=== PATIENT | female | born 1970 | race Caucasian/White ===

== ENCOUNTER 2020-03-08 11:05 | Emergency (ER) | payer BC, SELFPAY ==
[2020-03-08 11:07] VITALS: BP 143/75; PULSE 53; RESP 16; TEMP 36.2; O2SAT 98; BMI 41.5
--- NOTE | 2020-03-08 11:18 | NURSING ---
NO OLD EKGS
[2020-03-08 11:26] LABS: Bedside Glucose 103 mg/dL (70-110)
--- NOTE | 2020-03-08 11:26 | EKG12_ITS ---
Test Reason : HEADACHE DIZZINESS Blood Pressure : / mmHG Vent. Rate : 050 BPM Atrial Rate : 050 BPM P-R Int : 172 ms QRS Dur : 084 ms QT Int : 468 ms P-R-T Axes : 026 -14 016 degrees QTc Int : 426 ms Sinus bradycardia Otherwise normal ECG Confirmed by JELENA SILVERIO, HECTOR ([id number]), commissioning editor DELFIN MG ([id number]) on 03/14/2020 8:39:52 AM Referred By: GUS Confirmed By:HECTOR BOWLES MD
--- NOTE | 2020-03-08 11:46 | ED.VIS.GEN ---
History of Present Illness Chief Complaint: Headache Informant: Patient Narrative: Patient is a 49-year-old female with a past medical history of hypothyroidism, diabetes who presents to the emergency department for headache, feeling off and having nausea. Her headache started yesterday. She currently rates as a 6 out of 10. She tried taking Tylenol for it which did not really help. This did not come on suddenly. No head trauma. She denies any vision changes or issues with speech. No weakness or loss of sensation in any extremity. She denies any recent illnesses including any cough, cold, congestion. No fevers or chills. No neck stiffness. She feels like the off sensation is a lightheadedness although she does not feel that she is going to pass out. No room spinning sensation. She denies having this happen before in the past. No recent changes. The last time she had her TSH checked was 1 year ago. She has had some weight gain. She denies any heat or cold intolerances. He states her heart rate is usually on the lower side. She is not had any chest pain, shortness of breath or palpitations. No leg swelling calf pain. No rashes. Past Medical History - Allergies and Home Meds Allergies/Adverse Reactions: Allergies adhesive tape Allergy (Verified 03/08/20 11:10) Rash Cephalosporins Allergy (Verified 03/08/20 11:10) Hives Penicillins Allergy (Verified 03/08/20 11:10) Hives shrimp Allergy (Verified 03/08/20 11:10) Anaphylaxis Primary Care Physician: Marilee Davis DO [STAFF PHYSICIAN] - As soon as possible Care Physician,No Primary [Primary Care Provider] - Prior records reviewed: Yes Past Medical History: - - Diabetes, hyperlipidemia, hypothyroidism Surgical History: hysterectomy, - - section, knee replacement Smoking Status: Former smoker Review of Systems All systems negative except as indicated General: Denies: Chills, Fever, Sweats Eyes: Denies: Visual changes - bilaterally, Diplopia ENT: Denies: Rhinorrhea, Sore throat Cardiovascular: Denies: Chest pain, Palpitations Respiratory: Denies: Dyspnea, Cough, Dyspnea on exertion Gastrointestinal: Denies: Abdominal pain, Nausea, Vomiting, Diarrhea, Melena Genitourinary: Denies: Dysuria, Hematuria, Frequency Musculoskeletal: Denies: Back pain, Extremity Pain Skin: Denies: Rash, Wounds Neurological: Reports: Headache. Denies: Weakness, Numbness Endocrine: Denies: Heat intolerance, Cold intolerance Hematologic: Denies: Easy bruising, Easy bleeding Physical Exam Vital Signs/Narrative: Vital Signs Temp Pulse Resp BP Pulse Ox 03/08/20 11:07 97.1 F L 53 L 16 143/75 H 98 Inital Vital Signs reviewed: Yes General: Well nourished, Well developed, No Acute Distress Head: Normocephalic, Atraumatic Eyes: Perrl, EOMI, - - No nystagmus appreciable ENT: Moist mucous membranes, No rhinorrhea Neck: Supple, Nontender Cardiovascular: Regular rate, Regular rhythm, No murmurs Respiratory: No distress, CTA bilaterally, Chest nontender Abdomen: Soft, Nontender, Nondistended, Normal bowel sounds Back: Nontender, Normal Inspection Extremities: Nontender, No edema Skin: Normal color, No rash Neurological: Alert, Oriented x3, Cranial nerves II-XII grossly intact, Normal Strength, Normal Sensation, - - Normal sldahj-mm-mqmr, normal fjwu-vx-wkss test. Psychological: Normal affect, Normal Mood Diagnostic/Tx/Re-eval - Medical Decision Making Patient presents to the [facility] for headache and nausea. States that she feels off. Upon arrival to the [facility] department vital signs within normal limits except she is borderline bradycardic. Will check basic lab work as she is never felt like this before. We will give a migraine cocktail. Otherwise physical exam is benign and she appears in no acute distress. Basic lab work obtained which did not reveal any significant abnormality. TSH within normal limits. Patient given migraine cocktail and she is feeling much better. Still having some very mild nausea. Whenever I went to reassess the patient she did disclose that she ran out of her lisinopril, Crestor and Effexor on Thursday. I believe that some of her symptoms could be related to stopping the Effexor suddenly. I did write a prescription as she does not currently have a PCP as he just recently moved from [place]. I did give her a PCP from the doc list. At this time patient does feel comfortable going home. Will discharge home in stable condition. Warning signs and symptoms for which to return to the [facility] department are reviewed. She understands and is agreeable with this plan. ED Disposition - Plan for ED Patient: Disposition: Home or Assisted Living Diagnosis: Headache, Nausea Instructions: ED Headache Unspecified, ED Nausea Vomiting Adult Prescriptions: Rosuvastatin Calcium [Crestor] 20 mg PO QHS 30 Days #30 tab Transmission Status: Received by DORA WYATT RD Venlafaxine HCl [Effexor Xr] 75 mg PO DAILY 30 Days #30 cap.er.24h Transmission Status: Received by DORA WYATT RD Lisinopril 5 mg PO DAILY 30 Days #30 tab Transmission Status: Received by DORA WYATT RD Referrals: Care Physician,No Primary [Primary Care Provider] - Marilee Davis DO [STAFF PHYSICIAN] - As soon as possible
[2020-03-08] MEDS: DiphenhydrAMINE 50 MG/ML Syringe 25 MG IV (11:51)
[2020-03-08] MEDS: Ketorolac 15 MG/ML Vial IV (11:52)
[2020-03-08] MEDS: Metoclopramide 10 MG/2 ML Vial 5 MG IV (11:52)
[2020-03-08 11:58] LABS: Absolute Lymphocyte Count 1.83 X10^3/uL (0.83-4.51); Absolute Neutrophil Count 7.4 X10^3/uL (2.0-7.7); Basophil# 0.05 X10^3/uL; Basophil% 0.5 % (0-1); Eosinophil# 0.38 X10^3/uL; Eosinophils% 3.7 % (0-5); Hemoglobin 14.3 g/dL (12.0-15.0); Lymphocyte # 1.83 X10^3/ul (4.0); Lymphocyte % 17.7 % (19-41); Mean Corp Hgb Conc 31.8 g/dL (32-36); Mean Corpuscular Hgb 28.2 pg (27.0-32.0); Mean Corpuscular Volume 88.8 fL (81-99); Mean Platelet Vol. 9.7 fl (6.2-12.0); Monocyte# 0.66 X10^3/uL; Monocyte% 6.4 % (0-10); NRBC Flagged by Analyzer 0 % (0-5); Neutrophil # 7.39 X10^3/uL (2.7-7.7); Neutrophil % 71.5 % (47-70); Platelet Count 284 K/mm3 (150-450); RBC Distribution Width CV 13.9 % (11.6-14.6); RBC Distribution Width SD 44.7 fl (35.1-43.9); Red Blood Count 5.07 M/mm3 (4.2-5.4); White Blood Count 10.3 K/mm3 (4.4-11.0)
[2020-03-08 12:13] LABS: Anion Gap 2 (5-15); BUN 12 mg/dL (7-18); BUN/Creat Ratio 18.4 RATIO (10-20); Calcium,Total 8.9 mg/dL (8.5-10.1); Chloride 105 mmol/L (98-107); Creatinine, Serum 0.65 mg/dL (0.55-1.02); EST Glomerular Filtration Rate 102 mL/min (>60); Est Glom Filt Rate - Afr Amer 123 mL/min (>60); Estimated Creatinine Clearance 100.69 ml/min; Glucose 104 mg/dL (74-106); Magnesium 2.1 mg/dL (1.6-2.6); Potassium 3.7 mmol/L (3.5-5.1); Sodium Level 139 mmol/L (136-145); Thyroid Stim Hormone (TSH) 1.81 uIU/mL (0.358-3.74)
[2020-03-08 12:45] LABS: Bacteria 0 SEEN /hpf (None Seen); Mucous, Urine 0 SEEN /hpf (<or=2+); Red Blood Cells-Urine 0 SEEN /hpf (0-5); White Blood Cells 0 SEEN /hpf (0-5)
[2020-03-08] MEDS: Ondansetron 4 MG/2 ML Vial IV (12:49)
[2020-03-08 12:50] LABS: Color, Urine Yellow (Yellow); Glucose, Dipstick 1000 mg/dl (Normal); Ketone-Dipstick Negative (Negative); Leukocyte Esterase-Dipstick Negative /ul (Negative); Nitrite-Dipstick Negative (Negative); Occult Blood-Urine Negative /ul (Negative); Protein-Dipstick Negative (Negative); Specific Gravity, Urine 1.015 (1.002-1.030); Urine Bilirubin Dipstick Negative (Negative); Urine Clarity Clear (Clear); Urine Urobilinogen Normal (Normal)
[2020-03-08 12:56] LABS: Squamous Epithelial Cells - UA 5-10 SEEN /hpf (5-10)
[2020-03-08 13:25] VITALS: PULSE 62; RESP 18
[2020-03-08 13:26] VITALS: PULSE 62
== END 2020-03-08 13:26 | disposition home or self-care (01) ==
PROVIDERS: Emergency Provider Emergency Medicine
DX: R51 Headache (principal); R42 Dizziness and giddiness; R11.0 Nausea; E11.9 Type 2 diabetes mellitus without complications; E78.5 Hyperlipidemia, unspecified; E03.9 Hypothyroidism, unspecified; Z79.84 Long term (current) use of oral hypoglycemic drugs; Z79.899 Other long term (current) drug therapy; Z87.891 Personal history of nicotine dependence
CPT/HCPCS: 80048; 81001; 82962; 83735; 84443; 84484; 85025; 93005; 96374; 96375; 99282; J7030; A4216; J2405

== ENCOUNTER → 2020-07-31 | Outpatient (CLI) | payer BC, SELFPAY ==
[2020-07-31 14:30] VITALS: BMI 43.0
[2020-07-31 15:02] LABS: Mucous, Urine 0 SEEN /hpf (<or=2+); Red Blood Cells-Urine 0 SEEN /hpf (0-5)
[2020-07-31 16:56] LABS: Color, Urine Yellow (Yellow); Glucose, Dipstick 1000 mg/dl (Normal); Ketone-Dipstick Negative (Negative); Leukocyte Esterase-Dipstick Negative /ul (Negative); Nitrite-Dipstick Negative (Negative); Occult Blood-Urine 10 /ul (Negative); Protein-Dipstick Negative (Negative); Specific Gravity, Urine 1.015 (1.002-1.030); Urine Bilirubin Dipstick Negative (Negative); Urine Clarity Sl Cloudy (Clear); Urine Urobilinogen Normal (Normal)
[2020-07-31 17:09] LABS: Squamous Epithelial Cells - UA 0-5 SEEN /hpf (5-10)
[2020-07-31 17:10] LABS: Bacteria 1+ /hpf (None Seen); White Blood Cells 0-5 SEEN /hpf (0-5)
== END | disposition home or self-care (01) ==
LOC: LABSPEC 15:01
PROVIDERS: PCP Internal Medicine; Referring Provider Nurse Practitioner Family; Visit Provider Nurse Practitioner Family
DX: R10.2 Pelvic and perineal pain (principal)
CPT/HCPCS: 81001; 87086; 87088

== ENCOUNTER → 2020-09-24 09:02 | Outpatient (CLI) | payer BC, SELFPAY ==
[2020-09-24 09:01] VITALS: BMI 41.5
[2020-09-24 12:50] LABS: ALB/GLOB Ratio 1.2 RATIO (0.9-2.4); AST(SGOT) 17 U/L (15-37); Alanine Aminotransfer ALT/SGPT 29 U/L (13-56); Albumin, Serum 3.7 g/dL (3.2-5.0); Alkaline Phosphatase 98 U/L (45-117); Anion Gap 7 (5-15); BUN 19 mg/dL (7-18); BUN/Creat Ratio 30.5 RATIO (10-20); Chloride 101 mmol/L (98-107); Cholesterol 162 mg/dL (200); Creatinine, Serum 0.62 mg/dL (0.55-1.02); EST Glomerular Filtration Rate 107 mL/min (>60); Est Glom Filt Rate - Afr Amer 130 mL/min (>60); Globulin 3.1 g/dL (2.2-4.2); Glucose 86 mg/dL (74-106); High Density Lipoprotein 61 mg/dL; Potassium 4.2 mmol/L (3.5-5.1); Protein, Total 6.8 g/dL (6.4-8.2); Sodium Level 137 mmol/L (136-145); Thyroid Stim Hormone (TSH) 0.52 uIU/mL (0.358-3.74); Triglycerides 134 mg/dL; Very Low Density Lipoprotein 27 mg/dL (5-40)
[2020-09-24 12:52] LABS: Microalbumin,Random Urine 5.5 mg/L (NO RANGE EST.); Microalbumin:Creatinine Ratio 9.1 mg/g CRE (<30 mg/g CRE)
== END ==
PROVIDERS: PCP Internal Medicine; Referring Provider Internal Medicine; Visit Provider Internal Medicine
DX: E11.9 Type 2 diabetes mellitus without complications (principal); E03.9 Hypothyroidism, unspecified
CPT/HCPCS: 36415; 80053; 80061; 82043; 82570; 84443

== ENCOUNTER → 2020-10-04 | Outpatient (CLI) | payer BC, SELFPAY ==
[2020-10-04 09:07] VITALS: BMI 44.5
[2020-10-09 15:29] LABS: HPV APTIMA, High Risk Negative (Negative)
== END | disposition home or self-care (01) ==
PROVIDERS: PCP Internal Medicine; Referring Provider Nurse Practitioner Women's Health; Visit Provider Nurse Practitioner Women's Health
DX: N89.8 Other specified noninflammatory disorders of vagina (principal); Z12.4 Encounter for screening for malignant neoplasm of cervix
CPT/HCPCS: 87070; 87077; 87205; 87624; 88175; G0145

== ENCOUNTER → 2020-10-09 09:18 | Outpatient (CLI) | payer BC, SELFPAY ==
[2020-10-09 08:52] VITALS: BMI 43.5
[2020-10-09 12:15] LABS: Absolute Lymphocyte Count 1.74 X10^3/uL (0.83-4.51); Absolute Neutrophil Count 5.7 X10^3/uL (2.0-7.7); Basophil# 0.06 X10^3/uL; Basophil% 0.7 % (0-1); Eosinophil# 0.37 X10^3/uL; Eosinophils% 4.4 % (0-5); Hematocrit 46.1 % (37-47); Hemoglobin 14.3 g/dL (12.0-15.0); Lymphocyte # 1.74 X10^3/ul (4.0); Lymphocyte % 20.5 % (19-41); Mean Corpuscular Hgb 27.3 pg (27.0-32.0); Mean Corpuscular Volume 88.1 fL (81-99); Mean Platelet Vol. 9.9 fl (6.2-12.0); Monocyte# 0.57 X10^3/uL; Monocyte% 6.7 % (0-10); NRBC Flagged by Analyzer 0 % (0-5); Neutrophil # 5.72 X10^3/uL (2.7-7.7); Neutrophil % 67.5 % (47-70); Platelet Count 303 K/mm3 (150-450); RBC Distribution Width CV 14.2 % (11.6-14.6); RBC Distribution Width SD 45.4 fl (35.1-43.9); Red Blood Count 5.23 M/mm3 (4.2-5.4); White Blood Count 8.5 K/mm3 (4.4-11.0)
== END ==
PROVIDERS: PCP Internal Medicine; Visit Provider Internal Medicine
DX: Z00.00 Encounter for general adult medical examination without abnormal findings (principal)
CPT/HCPCS: 36415; 85025

== ENCOUNTER → 2020-10-23 10:26 | Outpatient (CLI) | payer BC, SELFPAY ==
[2020-10-04 09:07] VITALS: BMI 44.5
[2020-10-09 08:52] VITALS: BMI 43.5
--- NOTE | 2020-10-23 10:28 | BI_ITS ---
MAMMOGRAPHY - BILATERAL SCREENING REASON FOR EXAM: Female, 50 years old. Routine annual screening examination. PERTINENT HISTORY: Non-contributory. TECHNIQUE: Digital bilateral breast janessa (3D mammographic acquisition) in the CC and MLO projections. 2-D mediolateral oblique (MLO) and craniocaudad (CC) views of both breasts were obtained. CAD: Full Field Digital Mammography with Computer Added Detection was performed. COMPARISON: No comparison mammograms available at this time. If any prior films become available, an addendum to this report can be generated. FINDINGS: Breast Composition: The breasts are almost entirely fatty. There are no dominant masses or suspicious calcifications. There is a 7.8 mm x 8.2 mm well-defined nodule in the slightly upper medial anterior aspect of the right breast. Correlation with ultrasound is recommended. No other significant abnormalities are identified. BI/SCRN MAMM (CAD)W/JANESSA BILAT IMPRESSION: 7.8 mm x 8.2 mm well-defined nodule in the slightly upper medial anterior aspect of the right breast correlation with ultrasound is recommended. ASSESSMENT CATEGORY: BIRADS Category 0: Incomplete. Need additional imaging evaluation. A letter regarding these results will be sent to the patient by the facility within 30 days. Approximately 10% of breast cancers are not detected by mammography. A normal mammogram should not delay biopsy of a clinically suspicious abnormality. [id number] Electronically Signed: Mundo Francois MD at 8:31 EDT , Service support ,
== END ==
PROVIDERS: PCP Internal Medicine; Referring Provider Nurse Practitioner Women's Health; Visit Provider Nurse Practitioner Women's Health
DX: Z12.31 Encounter for screening mammogram for malignant neoplasm of breast (principal)
CPT/HCPCS: 77063; 77067

== ENCOUNTER → 2020-11-07 09:45 | Outpatient (CLI) | payer BC, SELFPAY ==
[2020-10-30 09:22] VITALS: BMI 43.5
--- NOTE | 2020-11-07 09:51 | US_ITS ---
STUDY: ULTRASOUND BREAST - RIGHT REASON FOR EXAM: Female, 50 years old. Abnormal screening mammogram. TECHNIQUE: Axial and longitudinal images of the RIGHT breast were performed with a high resolution ultrasound transducer. # OF IMAGES: 17 COMPARISON: Comparison is made with prior mammogram dated 10/23/2020. FINDINGS: RIGHT Breast: The mammographic abnormality corresponds to a 4 mm x 6 mm x 3 mm well-circumscribed hypoechoic nodule at the 1 o''clock position of the breast at 5 cm from the nipple. This is not a typical cyst. A biopsy recommended. US/Breast Limited Unilateral IMPRESSION: 4 mm x 6 mm x 2 mm well-circumscribed hypoechoic nodule at the 1 o''clock position of the breast at 5; some nipple. This is not a typical cyst. Biopsy is recommended. ASSESSMENT CATEGORY: BIRADS Category 4: Suspicious - Biopsy Should Be Considered. A letter regarding these results will be sent to the patient by the facility within 30 days. Electronically Signed: Mundo Francois MD at 14:48 EDT , Service support ,
== END ==
PROVIDERS: PCP Internal Medicine; Referring Provider Nurse Practitioner Women's Health; Visit Provider Nurse Practitioner Women's Health
DX: N63.10 Unspecified lump in the right breast, unspecified quadrant (principal)
CPT/HCPCS: 76642

== ENCOUNTER → 2020-11-13 13:10 | Outpatient (CLI) | payer BC, SELFPAY ==
[2020-11-09 14:21] VITALS: BMI 43.7
--- NOTE | 2020-11-13 13:12 | US_ITS ---
STUDY: ULTRASOUND GUIDED BREAST BIOPSY REASON FOR EXAM: Female, 50 years old. Right breast mass TECHNIQUE: Sonographically guided mammotome biopsy COMPARISON: 11/07/2020 FINDINGS: Ultrasound evaluation of the right breast was performed and again shows the hypoechoic mass, in the area of concern, 1 o''clock position, 5 cm from the nipple. Under sonographic guidance, multiple mammotome samples of this lesion were obtained, and a clip left in the site of biopsy. Patient tolerated the procedure well with no immediate complications. US/US Breast Biopsy 1st Lesion IMPRESSION: Ultrasound-guided mammotome biopsy of a right breast lesion Electronically Signed: Jonnie Desouza MD at 15:36 EDT , Service support ,
--- NOTE | 2020-11-13 13:50 | BRBX_PTH ---
PATIENT: JACKIE MAHARAJ LOC: [facility] U#:[id number] AGE/SX: 54/F ROOM: RE11/13/[address]: Dr. Merlene Chang MD : 1970 BED: DIS: SPEC #: [id number] RECD: 11/13/20 14:26 STATUS: GIANNA REQ #: [id number] UZAIR: 11/13/20 13:[address]: Merlene Chang DEPT: SURGICAL PATHOLOGY RECD BY: Dasia Man ENTERED: 11/14/20 08:35 SP TYPE: BREAST BX OTHR DR: Dr. Marissa Coles MD Tissues: Breast, NOS Procedures: Surgery Specimen Level IV HEADER OPERATION: Ultrasound-guided breast biopsy PRE-OP DIAGNOSIS: Right breast mass 1 o'clock, 6 cm from nipple TISSUE SUBMITTED: Right breast 1 o'clock, 6 cm from nipple ISCHEMIC TIME: 1 minute FIXATION TIME: 29.5 hours MICROSCOPIC DIAGNOSIS Right breast mass, 1 o'clock, 6 cm from nipple, ultrasound-guided core biopsy: Consistent with hyalinized fibroadenoma. Negative for atypia or malignancy. See comment. DEVI:[email or web address] 11/15/2020 COMMENT Correlation with clinical, radiologic findings and appropriate follow up are necessary. MICROSCOPIC DESCRIPTION Slides are reviewed. GROSS DESCRIPTION Received in fixative is one container labeled with the patient name and designated right breast. The specimen consists of multiple elongated fragments of wiggins-yellow fibroadipose tissue that in aggregate measure 2.5 x 1.2 x 0.1 cm. The entire specimen is submitted in one cassette. / DEVI:massiel 11/14/20 TC:1 CPT: 24392
[2020-11-13 14:00] VITALS: BP 101/71; PULSE 68; RESP 18; O2SAT 95
--- NOTE | 2020-11-13 14:03 | OP.PCM_ITS ---
Report of Operation Date of Procedure: 11/13/20 Pre-Operative Diagnosis: Right breast mass 1:00 6 cm from the nipple Post-Operative Diagnosis: Same Surgery/Procedure Performed:: Ultrasound-guided right breast biopsy Type of Anesthesia:: Local Specimen's removed: Right breast mass 1:00 6 cm from the nipple Estimated Blood Loss (mL): Minimal Description of Procedure: Procedure: Right ultrasound-guided core biopsy Indications: 50 year-old female with the hypoechoic solid nodule at 1:00 in the right breast 6 cm from the nipple. Risk benefits were discussed the patient and she elected to proceed with ultrasound guided core biopsy with clip placement Description of procedure: Patient was brought into the ultrasound room in the right breast was marked. A timeout was completed verifying correct patient, procedure, site, specially, prior to beginning procedure. The right breast was prepped and draped in usual sterile fashion and using local anesthesia was obta ined with 1% lidocaine with epi. The lesion was located with the ultrasound. Small incision was made with 11 blade to introduced the mammotome through the skin. Under ultrasound guidance multiple core samples were obtained using then 13-gauge mammotome and sent in formalin for pathology. The mammotome mammostar clip was then deployed into the biopsy cavity under ultrasound guidance and a picture was taken. Upon completion procedure hemostasis was obtained and a Steri-Strip and OpSite were placed. The patient tolerated the procedure well and was discharged from the breast imaging department good condition. Patient was then taken to the mammography suite for clip verification. The clip was verified. The patient tolerated the procedure well and was discharged from the breast imaging department good condition. complications: none - Complications none
== END ==
PROVIDERS: PCP Internal Medicine; Referring Provider Surgery; Visit Provider Surgery
DX: N63.10 Unspecified lump in the right breast, unspecified quadrant (principal)
CPT/HCPCS: 19083; 88305

== ENCOUNTER → 2021-04-02 15:43 | Outpatient (CLI) | payer BC, SELFPAY ==
[2021-04-02 16:46] LABS: Anion Gap 5 (5-15); BUN 9 mg/dL (7-18); BUN/Creat Ratio 13.4 RATIO (10-20); Calcium,Total 8.7 mg/dL (8.5-10.1); Chloride 104 mmol/L (98-107); Creatinine, Serum 0.67 mg/dL (0.55-1.02); EST Glomerular Filtration Rate 98 mL/min (>60); Est Glom Filt Rate - Afr Amer 119 mL/min (>60); Glucose 98 mg/dL (74-106); Potassium 3.8 mmol/L (3.5-5.1); Sodium Level 140 mmol/L (136-145)
[2021-04-02 16:52] LABS: Hemoglobin A1c 6.3 % (3.8-5.6)
== END ==
PROVIDERS: PCP Internal Medicine; Referring Provider Internal Medicine; Visit Provider Internal Medicine
DX: E11.9 Type 2 diabetes mellitus without complications (principal)
CPT/HCPCS: 36415; 80048; 83036

== ENCOUNTER 2021-10-02 09:30 | Outpatient (CLI) | payer BC, SELFPAY ==
[2021-10-02 12:19] LABS: Absolute Lymphocyte Count 1.69 X10^3/uL (0.83-4.51); Absolute Neutrophil Count 4.7 X10^3/uL (2.0-7.7); Basophil# 0.05 X10^3/uL; Basophil% 0.7 % (0-1); Eosinophil# 0.24 X10^3/uL; Eosinophils% 3.4 % (0-5); Hematocrit 44.3 % (37-47); Hemoglobin 13.9 g/dL (12.0-15.0); Lymphocyte # 1.69 X10^3/ul (0.83-4.51); Lymphocyte % 23.6 % (19-41); Mean Corp Hgb Conc 31.4 g/dL (32-36); Mean Corpuscular Hgb 27.2 pg (27.0-32.0); Mean Corpuscular Volume 86.7 fL (81-99); Mean Platelet Vol. 10.5 fl (6.2-12.0); Monocyte# 0.42 X10^3/uL; Monocyte% 5.9 % (0-10); NRBC Flagged by Analyzer 0 % (0-5); Neutrophil # 4.73 X10^3/uL (2.7-7.7); Neutrophil % 66.1 % (47-70); Platelet Count 349 K/mm3 (150-450); RBC Distribution Width SD 44.5 fl (35.1-43.9); Red Blood Count 5.11 M/mm3 (4.2-5.4); White Blood Count 7.2 K/mm3 (4.4-11.0)
[2021-10-02 12:47] LABS: AST(SGOT) 18 U/L (15-37); Alanine Aminotransfer ALT/SGPT 35 U/L (13-56); Albumin, Serum 3.7 g/dL (3.2-5.0); Alkaline Phosphatase 92 U/L (45-117); Anion Gap 6 (5-15); BUN 17 mg/dL (7-18); BUN/Creat Ratio 22.4 RATIO (10-20); Calcium,Total 9.3 mg/dL (8.5-10.1); Chloride 106 mmol/L (98-107); Cholesterol 150 mg/dL (200); Creatinine, Serum 0.76 mg/dL (0.55-1.02); EST Glomerular Filtration Rate 85 mL/min (>60); Est Glom Filt Rate - Afr Amer 103 mL/min (>60); Globulin 3.6 g/dL (2.2-4.2); Glucose 80 mg/dL (74-106); High Density Lipoprotein 61 mg/dL; Potassium 4.2 mmol/L (3.5-5.1); Protein, Total 7.3 g/dL (6.4-8.2); Sodium Level 140 mmol/L (136-145); Triglycerides 106 mg/dL; Very Low Density Lipoprotein 21 mg/dL (5-40)
== END 2021-10-02 23:59 | disposition home or self-care (01) ==
LOC: BIMLAB 09:30
PROVIDERS: PCP Internal Medicine; Referring Provider Internal Medicine; Visit Provider Internal Medicine
DX: E11.69 Type 2 diabetes mellitus with other specified complication (principal); I10 Essential (primary) hypertension; E78.5 Hyperlipidemia, unspecified; E03.9 Hypothyroidism, unspecified
CPT/HCPCS: 36415; 80053; 80061; 84443; 85025

== ENCOUNTER 2021-10-29 10:25 | Outpatient (CLI) | payer BC, SELFPAY ==
--- NOTE | 2021-10-29 10:27 | BI_ITS ---
MAMMOGRAPHY - BILATERAL SCREENING REASON FOR EXAM: Female, 51 years old. Routine annual screening examination. PERTINENT HISTORY: Non-contributory. TECHNIQUE: Digital bilateral breast janessa (3D mammographic acquisition) in the CC and MLO projections. 2-D mediolateral oblique (MLO) and craniocaudad (CC) views of both breasts were obtained. CAD: Full Field Digital Mammography with Computer Added Detection was performed. COMPARISON: Comparison is made with prior study 10/23/2020. FINDINGS: Breast Composition: The breasts are almost entirely fatty. There are no dominant masses or suspicious calcifications. A patient marker is seen within a 7.7 mm nodule in the slightly upper medial aspect of the right breast. No other significant abnormalities are identified. There has been no significant change since the prior study. BI/SCRN MAMM (CAD)W/JANESSA BILAT IMPRESSION: Stable bilateral screening mammogram. Yearly follow-up mammogram recommended. (A) ASSESSMENT CATEGORY: BIRADS Category 2: Benign. A letter regarding these results will be sent to the patient by the facility within 30 days. Approximately 10% of breast cancers are not detected by mammography. A normal mammogram should not delay biopsy of a clinically suspicious abnormality. [id number] Electronically Signed: Mundo Francois MD at 12:20 EDT ,
== END 2021-10-29 23:59 | disposition home or self-care (01) ==
LOC: OPBI 10:26
PROVIDERS: PCP Internal Medicine; Visit Provider Nurse Practitioner Women's Health
DX: Z12.31 Encounter for screening mammogram for malignant neoplasm of breast (principal)
CPT/HCPCS: 77063; 77067

== ENCOUNTER → 2022-08-25 | Outpatient (CLI) | payer BC, SELFPAY ==
[2022-08-25 12:01] LABS: Absolute Lymphocyte Count 1.67 X10^3/uL (0.83-4.51); Absolute Neutrophil Count 3.6 X10^3/uL (2.0-7.7); Basophil# 0.05 X10^3/uL; Basophil% 0.8 % (0-1); Eosinophil# 0.54 X10^3/uL; Eosinophils% 8.5 % (0-5); Hematocrit 43.3 % (37-47); Hemoglobin 13.7 g/dL (12.0-15.0); Lymphocyte # 1.67 X10^3/ul (0.83-4.51); Lymphocyte % 26.3 % (19-41); Mean Corp Hgb Conc 31.6 g/dL (32-36); Mean Corpuscular Hgb 27.5 pg (27.0-32.0); Mean Corpuscular Volume 86.9 fL (81-99); Monocyte# 0.46 X10^3/uL; Monocyte% 7.2 % (0-10); NRBC Flagged by Analyzer 0 % (0-5); Neutrophil # 3.61 X10^3/uL (2.7-7.7); Neutrophil % 56.9 % (47-70); Platelet Count 302 K/mm3 (150-450); RBC Distribution Width CV 13.6 % (11.6-14.6); RBC Distribution Width SD 42.8 fl (35.1-43.9); Red Blood Count 4.98 M/mm3 (4.2-5.4); White Blood Count 6.4 K/mm3 (4.4-11.0)
[2022-08-25 12:38] LABS: ALB/GLOB Ratio 1.1 RATIO (0.9-2.4); AST(SGOT) 15 U/L (15-37); Alanine Aminotransfer ALT/SGPT 34 U/L (13-56); Albumin, Serum 3.5 g/dL (3.2-5.0); Alkaline Phosphatase 75 U/L (45-117); Anion Gap 7 (5-15); BUN 17 mg/dL (7-18); BUN/Creat Ratio 26.7 RATIO (10-20); Calcium,Total 8.7 mg/dL (8.5-10.1); Chloride 105 mmol/L (98-107); Cholesterol 153 mg/dL (200); Creatinine, Serum 0.64 mg/dL (0.55-1.02); EST Glomerular Filtration Rate 104 mL/min (>60); Est Glom Filt Rate - Afr Amer 126 mL/min (>60); Globulin 3.3 g/dL (2.2-4.2); Glucose 105 mg/dL (74-106); High Density Lipoprotein 62 mg/dL; Potassium 4.2 mmol/L (3.5-5.1); Protein, Total 6.8 g/dL (6.4-8.2); Sodium Level 140 mmol/L (136-145); Thyroid Stim Hormone (TSH) 0.59 uIU/mL (0.358-3.74); Triglycerides 107 mg/dL; Very Low Density Lipoprotein 21 mg/dL (5-40)
== END | disposition home or self-care (01) ==
LOC: BIMLAB 08:52
PROVIDERS: PCP Internal Medicine; Referring Provider Internal Medicine; Visit Provider Internal Medicine
DX: I10 Essential (primary) hypertension (principal); E11.9 Type 2 diabetes mellitus without complications; E03.9 Hypothyroidism, unspecified
CPT/HCPCS: 36415; 80053; 80061; 84443; 85025

== ENCOUNTER → 2022-08-26 | Outpatient (CLI) | payer BC, SELFPAY ==
[2022-08-26 12:55] LABS: Microalbumin,Random Urine 8.4 mg/L (NO RANGE EST.); Microalbumin:Creatinine Ratio 7.1 mg/g CRE (<30 mg/g CRE)
== END | disposition home or self-care (01) ==
LOC: LABSPEC 08:45
PROVIDERS: PCP Internal Medicine; Referring Provider Internal Medicine; Visit Provider Internal Medicine
DX: E11.9 Type 2 diabetes mellitus without complications (principal)
CPT/HCPCS: 82043; 82570

== ENCOUNTER 2022-10-27 07:36 | Emergency (ER) | payer BC, SELFPAY ==
[2022-10-27 07:37] VITALS: BP 107/81; PULSE 78; RESP 16; TEMP 36.4; O2SAT 98; BMI 41.5
--- NOTE | 2022-10-27 07:56 | RAD_ITS ---
EXAM: XR LUMBOSACRAL SPINE, 2 OR 3 VIEWS CLINICAL INDICATION: Twisted and felt pain into left hip. TECHNIQUE: Frontal and lateral views of the lumbar spine and sacrum. This report was created using LATTO report TIKI.VN technology. COMPARISON: None. FINDINGS: VERTEBRAE: Minimal anterior wedging of T11 vertebral bodies presumably from remote injury. Preservation of the normal lumbar lordosis. Normal vertebral body heights of the lumbar spine. Normal alignment. Normal facet joints. DISC SPACES: Normal lumbar disc space heights. GASTROINTESTINAL TRACT: Unremarkable as visualized. Included bowel gas pattern is non-obstructive. RAD/Lumbar Spine 2 or 3 Views IMPRESSION: 1. Minimal anterior wedging of T11 vertebral body is presumably from remote injury. 2. Normal lumbar spine. Electronically Signed: Kan Lawrence MD at 9:25 EDT ,
--- NOTE | 2022-10-27 07:57 | ED.VIS.BACK ---
HPI History of Present Illness Chief Complaint: Back Narrative Narrative: 52-year-old female past medical history of hypertension, diabetes, IBS, states she had a Archana-en-Y procedure remotely presents with injury to her left low back that she sustained on Thursday, 4 days ago. She took one of her husbands meloxicam, and has been taking Tylenol with mild relief of her symptoms. However, this morning she woke with increasing pain on the left side. She is currently using a cane to ambulate. She initially injured her left low back when she let the dogs out of their cage, and twisted incorrectly. While she states that she had almost immediate pain in that area, it was improving with a heating pad and Tylenol. She denies any fevers or chills. No nausea or vomiting. No loss of bowel or bladder, no saddle anesthesia. The pain does not radiate down her leg, however when she moves her left leg she feels tightness in her left low back. [facility] Medical History Asthma Bilateral shoulder pain Coccyx pain Diabetes Fibroadenoma of right breast Hormone deficiency Hyperlipemia Hypertension Hypothyroidism IBS (irritable bowel syndrome) Macromastia Seasonal allergies Uterine fibroid Home Medications ascorbic acid (vitamin C) 1,000 mg tablet,extended release 1,000 mg PO Q12H 03/29/20 [History Last Taken Unknown] calcium-vitamin D3-vitamin K 500 mg-100 unit-40 mcg chewable tablet 1 tab PO DAILY 03/29/20 [History Last Taken Unknown] cholecalciferol (vitamin D3) 10 mcg (400 unit) capsule 10 mcg PO DAILY 03/29/20 [History Last Taken Unknown] coenzyme Q10 75 mg capsule (Co Q-10) 75 mg PO DAILY 03/29/20 [History Last Taken Unknown] ferrous sulfate 325 mg (65 mg iron) tablet (Feosol) 325 mg PO DAILY 03/29/20 [History Last Taken Unknown] multivitamin 1 cap PO DAILY 03/29/20 [History Last Taken Unknown] blood-glucose meter (Accu-Chek Nithya Plus Meter) #1 ea 07/31/20 [Rx Last Taken Unknown] blood sugar diagnostic (Accu-Chek Guide test strips) #100 ea 07/23/21 [Rx Last Taken Unknown] cetirizine 10 mg capsule 10 mg PO DAILY #90 caps 10/07/21 [Rx Last Taken Unknown] empagliflozin 25 mg tablet 25 mg PO DAILY #90 tabs 08/27/22 [Rx Last Taken Unknown] levothyroxine 175 mcg tablet 175 mcg PO DAILY #90 tabs 08/27/22 [Rx Last Taken Unknown] lisinopril 5 mg tablet 5 mg PO DAILY #90 tabs 08/27/22 [Rx Last Taken Unknown] metformin 1,000 mg tablet 1,000 mg PO BID #180 tabs 08/27/22 [Rx Last Taken Unknown] rosuvastatin 20 mg tablet 20 mg PO QHS #90 tabs 08/27/22 [Rx Last Taken Unknown] venlafaxine 150 mg capsule,extended release 24 hr (Effexor XR) 150 mg PO DAILY #90 caps 08/27/22 [Rx Last Taken Unknown] dulaglutide 1.5 mg/0.5 mL subcutaneous pen injector ([employer]) See Rx Instructions .Route .COMPLEX #12 mL 09/15/22 [Rx Last Taken Unknown] cyclobenzaprine 10 mg tablet 10 mg PO TID PRN Muscle Spasm #12 TABLETS 10/27/22 [Rx Last Taken Unknown] methylprednisolone 4 mg tablets in a dose pack (Medrol (Augustus)) 4 mg PO DAILY #21 tabs 10/27/22 [Rx Last Taken Unknown] Allergy/AdvReac Type Severity Reaction Status Date / Time latex Allergy Severe rash Verified 10/27/22 07:37 aspirin Allergy Unknown unknown Verified 10/27/22 07:37 adhesive tape Allergy Rash Verified 10/27/22 07:37 Cephalosporins Allergy Hives Verified 10/27/22 07:37 Penicillins Allergy Hives Verified 10/27/22 07:37 shrimp Allergy Anaphylaxis Verified 10/27/22 07:37 Family History Father Diabetes CVA (cerebral vascular accident) Cancer skin Hypertension Heart disease Hyperlipemia Mother Heart disease Hyperlipemia Grandfather Myocardial infarction, Onset Age: 48 Uncle Alcoholism Surgical History History of History of endometrial ablation History of gastric bypass History of hysterectomy History of right knee joint replacement History of tubal ligation Hx of bilateral breast reduction surgery Social History household members: spouse and children housing: house number of children: 2 current occupational status: unemployed Smoking Status: Former smoker alcohol intake: current alcohol intake frequency: holidays/special occasions only substance use type: does not use what type of physical activity do you participate in: walking frequency: daily seatbelt use: always do you feel safe at home: Yes 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 HEENT: No sore throat. No neck pain. No loss of vision. No rhinorrhea. Cardiovascular: No chest pain. No palpitations. No pedal edema. Respiratory: No cough, no shortness of breath. Abdominal: No abdominal pain. No nausea. No vomiting. Genitourinary: No dysuria. No hematuria. Musculoskeletal: No myalgias. No arthralgias. Left low back pain. Neurologic: No headaches. No dizziness. No lightheadedness. No saddle anesthesia. No loss of bowel or bladder. No radicular symptoms. Skin: No rash. No change in color. Psychiatric: No depression. No anxiety. EXAM Physical Exam Narrative Exam Narrative: Afebrile. Vital signs noted. HEENT: Normocephalic. Atraumatic. PERRL, EOMI. Neck soft and supple. No point tenderness or step off. Cardiovascular: Regular rate and rhythm. No murmurs, rubs, or gallops appreciated. Respiratory: No tachypnea. Lungs clear to auscultation bilaterally. Gastrointestinal: Abdomen soft, nontender, with normoactive bowel sounds. No rebound or guarding. Neurological: Awake. Alert. Nonfocal, nonlateralizing. DTRs equal and symmetric patellar. Straight leg raising negative bilaterally without cross symptoms. EHL intact bilaterally. Skin: No rash. Normal color. No pallor. Musculoskeletal: No pedal edema. Full range of motion extremities. Mild tenderness to palpation left lumbar paraspinal area, no vertebral point tenderness or bony step-off, with mild tenderness in sacroiliac joint on the left. Const Vital Signs: 10/27/22 07:37 Temperature 97.6 F L Temperature Source Temporal Pulse Rate 78 Respiratory Rate 16 Blood Pressure 107/81 H Blood Pressure Mean 89 Pulse Ox 98 Oxygen Delivery Method Room Air MDM MDM MDM Narrative Medical decision making narrative: Patient denies previous, chronic problems with low back pain. I do feel that she has more of a lumbosacral strain. In the differential diagnosis is also cauda equina syndrome, but I do not feel that she has any red flag signs, and her pain is mildly reproducible. She has a normal neurological examination. X-rays were obtained of the lumbar spine and interpreted by myself. I had a lengthy discussion with the patient and her regarding analgesia. She states that she cannot take anti-inflammatories, but can take steroid such as Medrol Dosepak. I do feel that she would benefit from this given the inflammation of her left lumbar area. Regarding muscle relaxers, she is unsure if she would like a prescription for them. She did accept a dose here for analgesia, and declined use of narcotic pain medications here in the emergency department and/or for home use. She was ordered Norflex 60 mg intramuscularly. She will continue alternating heat and ice at home. I will write her prescription for Medrol Dosepak. She was told to keep an eye on her blood sugar as these tend to increase while taking steroids. She was also warned of the risk of ulcer formation. However, she does state that she has tolerated Medrol Dosepak previously. Additionally, she was written a prescription for Flexeril 10 mg tablets #12 to take as needed. I reviewed her x-rays and interpreted them as no acute fracture. I reviewed the radiology report which confirms my independent interpretation. At this point in time, I do feel she can be discharged safely home with follow-up to her primary care provider. Return instructions to the emergency department were reviewed. Disposition is discharged home in stable condition. Radiography Diagnostic Testing: Clinical Impression(s) from Imaging Studies Lumbar Spine X-Ray 10/27/22 07:56 IMPRESSION: 1. Minimal anterior wedging of T11 vertebral body is presumably from remote injury. 2. Normal lumbar spine. Electronically Signed: Kan Lawrence MD at 9:25 EDT , Discharge Plan Triage Chief Complaint: Back ED Provider: Kan Leon Dx/Rx/DC Orders Clinical Impression: Low back strain, Lumbar back pain Instructions: ED Back Sprain/Strain, ED Pain, Acute, Uncertain Cause Prescriptions: New methylprednisolone [Medrol (Augustus)] 4 mg tablets,dose pack 4 mg PO DAILY Qty: 21 0RF Rx Instructions: Take taper dose as directed cyclobenzaprine 10 mg tablet 10 mg PO TID PRN (Reason: Muscle Spasm) Qty: 12 0RF No Action ferrous sulfate [Feosol] 325 mg (65 mg iron) tablet 325 mg PO DAILY ascorbic acid (vitamin C) 1,000 mg tablet extended release 1,000 mg PO Q12H Co Q-10 75 mg capsule 75 mg PO DAILY cholecalciferol (vitamin D3) 10 mcg (400 unit) capsule 10 mcg PO DAILY multivitamin capsule 1 cap PO DAILY calcium-vitamin D3-vitamin K 500-100-40 mg-unit-mcg tablet,chewable 1 tab PO DAILY Rx Instructions: chew thoroughly before swallowing; do not swallow whole (DME) blood-glucose meter [Accu-Chek Nithya Plus Meter] Misc See Rx Instructions .ROUTE .MEDSUPPLY Qty: 1 0RF Rx Instructions: As directed, check daily type 2 DM (DME) Accu-Chek Guide test strips Strip See Rx Instructions .ROUTE .MEDSUPPLY Qty: 100 3RF Rx Instructions: check glucose daily for type 2 DM cetirizine 10 mg capsule 10 mg PO DAILY Qty: 90 3RF rosuvastatin 20 mg tablet 20 mg PO QHS Qty: 90 3RF metformin 1,000 mg tablet 1,000 mg PO BID Qty: 180 3RF lisinopril 5 mg tablet 5 mg PO DAILY Qty: 90 3RF levothyroxine 175 mcg tablet 175 mcg PO DAILY Qty: 90 3RF venlafaxine [Effexor XR] 150 mg capsule,extended release 24hr 150 mg PO DAILY Qty: 90 0RF empagliflozin 25 mg tablet 25 mg PO DAILY Qty: 90 0RF Trulicity 1.5 mg/0.5 mL pen injector See Rx Instructions .ROUTE .COMPLEX Qty: 12 0RF Dose Instruction: INJECT THE CONTENTS OF 1 PEN SUBCUTANEOUSLY ONCE A WEEK Rx Instructions: INJECT THE CONTENTS OF 1 PEN SUBCUTANEOUSLY ONCE A WEEK Primary Care Provider: Marissa Coles Referrals: Marissa Coles MD [Primary Care Provider] - 3-5 Days if not improving Activity Restrictions/Additional Instructions: Keep an eye on your blood sugars while taking methylprednisolone. Do not drive while taking muscle relaxers. Follow-up with your primary care provider in the next 3 to 5 days. Disposition Disposition: Home, Self Care
[2022-10-27] MEDS: Orphenadrine 60 MG/2 ML Ampul IM (08:06)
== END 2022-10-27 09:53 | disposition home or self-care (01) ==
PROVIDERS: Emergency Provider Emergency Medicine; PCP Internal Medicine; Visit Provider Emergency Medicine
DX: S39.012A Strain of muscle, fascia and tendon of lower back, initial encounter (principal); E11.9 Type 2 diabetes mellitus without complications; E78.5 Hyperlipidemia, unspecified; Z87.891 Personal history of nicotine dependence; I10 Essential (primary) hypertension; Z98.84 Bariatric surgery status; E03.9 Hypothyroidism, unspecified; J45.909 Unspecified asthma, uncomplicated; Z79.52 Long term (current) use of systemic steroids; Z79.899 Other long term (current) drug therapy
CPT/HCPCS: 72100; 96372; 99282

== ENCOUNTER 2022-11-13 16:52 | Emergency (ER) | payer BC, SELFPAY ==
[2022-11-13 16:53] VITALS: BP 105/76; PULSE 95; RESP 18; TEMP 36.1; O2SAT 99; BMI 41.5
--- NOTE | 2022-11-13 18:01 | EDS_ITS ---
HPI History of Present Illness Chief Complaint: Back Informant: patient Onset/Context/Timing Onset: Weeks (2) Context: Sudden Onset Injury: twisting and bending Timing: Continuous Quality: Aching Location: Lumbar and Buttock Current Severity: Moderate Maximum Severity: Moderate Worsened by: improves with Bending, Lifting and - (Lying down) Relieved by: - (Better with walking and getting around) Associated Symptoms Associated Symptoms: Negative for Numbness, Tingling, Radiation to Right Leg, Radiation to Left Leg, Fever, Abdominal Pain, Dysuria, Unable to Ambulate, Unable to Transfer, Urinary Retention, Urinary Incontinence, Constipation or Fecal Incontinence Narrative Narrative: Patient was seen here 3 days after an injury 2 weeks ago for the same symptoms, they are persistent. They are not really changing, pain is in her left low back, except it is moved into her left buttock as well, but not down her lower extremity or into the other side. No bowel or bladder dysfunction. The pain started with her simply bending over and opening a dog cage and moving the wrong way it felt like. She was prescribed prednisone and Flexeril she states those were helping but they are gone. She has had no other injuries. [facility] Medical History Asthma Bilateral shoulder pain Coccyx pain Diabetes Fibroadenoma of right breast Hormone deficiency Hyperlipemia Hypertension Hypothyroidism IBS (irritable bowel syndrome) Macromastia Seasonal allergies Uterine fibroid Home Medications ascorbic acid (vitamin C) 1,000 mg tablet,extended release 1,000 mg PO Q12H [History Last Taken Unknown] calcium-vitamin D3-vitamin K 500 mg-100 unit-40 mcg chewable tablet 1 tab PO DAILY 03/29/20 [History Last Taken Unknown] cholecalciferol (vitamin D3) 10 mcg (400 unit) capsule 10 mcg PO DAILY 03/29/20 [History Last Taken Unknown] coenzyme Q10 75 mg capsule (Co Q-10) 75 mg PO DAILY 03/29/20 [History Last Taken Unknown] ferrous sulfate 325 mg (65 mg iron) tablet (Feosol) 325 mg PO DAILY 03/29/20 [History Last Taken Unknown] multivitamin 1 cap PO DAILY 03/29/20 [History Last Taken Unknown] blood-glucose meter (Accu-Chek Nithya Plus Meter) #1 ea 07/31/20 [Rx Last Taken Unknown] blood sugar diagnostic (Accu-Chek Guide test strips) #100 ea 07/23/21 [Rx Last Taken Unknown] cetirizine 10 mg capsule 10 mg PO DAILY #90 caps 10/07/21 [Rx Last Taken Unknown] empagliflozin 25 mg tablet 25 mg PO DAILY #90 tabs 08/27/22 [Rx Last Taken Unknown] levothyroxine 175 mcg tablet 175 mcg PO DAILY #90 tabs 08/27/22 [Rx Last Taken Unknown] lisinopril 5 mg tablet 5 mg PO DAILY #90 tabs 08/27/22 [Rx Last Taken Unknown] metformin 1,000 mg tablet 1,000 mg PO BID #180 tabs 08/27/22 [Rx Last Taken Unknown] rosuvastatin 20 mg tablet 20 mg PO QHS #90 tabs 08/27/22 [Rx Last Taken Unknown] venlafaxine 150 mg capsule,extended release 24 hr (Effexor XR) 150 mg PO DAILY #90 caps 08/27/22 [Rx Last Taken Unknown] dulaglutide 1.5 mg/0.5 mL subcutaneous pen injector ([employer]) See Rx Instructions .Route .COMPLEX #12 mL 09/15/22 [Rx Last Taken Unknown] cyclobenzaprine 10 mg tablet 10 mg PO TID PRN Muscle Spasm #12 TABLETS 10/27/22 [Rx Last Taken Unknown] methylprednisolone 4 mg tablets in a dose pack (Medrol (Augustus)) 4 mg PO DAILY #21 tabs 10/27/22 [Rx Last Taken Unknown] orphenadrine citrate 100 mg tablet,extended release 100 mg PO Q12H PRN muscle spasm #14 tabs 11/13/22 [Rx Last Taken Unknown] tramadol 50 mg tablet 50 mg PO Q6H PRN pain 3 days #12 tabs 11/13/22 [Rx Last Taken Unknown] Allergy/AdvReac Type Severity Reaction Status Date / Time latex Allergy Severe rash Verified 11/13/22 16:57 aspirin Allergy Unknown unknown Verified 11/13/22 16:57 adhesive tape Allergy Rash Verified 11/13/22 16:57 Cephalosporins Allergy Hives Verified 11/13/22 16:57 Penicillins Allergy Hives Verified 11/13/22 16:57 shrimp Allergy Anaphylaxis Verified 11/13/22 16:57 Family History Father Diabetes CVA (cerebral vascular accident) Cancer skin Hypertension Heart disease Hyperlipemia Mother Heart disease Hyperlipemia Grandfather Myocardial infarction, Onset Age: 48 Uncle Alcoholism Surgical History History of History of endometrial ablation History of gastric bypass History of hysterectomy History of right knee joint replacement History of tubal ligation Hx of bilateral breast reduction surgery Social History household members: spouse and children housing: house number of children: 2 current occupational status: unemployed Smoking Status: Former smoker alcohol intake: current alcohol intake frequency: holidays/special occasions on ly substance use type: does not use what type of physical activity do you participate in: walking frequency: daily seatbelt use: always do you feel safe at home: Yes 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 history: - 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 ROS ROS ED Constitutional Constitutional ED: Denies chills or fever(s) Gastrointestinal Gastrointestinal: Denies abdominal pain, constipation, fecal incontinence, nausea or vomiting Genitourinary Genitourinary ED: Reports other Details: no urinary retention ; Denies abdominal discomfort, urinary frequency or urinary incontinence Musculoskeletal Musculoskeletal: Reports as per HPI and back pain; Denies neck pain Integumentary Denies rash or wounds Neurologic Neurologic: Denies headache(s), paresthesias or weakness EXAM Physical Exam Const Vital Signs: 11/13/22 16:53 Temperature 96.9 F L Temperature Source Temporal Pulse Rate 95 Respiratory Rate 18 Blood Pressure 105/76 Blood Pressure Mean 85 Pulse Ox 99 Oxygen Delivery Method Room Air Positive well nourished, well developed and obese General Appearance ED: well developed and NAD Nutritional Appearance: obese HEENT Negative for trauma or tenderness Eyes PERRL and EOMs intact bilaterally Neck full ROM and supple GI normal to inspection, nondistended, normoactive bowel sounds, soft to palpation and non-tender Back/Spine normal to inspection Lumbar Spine / Lower Back: ROM limited, lumbar spinal tenderness L3 and L4, paraspinal muscle tenderness left and straight leg raise negative bilaterally Extremity normal to inspection, full ROM and no pedal edema Neuro oriented x3 and no sensory deficits noted Sensorium / Orientation: alert Motor Exam: strength 5/5 throughout and clonus absent Deep Tendon Reflexes: Rt Patellar (L4): 2+, Lt Patellar (L4): 2+, Rt Ankle (S1): 2+ and Lt Ankle (S1): 2+ Deep Tendon Reflexes Back: Rt Patellar (L4): 2+, Lt Patellar (L4): 2+, Rt Ankle (S1): 2+ and Lt Ankle (S1): 2+ Plantar Reflex: Downgoing: bilateral Psych mental status grossly normal and thought process normal Skin no rashes or lesions noted and no wounds MDM MDM MDM Narrative Medical decision making narrative: I reviewed x-ray results from 2 weeks ago they were negative. I do not think these need to be repeated. Patient is having mild pain in the midline, but since she already had x-rays I think we are good there. She is having a lot of paraspinal pain and tenderness and in the area of the left SI joint. We discussed SI joint dysfunction in the differential diagnosis including muscle strain, tendon injury, ligament injury which I think are less likely given that this was low force. I am happy to prescribe her medications for supportive care which she is amenable to, I also recommend following up with either physical therapy and/or chiropractic, and we discussed lying on a tennis ball and seeing if that helps this, as often is the case with SI joint dysfunction that is mechanical. Since she had a Archana-en-Y in the past, cannot prescribe her anti-i nflammatories, and I do not think she needs more prednisone. I will give her a short course of tramadol, and a muscle relaxer that does not interact with that. She is comfortable with that overall plan of following up. History & Record Review Additional record(s) reviewed:: Prior ED visit Discharge Plan Triage Chief Complaint: Back ED Provider: Benjamín Ponce Dx/Rx/DC Orders Clinical Impression: Sacroiliac joint dysfunction of left side Instructions: Anatomy of the Sacroiliac Joint, ED Sacroiliitis Prescriptions: New tramadol 50 mg tablet 50 mg PO Q6H PRN (Reason: pain) 3 Days Qty: 12 0RF orphenadrine citrate 100 mg tablet extended release 100 mg PO Q12H PRN (Reason: muscle spasm) Qty: 14 0RF No Action ferrous sulfate [Feosol] 325 mg (65 mg iron) tablet 325 mg PO DAILY ascorbic acid (vitamin C) 1,000 mg tablet extended release 1,000 mg PO Q12H Co Q-10 75 mg capsule 75 mg PO DAILY cholecalciferol (vitamin D3) 10 mcg (400 unit) capsule 10 mcg PO DAILY multivitamin capsule 1 cap PO DAILY calcium-vitamin D3-vitamin K 500-100-40 mg-unit-mcg tablet,chewable 1 tab PO DAILY Rx Instructions: chew thoroughly before swallowing; do not swallow whole (DME) blood-glucose meter [Accu-Chek Nithya Plus Meter] Misc See Rx Instructions .ROUTE .MEDSUPPLY Qty: 1 0RF Rx Instructions: As directed, check daily type 2 DM methylprednisolone [Medrol (Augustus)] 4 mg tablets,dose pack 4 mg PO DAILY Qty: 21 0RF Rx Instructions: Take taper dose as directed cyclobenzaprine 10 mg tablet 10 mg PO TID PRN (Reason: Muscle Spasm) Qty: 12 0RF (DME) Accu-Chek Guide test strips Strip See Rx Instructions .ROUTE .MEDSUPPLY Qty: 100 3RF Rx Instructions: check glucose daily for type 2 DM cetirizine 10 mg capsule 10 mg PO DAILY Qty: 90 3RF rosuvastatin 20 mg tablet 20 mg PO QHS Qty: 90 3RF metformin 1,000 mg tablet 1,000 mg PO BID Qty: 180 3RF lisinopril 5 mg tablet 5 mg PO DAILY Qty: 90 3RF levothyroxine 175 mcg tablet 175 mcg PO DAILY Qty: 90 3RF venlafaxine [Effexor XR] 150 mg capsule,extended release 24hr 150 mg PO DAILY Qty: 90 0RF empagliflozin 25 mg tablet 25 mg PO DAILY Qty: 90 0RF Trulicity 1.5 mg/0.5 mL pen injector See Rx Instructions .ROUTE .COMPLEX Qty: 12 0RF Dose Instruction: INJECT THE CONTENTS OF 1 PEN SUBCUTANEOUSLY ONCE A WEEK Rx Instructions: INJECT THE CONTENTS OF 1 PEN SUBCUTANEOUSLY ONCE A WEEK Primary Care Provider: Marissa Coles Referrals: Marissa Coles MD [Primary Care Provider] - 1 Week if not improving (Or may follow-up with chiropracty without a physician referral) Disposition Disposition: Home, Self Care
[2022-11-13] MEDS: traMADol 50 MG Tablet PO (18:14)
== END 2022-11-13 18:17 | disposition home or self-care (01) ==
PROVIDERS: Emergency Provider Emergency Medicine; PCP Internal Medicine; Visit Provider Emergency Medicine
DX: M46.1 Sacroiliitis, not elsewhere classified (principal); E11.9 Type 2 diabetes mellitus without complications; E78.5 Hyperlipidemia, unspecified; Z87.891 Personal history of nicotine dependence; I10 Essential (primary) hypertension; X58.XXXA Exposure to other specified factors, initial encounter; Z79.899 Other long term (current) drug therapy; Z79.85 Long-term (current) use of injectable non-insulin antidiabetic drugs; E03.9 Hypothyroidism, unspecified; M25.511 Pain in right shoulder; M25.512 Pain in left shoulder
CPT/HCPCS: 99283

== ENCOUNTER → 2023-02-18 | Outpatient (CLI) | payer BC, SELFPAY ==
[2023-02-18 12:34] LABS: Anion Gap 5 (5-15); BUN 15 mg/dL (7-18); BUN/Creat Ratio 22.9 RATIO (10-20); Calcium,Total 8.7 mg/dL (8.5-10.1); Chloride 104 mmol/L (98-107); Creatinine, Serum 0.66 mg/dL (0.55-1.02); EST Glomerular Filtration Rate 100 mL/min (>60); Est Glom Filt Rate - Afr Amer 121 mL/min (>60); Glucose 91 mg/dL (74-106); Potassium 4.2 mmol/L (3.5-5.1); Sodium Level 139 mmol/L (136-145)
[2023-02-18 12:58] LABS: Hemoglobin A1c 6.7 % (3.8-5.6)
== END | disposition home or self-care (01) ==
LOC: BIMLAB 08:08
PROVIDERS: PCP Internal Medicine; Visit Provider Internal Medicine
DX: E11.9 Type 2 diabetes mellitus without complications (principal)
CPT/HCPCS: 36415; 80048; 83036

== ENCOUNTER 2023-03-15 16:46 | Emergency (ER) | payer BC, SELFPAY ==
[2023-03-15 16:46] VITALS: BP 132/85; PULSE 77; RESP 18; TEMP 36.6; O2SAT 97; BMI 43.0
--- NOTE | 2023-03-15 17:07 | EDS_ITS ---
HPI History of Present Illness HPI Narrative: 52-year-old diabetic female who was breaking up a fight between her 2 dogs on when 1 dog bit her on her left lower leg. Initially was doing well. Today she developed redness and increased discomfort. No fever. No streaks. She has had a history of cellulitis in the past after surgical wounds. Chief Complaint: Bite Informant: patient and spouse/S.O. Occured/Mechanism Mechanism/Context: Yes injury Onset/Context/Timing Onset: Days Context: Sudden Onset Timing: Continuous Location: Left lower leg redness began today. Current Severity: Mild Maximum Severity: Mild Associated Symptoms Associated Symptoms: Negative for Parasthesia, Weakness or Loss of Funtion Narrative Narrative: 52-year-old female history of diabetes is a dog bite in left lower leg since . Started getting red hemostatic today. Denies fever or chills.. Prior similar symptoms: Yes Recent Illness/Hospitalization: No ROS ROS ED ROS Narrative Denies. Review of Systems ROS Unobtainable: Denies due to encephalopathy Constitutional Constitutional ED: Denies chills or fever(s) Eyes Eyes: Denies blurry vision ENT ENT ED: Denies ear pain Cardiovascular Cardiovascular: Denies chest pain Respiratory/Chest Respiratory/Chest: Denies cough or dyspnea Gastrointestinal Gastrointestinal: Denies abdominal pain Genitourinary Genitourinary ED: Denies dysuria Musculoskeletal Musculoskeletal: Denies arthralgias Integumentary Denies abscess Neurologic Neurologic: Denies headache(s) Psychiatric Psychiatric: Denies anxiety Endocrine Endocrinology: Denies polydipsia Allergic/Immunologic Allergic/Immunologic ED: Denies mouth swelling or tongue swelling PFSH PFS Medical History Acute back pain Asthma Bilateral shoulder pain Coccyx pain Diabetes Fibroadenoma of right breast Hormone deficiency Hyperlipemia Hypertension Hypothyroidism IBS (irritable bowel syndrome) Macromastia Seasonal allergies Uterine fibroid Home Medications ascorbic acid (vitamin C) 1,000 mg tablet,extended release 1,000 mg PO Q12H 03/29/20 [History Last Taken Unknown] calcium-vitamin D3-vitamin K 500 mg-100 unit-40 mcg chewable tablet 1 tab PO DAILY 03/29/20 [History Last Taken Unknown] cholecalciferol (vitamin D3) 10 mcg (400 unit) capsule 10 mcg PO DAILY 03/29/20 [History Last Taken Unknown] coenzyme Q10 75 mg capsule (Co Q-10) 75 mg PO DAILY 03/29/20 [History Last Taken Unknown] ferrous sulfate 325 mg (65 mg iron) tablet (Feosol) 325 mg PO DAILY 03/29/20 [History Last Taken Unknown] multivitamin 1 cap PO DAILY 03/29/20 [History Last Taken Unknown] blood-glucose meter (Accu-Chek Nithya Plus Meter) #1 ea 07/31/20 [Rx Last Taken Unknown] blood sugar diagnostic (Accu-Chek Guide test strips) #100 ea 07/23/21 [Rx Last Taken Unknown] cetirizine 10 mg capsule 10 mg PO DAILY #90 caps 10/07/21 [Rx Last Taken Unknown] empagliflozin 25 mg tablet 25 mg PO DAILY #90 tabs 08/27/22 [Rx Last Taken Unknown] levothyroxine 175 mcg tablet 175 mcg PO DAILY #90 tabs 08/27/22 [Rx Last Taken Unknown] lisinopril 5 mg tablet 5 mg PO DAILY #90 tabs 08/27/22 [Rx Last Taken Unknown] metformin 1,000 mg tablet 1,000 mg PO BID #180 tabs 08/27/22 [Rx Last Taken U nknown] rosuvastatin 20 mg tablet 20 mg PO QHS #90 tabs 08/27/22 [Rx Last Taken Unknown] cyclobenzaprine 10 mg tablet 10 mg PO TID PRN Muscle Spasm #12 TABLETS 10/27/22 [Rx Last Taken Unknown] dulaglutide 3 mg/0.5 mL subcutaneous pen injector (Trulicity) See Rx Instructions .Route .COMPLEX #4 mL 02/23/23 [Rx Last Taken Unknown] venlafaxine 150 mg capsule,extended release 24 hr See Rx Instructions .Route .COMPLEX #90 caps 03/12/23 [Rx Last Taken Unknown] clindamycin HCl 300 mg capsule (Cleocin HCl) 300 mg PO Q6H 10 days #40 CAPSULES 03/15/23 [Rx Last Taken Unknown] Allergy/AdvReac Type Severity Reaction Status Date / Time latex Allergy Severe rash Verified 03/15/23 16:48 aspirin Allergy Unknown unknown Verified 03/15/23 16:48 adhesive tape Allergy Rash Verified 03/15/23 16:48 Cephalosporins Allergy Hives Verified 03/15/23 16:48 Penicillins Allergy Hives Verified 03/15/23 16:48 shrimp Allergy Anaphylaxis Verified 03/15/23 16:48 Family History Father Diabetes CVA (cerebral vascular accident) Cancer skin Hypertension Heart disease Hyperlipemia Mother Heart disease Hyperlipemia Grandfather Myocardial infarction, Onset Age: 48 Uncle Alcoholism Surgical History History of History of endometrial ablation History of gastric bypass History of hysterectomy History of right knee joint replacement History of tubal ligation Hx of bilateral breast reduction surgery Hx of breast reduction, elective Social History household members: spouse and children housing: house number of children: 2 current occupational status: unemployed Smoking Status: Former smoker alcohol intake: current alcohol intake frequency: holidays/special occasions only substance use type: does not use what type of physical activity do you participate in: walking frequency: daily seatbelt use: always do you feel safe at home: Yes 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 history: - [employer] RELATIONS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 Vital signs stable afebrile. H EENT exam unremarkable. Lungs clear. Heart regular rhythm no murmur. Abdomen soft nontender. Moving all 4 extremities. Neurovascular intact patient has 2 puncture wounds left lower anterior leg. Consistent with tolerated. There is some mild surrounding cellulitis. Is warm to the touch. Mildly swollen. Tende r. No lymphangitic streaking. No inguinal lymphadenopathy. Const Vital Signs: 03/15/23 16:46 Temperature 97.8 F Temperature Source Temporal Pulse Rate 77 Respiratory Rate 18 Blood Pressure 132/85 H Blood Pressure Mean 100 Pulse Ox 97 Oxygen Delivery Method Room Air Positive well nourished and well developed; Negative for cachectic, contractures or unkempt General Appearance ED: well developed and NAD; Negative for unkempt, cachectic or contractures Nutritional Appearance: Negative for cachectic HEENT normocephalic and atraumatic; Negative for trauma or tenderness Eyes PERRL and EOMs intact bilaterally General Eye ED: Negative for other Neck full ROM and no lymphadenopathy General: Negative for tenderness Resp normal respiratory effort and clear to auscultation bilaterally Effort and Inspection: Negative for other Auscultation: Negative for rales, rhonchi or wheezes Cardio regular rate, regular rhythm, S1 normal heart sound, S2 normal heart sound and no murmurs Jugular Venous Distention: Negative for other Rate: Negative for bradycardia or tachycardic GI non-tender, non-distended and no masses Inspection: Negative for abdominal distention Auscultation: normoactive bowel sounds Palpation: soft and tender Bladder / Kidney Exam: No CVA tenderness Back/Spine no CVA tenderness General Back: Negative for CVA tenderness Cervical Spine: Negative for cervical spine tenderness Thoracic Spine / Upper Back: Negative for thoracic spinal tenderness Lumbar Spine / Lower Back: Negative for lumbar spinal tenderness Extremity normal to inspection and full ROM Extremity Narrative: Except left lower leg 2 puncture wounds consistent with a dog bite on the distal medial aspect of the left lower leg. Surrounding cellulitis. No lymphangitic streaking. No subcu air pus. No inguinal lymphadenopathy. General Extremety ED: Yes edema; Negative for deformity General Extremity: edema; Negative for deformity Neuro oriented x3, CN's II-XII intact bilaterally and no sensory deficits noted Sensorium / Orientation: alert, oriented to person, oriented to place and oriented to time; Negative for orientation impaired, confused, lethargic or stuporous Motor Exam: strength 5/5 throughout Psych mental status grossly normal and thought process normal Appearance: Negative for unkempt Attitude: No agitated Mood & Affect: Negative for anxious Skin skin turgor normal Skin Narrative: Dog bite left lower leg. Cellulitis. General Skin Exam: Negative for other Lesions: no lesions Rashes: No no rashes Image ED - Lower Extremity Diagram: 1. Dog bite puncture wound left lower leg. Mild cellulitis. MDM MDM MDM Narrative Medical decision making narrative: 52-year-old diabetic with dog bite cellulitis left lower leg. She is allergic to both Augmentin and cephalexin's with hives. She be placed on clindamycin first dose given here. 4 times daily for 10 days. Close follow-up to ensure is improving. She knows if it is getting worse and not improving to return because she may need IV antibiotics. She does not need to be admitted at this time History & Record Review Discussion w/independent historian: Patient and Family Discharge Plan Triage Chief Complaint: Bite ED Provider: Alfonso Abraham Dx/Rx/DC Orders Clinical Impression: Dog bite of left lower leg with infection, History of diabetes mellitus Instructions: ED Dog Bite Prescriptions: New clindamycin HCl [Cleocin HCl] 300 mg capsule 300 mg PO Q6H 10 Days Qty: 40 0RF No Action ferrous sulfate [Feosol] 325 mg (65 mg iron) tablet 325 mg PO DAILY ascorbic acid (vitamin C) 1,000 mg tablet extended release 1,000 mg PO Q12H Co Q-10 75 mg capsule 75 mg PO DAILY cholecalciferol (vitamin D3) 10 mcg (400 unit) capsule 10 mcg PO DAILY multivitamin capsule 1 cap PO DAILY calcium-vitamin D3-vitamin K 500-100-40 mg-unit-mcg tablet,chewable 1 tab PO DAILY Rx Instructions: chew thoroughly before swallowing; do not swallow whole (DME) blood-glucose meter [Accu-Chek Nithya Plus Meter] Misc See Rx Instructions .ROUTE .MEDSUPPLY Qty: 1 0RF Rx Instructions: As directed, check daily type 2 DM cyclobenzaprine 10 mg tablet 10 mg PO TID PRN (Reason: Muscle Spasm) Qty: 12 0RF (DME) Accu-Chek Guide test strips Strip See Rx Instructions .ROUTE .MEDSUPPLY Qty: 100 3RF Rx Instructions: check glucose daily for type 2 DM cetirizine 10 mg capsule 10 mg PO DAILY Qty: 90 3RF rosuvastatin 20 mg tablet 20 mg PO QHS Qty: 90 3RF metformin 1,000 mg tablet 1,000 mg PO BID Qty: 180 3RF lisinopril 5 mg tablet 5 mg PO DAILY Qty: 90 3RF levothyroxine 175 mcg tablet 175 mcg PO DAILY Qty: 90 3RF empagliflozin 25 mg tablet 25 mg PO DAILY Qty: 90 0RF Trulicity 3 mg/0.5 mL pen injector See Rx Instructions .ROUTE .COMPLEX Qty: 4 3RF Dose Instruction: INJECT THE CONTENTS OF 1 PEN SUBCUTANEOUSLY ONCE A WEEK. Rx Instructions: INJECT THE CONTENTS OF 1 PEN SUBCUTANEOUSLY ONCE A WEEK. venlafaxine 150 mg capsule,extended release 24hr See Rx Instructions .ROUTE .COMPLEX Qty: 90 0RF Dose Instruction: Take 1 capsule by mouth once daily Rx Instructions: Take 1 capsule by mouth once daily Primary Care Provider: Marissa Coles Referrals: Marissa Coles MD [Primary Care Provider] - 3-5 Days if not improving Activity Restrictions/Additional Instructions: Infected dog bite of your left lower leg. The antibiotic clindamycin 300 mg 4 times a day for the next 10 days. Follow-up with your doctor if not improving. If it is looking a lot worse the leg gets significantly more red, swollen, streaks up your leg, fever or you are feeling worse return to his room after admitted for IV antibiotics. I am hopeful that the oral antibiotics should be able to take care of this. Motrin and Tylenol for pain. Ice and elevate. Disposition Disposition: Home, Self Care
[2023-03-15] MEDS: Clindamycin HCl 150 MG Capsule 450 MG PO (17:10)
[2023-03-15 17:12] VITALS: RESP 18
== END 2023-03-15 17:28 | disposition home or self-care (01) ==
PROVIDERS: Emergency Provider Emergency Medicine; PCP Internal Medicine; Visit Provider Emergency Medicine
DX: L03.116 Cellulitis of left lower limb (principal); E11.9 Type 2 diabetes mellitus without complications; S81.832A Puncture wound without foreign body, left lower leg, initial encounter; W54.0XXA Bitten by dog, initial encounter; I10 Essential (primary) hypertension; E78.5 Hyperlipidemia, unspecified; E03.9 Hypothyroidism, unspecified; Z79.84 Long term (current) use of oral hypoglycemic drugs; Z79.890 Hormone replacement therapy; Z79.899 Other long term (current) drug therapy; Z87.891 Personal history of nicotine dependence; Z98.84 Bariatric surgery status
CPT/HCPCS: 99283

== ENCOUNTER → 2023-05-19 | Outpatient (CLI) | payer BC, SELFPAY ==
--- NOTE | 2023-05-19 09:39 | BI_ITS ---
MAMMOGRAPHY - BILATERAL SCREENING REASON FOR EXAM: Female, 52 years old. Routine annual screening examination. PERTINENT HISTORY: Non-contributory. History of bilateral breast reduction surgery. Prior right ultrasound-guided breast biopsy. TECHNIQUE: Digital bilateral breast janessa (3D mammographic acquisition) in the CC and MLO projections. 2-D mediolateral oblique (MLO) and craniocaudad (CC) views of both breasts were obtained. CAD: Full Field Digital Mammography with Computer Added Detection was performed. COMPARISON: Comparison is made with prior study dated October 29, 2021 and October 23, 2020. FINDINGS: Breast Composition: The breasts are almost entirely fatty. There are no dominant masses or suspicious calcifications. A tissue clip marker is once again seen in the inferior slightly medial aspect of the right breast. No other significant abnormalities are identified. BI/SCRN MAMM (CAD)W/JANESSA BILAT IMPRESSION: Status post bilateral breast reduction surgery. Yearly follow-up mammogram recommended. (A) ASSESSMENT CATEGORY: BIRADS Category 2: Benign. A letter regarding these results will be sent to the patient by the facility within 30 days. Approximately 10% of breast cancers are not detected by mammography. A normal mammogram should not delay biopsy of a clinically suspicious abnormality. [id number] Electronically Signed: Mundo Francois MD at 14:59 EDT ,
== END | disposition home or self-care (01) ==
LOC: OPBI 09:38
PROVIDERS: PCP Internal Medicine; Referring Provider Nurse Practitioner Women's Health; Visit Provider Nurse Practitioner Women's Health
DX: Z12.31 Encounter for screening mammogram for malignant neoplasm of breast (principal)
CPT/HCPCS: 77063; 77067

== ENCOUNTER → 2023-08-20 | Outpatient (CLI) | payer BC, SELFPAY ==
--- OUTSIDE RECORDS SUMMARY | 2023-08-20 08:11 | XMS RPT_ITS | CCD ---
Author Name Unknown Address [address] [place] [address] Organization [facility] Care Team Providers Care Casing Cleaner Name Role Phone Michael Thayer MD Primary Care Provider MICHAEL THAYER Primary Care Unavailable MERCEDES REID Attending Unavailable Allergies Allergy Classification Reported Allergen(s) Allergy Type Date of Onset Reaction(s) Facility (3 sources) Aspirin; Translations: [ASPIRIN] Drug Allergy 1 Unknown [facility] (3 sources) Cephalosporins (Antibiotic); Translations: [CEPHALOSPORINS] Drug Allergy 2 Other: See Comments, [facility] (3 sources) Iodine; Translations: [IODINE] Drug Allergy 2 Swelling, Shortness of Breath [facility] (3 sources) Latex; Translations: [LATEX] Drug Allergy 1 Rash [facility] (3 sources) Non-steroidal anti-inflammatory agent; Translations: [NSAIDS (NON-STEROIDAL ANTI-INFLAMMATORY DRUG)] Drug Allergy 2 GI Upset [facility] (3 sources) Penicillins; Translations: [PENICILLINS] Drug Allergy 0 Other: See Comments, [facility] (3 sources) shrimp allergenic extract; Translations: [SHRIMP] Drug Allergy 1 Anaphylaxis [facility] Medications Current Medications Medication Drug Class(es) Dates Sig (Normalized) Sig (Original) 12 hr guaiFENesin 600 mg extended release oral tablet (1 source) Start: 07-31-2022 End: 08-07-2022 take 1 tablet by mouth twice daily guaiFENesin (MUCINEX) 600 mg 12 hr tablet Take 1 tablet by mouth twice daily for 7 days. 14 tablet 0 07/31/2022 08/07/2022 Active Completed/Discontinued Medications Medication Drug Class(es) Dates Sig (Normalized) Sig (Original) ascorbic acid 1000 mg extended release oral tablet (4 sources) Vitamin C Start: 03-29-2020 Ascorbic Acid 1,000 mg TbER Take 1,000 mg by mouth. 0 03/29/2020 Active Problems Problem Classification Problem Date Documented Da te Episodic/Chronic Other upper respiratory disease (1 source) Congestion of nasal sinus; Translations: [Nasal congestion] Episodic Other upper respiratory infections (1 source) Acute upper respiratory infection; Translations: [Acute upper respiratory infection, unspecified] 08-09-2023 Episodic Results Test Name Value Interpretation Reference Range Facil ity Vital Signs Date Time Vital Sign Value Performing Clinician Facility 08-09-2023 08:28-0500 Body temperature 100.71 [degF] Mercedes Reid APRN.ELECTRIC CAR OPERATOR Work Phone: [facility] 08-09-2023 08:28-0500 Body weight 125.65 kg Mercedes Reid APRN.ELECTRIC CAR OPERATOR Work Phone: [facility] 08-09-2023 08:28-0500 Diastolic blood pressure 82 mm[Hg] Mercedes Reid APRN.ELECTRIC CAR OPERATOR Work Phone: [facility] 08-09-2023 08:28-0500 Heart rate 99 /min Mercedes Reid APRN.ELECTRIC CAR OPERATOR Work Phone: [facility] 08-09-2023 08:28-0500 Respiratory rate 18 /min Mercedes Reid APRN.ELECTRIC CAR OPERATOR Work Phone: [facility] 08-09-2023 08:28-0500 SaO2% (BldA) [Mass fraction] 97 % Mercedes Reid APRN.ELECTRIC CAR OPERATOR Work Phone: [facility] 08-09-2023 08:28-0500 Systolic blood pressure 118 mm[Hg] Mercedes Reid APRN.ELECTRIC CAR OPERATOR Work Phone: [facility] 07-31-2022 07:23-0500 Body temperature 98.4 [degF] Mercedes Reid APRN.ELECTRIC CAR OPERATOR Work Phone: [facility] 07-31-2022 07:23-0500 Body weight 120.02 kg Mercedes Reid APRN.ELECTRIC CAR OPERATOR Work Phone: [facility] 07-31-2022 07:23-0500 Diastolic blood pressure 78 mm[Hg] Mercedes Reid APRN.ELECTRIC CAR OPERATOR Work Phone: [facility] 07-31-2022 07:23-0500 Heart rate 76 /min Mercedes Reid APRN.ELECTRIC CAR OPERATOR Work Phone: [facility] 07-31-2022 07:23-0500 Respiratory rate 18 /min Mercedes Reid APRN.ELECTRIC CAR OPERATOR Work Phone: [facility] 07-31-2022 07:23-0500 SaO2% (BldA) [Mass fraction] 97 % Mercedes Reid APRN.ELECTRIC CAR OPERATOR Work Phone: [facility] 07-31-2022 07:23-0500 Systolic blood pressure 116 mm[Hg] Mercedes Reid APRN.ELECTRIC CAR OPERATOR Work Phone: [facility] Encounters Encounter Date Encounter Type Care Provider Facility Start: 08-09-2023 End: 08-09-2023 ambulatory MICHAEL THAYER Facility:[facility] Start: 08-09-2023 End: 08-09-2023 Patient encounter procedure Mercedes Reid APRN.ELECTRIC CAR OPERATOR Work Phone: [facility] Plan of Treatment Date Care Activity Detail Author Start: 08-09-2023 End: 08-23-2023 COVID & INFLUENZA A/B & RSV NAAT, ROUTINE COVID & INFLUENZA A/B & RSV NAAT, ROUTINE Microbiology Routine URI, acute Expected: 08/09/2023, Expires: 08/23/2023 [facility] Work Phone: Payers Date Payer Category Payer Unknown ROSANA JAUREGUI PPO [id number] 2019-Present [phone] [address] [place] [address] PPO [id number] 2019 Unknown [id number] Social History Date Type Detail Facility Start: 07-31-2022 Tobacco smoking stat us NHIS Ex-smoker [facility] History of tobacco use Current smoker [facility] Start: 07-31-2022 Tobacco use and exposure Smoke less tobacco non-user [facility] Start: 1970 Sex Assigned At Female C [facility] Start: 2020 End: 08-09-2023 History of Social function [facility] Start: 2020 End: 08-09-2023 Tobacco use panel [facility] National Score (1-10 0), lower number is lower risk Not on file [facility] Start: 07-10-2021 Gender identity Identifies as female gender (finding) [facility] Start: 07-10-2021 Sexual orientation Heterosexual (fin ding) [facility] Progress note 08-09-2023 Note Date & Type Note Facility 08-09-2023 Note HNO ID: [id number] Author: Mercedes Reid APRN.ELECTRIC CAR OPERATOR Service: ? Author Type: Nurse Practitioner Type: Progress Notes Filed: 08/09/2023 8:35 AM Note Text: CC: Patient presents with: Sinus Problem: With fever, ear pain, face and eye pain x 1 day HPI: Jackie Harrington is a 53 year old female who presents to the office with complaint of head congestion, sinus symptoms, and fever since last night. Symptoms are staying the same. Associated symptoms includes nasal congestion and facial pain/pressure. Denies nausea, vomiting , and diarrhea. Treatments tried include nothing so far. with no relief of symptoms. Sick contacts: unknown. History of asthma, frequent episodes of bronchitis, chronic bronchitis, bronchiectasis or COPD: No Smoker: No Seasonal/environmental allergies: No The ROS is otherwise negative. The patient's pmh, medications, allergies, and past visits are reviewed. PHYSICAL EXAM: BP 118/82 Pulse 99 Temp (!) 38.2 ?C (100.7 ?F) Resp 18 Wt 125.6 kg (277 lb) SpO2 97% General appearance: alert, cooperative, pleasant, in no acute distress Head: Normocephalic Eyes: EOM's intact, conjunctiva pink and moist, no icterus, sclera white, non-injected Ears: Right ear: External ear/canal- Normal, TM - clear with good landmarks. Left ear: External ear/canal- Normal, TM - clear with good landmarks Oropharynx:moist without lesions, No erythema, exudates or tonsillar hypertrophy. Heart: Negative. RRR without obvious murmur, gallop, or rubs. No ectopy. Lungs: clear to auscultation, without rales or wheeze, good air exchange No past medical history on file. No past surgical history on file. ALLERGIES Cephalosporins, Iodine, Latex, Penicillins, Aspirin, Nsaids (Non-Steroidal Anti-Inflammatory Drug), and Shrimp MEDICATIONS Ascorbic Acid 1,000 mg TbER Take 1,000 mg by mouth. Ascorbic Acid 500 mg chew q 24 HR. cetirizine (ZYRTEC) 10 mg tablet Take 10 mg by mouth once daily. cholecalciferol, vitamin D3, 10 mcg (400 unit) cap Take 10 mcg by mouth. TRULICITY 1.5 mg/0.5 mL pen injector INJECT THE CONTENTS OF 1 PEN SUBCUTANEOUSLY ONCE A WEEK JARDIANCE 25 mg tablet Take 25 mg by mouth once daily. ferrous sulfate 325 mg (65 mg iron) tablet Take by mouth. levothyroxine (SYNTHROID) 175 mcg tablet Take 175 mcg by mouth once daily. lisinopril (ZESTRIL, PRINIVIL) 5 mg tablet Take 5 mg by mouth once daily. metFORMIN (GLUCOPHAGE) 1,000 mg tablet Take 1 tablet by mouth twice daily. rosuvastatin (CRESTOR) 20 mg tablet Take 20 mg by mouth daily at bedtime. venlafaxine ER (EFFEXOR XR) 150 mg 24 hr capsule Take 150 mg by mouth once daily. Coenzyme Q10 75 mg cap Take by mouth. Calcium-Vitamin D3-Vitamin K 500-100-40 mg-unit-mcg chew Take by mouth. (Patient not taking: Reported on 08/09/2023) No family history on file. Social History Tobacco Use Smoking status: Former Smokeless tobacco: Never Vaping Use Vaping Use: Never used ASSESSMENT/PLAN: 1. URI, acute - ICD9: 465.9, ICD10: J06.9 - COVID AND INFLUENZA A/B AND RSV NAAT, ROUTINE OTC meds for symptoms. Potential red flag symptoms discussed with the patient. Reviewed appropriate action plan to take if red flag symptoms occur. Patient agreeable to treatment plan. Mercedes Reid APRN.JIMMY [facility] History of Present illness Narrative 08-09-2023 Mercedes Reid APRN.JIMMY - 08/09/2023 8:34 AM EST Note Date & Type Note Facility 08-09-2023 History of Presen t illness Narrative CC: Patient presents with: Sinus Problem: With fever, ear pain, face and eye pain x 1 day HPI: Jackie Harrington is a 53 year old female who presents to the office with complaint of head congestion, sinus symptoms, and fever since last night. Symptoms are staying the same. Associated symptoms includes nasal congestion and facial pain/pressure. Denies nausea, vomiting , and diarrhea. Treatments tried include nothing so far. with no relief of symptoms. Sick contacts: unknown. History of asthma, frequent episodes of bronchitis, chronic bronchitis, bronchiectasis or COPD: No Smoker: No Seasonal/environmental allergies: No The ROS is otherwise negative. The patient's pmh, medications, allergies, and past visits are reviewed. PHYSICAL EXAM: BP 118/82 Pulse 99 Temp (!) 38.2 C (100.7 F) Resp 18 Wt 125.6 kg (277 lb) SpO2 97% General appearance: alert, cooperative, pleasant, in no acute distress Head: Normocephalic Eyes: EOM's intact, conjunctiva pink and moist, no icterus, sclera white, non-injected Ears: Right ear: External ear/canal- Normal, TM - clear with good landmarks. Left ear: External ear/canal- Normal, TM - clear with good landmarks Oropharynx:moist without lesions, No erythema, exudates or tonsillar hypertrophy. Heart: Negative. RRR without obvious murmur, gallop, or rubs. No ectopy. Lungs: clear to auscultation, without rales or wheeze, good air exchange No past medical history on file. No past surgical history on file. ALLERGIES Cephalosporins, Iodine, Latex, Penicillins, Aspirin, Nsaids (Non-Steroidal Anti-Inflammatory Drug), and Shrimp MEDICATIONS Ascorbic Acid 1,000 mg TbER Take 1,000 mg by mouth. Ascorbic Acid 500 mg chew q 24 HR. cetirizine (ZYRTEC) 10 mg tablet Take 10 mg by mouth once daily. cholecalciferol, vitamin D3, 10 mcg (400 unit) cap Take 10 mcg by mouth. TRULICITY 1.5 mg/0.5 mL pen injector INJECT THE CONTENTS OF 1 PEN SUBCUTANEOUSLY ONCE A WEEK JARDIANCE 25 mg tablet Take 25 mg by mouth once daily. ferrous sulfate 325 mg (65 mg iron) tablet Take by mouth. levothyroxine (SYNTHROID) 175 mcg tablet Take 175 mcg by mouth once daily. lisinopril (ZESTRIL, PRINIVIL) 5 mg tablet Take 5 mg by mouth once daily. metFORMIN (GLUCOPHAGE) 1,000 mg tablet Take 1 tablet by mouth twice daily. rosuvastatin (CRESTOR) 20 mg tablet Take 20 mg by mouth daily at bedtime. venlafaxine ER (EFFEXOR XR) 150 mg 24 hr capsule Take 150 mg by mouth once daily. Coenzyme Q10 75 mg cap Take by mouth. Calcium-Vitamin D3-Vitamin K 500-100-40 mg-unit-mcg chew Take by mouth. (Patient not taking: Reported on 08/09/2023) No family history on file. Social History Tobacco Use Smoking status: Former Smokeless tobacco: Never Vaping Use Vaping Use: Never used ASSESSMENT/PLAN: 1. URI, acute - ICD9: 465.9, ICD10: J06.9 - COVID & INFLUENZA A/B & RSV NAAT, ROUTINE OTC meds for symptoms. Potential red flag symptoms discussed with the patient. Reviewed appropriate action plan to take if red flag symptoms occur. Patient agreeable to treatment plan. Mercedes Reid APRN.JIMMY documented in this encounter [facility] History of Present illness Narrative 07-31-2022 Mercedes Reid APRN.JIMMY - 07/31/2022 7:21 AM EST Note Date & Type Note Facility 07-31-2022 History of Presen t illness Narrative CC: Patient presents with: Sinus Problem: Sinus, congestion bilateral ear pressure, BLOOM and face hurts x 1 day Is sinus drainage and congestion started 4 days ago altogether. HPI: Jackie Harrington is a 52 year old female who presents to the office with complaint of head congestion and sinus symptoms for a few days. Symptoms are staying the same. Associated symptoms includes nasal congestion and facial pain/pressure. Denies headache, body aches, fever, nausea, vomiting , and diarrhea. Treatments tried include DayQuil and NyQuil with minimal relief Sick contacts: unknown. History of asthma, frequent episodes of bronchitis, chronic bronchitis, bronchiectasis or COPD: No Smoker: No Seasonal/environmental allergies: No The ROS is otherwise negative. The patient's pmh, medications, allergies, and past visits are reviewed. PHYSICAL EXAM: There were no vitals taken for this visit. General appearance: alert, cooperative, pleasant, in no acute distress Head: Normocephalic Eyes: EOM's intact, conjunctiva pink and moist, no icterus, sclera white, non-injected Ears: Right ear: External ear/canal- Normal, TM - clear with good landmarks. Left ear: External ear/canal- Normal, TM - clear with good landmarks Oropharynx:moist without lesions, No erythema, exudates or tonsillar hypertrophy. Heart: Negative. RRR without obvious murmur, gallop, or rubs. No ectopy. Lungs: clear to auscultation, without rales or wheeze, good air exchange No past medical history on file. No past surgical history on file. ALLERGIES Cephalosporins, Iodine, Latex, Penicillins, Aspirin, Nsaids (Non-Steroidal Anti-Inflammatory Drug), and Shrimp MEDICATIONS No prescriptions on file. No family history on file. Social History Tobacco Use Smoking status: Former Smokeless tobacco: Never Vaping Use Vaping Use: Never used ASSESSMENT/PLAN: 1. Sinus congestion - ICD9: 478.19, ICD10: R09.81 9-day prednisone taper, and Mucinex. Prescription instructions reviewed with patient as applicable. Potential red flag symptoms discussed with the patient. Reviewed appropriate action plan to take if red flag symptoms occur. Patient agreeable to treatment plan. Mercedes Reid APRN.JIMMY documented in this encounter [facility] Evaluation note Note Date & Type Note Facility documented in this encounter [facility] Evaluation note Note Date & Type Note Facility documented in this encounter [facility] Health Concerns Infection Onset Date Last Indicated Resolved Time COVID-19 Rule-Out 08/09/2023 08/09/2023 Summary Purpose Family History No Family History Records Found Advance Directives No Advanced Directives Records Found Additional Source Comments Source Comments (unrecognize d section and content) In the event this informatio n is protected by the Federal Confidentiality of Alcohol and Drug Abuse Patient Records regulations: The Federal rules restrict any use of the information to criminally investigate or prosecute any alcohol or drug abuse patient[facility] the event this information is protected by the Federal Confidentiality of Alcohol and Drug Abuse Patient Records regulations: The Federal rules restrict any use of the information to criminally investigate or prosecute any alcohol or drug abuse patient.[facility] Reason for Visit (unrecogniz ed section and content) Reason Comments Sinus Problem With fever, ear pain , face and eye pain x 1 day Care Teams (unrecognized sec tion and content) Casing Cleaner Relationship Specialty Start Date End Date Michael Thayer MD [address] [place] [address] PCP - General Internal Medicine 07/31/22 INFORMATION SOURCE (unrecogn ized section and content) FOR RECORDS PERTAINING TO PATIENTS WHO ARE OR HAVE BEEN ENROLLED IN A CHEMICAL DEPENDENCY/SUBSTANCEABUSE PROGRAM, SOME INFORMATION MAY BE OMITTED. This clinical summary was aggregated from multiple sources. Caution should be exercised in using it in the provision of clinical care. This summary normalizes information from multiple sources, and as a consequence, information in this document may materially change the coding, format and clinical context of patient data. In addition, data may be omitted in some cases. CLINICAL DECISIONS SHOULD BE BASED ON THE PRIMARY CLINICAL RECORDS. [email or web address] provides no warranty or guarantee of the accuracy or completeness of information in this document.
[2023-08-20 12:19] LABS: Absolute Lymphocyte Count 1.15 X10^3/uL (0.83-4.51); Absolute Neutrophil Count 4.3 X10^3/uL (2.0-7.7); Basophil# 0.03 X10^3/uL; Basophil% 0.5 % (0-1); Eosinophil# 0.24 X10^3/uL; Eosinophils% 3.8 % (0-5); Hematocrit 43.9 % (37-47); Hemoglobin 13.3 g/dL (12.0-15.0); Lymphocyte # 1.15 X10^3/ul (0.83-4.51); Lymphocyte % 18.3 % (19-41); Mean Corp Hgb Conc 30.3 g/dL (32-36); Mean Corpuscular Hgb 26.8 pg (27.0-32.0); Mean Corpuscular Volume 88.5 fL (81-99); Mean Platelet Vol. 9.4 fl (6.2-12.0); Monocyte# 0.57 X10^3/uL; NRBC Flagged by Analyzer 0 % (0-5); Neutrophil # 4.29 X10^3/uL (2.7-7.7); Neutrophil % 68.1 % (47-70); Platelet Count 348 K/mm3 (150-450); RBC Distribution Width CV 13.1 % (11.6-14.6); RBC Distribution Width SD 42.5 fl (35.1-43.9); Red Blood Count 4.96 M/mm3 (4.2-5.4); White Blood Count 6.3 K/mm3 (4.4-11.0)
[2023-08-20 13:34] LABS: ALB/GLOB Ratio 0.9 RATIO (0.9-2.4); AST(SGOT) 20 U/L (15-37); Alanine Aminotransfer ALT/SGPT 39 U/L (13-56); Albumin, Serum 3.3 g/dL (3.2-5.0); Alkaline Phosphatase 87 U/L (45-117); Anion Gap 3 (5-15); BUN 10 mg/dL (7-18); BUN/Creat Ratio 15.5 RATIO (10-20); Calcium,Total 8.7 mg/dL (8.5-10.1); Chloride 105 mmol/L (98-107); Cholesterol 141 mg/dL (200); Creatinine, Serum 0.65 mg/dL (0.55-1.02); EST Glomerular Filtration Rate 102 mL/min (>60); Est Glom Filt Rate - Afr Amer 123 mL/min (>60); Globulin 3.5 g/dL (2.2-4.2); Glucose 121 mg/dL (74-106); High Density Lipoprotein 46 mg/dL; Potassium 4.1 mmol/L (3.5-5.1); Protein, Total 6.8 g/dL (6.4-8.2); Sodium Level 139 mmol/L (136-145); Thyroid Stim Hormone (TSH) 0.69 uIU/mL (0.358-3.74); Triglycerides 178 mg/dL; Very Low Density Lipoprotein 36 mg/dL (5-40)
== END | disposition home or self-care (01) ==
LOC: BIMLAB 08:08
PROVIDERS: PCP Internal Medicine; Referring Provider Internal Medicine; Visit Provider Internal Medicine
DX: E11.9 Type 2 diabetes mellitus without complications (principal); E03.9 Hypothyroidism, unspecified
CPT/HCPCS: 36415; 80053; 80061; 83036; 84443; 85025

== ENCOUNTER → 2023-08-26 | Outpatient (CLI) | payer BC, SELFPAY ==
--- OUTSIDE RECORDS SUMMARY | 2023-08-26 10:42 | XMS RPT_ITS | CCD ---
Author Name Unknown Address [address] [place] [address] Organization [facility] Care Team Providers Care Bottle Carrier Name Role Phone Michael Thayer MD Primary Care Provider MICHAEL THAYER Primary Care Unavailable MERCEDES REID Attending Unavailable Allergies Allergy Classification Reported Allergen(s) Allergy Type Date of Onset Reaction(s) Facility (3 sources) Aspirin; Translations: [ASPIRIN] Drug Allergy 1 Unknown [facility] (3 sources) Cephalosporins (Antibiotic); Translations: [CEPHALOSPORINS] Drug Allergy 2 Other: See Comments, [facility] (3 sources) Iodine; Translations: [IODINE] Drug Allergy 2 Swelling, Shortness of Breath [facility] (3 sources) Latex; Translations: [LATEX] Drug Allergy 1 Rash [facility] (3 sources) Non-steroidal anti-inflammatory agent; Translations: [NSAIDS (NON-STEROIDAL ANTI-INFLAMMATORY DRUG)] Drug Allergy 2 GI Upset [facility] (3 sources) Penicillins; Translations: [PENICILLINS] Drug Allergy 0 Other: See Comments, [facility] (3 sources) shrimp allergenic extract; Translations: [SHRIMP] Drug Allergy 1 Anaphylaxis [facility] Medications Current Medications Medication Drug Class(es) Dates [...] 08:28-0500 Body temperature 100.71 [degF] Mercedes Reid APRN.LIBRARY CONSULTANT Work Phone: [facility] 08-09-2023 08:28-0500 Body weight 125.65 kg Mercedes Reid APRN.LIBRARY CONSULTANT Work Phone: [facility] 08-09-2023 08:28-0500 Diastolic blood pressure 82 mm[Hg] Mercedes Reid APRN.LIBRARY CONSULTANT Work Phone: [facility] 08-09-2023 08:28-0500 Heart rate 99 /min Mercedes Reid APRN.LIBRARY CONSULTANT Work Phone: [facility] 08-09-2023 08:28-0500 Respiratory rate 18 /min Mercedes Reid APRN.LIBRARY CONSULTANT Work Phone: [facility] 08-09-2023 08:28-0500 SaO2% (BldA) [Mass fraction] 97 % Mercedes Reid APRN.LIBRARY CONSULTANT Work Phone: [facility] 08-09-2023 08:28-0500 Systolic blood pressure 118 mm[Hg] Mercedes Reid APRN.LIBRARY CONSULTANT Work Phone: [facility] 07-31-2022 07:23-0500 Body temperature 98.4 [degF] Mercedes Reid APRN.LIBRARY CONSULTANT Work Phone: [facility] 07-31-2022 07:23-0500 Body weight 120.02 kg Mercedes Reid APRN.LIBRARY CONSULTANT Work Phone: [facility] 07-31-2022 07:23-0500 Diastolic blood pressure 78 mm[Hg] Mercedes Reid APRN.LIBRARY CONSULTANT Work Phone: [facility] 07-31-2022 07:23-0500 Heart rate 76 /min Mercedes Reid APRN.LIBRARY CONSULTANT Work Phone: [facility] 07-31-2022 07:23-0500 Respiratory rate 18 /min Mercedes Reid APRN.LIBRARY CONSULTANT Work Phone: [facility] 07-31-2022 07:23-0500 SaO2% (BldA) [Mass fraction] 97 % Mercedes Reid APRN.LIBRARY CONSULTANT Work Phone: [facility] 07-31-2022 07:23-0500 Systolic blood pressure 116 mm[Hg] Mercedes Reid APRN.LIBRARY CONSULTANT Work Phone: [facility] Encounters Encounter Date Encounter Type Care Provider Facility Start: 08-09-2023 End: 08-09-2023 ambulatory MICHAEL THAYER Facility:[facility] Start: 08-09-2023 End: 08-09-2023 Patient encounter procedure Mercedes Reid APRN.LIBRARY CONSULTANT Work Phone: [facility] Plan of Treatment Date Care Activity Detail Author Start: 08-09-2023 End: 08-23-2023 COVID & INFLUENZA A/B & RSV NAAT, ROUTINE COVID & INFLUENZA A/B & RSV NAAT, ROUTINE Microbiology Routine URI, acute Expected: 08/09/2023, Expires: 08/23/2023 [facility] Work Phone: Payers Date Payer Category Payer Unknown ROSANA JAUREGUI PPO [id number] 2019-Present [phone] [address] [place] [address] PPO [id number] 2019 Unknown [id number] Social History Date Type Detail Facility Start: 07-31-2022 Tobacco smoking stat us NHIS Ex-smoker [facility] History of tobacco use Current smoker [facility] Start: 07-31-2022 Tobacco use and exposure Smoke less tobacco non-user [facility] Start: 1970 Sex Assigned At Female C [facility] Start: 2020 End: 08-09-2023 History of Social function [facility] Start: 2020 End: 08-09-2023 Tobacco use panel [facility] National Score (1-10 0), lower number is lower risk Not on file [facility] Start: 07-10-2021 Gender identity Identifies as female gender (finding) [facility] Start: 07-10-2021 Sexual orientation Heterosexual (fin ding) [facility] Progress note 08-09-2023 Note Date & Type Note Facility 08-09-2023 Note HNO ID: [id number] Author: Mercedes Reid APRN.LIBRARY CONSULTANT Service: ? Author Type: Nurse Practitioner Type: [...] agreeable to treatment plan. Mercedes Reid APRN.JIMMY [facility] History of Present illness Narrative 08-09-2023 Mercedes [...] Mercedes Reid APRN.JIMMY documented in this encounter [facility] History of Present illness Narrative 07-31-2022 Mercedes [...] Mercedes Reid APRN.JIMMY documented in this encounter [facility] Evaluation note Note Date & Type Note Facility documented in this encounter [facility] Evaluation note Note Date & Type Note Facility documented in this encounter [facility] Health Concerns Infection Onset Date Last Indicated [...] or prosecute any alcohol or drug abuse patient.[facility] the event this information is protected by the Federal Confidentiality of Alcohol and Drug Abuse Patient Records regulations: The Federal rules restrict any use of the information to criminally investigate or prosecute any alcohol or drug abuse patient.[facility] Reason for Visit (unrecogniz ed section and content) Reason Comments Sinus Problem With fever, ear pain , face and eye pain x 1 day Care Teams (unrecognized sec tion and content) Bottle Carrier Relationship Specialty Start Date End Date Michael Thayer MD [address] [place] [address] PCP - General Internal Medicine 07/31/22 INFORMATION [...] BE BASED ON THE PRIMARY CLINICAL RECORDS. [employer] provides no warranty or guarantee of the accuracy or completeness of information in this document.
[2023-08-26 13:45] LABS: Microalbumin,Random Urine < 5.0 mg/L (NO RANGE EST.)
== END | disposition home or self-care (01) ==
LOC: BIMLAB 10:19
PROVIDERS: PCP Internal Medicine; Visit Provider Internal Medicine
DX: E11.9 Type 2 diabetes mellitus without complications (principal)
CPT/HCPCS: 82043; 82570

== ENCOUNTER → 2024-02-15 | Outpatient (CLI) | payer BC, SELFPAY ==
[2024-02-15 13:17] LABS: Anion Gap 6 (5-15); BUN 15 mg/dL (7-18); Calcium,Total 9.2 mg/dL (8.5-10.1); Chloride 103 mmol/L (98-107); Creatinine, Serum 0.68 mg/dL (0.55-1.02); EST Glomerular Filtration Rate 95 mL/min (>60); Est Glom Filt Rate - Afr Amer 115 mL/min (>60); Glucose 99 mg/dL (74-106); Potassium 4.1 mmol/L (3.5-5.1); Sodium Level 139 mmol/L (136-145); Thyroid Stim Hormone (TSH) 1.04 uIU/mL (0.358-3.74)
[2024-02-15 13:24] LABS: Microalbumin,Random Urine 5.2 mg/L (NO RANGE EST.); Microalbumin:Creatinine Ratio 3.4 mg/g CRE (<30 mg/g CRE)
[2024-02-15 13:42] LABS: Hemoglobin A1c 6.6 % (3.8-5.6)
== END | disposition home or self-care (01) ==
LOC: BIMLAB 08:03
PROVIDERS: PCP Internal Medicine; Referring Provider Internal Medicine; Visit Provider Internal Medicine
DX: E11.9 Type 2 diabetes mellitus without complications (principal); E03.9 Hypothyroidism, unspecified; I10 Essential (primary) hypertension
CPT/HCPCS: 36415; 80048; 82043; 82570; 83036; 84443

== ENCOUNTER → 2024-05-23 | Outpatient (CLI) | payer BC, SELFPAY ==
--- NOTE | 2024-05-23 09:11 | BI_ITS ---
MAMMOGRAPHY - BILATERAL SCREENING 3-D TOMOSYNTHESIS REASON FOR EXAM: Female, 53 years old. Screening for breast cancer PERTINENT HISTORY: No significant family history. TECHNIQUE: 2-D mammograms and 3-D Tomosynthesis of the breast (s) were performed. CAD was performed. COMPARISON: 05/19/2023 FINDINGS: The breast composition is composed of scattered fibroglandular density. Scattered benign calcifications are seen. No dense spiculated masses or suspicious microcalcifications are identified. No architectural distortion is identified. There is no skin thickening or retraction. There has been no significant change since the prior study. BI/SCRN MAMM (CAD)W/JANESSA BILAT IMPRESSION: No mammographic signs of malignancy. Routine yearly mammograms recommended. ASSESSMENT CATEGORY: BIRADS Category 1: Negative. A letter regarding these results will be sent to the patient by the facility within 30 days. FOLLOW UP RECOMMENDATION: Yearly follow up mammogram recommended. (A) Approximately 10% of breast cancers are not detected by mammography. A normal mammogram should not delay biopsy of a clinically suspicious abnormality. Electronically Signed: Daljit Canseco MD at 14:12 EDT ,
== END | disposition home or self-care (01) ==
LOC: OPBI 09:11
PROVIDERS: PCP Internal Medicine; Referring Provider Nurse Practitioner Women's Health; Visit Provider Nurse Practitioner Women's Health
DX: Z12.31 Encounter for screening mammogram for malignant neoplasm of breast (principal)
CPT/HCPCS: 77063; 77067

== ENCOUNTER → 2024-08-23 | Outpatient (CLI) | payer BC, SELFPAY ==
[2024-08-23 12:13] LABS: Absolute Lymphocyte Count 1.76 X10^3/uL (0.83-4.51); Absolute Neutrophil Count 5.1 X10^3/uL (2.0-7.7); Basophil# 0.06 X10^3/uL; Basophil% 0.8 % (0-1); Eosinophil# 0.38 X10^3/uL; Eosinophils% 4.9 % (0-5); Hematocrit 45.3 % (37-47); Lymphocyte # 1.76 X10^3/ul (0.83-4.51); Lymphocyte % 22.6 % (19-41); Mean Corp Hgb Conc 30.9 g/dL (32-36); Mean Corpuscular Hgb 26.7 pg (27.0-32.0); Mean Corpuscular Volume 86.5 fL (81-99); Mean Platelet Vol. 10.3 fl (6.2-12.0); Monocyte# 0.45 X10^3/uL; Monocyte% 5.8 % (0-10); NRBC Flagged by Analyzer 0 % (0-5); Neutrophil # 5.12 X10^3/uL (2.7-7.7); Neutrophil % 65.6 % (47-70); Platelet Count 358 K/mm3 (150-450); RBC Distribution Width SD 44.2 fl (35.1-43.9); Red Blood Count 5.24 M/mm3 (4.2-5.4); White Blood Count 7.8 K/mm3 (4.4-11.0)
[2024-08-23 13:08] LABS: ALB/GLOB Ratio 1.1 RATIO (0.9-2.4); AST(SGOT) 18 U/L (15-37); Alanine Aminotransfer ALT/SGPT 36 U/L (13-56); Albumin, Serum 3.7 g/dL (3.2-5.0); Alkaline Phosphatase 86 U/L (45-117); Anion Gap 3 (5-15); BUN 18 mg/dL (7-18); Calcium,Total 9.2 mg/dL (8.5-10.1); Chloride 104 mmol/L (98-107); Cholesterol 140 mg/dL (200); EST Glomerular Filtration Rate 110 mL/min (>60); Est Glom Filt Rate - Afr Amer 133 mL/min (>60); Globulin 3.3 g/dL (2.2-4.2); Glucose 102 mg/dL (74-106); High Density Lipoprotein 63 mg/dL; Potassium 4.3 mmol/L (3.5-5.1); Sodium Level 137 mmol/L (136-145); Thyroid Stim Hormone (TSH) 0.807 uIU/mL (0.358-3.740); Triglycerides 83 mg/dL; Very Low Density Lipoprotein 17 mg/dL (5-40)
[2024-08-23 13:32] LABS: Hemoglobin A1c 6.2 % (3.8-5.6)
[2024-08-23 13:42] LABS: Microalbumin,Random Urine 11.5 mg/L (NO RANGE EST.); Microalbumin:Creatinine Ratio 7.3 mg/g CRE (<30 mg/g CRE)
== END | disposition home or self-care (01) ==
LOC: BIMLAB 08:29
PROVIDERS: PCP Internal Medicine; Referring Provider Internal Medicine; Visit Provider Internal Medicine
DX: E78.5 Hyperlipidemia, unspecified (principal); E11.69 Type 2 diabetes mellitus with other specified complication; I10 Essential (primary) hypertension; E03.9 Hypothyroidism, unspecified
CPT/HCPCS: 36415; 80053; 80061; 82043; 82570; 83036; 84443; 85025

== ENCOUNTER → 2025-04-24 | Outpatient (CLI) | payer OTHER, SELFPAY ==
[2025-04-24 12:56] LABS: Anion Gap 12 (5-15); BUN 17 mg/dL (4-19); BUN/Creat Ratio 24.8 RATIO (10-20); Calcium,Total 9.4 mg/dL (7.6-11.0); Carbon Dioxide 26.3 mmol/L (21.0-32.0); Chloride 103 mmol/L (98-108); Glucose 75 mg/dL (70-99); Potassium 4.0 mmol/L (3.3-5.1)
== END | disposition home or self-care (01) ==
LOC: BIMLAB 08:52
PROVIDERS: PCP Internal Medicine; Referring Provider Internal Medicine; Visit Provider Internal Medicine
DX: E11.69 Type 2 diabetes mellitus with other specified complication (principal); E03.9 Hypothyroidism, unspecified
CPT/HCPCS: 36415; 80048; 83036; 84443

== ENCOUNTER 2025-05-25 09:30 | Observation (INO) | payer OTHER, SELFPAY ==
[2025-05-25] VITALS (17 sets, daily range): BP systolic 78–108; BP diastolic 44–76; PULSE 61–146; RESP 14–18; TEMP 36.3–37; O2SAT 95–100; BMI 31.3; BMI 32.2
--- NOTE | 2025-05-25 09:42 | EKG12_ITS ---
Test Reason : AT
--- NOTE | 2025-05-25 09:42 | RAD_ITS ---
PROCEDURE: RAD/Chest PA and Lateral
[2025-05-25 09:52] LABS: Hematocrit 42.7 % (37-47); Hemoglobin 14.4 g/dL (12.0-15.0); Immature Granulocytes Count 0.020 X10^3/uL (0.0-0.0); Mean Corp Hgb Conc 33.7 g/dL (32-36); Mean Corpuscular Volume 83.2 fL (81-99); Mean Platelet Vol. 9.1 fl (6.2-12.0); NRBC Flagged by Analyzer 0 % (0-5); Platelet Count 375 K/mm3 (150-450); RBC Distribution Width CV 13.8 % (11.6-14.6); RBC Distribution Width SD 42.4 fl (35.1-43.9); Red Blood Count 5.13 M/mm3 (4.2-5.4); White Blood Count 12.2 K/mm3 (4.4-11.0)
[2025-05-25] MEDS: 0.9% Normal Saline (1000mL) 1,000 ML 999 ML IV (09:56)
[2025-05-25 10:05] LABS: Prothrombin Time (Protime)PT. 13.2 SECONDS (11.7-14.9)
[2025-05-25 10:06] LABS: Partial Thromboplast Time 24.5 Seconds (24.1-36.2)
--- NOTE | 2025-05-25 10:10 | ED.RN ---
hypotensive. fluids placed on pressure bag.
--- NOTE | 2025-05-25 10:10 | ED.RN ---
heart rated remains erratic. averaging 90's but spicking to 110's at times. bp progressively decreasing. dr chapin aware and changed med order.
--- NOTE | 2025-05-25 10:13 | EX.ED.DYSGE1 ---
HPI History of Present Illness Chief Complaint: Syncope Narrative Narrative: Chief complaint and HPI: 54-year-old female with past medical history of DM2, HTN, hypothyroidism, HLD, presents for evaluation of syncope. Patient was working on a house yesterday outside when she became lightheaded, nauseous, diaphoretic. States she went home and had 1 episode of emesis. states she woke up this morning and which shortly after drinking coffee she lowered herself to the ground and had a short episode of syncope. He then helped her to the couch where she laid down for about an hour. States he then helped her to the bathroom in which she had a minimal responsive episode on the toilet. He states during that time the patient was diaphoretic. She endorses fatigue and nausea currently. She denies any fever, chills, shortness of breath, chest pain, abdominal pain. No history of trauma. Review of systems: See HPI Medications: As listed on the chart Allergies: As listed on the chart PFSH: Per chart Vital signs: As listed on the chart. Reviewed. Physical exam: Gen: A&O x3 Head: Normocephalic, atraumatic Eyes: No sclera icterus, conjunctiva clear ENT: Mildly dry mucous membranes Neck: Trachea midline CV: Irregularly irregular rhythm with tachycardia, no murmurs, no peripheral edema Resp: Lungs CTA BL, no w/r/c GI: Abd soft, non-distended, non-tender, no r/r/g Musc: Moves all extremities, no deformity Skin: Warm, dry Neuro: Alert, oriented, grossly intact Psych: Cooperative, appropriate mood and affect [facility] Medical History Colon cancer screening Anxiety and depression History of COVID-19 Acute back pain Bilateral shoulder pain Macromastia Fibroadenoma of right breast Coccyx pain Uterine fibroid Hypertension Hypothyroidism Hormone deficiency IBS (irritable bowel syndrome) Hyperlipemia Diabetes Asthma Seasonal allergies Home Medications ?Medication ?Instructions ?Recorded ?Last Taken ?Type calcium 500 mg-vitamin D3 100 1 tab PO DAILY supplement 03/29/20 05/25/25 History unit-vitamin K 40 mcg chewable tablet cholecalciferol (vitamin D3) 10 10 mcg PO DAILY supplement 03/29/20 05/25/25 History mcg (400 unit) capsule coenzyme Q10 75 mg capsule (Co 75 mg PO DAILY heart supplement 03/29/20 05/25/25 History Q-10) ferrous sulfate 325 mg (65 mg 325 mg PO DAILY supplement 03/29/20 05/25/25 History iron) tablet (Feosol) multivitamin 1 cap PO DAILY supplement 03/29/20 05/25/25 History blood-glucose meter (Accu-Chek #1 ea 07/31/20 Unknown Rx Nithya Plus Meter) cetirizine 10 mg capsule 10 mg PO DAILY #90 caps 10/07/21 05/25/25 Rx blood sugar diagnostic (Accu-Chek #100 ea 09/07/23 Unknown Rx Guide test strips) ascorbic acid (vitamin C) 1,000 mg 1 g PO ONCE supplement 08/26/24 05/25/25 History tablet venlafaxine 150 mg See Rx Instructions .Route 09/07/24 05/25/25 Rx capsule,extended release 24 hr .COMPLEX depression #90 caps lisinopril 5 mg tablet 5 mg PO DAILY hypertension #90 tabs 11/29/24 05/24/25 Rx tirzepatide 12.5 mg/0.5 mL 12.5 mg (0.5 mL) subcut QWEEK 02/07/25 05/21/25 Rx subcutaneous pen injector blood sugar 3 months #6.5 mL metformin 1,000 mg tablet 1,000 mg PO BID blood sugar #180 03/22/25 05/25/25 Rx tabs rosuvastatin 20 mg tablet 20 mg PO QHS cholesterol #90 tabs 03/22/25 05/24/25 Rx levothyroxine 175 mcg tablet 175 mcg PO DAILY hypothyroidism 05/22/25 05/25/25 Rx #90 tabs Allergy/AdvReac Type Severity Reaction Status Date / Time latex Allergy Severe rash Verified 05/25/25 09:31 aspirin Allergy Unknown unknown Verified 05/25/25 09:31 adhesive tape Allergy Rash Verified 05/25/25 09:31 Cephalosporins Allergy Hives Verified 05/25/25 09:31 Penicillins Allergy Hives Verified 05/25/25 09:31 shrimp Allergy Anaphylaxis Verified 05/25/25 09:31 Family History Father Diabetes CVA (cerebral vascular accident) Cancer skin Hypertension Heart disease Hyperlipemia Mother Heart disease Hyperlipemia Grandfather Myocardial infarction, Onset Age: 48 Uncle Alcoholism Surgical History H/O cosmetic surgery Hx of breast reduction, elective Hx of bilateral breast reduction surgery History of right knee joint replacement History of hysterectomy History of endometrial ablation History of gastric bypass History of tubal ligation History of Social History household members: spouse and children housing: house number of children: 2 current occupational status: unemployed Smoking Status: Former smoker alcohol intake: current alcohol intake frequency: holidays/special occasions only substance use type: does not use what type of physical activity do you participate in: walking frequency: daily seatbelt use: always do you feel safe at home: Yes 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 history: - 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 Physical Exam Const Vital Signs: 05/25/25 09:31 05/25/25 09:39 05/25/25 09:42 Temperature 98 F Temperature Source Oral Pulse Rate 91 146 H Respiratory Rate 18 18 Respiratory Effort Normal Respiratory Pattern Normal Blood Pressure 81/60 L 96/63 Blood Pressure Mean 67 74 Pulse Ox 97 100 Oxygen Delivery Method Room Air Room Air 05/25/25 10:00 05/25/25 10:15 05/25/25 10:20 Temperature Temperature Source Pulse Rate 96 99 99 Respiratory Rate 16 16 16 Respiratory Effort Respiratory Pattern Blood Pressure 81/68 L 78/62 L 91/63 Blood Pressure Mean 72 67 72 Pulse Ox 98 95 99 Oxygen Delivery Method 05/25/25 10:32 05/25/25 10:53 05/25/25 11:00 Temperature Temperature Source Pulse Rate 113 H 102 H 112 H Respiratory Rate 16 14 16 Respiratory Effort Respiratory Pattern Blood Pressure 97/68 100/63 104/72 Blood Pressure Mean 77 75 82 Pulse Ox 99 100 98 Oxygen Delivery Method Room Air 05/25/25 11:13 05/25/25 11:58 05/25/25 12:00 Temperature Temperature Source Pulse Rate 97 95 98 Respiratory Rate 14 18 16 Respiratory Effort Respiratory Pattern Blood Pressure 104/62 108/70 94/72 Blood Pressure Mean 76 82 79 Pulse Ox 98 100 99 Oxygen Delivery Method Room Air Room Air Room Air MDM MDM MDM Narrative Medical decision making narrative: 54-year-old female with past medical history of DM2, HTN, hypothyroidism, HLD, presents for evaluation of syncope. See HPI. On presentation, patient is in atrial fibrillation with RVR with hypotension. Hypotension increased once placed on monitor bed to 96/63. Her heart rate was irregular. She has no history of atrial fibrillation. Differential diagnosis includes but is not limited to atrial fibrillation with RVR, other arrhythmia, electrolyte abnormality, thyroid disease, dehydration, ACS, PE. Patient not endorsing any chest pain at this time however aspirin was ordered in case ACS as a cause of her atrial fibrillation. Patient declined aspirin as she has history of gastric bypass. Originally was going to give the patient diltiazem for RVR however she became hypotensive with SBP in the 70s. NS bolus started. Blood pressure improved to SBP in the low 100s. She still intermittently in RVR. Will give metoprolol 5 mg IV only. CBC with mild leukocytosis of 12.2. No anemia. Platelets unremarkable. Coagulation panel unremarkable. D-dimer elevated 0.91. CT chest ordered to rule out PE as a source of A-fib and hypotension. BMP unremarkable. Magnesium unremarkable. Troponin unremarkable x 2. BNP elevated at 2027. Likely secondary to patient's A-fib. She is not overtly fluid overloaded on exam. TSH unremarkable However free T4 elevated at 1.6. CTA of the chest negative for PE. On reevaluation, patient remains in atrial fibrillation however she is rate controlled and blood pressure has improved. She is still feeling fatigued. Patient's [id number] is a 3. Eliquis ordered. Patient is new onset atrial fibrillation. Given her intermittent hypotension as well as syncope, I do feel that she would warrant admission for further workup and monitoring. Patient confirmed understanding the plan. I spoke with the hospitalist service who accepted admission. EKG: Interpreted by me/EM physician: EKG shows atrial fibrillation with RVR. Heart rate 103. No acute ischemic changes Diagnostic: Interpreted by me/EM physician: Chest x-ray without pneumonia, effusion, cardiomegaly, pneumothorax. Radiology in agreement. Impression: 1. New onset atrial fibrillation with RVR, heart rate now controlled 2. Hypotension likely secondary to #1 3. Syncope Lab Data Labs: Laboratory Results - last 24 hr 05/25/25 05/25/25 09:43 11:44 WBC 12.2 H RBC 5.13 Hgb 14.4 Hct 42.7 MCV 83.2 MCH 28.1 MCHC 33.7 RDW Std Deviation 42.4 RDW Coeff of Cher 13.8 Plt Count 375 MPV 9.1 Immature Gran % (Auto) 0.200 Neut % (Auto) 71.9 H Lymph % (Auto) 17.4 L [place] % (Auto) 8.9 Eos % (Auto) 1.3 Baso % (Auto) 0.3 Absolute Neuts (auto) 8.8 H Absolute Lymphs (auto) 2.13 Nucleated RBC % 0 PT 13.2 INR 1.0 APTT 24.5 D-Dimer Quant (PE/DVT) 0.91 H* Sodium 141 Potassium 3.9 Chloride 104 Carbon Dioxide 26.1 Anion Gap 11 BUN 10 Creatinine 0.65 L Estim Creat Clear Calc 113.08 Est GFR (MDRD) Non-Af 104 BUN/Creatinine Ratio 15.9 Glucose 111 H Calcium 9.2 Magnesium 2.0 Troponin T High Sens 8 Troponin T Hi Sens 2 Hr 7 NT pro BNP II 2027 H TSH 1.010 Free T4 1.60 H Radiography Diagnostic Testing: Clinical Impression(s) from Imaging Studies Chest X-Ray 05/25/25 09:42 IMPRESSION: NO ACUTE FINDINGS. Reading Location: [facility]1 Chest CTA 05/25/25 10:21 IMPRESSION: NORMAL CHEST CTA. NO EVIDENCE OF ACUTE PULMONARY EMBOLISM. Reading Location: [facility] Discharge Plan Disposition Disposition: Acute Care Hospital [facility] Discharge Date/Time: 05/25/25 13:40
[2025-05-25 10:19] LABS: D-Dimer Quantitative (DVT/PE) 0.91 FEU/ug/m (0.27-0.49)
--- NOTE | 2025-05-25 10:21 | CT_ITS ---
PROCEDURE: CT/CTA Chest W/WO Contrast
[2025-05-25 10:34] LABS: Anion Gap 11 (5-15); BUN 10 mg/dL (4-19); BUN/Creat Ratio 15.9 RATIO (10-20); Calcium,Total 9.2 mg/dL (7.6-11.0); Carbon Dioxide 26.1 mmol/L (21.0-32.0); Chloride 104 mmol/L (98-108); Estimated Creatinine Clearance 113.08 ml/min (50-250); Glucose 111 mg/dL (70-99); Magnesium 2.0 mg/dL (1.5-2.2); Potassium 3.9 mmol/L (3.3-5.1); Pro- Brain NATRIURETIC PEPTIDE 2028 pg/mL (<=900); Troponin T High Sensitivity 8 ng/L (<=14)
--- NOTE | 2025-05-25 10:53 | ED.RN ---
pt siting up feels much better, no longer diaphoretic, nausea improved. color pink/baseline.
[2025-05-25 12:17] LABS: Troponin T High Sens 2 HR 7 ng/L (<=14)
[2025-05-25] MEDS: APIXABAN 5 MG TABLET PO ×2 (12:19→22:36)
--- NOTE | 2025-05-25 13:48 | ECHOD_ITS ---
Reason For Study ECHO/Echo Complete
[2025-05-25] MEDS: 0.9% Normal Saline (1000mL) 1,000 ML 100 ML IV (15:15)
--- NOTE | 2025-05-25 16:02 | PCM.HP.STD ---
HPI - General General Date of Admission: 05/25/25 HPI Narrative JACKIE MAHARAJ, is a 54 F who presents to the hospital with 2 episodes of syncope over the last couple of days. Yesterday she had some lightheadedness and dizziness and was able to sit down before she completely blacked out, and then her found her on the toilet unresponsive with her eyes open and then today she was in the kitchen and she felt lightheaded and dizzy and diaphoretic and slid down against the cabinets onto the ground. None of the witnessed episode showed signs or symptoms consistent with seizures. She denies any palpitations or racing heartbeat and none of them were drop attacks. She does have symptoms with positional changes. In the emergency room EKG was read as being A-fib with RVR and she had an elevated proBNP. She did have elevated D-dimer so CTA of the chest was done which was negative for PE. TSH and free T4 were obtained, TSH was normal and T4 was elevated. [facility] Medical History (Updated 05/25/25 @ 16:[address] Javi Mota MD) Colon cancer screening Anxiety and depression History of COVID-19 Acute back pain Bilateral shoulder pain Macromastia Fibroadenoma of right breast Coccyx pain Uterine fibroid Hypertension Hypothyroidism Hormone deficiency IBS (irritable bowel syndrome) Hyperlipemia Diabetes Asthma Seasonal allergies Home Medications ?Medication ?Instructions ?Recorded ?Last Taken ?Type calcium 500 mg-vitamin D3 100 1 tab PO DAILY supplement 03/29/20 05/25/25 History unit-vitamin K 40 mcg chewable tablet cholecalciferol (vitamin D3) 10 10 mcg PO DAILY supplement 03/29/20 05/25/25 History mcg (400 unit) capsule coenzyme Q10 75 mg capsule (Co 75 mg PO DAILY heart supplement 03/29/20 05/25/25 History Q-10) ferrous sulfate 325 mg (65 mg 325 mg PO DAILY supplement 03/29/20 05/25/25 History iron) tablet (Feosol) multivitamin 1 cap PO DAILY supplement 03/29/20 05/25/25 History blood-glucose meter (Accu-Chek #1 ea 07/31/20 Unknown Rx Nithya Plus Meter) cetirizine 10 mg capsule 10 mg PO DAILY #90 caps 10/07/21 05/25/25 Rx blood sugar diagnostic (Accu-Chek #100 ea 09/07/23 Unknown Rx Guide test strips) ascorbic acid (vitamin C) 1,000 mg 1 g PO ONCE supplement 08/26/24 05/25/25 History tablet venlafaxine 150 mg See Rx Instructions .Route 09/07/24 05/25/25 Rx capsule,extended release 24 hr .COMPLEX depression #90 caps lisinopril 5 mg tablet 5 mg PO DAILY hypertension #90 tabs 11/29/24 05/24/25 Rx tirzepatide 12.5 mg/0.5 mL 12.5 mg (0.5 mL) subcut QWEEK 02/07/25 05/21/25 Rx subcutaneous pen injector blood sugar 3 months #6.5 mL metformin 1,000 mg tablet 1,000 mg PO BID blood sugar #180 03/22/25 05/25/25 Rx tabs rosuvastatin 20 mg tablet 20 mg PO QHS cholesterol #90 tabs 03/22/25 05/24/25 Rx levothyroxine 175 mcg tablet 175 mcg PO DAILY hypothyroidism 05/22/25 05/25/25 Rx #90 tabs Allergy/AdvReac Type Severity Reaction Status Date / Time latex Allergy Severe rash Verified 05/25/25 09:31 aspirin Allergy Unknown unknown Verified 05/25/25 09:31 adhesive tape Allergy Rash Verified 05/25/25 09:31 Cephalosporins Allergy Hives Verified 05/25/25 09:31 Penicillins Allergy Hives Verified 05/25/25 09:31 shrimp Allergy Anaphylaxis Verified 05/25/25 09:31 Family History Father Diabetes CVA (cerebral vascular accident) Cancer skin Hypertension Heart disease Hyperlipemia Mother Heart disease Hyperlipemia Grandfather Myocardial infarction, Onset Age: 48 Uncle Alcoholism Surgical History H/O cosmetic surgery Hx of breast reduction, elective Hx of bilateral breast reduction surgery History of right knee joint replacement History of hysterectomy History of endometrial ablation History of gastric bypass History of tubal ligation History of Social History household members: spouse and children housing: house number of children: 2 current occupational status: unemployed Smoking Status: Former smoker alcohol intake: current alcohol intake frequency: holidays/special occasions only substance use type: does not use what type of physical activity do you participate in: walking frequency: daily seatbelt use: always do you feel safe at home: Yes 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 Constitutional: Denies chills, fatigue, fever(s) or malaise Eyes Eyes: Denies blurry vision ENT HEENT: Denies headache(s) or nasal discharge Cardiovascular Cardiovascular: Reports syncope; Denies chest pain or dyspnea on exertion Respiratory/Chest Respiratory/Chest: Denies cough, shortness of breath at rest or shortness of breath with exertion Gastrointestinal Gastrointestinal: Denies constipation, diarrhea, nausea or vomiting Genitourinary Genitourinary: Denies dysuria Neurologic Neurologic: Denies focal weakness, numbness or tremor(s) Psychiatric Psychiatric: Denies anxiety or depression Vital Signs Vital Signs Vital Signs: 05/25/25 09:31 05/25/25 09:39 05/25/25 09:42 Temperature 98 F Temperature Source Oral Pulse Rate 91 146 H Respiratory Rate 18 18 Respiratory Effort Normal Respiratory Pattern Normal Blood Pressure 81/60 L 96/63 Blood Pressure Mean 67 74 Blood Pressure Source Blood Pressure Position Blood Pressure Location Pulse Ox 97 100 Oxygen Delivery Method Room Air Room Air 05/25/25 10:00 05/25/25 10:15 05/25/25 10:20 Temperature Temperature Source Pulse Rate 96 99 99 Respiratory Rate 16 16 16 Respiratory Effort Respiratory Pattern Blood Pressure 81/68 L 78/62 L 91/63 Blood Pressure Mean 72 67 72 Blood Pressure Source Blood Pressure Position Blood Pressure Location Pulse Ox 98 95 99 Oxygen Delivery Method 05/25/25 10:32 05/25/25 10:53 05/25/25 11:00 Temperature Temperature Source Pulse Rate 113 H 102 H 112 H Respiratory Rate 16 14 16 Respiratory Effort Respiratory Pattern Blood Pressure 97/68 100/63 104/72 Blood Pressure Mean 77 75 82 Blood Pressure Source Blood Pressure Position Blood Pressure Location Pulse Ox 99 100 98 Oxygen Delivery Method Room Air 05/25/25 11:13 05/25/25 11:58 05/25/25 12:00 Temperature Temperature Source Pulse Rate 97 95 98 Respiratory Rate 14 18 16 Respiratory Effort Respiratory Pattern Blood Pressure 104/62 108/70 94/72 Blood Pressure Mean 76 82 79 Blood Pressure Source Blood Pressure Position Blood Pressure Location Pulse Ox 98 100 99 Oxygen Delivery Method Room Air Room Air Room Air 05/25/25 12:22 05/25/25 13:57 05/25/25 14:00 Temperature 98.1 F 97.3 F L Temperature Source Temporal Pulse Rate 105 H 85 Respiratory Rate 15 14 Respiratory Effort Respiratory Pattern Blood Pressure 89/76 L 89/76 L Blood Pressure Mean 80 80 Blood Pressure Source Monitor Blood Pressure Position Supine Blood Pressure Location Left Arm Pulse Ox 100 96 Oxygen Delivery Method Room Air Room Air Weight Weight: 205 lb 11.06 oz Body Mass Index (BMI) 32.2 Physical Exam Narrative General: Alert, Oriented x3, Cooperative, No apparent distress HEENT: Atraumatic, PERRLA, EOMI, Normocephalic Oral: Dry mucosa Neck: Supple, No JVD Lungs: Diminished, Normal air movement, No rhonchi, No wheeze, No rales Cardiovascular: Irregular rate and rhythm, Regular Rhythm, Normal S1, Normal S2, No murmurs Abdomen: Soft, Non Tender, Non-Distended, No Hepato-splenomegaly Extremities: No edema, Capillary Refill Less than 3 Seconds Skin: No rashes, No breakdown Musculoskeletal: No Tenderness to Palpation of Joints or Extremities Neurological: No focal neurological deficits, moves all extremities Psych/Mental Status: Normal Affect, Appropriate Results Lab / Micro Data 05/25/25 09:43 05/25/25 09:43 Labs: Laboratory Results - last 24 hr 05/25/25 09:43: WBC 12.2 H, RBC 5.13, Hgb 14.4, Hct 42.7, MCV 83.2, MCH 28.1, MCHC 33.7, RDW Std Deviation 42.4, RDW Coeff of Cher 13.8, Plt Count 375, MPV 9.1, Immature Gran % (Auto) 0.200, Neut % (Auto) 71.9 H, Lymph % (Auto) 17.4 L, [place] % (Auto) 8.9, Eos % (Auto) 1.3, Baso % (Auto) 0.3, Absolute Neuts (auto) 8.8 H, Absolute Lymphs (auto) 2.13, Nucleated RBC % 0, PT 13.2, INR 1.0, APTT 24.5, D-Dimer Quant (PE/DVT) 0.91 H*, Sodium 141, Potassium 3.9, Chloride 104, Carbon Dioxide 26.1, Anion Gap 11, BUN 10, Creatinine 0.65 L, Estim Creat Clear Calc 113.08, Est GFR (MDRD) Non-Af 104, BUN/Creatinine Ratio 15.9, Glucose 111 H, Calcium 9.2, Magnesium 2.0, Troponin T High Sens 8, NT pro BNP II 2027 H, TSH 1.010, Free T4 1.60 H 05/25/25 11:44: Troponin T Hi Sens 2 Hr 7 Imaging Radiology Impression Chest X-Ray 05/25/25 09:42 IMPRESSION: NO ACUTE FINDINGS. Reading Location: [facility]IR[facility]1 Chest CTA 05/25/25 10:21 IMPRESSION: NORMAL CHEST CTA. NO EVIDENCE OF ACUTE PULMONARY EMBOLISM. Reading Location: [facility]IR[facility]1 Assessment & Plan Assessment/Plan (1) New onset a-fib: PLAN: Plan 1. New onset A-fib with RVR/essential HTN/HLD ? She was given some blood pressure medications in the emergency room and her heart rate did decrease below 100 ? Blood pressures are little bit on the soft side that she says she is normally 100/72 ? Based on her [id number] score of 2 will start her on Eliquis ? Orthostatic vital signs ? Echo is pending ? Will obtain a T3 given the elevation in her T4 ? Will start her on a little bit of fluids as she appears little bit dehydrated, her proBNP is elevated to over 2000 ? Will hold her home blood pressure medications given the initiation of rate control medications ? Continue with Crestor 2. DM2 ? Hold her home metformin ? Sliding scale insulin ? Accu-Cheks ? Monitor make adjustments as necessary 3. Hypothyroidism ? TSH is normal T4 is elevated, T3 is pending ? In the meantime can resume her home Synthroid and can adjust as necessary based on lab work DVT: Eliquis 75 minutes was spent on direct patient care, including documentation as well as chart review and collaboration with colleagues Charges/Coding Visit Charges Inpatient E&M: 56642 Init Hosp L3
[2025-05-25 16:10] LABS: Free T3 2.3 pg/mL (2.18-3.98)
[2025-05-26 02:00] VITALS: BP 110/65; PULSE 73; PULSE 74; RESP 16; TEMP 36.8; O2SAT 97
[2025-05-26] MEDS: 0.9% Normal Saline (1000mL) 1,000 ML 100 ML IV (03:02)
[2025-05-26] MEDS: 0.9% Saline Lock 10 ML Syringe IV (03:03)
[2025-05-26 05:53] LABS: Hematocrit 37.6 % (37-47); Hemoglobin 12.1 g/dL (12.0-15.0); Immature Granulocytes Count 0.030 X10^3/uL (0.0-0.0); Mean Corp Hgb Conc 32.2 g/dL (32-36); Mean Corpuscular Volume 85.8 fL (81-99); Mean Platelet Vol. 9.7 fl (6.2-12.0); NRBC Flagged by Analyzer 0 % (0-5); Platelet Count 265 K/mm3 (150-450); RBC Distribution Width CV 14.0 % (11.6-14.6); RBC Distribution Width SD 43.7 fl (35.1-43.9); Red Blood Count 4.38 M/mm3 (4.2-5.4); White Blood Count 7.0 K/mm3 (4.4-11.0)
[2025-05-26 06:44] LABS: Anion Gap 8 (5-15); BUN 11 mg/dL (4-19); BUN/Creat Ratio 19.0 RATIO (10-20); Calcium,Total 8.5 mg/dL (7.6-11.0); Carbon Dioxide 26.0 mmol/L (21.0-32.0); Chloride 106 mmol/L (98-108); Estimated Creatinine Clearance 130.77 ml/min (50-250); Glucose 80 mg/dL (70-99); Potassium 3.9 mmol/L (3.3-5.1)
[2025-05-26 09:34] VITALS: BP 106/76; PULSE 76; RESP 16; TEMP 36.8; O2SAT 96
[2025-05-26] MEDS: APIXABAN 5 MG TABLET PO (09:40)
--- NOTE | 2025-05-26 10:57 | DCINST_ITS ---
Discharge Instructions
--- NOTE | 2025-05-26 10:57 | PCM.DC ---
Discharge Instructions DC O2, CPAP, BIPAP needs Home O2 Discharge instructions: No Dressing / Incision Discharge Activity: Return to Normal Activity Dressing / Incision Call your doctor if you observe: Fever of 101 or Higher, Shortness of breath, Dizziness, Fainting spells, Swelling in the ankles, Chest pain and Increased palpitations (irregular heartbeat) Follow Up Care Test Results: Test results from this visit will be discussed in further detail at your follow-up appointment, if applicable. Discharge Plan Admission Admit Date/Time: 05/25/25 12:15 Attending Provider: Javi Mota Primary Care Provider: Marissa Coles Instructions Patient Instructions: AFib Dc Discharge Orders/Prescriptions Prescriptions: New metoprolol tartrate 25 mg Tablet 12.5 mg PO BID 30 Days Qty: 30 0RF Eliquis 5 mg Tablet 5 mg PO BID 30 Days Qty: 60 0RF Continued ferrous sulfate [Feosol] 325 mg (65 mg iron) tablet 325 mg PO DAILY Co Q-10 75 mg capsule 75 mg PO DAILY cholecalciferol (vitamin D3) 10 mcg (400 unit) capsule 10 mcg PO DAILY multivitamin Capsule 1 cap PO DAILY calcium-vitamin D3-vitamin K 500-100-40 mg-unit-mcg tablet,chewable 1 tab PO DAILY Rx Instructions: chew thoroughly before swallowing; do not swallow whole (DME) blood-glucose meter [Accu-Chek Nithya Plus Meter] Misc See Rx Instructions .ROUTE .MEDSUPPLY Qty: 1 0RF Rx Instructions: As directed, check daily type 2 DM ascorbic acid (vitamin C) 1,000 mg tablet 1 g PO ONCE cetirizine 10 mg capsule 10 mg PO DAILY Qty: 90 3RF (DME) Accu-Chek Guide test strips Strip See Rx Instructions .ROUTE .MEDSUPPLY Qty: 100 3RF Rx Instructions: check glucose daily for type 2 DM venlafaxine 150 mg capsule,extended release 24hr See Rx Instructions .ROUTE .COMPLEX Qty: 90 3RF Dose Instruction: Take 1 capsule by mouth once daily Rx Instructions: Take 1 capsule by mouth once daily lisinopril 5 mg tablet 5 mg PO DAILY Qty: 90 2RF tirzepatide 12.5 mg/0.5 mL pen injector 12.5 mg subcut QWEEK 90 Days Qty: 6.5 1RF rosuvastatin 20 mg tablet 20 mg PO QHS Qty: 90 1RF metformin 1,000 mg tablet 1,000 mg PO BID Qty: 180 1RF levothyroxine 175 mcg tablet 175 mcg PO DAILY Qty: 90 2RF Referrals / Follow Up: Marissa Coles MD [Primary Care Provider, Internal Medicine] - Within 1 Week Mati Mcginnis MD [Med Staff - Active Staff, Cardiology] - Within 1 Month Disposition Disposition (needs filled in before D/C Order can be placed): Home, Self Care
[2025-05-26 11:40] VITALS: BP 112/77; PULSE 69
--- NOTE | 2025-05-26 11:50 | CASEMGMT ---
Hospitalist reports to this RN CM that the MD's Rx for Eliquis requires a PA and requests this RN CM to provide the pt with the free trial card. KATIE MCLEOD to the pt's room at this time and educated the pt on the free trial card and that it can only be used once. Pt consents to the use of the card. TC to pt's preferred pharmacy, [place]. Savings card info provided and the pharmacy was able to apply the trial card successfully. Pt updated. Pt thanks this underwriter solicitation director and denies any further DC needs or concerns.
[2025-05-26 12:48] VITALS: BP 119/64
--- NOTE | 2025-05-26 13:41 | PHA.DC_ITS ---
Pharmacy DC Med Rec Counseling
--- NOTE | 2025-05-26 13:41 | PHA.DC.MC.R ---
Pharmacy [facility] Counseling Pharmacy Service has performed discharge medication reconciliation and counseling for this patient. 1. APIXABAN 5MG PO BID 2. METOPROLOL TARTRATE 12.5MG PO BID The patient's discharge medication list was reviewed for discrepancies and discrepancies were resolved. The patient was counseled on the following discharge medications and changes in medications for homegoing were reviewed. The Reason for Use, instructions for use, and potential side effects were reviewed for all new medications. The patient's questions regarding all of their medications were answered. The patient was able to verbally demonstrate an understanding of their discharge medications. Medications at Discharge Home Medications calcium 500 mg-vitamin D3 100 unit-vitamin K 40 mcg chewable tablet 1 tab PO DAILY supplement 03/29/20 cholecalciferol (vitamin D3) 10 mcg (400 unit) capsule 10 mcg PO DAILY supplement 03/29/20 coenzyme Q10 75 mg capsule (Co Q-10) 75 mg PO DAILY heart supplement 03/29/20 ferrous sulfate 325 mg (65 mg iron) tablet (Feosol) 325 mg PO DAILY supplement 03/29/20 multivitamin 1 cap PO DAILY supplement 03/29/20 blood-glucose meter (Accu-Chek Nithya Plus Meter) #1 ea 07/31/20 cetirizine 10 mg capsule 10 mg PO DAILY #90 caps 10/07/21 blood sugar diagnostic (Accu-Chek Guide test strips) #100 ea 09/07/23 ascorbic acid (vitamin C) 1,000 mg tablet 1 g PO ONCE supplement 08/26/24 venlafaxine 150 mg capsule,extended release 24 hr See Rx Instructions .Route .COMPLEX depression #90 caps 09/07/24 lisinopril 5 mg tablet 5 mg PO DAILY hypertension #90 tabs 11/29/24 tirzepatide 12.5 mg/0.5 mL subcutaneous pen injector 12.5 mg (0.5 mL) subcut QWEEK blood sugar 3 months #6.5 mL 02/07/25 metformin 1,000 mg tablet 1,000 mg PO BID blood sugar #180 tabs 03/22/25 rosuvastatin 20 mg tablet 20 mg PO QHS cholesterol #90 tabs 03/22/25 levothyroxine 175 mcg tablet 175 mcg PO DAILY hypothyroidism #90 tabs 05/22/25 apixaban 5 mg tablet (Eliquis) 5 mg PO BID 30 days #60 tabs 05/26/25 metoprolol tartrate 25 mg tablet 12.5 mg (1/2 x 25 mg) PO BID 30 days #30 tabs 05/26/25
--- NOTE | 2025-05-26 13:50 | CHAPLAIN ---
Type of Pastoral Visit ___ Initial Visit ___ Follow-up Visit ___ On-call Visit ___ General Patient Visit ___ Spiritual Assessment ___ Family Conference ___ Bereavement ___ Rapid Response ___ Code Blue ___ Other (describe below) Pastoral Care Referral From ___ Patient ___ Family ___ Nurse ___ Physician ___ Lei Maker ___ Glove Turner And Former Automatic ___ Other (describe below) Sacrament/Intervention ___ Active listening ___ Anointing ___ Oriental Orthodox ___ Bereavement ___ Communion ___ Janet exploration ___ ___ Life review ___ Prayer ___ Reconciliation ___ Sacrament of Sick ___ Supportive presence ___ Wedding ___ Other (describe below) Pastoral Comments patient was discharged before being seen by this starch dumper
--- NOTE | 2025-05-26 13:52 | PCM.DC.SUM ---
Providers Date of Admission: 05/25/25 Primary Care Physician: Dr. Marissa Coles MD Reason For Visit: NEW AFIB Diagnosis Discharge Diagnosis (1) New onset a-fib: Status: Acute Code(s): I48.91 - Unspecified atrial fibrillation Medications at Discharge Home Medications calcium 500 mg-vitamin D3 100 unit-vitamin K 40 mcg chewable tablet 1 tab PO DAILY supplement 03/29/20 cholecalciferol (vitamin D3) 10 mcg (400 unit) capsule 10 mcg PO DAILY supplement 03/29/20 coenzyme Q10 75 mg capsule (Co Q-10) 75 mg PO DAILY heart supplement 03/29/20 ferrous sulfate 325 mg (65 mg iron) tablet (Feosol) 325 mg PO DAILY supplement 03/29/20 multivitamin 1 cap PO DAILY supplement 03/29/20 blood-glucose meter (Accu-Chek Nithya Plus Meter) #1 ea 07/31/20 cetirizine 10 mg capsule 10 mg PO DAILY #90 caps 10/07/21 blood sugar diagnostic (Accu-Chek Guide test strips) #100 ea 09/07/23 ascorbic acid (vitamin C) 1,000 mg tablet 1 g PO ONCE supplement 08/26/24 venlafaxine 150 mg capsule,extended release 24 hr See Rx Instructions .Route .COMPLEX depression #90 caps 09/07/24 lisinopril 5 mg tablet 5 mg PO DAILY hypertension #90 tabs 11/29/24 tirzepatide 12.5 mg/0.5 mL subcutaneous pen injector 12.5 mg (0.5 mL) subcut QWEEK blood sugar 3 months #6.5 mL 02/07/25 metformin 1,000 mg tablet 1,000 mg PO BID blood sugar #180 tabs 03/22/25 rosuvastatin 20 mg tablet 20 mg PO QHS cholesterol #90 tabs 03/22/25 levothyroxine 175 mcg tablet 175 mcg PO DAILY hypothyroidism #90 tabs 05/22/25 apixaban 5 mg tablet (Eliquis) 5 mg PO BID 30 days #60 tabs 05/26/25 metoprolol tartrate 25 mg tablet 12.5 mg (1/2 x 25 mg) PO BID 30 days #30 tabs 05/26/25 Hospital Course Operations None Procedures 2-D Echocardiogram Summary of Care Provided Minutes Spent on Discharge: 35 Hospital Course: Per HPI: JACKIE SUPPES, is a 54 F who presents to the hospital with 2 episodes of syncope over the last couple of days. Yesterday she had some lightheadedness and dizziness and was able to sit down before she completely blacked out, and then her found her on the toilet unresponsive with her eyes open and then today she was in the kitchen and she felt lightheaded and dizzy and diaphoretic and slid down against the cabinets onto the ground. None of the witnessed episode showed signs or symptoms consistent with seizures. She denies any palpitations or racing heartbeat and none of them were drop attacks. She does have symptoms with positional changes. In the emergency room EKG was read as being A-fib with RVR and she had an elevated proBNP. She did have elevated D-dimer so CTA of the chest was done which was negative for PE. TSH and free T4 were obtained, TSH was normal and T4 was elevated. Hospital Course: 1. Syncope secondary to new onset A-fib with RVR/essential HTN/HLD?84-year-old female presented to the hospital with a few syncopal episodes over the last 2 days. On presentation to the ER she was found to be in A-fib with RVR with a max rate of 146. She was given dose of Lopressor 5 mg IV x 1 she did have some postmedication hypotension and was orthostatic positive as well. She was started on IV fluids and sometime overnight converted to normal sinus rhythm. She was placed on metoprolol 12.5 mg p.o. twice daily as she states she normally sits at a lower blood pressure at baseline, she was able to tolerate this medication this morning and was feeling much better and requested discharge home. I discussed with her the possibility of discharge and she expressed understanding of the risk and benefits of going home and would like to go home today. She has a [id number] of 2 secondary to her type 2 diabetes and her gender therefore she was placed on Eliquis 5 mg p.o. twice daily. Her thyroid functions were also checked since this was new onset A-fib and her TSH was normal but her free T4 was high, her T3 was normal therefore I made no adjustments to her Synthroid. I do recommend outpatient follow-up with cardiology as well as her PCP for further monitoring and dose adjustments. We did obtain an echocardiogram which demonstrated an EF of 55% and a normal left atrium. 2. Type 2 diabetes, hypothyroidism are all chronic medical conditions which complicate his care. His home medications were continued where appropriate Physical Exam Narrative General: Alert, Oriented x3, Cooperative, No apparent distress HEENT: Atraumatic, PERRLA, EOMI, Normocephalic Oral: Moist mucosa Neck: Supple, No JVD Lungs: Diminished, Normal air movement, No rhonchi, No wheeze, No rales Cardiovascular: Regular rate, Regular Rhythm, Normal S1, Normal S2, No murmurs Abdomen: Soft, Non Tender, Non-Distended, No Hepato-splenomegaly Extremities: No edema, Capillary Refill Less than 3 Seconds Skin: No rashes, No breakdown Musculoskeletal: No Tenderness to Palpation of Joints or Extremities Neurological: No focal neurological deficits, moves all extremities Psych/Mental Status: Normal Affect, Appropriate Weight / BMI Weight Weight: 205 lb 11.06 oz Body Mass Index (BMI) 32.2 ABG / Lab / Microbiology Data 05/26/25 04:45 05/26/25 04:45 Laboratory: Laboratory Results - last 24 hr 05/25/25 11:44: Free T3 pg/dL 2.3 05/25/25 20:45: POC Glucose 91 05/26/25 04:45: WBC 7.0, RBC 4.38, Hgb 12.1, Hct 37.6, MCV 85.8, MCH 27.6, MCHC 32.2, RDW Std Deviation 43.7, RDW Coeff of Cher 14.0, Plt Count 265, MPV 9.7, Immature Gran % (Auto) 0.400, Neut % (Auto) 63.1, Lymph % (Auto) 24.4, [place] % (Auto) 8.8, Eos % (Auto) 2.7, Baso % (Auto) 0.6, Absolute Neuts (auto) 4.4, Absolute Lymphs (auto) 1.72, Nucleated RBC % 0, Sodium 140, Potassium 3.9, Chloride 106, Carbon Dioxide 26.0, Anion Gap 8, BUN 11, Creatinine 0.57 L, Estim Creat Clear Calc 130.77, Est GFR (MDRD) Non-Af 107, BUN/Creatinine Ratio 19.0, Glucose 80, Calcium 8.5 Radiography Diagnostic Testing: Radiology Impression Echocardiogram 05/25/25 13:48 Interpretation Summary Normal LV size. Left ventricular systolic function is normal. The left ventricular ejection fraction is 55 %. Unable to assess diastolic dysfunction due to arrhythmia. Ordering Physician: Javi Mota Performed By: Ricci Belle RCS D/C Instructions Call your doctor if you observe: Fever of 101 or Higher, Shortness of breath, Dizziness, Fainting spells, Swelling in the ankles, Chest pain and Increased palpitations (irregular heartbeat) DC O2, CPAP, BIPAP Needs Home O2 Discharge instructions: No Meaningful Use Info Meaningful Use Meaningful Use Diagnoses (Choose all that apply): None applicable Discharge Plan Admission Admit Date/Time: 05/25/25 12:15 Attending Provider: Javi Mota Primary Care Provider: Marissa Coles Instructions Patient Instructions: AFib Dc Discharge Orders/Prescriptions Prescriptions: New metoprolol tartrate 25 mg Tablet 12.5 mg PO BID 30 Days Qty: 30 0RF Eliquis 5 mg Tablet 5 mg PO BID 30 Days Qty: 60 0RF Continued ferrous sulfate [Feosol] 325 mg (65 mg iron) tablet 325 mg PO DAILY Co Q-10 75 mg capsule 75 mg PO DAILY cholecalciferol (vitamin D3) 10 mcg (400 unit) capsule 10 mcg PO DAILY multivitamin Capsule 1 cap PO DAILY calcium-vitamin D3-vitamin K 500-100-40 mg-unit-mcg tablet,chewable 1 tab PO DAILY Rx Instructions: chew thoroughly before swallowing; do not swallow whole (DME) blood-glucose meter [Accu-Chek Nithya Plus Meter] Misc See Rx Instructions .ROUTE .MEDSUPPLY Qty: 1 0RF Rx Instructions: As directed, check daily type 2 DM ascorbic acid (vitamin C) 1,000 mg tablet 1 g PO ONCE cetirizine 10 mg capsule 10 mg PO DAILY Qty: 90 3RF (DME) Accu-Chek Guide test strips Strip See Rx Instructions .ROUTE .MEDSUPPLY Qty: 100 3RF Rx Instructions: check glucose daily for type 2 DM venlafaxine 150 mg capsule,extended release 24hr See Rx Instructions .ROUTE .COMPLEX Qty: 90 3RF Dose Instruction: Take 1 capsule by mouth once daily Rx Instructions: Take 1 capsule by mouth once daily lisinopril 5 mg tablet 5 mg PO DAILY Qty: 90 2RF tirzepatide 12.5 mg/0.5 mL pen injector 12.5 mg subcut QWEEK 90 Days Qty: 6.5 1RF rosuvastatin 20 mg tablet 20 mg PO QHS Qty: 90 1RF metformin 1,000 mg tablet 1,000 mg PO BID Qty: 180 1RF levothyroxine 175 mcg tablet 175 mcg PO DAILY Qty: 90 2RF Referrals / Follow Up: Marissa Coles MD [Primary Care Provider, Internal Medicine] - Within 1 Week Mati Mcginnis MD [Med Staff - Active Staff, Cardiology] - Within 1 Month Disposition Disposition (needs filled in before D/C Order can be placed): Home, Self Care Charges/Coding Visit Charges Inpatient E&M: 33452 Disch Hosp >30min
== END 2025-05-26 12:58 | disposition home or self-care (01) ==
LOC: ED 09:49 → PCU 12:40
PROVIDERS: Admitting Provider Family Medicine; Emergency Provider Surgery; PCP Internal Medicine; Visit Provider Family Medicine
DX: I48.91 Unspecified atrial fibrillation (principal); E11.9 Type 2 diabetes mellitus without complications; I10 Essential (primary) hypertension; E03.9 Hypothyroidism, unspecified; E78.5 Hyperlipidemia, unspecified; F41.9 Anxiety disorder, unspecified; F32.A Depression, unspecified; K58.9 Irritable bowel syndrome, unspecified; J45.909 Unspecified asthma, uncomplicated; Z87.891 Personal history of nicotine dependence; Z79.85 Long-term (current) use of injectable non-insulin antidiabetic drugs; Z79.890 Hormone replacement therapy; Z79.899 Other long term (current) drug therapy; Z79.84 Long term (current) use of oral hypoglycemic drugs
CPT/HCPCS: 36415; 71046; 71275; 80048; 82962; 83735; 83880; 84439; 84443; 84481; 84484; 85025; 85379; 85610; 85730; 93005; 93306; 96361; 96374; 96375; 99221; 99285; Q9957; Q9967; A4216; G0378; J2405

== ENCOUNTER → 2025-06-19 | Outpatient (CLI) | payer OTHER, SELFPAY ==
--- NOTE | 2025-06-19 10:45 | BI_ITS ---
EXAM: SCRN MAMM (CAD)W/JANESSA BILAT DATE: 06/19/2025 CLINICAL HISTORY: F, Age 54 y/o , SCREENING FOR BREAST CANCER TECHNIQUE: Procedure Code: [id number] Modality: MG Procedure: SCRN MAMM (CAD)W/JANESSA BILAT COMPARISON: Prior exam(s) dated 05/23/2024, 05/19/2023. FINDINGS: TISSUE DENSITY: There are scattered areas of fibroglandular density. Bilateral Breast Mammographic Findings: No suspicious masses, suspicious clustered microcalcifications, architectural distortion or secondary sign of malignancy is identified in either breast. Benign-appearing round microcalcifications are seen in both breasts. BI/SCRN MAMM (CAD)W/JANESSA BILAT IMPRESSION: Benign screening mammogram OVERALL FINAL ASSESSMENT BI-RADS 2: BENIGN RECOMMENDATION: Routine annual follow-up in 1 Year Additional Recommendation none A letter with findings and recommendations will be mailed to the patient. Reading Location: [id number]
== END | disposition home or self-care (01) ==
LOC: OPBI 10:37
PROVIDERS: PCP Internal Medicine; Referring Provider Nurse Practitioner Women's Health; Visit Provider Nurse Practitioner Women's Health
DX: Z12.31 Encounter for screening mammogram for malignant neoplasm of breast (principal)
CPT/HCPCS: 77063; 77067

== ENCOUNTER → 2025-07-19 | Outpatient (CLI) | payer OTHER, SELFPAY ==
--- NOTE | 2025-07-19 06:23 | CDU_ITS ---
Reason For Study Reason For Study: Dizziness Rt. Velocities/BP Lt. Velocities/BP Prox CCA 78.7/19.2 cm/sec. Prox CCA 74/24.8 cm/sec. Mid CCA 73/22 cm/sec. Mid CCA 62.6/20.1 cm/sec. Dist CCA 57.9/20.1 cm/sec. Dist CCA 65.5/25.8 cm/sec. Prox ICA 63.6/27.7 cm/sec. Prox ICA 55.1/23 cm/sec. Mid ICA 73/35.2 cm/sec. Mid ICA 90.5/41 cm/sec. Dist ICA 83.4/33.3 cm/sec. Dist ICA 75.1/26.7 cm/sec. Rt. ICA/CCA = 1.14. Lt. ICA/CCA = 1.45. Prox ECA 65.5/13.5 cm/sec. Prox ECA 74/12.6 cm/sec. Rt. Vert. 53.2/15.4 cm/sec. Lt. Vert. 38.1/14.5 cm/sec. Right Extracranial There is intimal thickening but no significant atherosclerotic plaque noted in the right common carotid artery. There is intimal thickening but no significant atherosclerotic plaque noted in the right internal carotid artery. There is intimal thickening but no significant atherosclerotic plaque noted in the right external carotid artery. Antegrade flow is noted in the right vertebral artery. Left Extracranial There is intimal thickening but no significant atherosclerotic plaque noted in the left common carotid artery. There is heterogeneous, irregular atherosclerotic plaque noted in the left internal carotid artery. There is intimal thickening but no significant atherosclerotic plaque noted in the left external carotid artery. Antegrade flow is noted in the left vertebral artery. Procedure Carotid Duplex [id number]. This is a Carotid Duplex examination using B-mode, color flow and specral Doppler. Exam performed in department. VL/Carotid Duplex Ultrasound Interpretation Summary Normal right extracranial internal carotid. Mild (<50%) stenosis left extracranial internal carotid. Patent and antegrade vertebrals bilaterally. Ordering Physician: Sowmya Leavitt Referring Physician: Marissa Coles Performed By: Vicki Aldana RVT
--- OUTSIDE RECORDS SUMMARY | 2025-07-19 06:24 | XMS RPT_ITS | CCD ---
Author Organization [facility] Care Team Providers Care Bulb Tester Name Role Phone Michael Coles MD Primary Care Provider [phone]) Dr. Michael Coles Primary Care Provider 1(33 0) Dr. Michael Coles Attending Provider [phone])2 Dr. Michael Coles Referring Provider [phone])2 Dr. Michael Coles Primary Care Provider 1(33 0) Dr. Michael Coles Attending Provider [phone])2 Dr. Michael Coles Referring Provider [phone])2 BERENICE Britt NP Attending Provider 1(330 ) Dr. Michael Coles Primary Care Provider 1(33 0) Dr. Michael Coles Attending Provider [phone])2 Dr. Michael Coles Referring Provider 1(330)2 Dr. Michael Coles Primary Care Provider 1(33 0) Dr. Michael Coles Attending Provider [phone])2 Dr. Michael Coles Referring Provider [phone])2 MICHAEL COLES Primary Care Unavailable MERCEDES REID Attending Unavailable Dr. Michael Coles Primary Care Provider 1(33 0) Dr. Michael Coles Attending Provider Dr. Zara Colesbe Referring Provider [phone])2 Sharyn SILVERIO, Dr. Ann Primary Care Provider Sharyn SILVERIO, Dr. Ann Attending Provider 1(33 0) Sharyn SILVERIO, Dr. Ann Referring Provider 1(33 0) Shrayn SILVERIO, Dr. Ann Primary Care Physician Sharyn SILVERIO, Dr. Ann Attending Physician 1(3 30) Sharyn SILVERIO, Dr. Ann Referring Provider 1(33 0) [facility] Dr. Wynne Emergency [facility] t Physician Svetlana SILVERIO, Dr. Javi Herman Admitting Physician Svetlana SILVERIO, Dr. Javi Herman Attending Physician Nicole SILVERIO, Dr. Sosa Attending Physician Svetlana SILVERIO, Dr. Javi Herman Nurse Practitioner Ungerer FILLER BLOCK INSERTER REMOVER-CKeyona Attending Physician Sharyn SILVERIO, Dr. Ann Primary Care Physician Sharyn SILVERIO, Dr. Ann Attending Physician 1(3 30) Sharyn SILVERIO, Dr. Ann Referring Provider 1(33 0) [facility], Dr. Wynne Emergency [facility] t Physician Svetlana SILVERIO, Dr. Javi Herman Admitting Physician Svetlana SILVERIO, Dr. Javi Herman Attending Physician Nicole SILVERIO, Dr. Sosa Attending Physician Svetlana SILVERIO, Dr. Javi Herman Nurse Practitioner Ungerer FILLER BLOCK INSERTER REMOVER-C, [place] Attending Physician UngererBetoKeyona Attending Unavailable Oleghe, Efewongbe Referring Unavailable Oleghe, Efewongbe Primary Care Unavailable Oleghe, Efewongbe Attending Unavailable Oleghe, Efewongbe Referring Unavailable Oleghe, Efewongbe Primary Care Unavailable Nicole, Ian Attending Unavailable Oleghe, Efewongbe Primary Care Unavailable Balwinder FILLER BLOCK INSERTER REMOVER, Beth Attending Unavailable Balwinder FILLER BLOCK INSERTER REMOVER, Beth Referring Unavailable Oleghe, Efewongbe Primary Care Unavailable Oleghe, Efewongbe Primary Care Unavailable Oleghe, Efewongbe Attending Unavailable Oleghe, Efewongbe Referring Unavailable Oleghe, Efewongbe Primary Care Unavailable Oleghe, Efewongbe Attending Unavailable Oleghe, Efewongbe Referring Unavailable Oleghe, Efewongbe Primary Care Unavailable Javi Mota Admitting Unavailable Javi Mota Attending Unavailable Javi Mota F Admitting Unavailable Javi Mota Consulting Unavailable Javi Mota Attending Unavailable Oleghe, Efewongbe Primary Care Unavailable Oleghe, Efewongbe Primary Care Unavailable Oleghe, Efewongbe Attending Unavailable Oleghe, Efewongbe Referring Unavailable Balwinder FILLER BLOCK INSERTER REMOVER, Beth Attending Unavailable Oleghe, Efewongbe Primary Care Unavailable Oleghe, Efewongbe Referring Unavailable Oleghe, Efewongbe Primary Care Unavailable Oleghe, Efewongbe Attending Unavailable Oleghe, Efewongbe Referring Unavailable Oleghe, Efewongbe Primary Care Unavailable Oleghe, Efewongbe Attending Unavailable Oleghe, Efewongbe Referring Unavailable Allergies Allergy Classification Reported Allergen(s) Allergy Type Date of Onset Reaction(s) Facility (16 sources) Aspirin; Translations: [ASPIRIN] Drug Allergy 1 Unknown [facility] (3 sources) Cephalosporins (Antibiotic); Translations: [CEPHALOSPORINS] Drug Allergy 2 Other: See Comments, Hives [facility] (3 sources) Iodine; Translations: [IODINE] Drug Allergy 2 Swelling, Shortness of Breath [facility] (16 sources) Latex; Translations: [LATEX] Drug Allergy 1 Rash [facility] (3 sources) Non-steroidal anti-inflammatory agent; Translations: [NSAIDS (NON-STEROIDAL ANTI-INFLAMMATORY DRUG)] Drug Allergy 2 GI Upset [facility] (3 sources) Penicillins; Translations: [PENICILLINS] Drug Allergy 0 Other: See Comments, [facility] (16 sources) shrimp allergenic extract; Translations: [SHRIMP] Drug Allergy 1 Anaphylaxis [facility] (14 sources) Adhesive Tape; Translations: [adhesive tape] Allergy to substance 3 Rash [facility] (13 sources) Cephalosporins (Antibiotic) Allergy to substance 3 [facility] (13 sources) Penicillins Allergy to substance 3 [facility] (1 source) Aspirin Drug Allergy 5 [facility] (1 source) Cephalosporins (Antibiotic) Drug allergy (disorder) 5 [facility] (1 source) Latex Drug allergy (disorder) 5 [facility] (1 source) Penicillins Drug allergy (disorder) 5 [facility] (1 source) Shrimp product Drug allergy (disorder) 5 [facility] Medications Current Medications Medication Drug Class(es) Dates Sig (Normalized) Sig (Original) apixaban 5 mg oral tablet (3 sources) Factor Xa Inhibitor Start: 05-26-2025 take 1 tablet by mouth twice daily Apixaban (Eliquis) 5 mg Tablet Active 5 mg PO TWICE A DAY 60 30 0 May 25, 2025 11:00pm Complies with drug therapy ascorbic acid 1000 mg oral tablet (20 sources) Vitamin C Start: 08-26-2024 take 1 g by mouth once Ascorbic Acid (Vitamin C) 1,000 mg tablet Active 1 g PO ONCE August 26, 2024 12:00am supplement Complies with drug therapy Start: 03-29-2020 End: 08-26-2024 take 1 tablet by mouth every twelve hours Ascorbic Acid (Vitamin C) 1,000 mg tablet extended release Discontinued 1000 mg PO Q12H March 28, 2020 11:00pm August 26, 2024 10:58am Start: 12-28-1999 Ascorbic Acid 500 mg chew q 24 HR. 0 12/28/1999 Active Comment on above: Take 1,000 mg by jeanne th. q 24 HR. Blood-Glucose Meter (Accu-Chek Nithya Plus Meter) misc (13 sources) Start: 07-31-2020 Blood-Glucose Meter (Accu-Chek Nithya Plus Meter) mis Active 0 .ROUTE .MEDSUPPLY 1 0 July 31, 2020 12:00am Type 2 diabetes mellitus without complications As directed, check daily type 2 DM Start: 07-31-2020 Blood-Glucose Meter (Accu-Chek Nithya Plus Meter) mis Active 0 .ROUTE .MEDSUPPLY 1 0 July 31, 2020 1:00am Type 2 diabetes mellitus without complications As directed, check daily type 2 DM Start: 07-31-2020 Blood-Glucose Meter (Accu-Chek Nithya Plus Meter) [facility] Active 0 .ROUTE .MEDSUPPLY 1 July 31, 2020 1:00am As directed, check daily type 2 DM Start: 07-31-2020 Blood-Glucose Meter (Accu-Chek Nithya Plus Meter) [facility] [place] Active 0 .ROUTE .MEDSUPPLY July 31, 2020 12:00am As directed, check daily type 2 DM cholecalciferol 0.01 mg oral capsule (15 sources) Vitamin D Start: 04-07-2012 take 1 capsule by mouth once daily Cholecalciferol (Vitamin D3) 10 mcg (400 unit) capsule Active 10 ug PO DAILY March 28, 2020 11:00pm supplement Complies with drug therapy Comment on above: Take 10 mcg by mouth . ferrous sulfate 325 mg oral tablet (15 sources) Start: 03-29-2020 take 1 tablet by mouth once daily Ferrous Sulfate (Feosol) 325 mg (65 mg iron) tablet Active 325 mg PO DAILY March 28, 2020 11:00pm supplement Complies with drug therapy Comment on above: Take by mouth. 12 hr guaiFENesin 600 mg extended release oral tablet (1 source) Start: 07-31-2022 End: 08-07-2022 take 1 tablet by mouth twice daily guaiFENesin (MUCINEX) 600 mg 12 hr tablet Take 1 tablet by mouth twice daily for 7 days. 14 tablet 0 07/31/2022 08/07/2022 Active Comment on above: Take 1 tablet by jeanne th twice daily for 7 days. metoprolol tartrate 25 mg oral tablet (6 sources) beta-Adrenerg ic [place] Start: 05-29-2025 Metoprolol Tartrate 25 mg tablet Active 12.5 mg PO TWICE A DAY May 29, 2025 12:07pm Complies with drug therapy Start: 05-29-2025 Metoprolol Tar trate 25 mg tablet Active 12.5 mg PO TWICE A DAY May 29, 2025 1:07pm Complies with drug therapy Start: 05-29-2025 Metoprolol Tar trate 25 mg tablet Active 12.5 mg PO TWICE A DAY May 29, 2025 1:07pm Complies with drug therapy Start: 05-26-2025 End: 05-29-2025 Metoprolol Tartrate 25 mg Ta blet Discontinued 12.5 mg PO TWICE A DAY 30 30 0 May 25, 2025 11:00pm May 29, 2025 12:07pm Multivitamin capsule (5 sources) Start: 03-29-2020 Multivitamin c apsule Active 1 NMA PO DAILY March 28, 2020 11:00pm supplement Complies with drug therapy Start: 03-29-2020 Multivitamin c apsule Active 1 NMA PO DAILY March 29, 2020 12:00am supplement Complies with drug therapy Start: 03-29-2020 Start: 03-29-2020 Multivitamin c apsule Active 1 NMA PO DAILY March 29, 2020 12:00am Multivitamin preparation (8 sources) Start: 03-29-2020 take 1 capsule by mouth once daily multivitamin Active 1 CAP PO DAILY March 29, 2020 12:00am Start: 03-29-2020 take 1 capsule by mo uth once daily multivitamin Active 1 CAP PO DAILY March 28, 2020 11:00pm predniSONE 10 mg oral tablet (1 source) Start: 07-31-2022 End: 08-09-2022 predniSONE (DELTASONE) 10 mg tablet Take 4 tabs daily for 3 days, then 2 tabs daily for 3 days, then 1 tab daily for 3 days with food. 21 tablet 0 07/31/2022 08/09/2022 Active Comment on above: Take 4 tabs daily fo r 3 days, then 2 tabs daily for 3 days, then 1 tab daily for 3 days with food. Tirzepatide (8 sources) Start: 02-07-2025 Tirzepatide 12 .5 mg/0.5 mL pen injector Active 12.5 mg SC EVERY WEEK 6.5 90 February 07, 2025 7:23am blood sugar Complies with drug therapy Start: 02-07-2025 Tirzepatide 12 .5 mg/0.5 mL pen injector Active 12.5 mg SC EVERY WEEK 6.5 90 February 07, 2025 8:23am blood sugar Complies with drug therapy Start: 02-07-2025 Start: 09-02-2024 End: 02-07-2025 Tirzepatide 12.5 mg/0.5 mL p en injector Discontinued 12.5 mg SC EVERY WEEK 6.5 90 September 02, 2024 8:33am February 07, 2025 7:23am Start: 09-02-2024 End: 02-07-2025 Tirzepatide 12.5 mg/0.5 mL p en injector Discontinued 12.5 mg SC EVERY WEEK 6.5 90 September 02, 2024 9:33am February 07, 2025 8:23am Tirzepatide 12.5 mg/0.5 mL p en injector (2 sources) Start: 02-07-2025 Tirzepatide 12 .5 mg/0.5 mL pen injector Active 12.5 mg SC EVERY WEEK 6.5 90 February 07, 2025 8:23am Start: 09-02-2024 End: 02-07-2025 Tirzepatide 12.5 mg/0.5 mL p en injector Discontinued 12.5 mg SC EVERY WEEK 6.5 90 September 02, 2024 9:33am February 07, 2025 8:23am ubidecarenone 75 mg oral capsule (15 sources) Start: 03-29-2020 Coenzyme Q10 ( Co Q-10) 75 mg capsule Active 75 mg PO DAILY March 28, 2020 11:00pm heart supplement Complies with drug therapy Comment on above: Take by mouth. Completed/Discontinued Medications Medication Drug Class(es) Dates Sig (Normalized) Sig (Original) Blood-Glucose Meter (Accu-Chek Guide Glucose Meter) misc (13 sources) Start: 08-02-2020 End: 11-09-2020 Blood-Glucose Meter (Accu-Chek Guide Glucose Meter) misc Discontinued 0 .ROUTE .MEDSUPPLY 1 August 02, 2020 12:00am November 09, 2020 1:23pm Type 2 diabetes mellitus without complications check glucose daily for type 2 DM As directed Start: 08-02-2020 End: 11-09-2020 Blood-Glucose Meter (Accu-Ch ek Guide Glucose Meter) misc Discontinued 0 .ROUTE .MEDSUPPLY 1 0 August 02, 2020 1:00am November 09, 2020 2:23pm Type 2 diabetes mellitus without complications check glucose daily for type 2 DM As directed Start: 08-02-2020 End: 11-09-2020 Blood-Glucose Meter (Accu-Ch ek Guide Glucose Meter) misc Discontinued 0 .ROUTE .MEDSUPPLY 1 August 02, 2020 1:00am November 09, 2020 2:23pm As directed Start: 08-02-2020 End: 11-09-2020 Blood-Glucose Meter (Accu-Ch ek Guide Glucose Meter) misc Discontinued 0 .ROUTE .MEDSUPPLY August 02, 2020 12:00am November 09, 2020 1:23pm As directed calcium carbonate 1250 mg / cholecalciferol 100 unt / vitamin k1 0.04 mg chewable tablet (15 sources) Vitamin D, Warfarin Reversal Agent, Vitamin K Start: 03-29-2020 Calcium-Vitamin D3-Vitamin K 500-100-40 mg-unit-mcg chew Take by mouth. 0 03/29/2020 Active Start: 03-29-2020 Calcium-Vitami n D3-Vitamin K 500-100-40 mg-unit-mcg tablet,chewable Active 1 {tbl} PO DAILY March 28, 2020 11:00pm supplement chew thoroughly before swallowing; do not swallow whole Complies with drug therapy Start: 03-29-2020 take 1 tablet by jeanne once daily Calcium-Vitamin D3-Vitamin K Active 1 TABLET PO DAILY March 28, 2020 11:00pm chew thoroughly before swallowing; do not swallow whole Comment on above: Take by mouth. cetirizine hydrochloride 10 mg oral tablet (20 sources) Histamine-1 Receptor Antagonist Start: 2 take 1 tablet by mouth once daily cetirizine (ZYRTEC) 10 mg tablet Take 10 mg by mouth once daily. 0 06/06/2022 Active Start: 03-08-2020 End: 10-07-2021 take 1 capsule by mouth once daily Cetirizine 10 mg capsule Active 10 mg PO DAILY 90 3 October 07, 2021 9:44am Complies with drug therapy Comment on above: Take 10 mg by mouth once daily. clindamycin 300 mg oral capsule (9 sources) Lincosamide Antibacterial Start: End: take 1 capsule by mouth every six hours Clindamycin Hcl (Cleocin Hcl) 300 mg capsule Discontinued 300 mg PO EVERY 6 HOURS 40 10 0 March 14, 2023 11:00pm May 27, 2023 7:35am cyclobenzaprine hydrochloride 10 mg oral tablet (11 sources) Muscle Relaxant Start: End: take 1 tablet by mouth three times daily as needed for muscle spasms Cyclobenzaprine 10 mg tablet Discontinued 10 mg PO THREE TIMES A DAY as needed for Muscle Spasm 12 0 October 26, 2022 11:00pm November 25, 2023 10:12am Dulaglutide (20 sources) GLP-1 Receptor Agonist Start: End: Dulaglutide (Trulicity) 4.5 mg/0.5 mL pen injector Discontinued 4.5 mg SC EVERY WEEK 6.5 90 May 27, 2023 7:48am May 20, 2024 10:34am Start: 05-27-2023 End: 05-20-2024 Dulaglutide (Trulicity) 4.5 mg/0.5 mL pen injector Discontinued 4.5 mg SC EVERY WEEK 6.5 90 May 27, 2023 8:48am May 20, 2024 11:34am Start: 05-27-2023 Dulaglutide (T rulicity) 4.5 mg/0.5 mL pen injector Active 4.5 MG SC EVERY WEEK 6.5 90 May 27, 2023 7:48am Start: 02-23-2023 End: 05-27-2023 Dulaglutide (Trulicity) 3 mg /0.5 mL pen injector Discontinued 0 .ROUTE .COMPLEX 4 3 February 23, 2023 4:38pm May 27, 2023 7:48am INJECT THE CONTENTS OF 1 PEN SUBCUTANEOUSLY ONCE A WEEK. Start: 02-23-2023 End: 05-27-2023 Dulaglutide (Trulicity) 3 mg /0.5 mL pen injector Discontinued 0 .ROUTE .COMPLEX 4 3 February 23, 2023 5:38pm May 27, 2023 8:48am INJECT THE CONTENTS OF 1 PEN SUBCUTANEOUSLY ONCE A WEEK. Start: 02-23-2023 End: 05-27-2023 Dulaglutide (Trulicity) 3 mg /0.5 mL pen injector Discontinued 0 .ROUTE .COMPLEX 4 February 23, 2023 4:38pm May 27, 2023 7:48am INJECT THE CONTENTS OF 1 PEN SUBCUTANEOUSLY ONCE A WEEK. Start: 02-23-2023 Dulaglutide (T rulicity) 3 mg/0.5 mL pen injector Active 0 .ROUTE .COMPLEX 4 February 23, 2023 5:38pm INJECT THE CONTENTS OF 1 PEN SUBCUTANEOUSLY ONCE A WEEK. Start: 11-19-2022 End: 02-23-2023 Dulaglutide (Trulicity) 3 mg /0.5 mL pen injector Discontinued 0 .ROUTE .COMPLEX 2 90 3 November 19, 2022 8:32am February 23, 2023 4:38pm INJECT THE CONTENTS OF 1 PEN SUBCUTANEOUSLY ONCE A WEEK Start: 11-19-2022 End: 02-23-2023 Dulaglutide (Trulicity) 3 mg /0.5 mL pen injector Discontinued 0 .ROUTE .COMPLEX 2 90 3 November 19, 2022 9:32am February 23, 2023 5:38pm INJECT THE CONTENTS OF 1 PEN SUBCUTANEOUSLY ONCE A WEEK Start: 11-19-2022 End: 02-23-2023 Dulaglutide (Trulicity) 3 mg /0.5 mL pen injector Discontinued 0 .ROUTE .COMPLEX 2 90 November 19, 2022 8:32am February 23, 2023 4:38pm INJECT THE CONTENTS OF 1 PEN SUBCUTANEOUSLY ONCE A WEEK Start: 11-19-2022 End: 02-23-2023 Dulaglutide (Trulicity) 3 mg /0.5 mL pen injector Discontinued 0 .ROUTE .COMPLEX 2 90 November 19, 2022 9:32am February 23, 2023 5:38pm INJECT THE CONTENTS OF 1 PEN SUBCUTANEOUSLY ONCE A WEEK Start: 07-13-2022 End: 11-19-2022 Dulaglutide (Trulicity) 1.5 mg/0.5 mL pen injector Discontinued 0 .ROUTE .COMPLEX 12 0 September 15, 2022 9:41am November 19, 2022 8:33am INJECT THE CONTENTS OF 1 PEN SUBCUTANEOUSLY ONCE A WEEK Start: 09-24-2020 End: 09-12-2022 Dulaglutide 1.5 mg/0.5 mL pe n injector Discontinued 1.5 mg SC EVERY WEEK 6.5 90 October 07, 2021 9:44am October 07, 2021 9:47am Start: 08-08-2020 End: 09-24-2020 Dulaglutide (Trulicity) 0.75 mg/0.5 mL pen injector Discontinued 0.75 mg SC EVERY WEEK 2 August 08, 2020 12:00am September 24, 2020 8:42am Comment on above: INJECT THE CONTENTS OF 1 PEN SUBCUTANEOUSLY ONCE A WEEK empagliflozin 25 mg oral tablet (20 sources) Sodium-Glucose Cotransporter 2 Inhibitor Start: 03-08-20 End: 12-16-19 take 1 tablet by mouth once daily Empagliflozin 25 mg tablet Discontinued 25 mg PO DAILY 90 July 25, 2024 4:46pm December 15, 2024 4:57pm Comment on above: Take 25 mg by mouth once daily. estradiol 0.1 mg/ml vaginal cream (20 sources) Estrogen Start: 10-10-19 End: 10-07-19 Estradiol 0.01 % (0.1 mg/gram) cream Discontinued 0 VAGINAL .COMPLEX 42.5 2 September 03, 2021 11:08am October 07, 2021 9:47am small amount as directed vaginal every other day X 4 weeks then twice a week; Start: 10-09-2020 End: 10-07-2021 Estradiol Discontinued 0 VAG INAL .COMPLEX 42.5 September 03, 2021 11:08am October 07, 2021 9:47am small amount as directed vaginal every other day X 4 weeks then twice a week; levothyroxine sodium 0.175 mg oral tablet (20 sources) l-Thyroxine Start: 03-08-2020 End: 05-22-2025 take 1 tablet by mouth once daily Levothyroxine 175 mcg tablet Discontinued 175 ug PO DAILY 90 September 06, 2024 4:26pm May 22, 2025 3:16pm Hypothyroidism Hypothyroidism, unspecified Comment on above: Take 175 mcg by mout h once daily. lisinopril 5 mg oral tablet (20 sources) Angiotensin Converting Enzyme Inhibitor Start: 03-08-2020 End: 05-29-2025 take 1 tablet by mouth once daily Lisinopril 5 mg tablet Discontinued 5 mg PO DAILY 90 2 November 29, 2024 10:53am May 29, 2025 12:44pm hypertension Comment on above: Take 5 mg by mouth o nce daily. metFORMIN hydrochloride 1000 mg oral tablet (20 sources) Biguanide Start: 03-08-2020 End: 03-22-2025 take 1 tablet by mouth twice daily Metformin 1,000 mg tablet Discontinued 1000 mg PO TWICE A DAY 180 September 20, 2024 11:42am March 22, 2025 2:27pm Comment on above: Take 1 tablet by jeanne th twice daily. methylPREDNISolone 4 mg oral tablet (11 sources) Corticosteroid Start: 10-27-2022 End: 11-19-2022 take 1 tablet by mouth once daily Methylprednisolone (Medrol (Augustus)) 4 mg tablets,dose pack Discontinued 4 mg PO DAILY 21 October 26, 2022 11:00pm November 19, 2022 8:19am Take taper dose as directed 12 hr orphenadrine citrate 100 mg extended release oral tablet (10 sources) Muscle Relaxant Start: 11-13-2022 End: 11-19-2022 take 1 tablet by mouth every twelve hours as needed for muscle spasms Orphenadrine Citrate 100 mg tablet extended release Discontinued 100 mg PO Q12H as needed for muscle spasm 14 0 November 13, 2022 5:07pm November 19, 2022 8:19am rosuvastatin calcium 20 mg oral tablet (20 sources) HMG-CoA Reductase Inhibitor Start: 03-08-2020 End: 03-22-2025 take 1 tablet by mouth at bedtime Rosuvastatin 20 mg tablet Discontinued 20 mg PO AT BEDTIME 90 September 20, 2024 11:42am March 22, 2025 2:25pm Comment on above: Take 20 mg by mouth daily at bedtime. Tirzepatide (8 sources) Start: 06-20-2024 End: 09-02-2024 Tirzepatide (Mounjaro) 7.5 mg/0.5 mL pen injector Discontinued 7.5 mg SC EVERY WEEK 6.5 90 June 20, 2024 8:37am September 02, 2024 8:34am Start: 06-20-2024 End: 09-02-2024 Tirzepatide (Mounjaro) 7.5 m g/0.5 mL pen injector Discontinued 7.5 mg SC EVERY WEEK 6.5 90 1 June 20, 2024 9:37am September 02, 2024 9:34am Start: 05-20-2024 End: 06-20-2024 Tirzepatide (Mounjaro) 7.5 m g/0.5 mL pen injector Discontinued 7.5 mg SC EVERY WEEK 2 May 19, 2024 11:00pm June 20, 2024 8:37am Start: 05-20-2024 End: 06-20-2024 Tirzepatide (Mounjaro) 7.5 m g/0.5 mL pen injector Discontinued 7.5 mg SC EVERY WEEK 2 May 20, 2024 12:00am June 20, 2024 9:37am Tirzepatide (Mounjaro) 7.5 mg/0.5 mL pen injector (2 sources) Start: 06-20-2024 End: 09-02-2024 Tirzepatide (Mounjaro) 7.5 mg/0.5 mL pen injector Discontinued 7.5 mg SC EVERY WEEK 6.5 90 1 June 20, 2024 9:37am September 02, 2024 9:34am Start: 05-20-2024 End: 06-20-2024 Tirzepatide (Mounjaro) 7.5 m g/0.5 mL pen injector Discontinued 7.5 mg SC EVERY WEEK 2 May 20, 2024 12:00am June 20, 2024 9:37am traMADol hydrochloride 50 mg oral tablet (10 sources) Opioid Agonist Start: 11-13-2022 End: 11-19-2022 take 1 tablet by mouth every six hours as needed for pain Tramadol 50 mg tablet Discontinued 50 mg PO EVERY 6 HOURS as needed for pain 12 3 0 November 13, 2022 5:06pm November 19, 2022 8:19am Sacroiliac joint dysfunction of left side Sacrococcygeal disorders, not elsewhere classified 24 hr venlafaxine 150 mg extended release oral capsule (20 sources) Serotonin and Norepinephrine Reuptake Inhibitor Start: 08-26-2023 End: 08-27-2023 take 2 tablets by mouth once daily in the morning, then take 3 tablets by mouth once daily Venlafaxine 75 mg tablet extended release 24hr Discontinued 75 mg PO EVERY MORNING August 26, 2023 12:00am August 27, 2023 6:33pm Take with 150 for a total daily dose of 225 mg daily. Start: 08-26-2023 End: 08-27-2023 Venlafaxine Discontinued 75 MG PO EVERY MORNING August 26, 2023 12:00am August 27, 2023 6:33pm Take with 150 for a total daily dose of 225 mg daily. Start: 10-04-2020 End: 09-07-2024 take 1 capsule by mouth once daily Venlafaxine 150 mg capsule,extended release 24hr Discontinued 0 .ROUTE .COMPLEX 90 July 29, 2024 11:45am September 07, 2024 10:17am Take 1 capsule by mouth once daily Start: 03-08-2020 End: 10-04-2020 take 1 capsule by mouth once daily Venlafaxine 75 mg capsule,extended release 24hr Discontinued 75 mg PO DAILY 90 September 25, 2020 8:32am October 04, 2020 9:40am Comment on above: Take 150 mg by mouth once daily. Problems Problem Classification Problem Date Documented Da te Episodic/Chronic Anxiety disorders (12 sources) Mixed anxiety and depressive disorder; Translations: [Anxiety disorder, unspecified] 08-26-2023 Chronic Asthma (13 sources) Asthma; Translations: [Unspecified asthma, uncomplicated] 11-13-2020 Chronic Cardiac dysrhythmias (13 sources) Atrial fibrillation; Translations: [Unspecified atrial fibrillation] Onset: 05-26-2025 Chronic Diabetes mellitus with complications (1 source) Type 2 diabetes mellitus with other specified complication; Translations: [Type 2 diabetes mellitus with other specified complication] Onset: 06-21-2025 Chronic Diabetes mellitus without complication (20 sources) Diabetes mellitus; Translations: [Type 2 diabetes mellitus without complications] 11-13-2020 Chronic Disorders of lipid metabolism (17 sources) Hyperlipidemia; Translations: [Hyperlipidemia, unspecified] Onset: 09-15-2024 11-13-2020 Chronic Essential hypertension (20 sources) Hypertensive disorder; Translations: [Essential (primary) hypertension] Onset: 09-06-2024 07-03-2021 Chronic Headache; including migraine (13 sources) Headache; Translations: [Headache] 03-09-2020 Episodic Menopausal disorders (20 sources) Atrophic vaginitis; Translations: [Postmenopausal atrophic vaginitis] 10-04-2020 Chronic Comment on above: effexor Nausea and vomiting (13 sources) Nausea; Translations: [Nausea] 03-09-2020 Episodic Nonmalignant breast conditions (19 sources) Large breast; Translations: [Hypertrophy of breast] 01-14-2022 Episodic Open wounds of extremities (9 sources) Post-traumatic wound infection; Translations: [Open bite, left lower leg, initial encounter] 03-15-2023 Episodic Other aftercare (6 sources) Post-discharge follow-up; Translations: [Encounter for follow-up examination after completed treatment for conditions other than malignant neoplasm] 05-30-2025 Episodic Other endocrine disorders (13 sources) Decreased estradiol level; Translations: [Other specified endocrine disorders] 11-13-2020 Episodic Other gastrointestinal disorders (13 sources) Irritable bowel syndrome; Translations: [Irritable bowel syndrome without diarrhea] 11-13-2020 Chronic Other non-traumatic joint disorders (9 sources) Shoulder pain; Translations: [Pain in right shoulder] 01-14-2022 Episodic Other non-traumatic joint disorders (4 sources) Pain in right shoulder; Translations: [Bilateral shoulder pain] 01-14-2022 Episodic Other nutritional; endocrine; and metabolic disorders (9 sources) H/O: diabetes mellitus; Translations: [Personal history of other endocrine, nutritional and metabolic disease] 03-15-2023 Episodic Other screening for suspected conditions (not mental disorders or infectious disease) (8 sources) Patient encounter status; Translations: [Encounter for screening for malignant neoplasm of colon] Onset: 10-19-2024 11-25-2023 Episodic Other upper respiratory disease (14 sources) Seasonal allergy; Translations: [Other seasonal allergic rhinitis] 11-13-2020 Chronic Other upper respiratory disease (1 source) Congestion of nasal sinus; Translations: [Nasal congestion] Episodic Other upper respiratory infections (1 source) Acute upper respiratory infection; Translations: [Acute upper respiratory infection, unspecified] 08-09-2023 Episodic Spondylosis; intervertebral disc disorders; other back problems (20 sources) Pain in the coccyx; Translations: [Sacrococcygeal disorders, not elsewhere classified] 10-02-2021 Episodic Sprains and strains (11 sources) Low back strain; Translations: [Strain of muscle, fascia and tendon of lower back, initial encounter] 10-27-2022 Episodic Syncope (1 source) Syncope and collapse; Translations: [Syncope and collapse] Onset: 06-12-2025 Episodic Thyroid disorders (20 sources) Hypothyroidism; Translations: [Hypothyroidism, unspecified] Onset: 03-22-2025 11-13-2020 Chronic Unclassified (3 sources) I48.91 - Unspecified atrial fibrillation Results Test Name Value Interpretation Reference Range Facility Internal Medicine Office Vis itoruss 06-21-2025 Internal Medicine Office Visit [facility] Internal Medicine [address] [place], [place] [address] OFFICE VISIT Date of Service: 06/21/25 MR#: [id number] Acct: [id number] Name: JACKIE HARRINGTON Rep #: [id number] : 1970 Provider: Dr. 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 Accompanied by: Self Is patient in pain?: No Allergies latex Allergy (Severe, Verified 06/21/25 10:50) rash aspirin Allergy (Unknown, Verified 06/21/25 10:50) unknown adhesive tape Allergy (Verified 06/21/25 10:50) Rash Cephalosporins Allergy (Verified 06/21/25 10:50) Hives Penicillins Allergy (Verified 06/21/25 10:50) Hives shrimp Allergy (Verified 06/21/25 10:50) Anaphylaxis Medications ???Medication ???Instructions ???Recorded ???Confirmed ???Type calcium 500 mg-vitamin D3 100 1 tab PO DAILY supplement 03/29/20 06/21/25 History unit-vitamin K 40 mcg chewable tablet cholecalciferol (vitamin D3) 10 10 mcg PO DAILY supplement 0 06/21/25 History mcg (400 unit) capsule coenzyme Q10 75 mg capsule (Co 75 mg PO DAILY heart supplement 06/21/25 History Q-10) ferrous sulfate 325 mg (65 mg 325 mg PO DAILY supplement 0 06/21/25 History iron) tablet (Feosol) multivitamin 1 cap PO DAILY supplement 03/29/20 06/21/25 History blood-glucose meter (Accu-Chek #1 ea 07/31/20 06/21/25 Rx Nithya Plus Meter) cetirizine 10 mg capsule 10 mg PO DAILY #90 caps 10/07/21 1 08/21/24 Rx blood sugar diagnostic (Accu-Chek #100 ea 09/07/23 06/21/25 Rx Guide test strips) ascorbic acid (vitamin C) 1,000 mg 1 g PO ONCE supplement 08/26/24 06/21/25 History tablet venlafaxine 150 mg See Rx Instructions .Route 5 06/21/25 Rx capsule,extended release 24 hr .COMPLEX depression #90 caps tirzepatide 12.5 mg/0.5 mL 12.5 mg (0.5 mL) subcut QWEEK 07/09/0306/21/25 Rx subcutaneous pen injector blood sugar 3 months #6.5 mL metformin 1,000 mg tablet 1,000 mg PO BID blood sugar #180 0 03/22/25 06/21/25 Rx tabs rosuvastatin 20 mg tablet 20 mg PO QHS cholesterol #90 tabs 03/22/25 06/21/25 Rx levothyroxine 175 mcg tablet 175 mcg PO DAILY hypothyroidism 06/21/25 Rx #90 tabs apixaban 5 mg tablet (Eliquis) 5 mg PO BID #180 tabs 06/21/2508/03 Rx metoprolol tartrate 25 mg tablet 12.5 mg (1/2 x 25 mg) PO BID #90 1 08/21/24 06/21/25 Rx tabs Nurse's Note: refill needed for heart medications [facility] Medical History (Updated 06/21/25 @ 13:[address] Michael Coles MD) Atrial fibrillation Colon cancer screening Anxiety and depression History of COVID-19 Acute back pain Bilateral shoulder pain Macromastia Fibroadenoma of right breast Coccyx pain Uterine fibroid Hypertension Hypothyroidism Hormone deficiency IBS (irritable bowel syndrome) Hyperlipemia Diabetes Asthma Seasonal allergies Surgical History H/O cosmetic surgery Hx of breast reduction, elective Hx of bilateral breast reduction surgery History of right knee joint replacement History of hysterectomy History of endometrial ablation History of gastric bypass History of tubal ligation History of Family History Father Diabetes CVA (cerebral vascular accident) Cancer skin Hypertension Heart disease Hyperlipemia Mother Heart disease Hyperlipemia Grandfather Myocardial infarction, Onset Age: 48 Uncle Alcoholism Social History household members: spouse and children housing: house number of children: 2 current occupational status: unemployed Smoking Status: Former smoker alcohol intake: current alcohol intake frequency: holidays/special occasions only substance use type: does not use what type of physical activity do you participate in: walking frequency: daily seatbelt use: always do you feel safe at home: Yes 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 history: - 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 The patient reports that she stopped taking lisinopril due to lo (more content not included)... Normal [facility] SCRN MAMM (CAD)W/JANESSA BILATo n 06-19-2025 SCRN MAMM (CAD)W/JANESSA BILAT [facility] Services [address] [place] [address] SCRN MAMM (CAD)W/JANESSA NARENDRA MR#: [id number] Acct: [id number] Name: JACKIE HARRINGTON Rep #: [id number] : 1970 F 54 From: Irma Rod PCP: Dr. Michael Coles MD Status: REG CLI Study: SCRN MAMM (CAD)W/JANESSA BILAT Date of Exam: 06/10 Exam# [id number] Ordering Dr: Beth Britt NP, NP EXAM: SCRN MAMM (CAD)W/JANESSA BILAT DATE: 06/19/2025 CLINICAL HISTORY: F, Age 54 y/o , SCREENING FOR BREAST CANCER TECHNIQUE: Procedure Code: [id number] Modality: MG Procedure: SCRN MAMM (CAD)W/JANESSA BILAT COMPARISON: Prior exam(s) dated 05/23/2024, 05/19/2023. FINDINGS: TISSUE DENSITY: There are scattered areas of fibroglandular density. Bilateral Breast Mammographic Findings: No suspicious masses, suspicious clustered microcalcifications, architectural distortion or secondary sign of malignancy is identified in either breast. Benign-appearing round microcalcifications are seen in both breasts. BI/SCRN MAMM (CAD)W/JANESSA BILAT IMPRESSION: Benign screening mammogram OVERALL FINAL ASSESSMENT BI-RADS 2: BENIGN RECOMMENDATION: Routine annual follow-up in 1 Year Additional Recommendation none A letter with findings and recommendations will be mailed to the patient. Reading Location: [id number] CC: BERENICE Britt; Dr. Michael Coles MD Credit Operations Specialist: Signed Normal [facility] Internal Medicine Office Vis itoruss 05-29-2025 Internal Medicine Office Visit [facility] Internal Medicine [facility] [place] [place] [address] [place] [address] OFFICE VISIT Date of Service: 05/29/25 MR#: [id number] Acct: [id number] Name: JACKIE HARRINGTON Rep #: [id number] : 1970 Provider: BERENICE couch Age/Sex: 54/F Location[place] [facility] Status: Signed Intake Vital Signs 05/25/25 13:57 05/29/25 13:03 Height 5 ft 7 in 5 ft 7 in Weight: 208 lb BMI 32.5 BP 122/80 H Blood Pressure Location Lt brachial Position Sitting Respiration 18 Pulse 81 Pulse Source Monitor Temp 97.8 F Temp Source Temporal Pulse Oximetry (%) 97 Oxygen Delivery Method room air Intake Visit Reasons: Transitional Care Management Chief Complaint: Transitional Care Management Is patient in pain?: No Allergies latex Allergy (Severe, Verified 05/29/25 13:02) rash aspirin Allergy (Unknown, Verified 05/29/25 13:02) unknown adhesive tape Allergy (Verified 05/29/25 13:02) Rash Cephalosporins Allergy (Verified 05/29/25 13:02) Hives Penicillins Allergy (Verified 05/29/25 13:02) Hives shrimp Allergy (Verified 05/29/25 13:02) Anaphylaxis Medications ???Medication ???Instructions ???Recorded ???Confirmed ???Type calcium 500 mg-vitamin D3 100 1 tab PO DAILY supplement 03/29/20 05/29/25 History unit-vitamin K 40 mcg chewable tablet cholecalciferol (vitamin D3) 10 10 mcg PO DAILY supplement 0 05/29/25 History mcg (400 unit) capsule coenzyme Q10 75 mg capsule (Co 75 mg PO DAILY heart supplement 05/29/25 History Q-10) ferrous sulfate 325 mg (65 mg 325 mg PO DAILY supplement 0 05/29/25 History iron) tablet (Feosol) multivitamin 1 cap PO DAILY supplement 03/29/20 05/29/25 History blood-glucose meter (Accu-Chek #1 ea 07/31/20 05/29/25 Rx Nithya Plus Meter) cetirizine 10 mg capsule 10 mg PO DAILY #90 caps 10/07/21 1 Rx blood sugar diagnostic (Accu-Chek #100 ea 09/07/23 05/29/25 Rx Guide test strips) ascorbic acid (vitamin C) 1,000 mg 1 g PO ONCE supplement 08/26/24 05/29/25 History tablet venlafaxine 150 mg See Rx Instructions .Route 5 05/29/25 Rx capsule,extended release 24 hr .COMPLEX depression #90 caps tirzepatide 12.5 mg/0.5 mL 12.5 mg (0.5 mL) subcut QWEEK 07/0 09/0305/29/25 Rx subcutaneous pen injector blood sugar 3 months #6.5 mL metformin 1,000 mg tablet 1,000 mg PO BID blood sugar #180 0 03/22/25 05/29/25 Rx tabs rosuvastatin 20 mg tablet 20 mg PO QHS cholesterol #90 tabs 03/22/25 05/29/25 Rx levothyroxine 175 mcg tablet 175 mcg PO DAILY hypothyroidism 05/29/25 Rx #90 tabs apixaban 5 mg tablet (Eliquis) 5 mg PO BID 30 days #60 tabs 05/2605/29/25 Rx metoprolol tartrate 25 mg tablet 12.5 mg PO BID 05/29/25 05/29/25 H istory Have you fallen in the past year?: No [facility] Medical History Colon cancer screening Anxiety and depression History of COVID-19 Acute back pain Bilateral shoulder pain Macromastia Fibroadenoma of right breast Coccyx pain Uterine fibroid Hypertension Hypothyroidism Hormone deficiency IBS (irritable bowel syndrome) Hyperlipemia Diabetes Asthma Seasonal allergies Surgical History H/O cosmetic surgery Hx of breast reduction, elective Hx of bilateral breast reduction surgery History of right knee joint replacement History of hysterectomy History of endometrial ablation History of gastric bypass History of tubal ligation History of Family History Father Diabetes CVA (cerebral vascular accident) Cancer skin Hypertension Heart disease Hyperlipemia Mother Heart disease Hyperlipemia Grandfather Myocardial infarction, Onset Age: 48 Uncle Alcoholism Social History household members: spouse and children housing: house number of children: 2 current occupational status: unemployed Smoking Status: Former smoker alcohol intake: current alcohol intake frequency: holidays/special occasions only substance use type: does not use what type of physical activity do you participate in: walking frequency: daily seatbelt use: always do you feel safe at home: Yes 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 Normal [facility] Absolute lymphocyte countOrd ered By: Javi Mota on 05-26-2025 Lymphocytes Auto (Unsp spec) [#/Vol] 1.72 10*3/uL 0.83-4.51 [facility] Absolute neutrophil countOrd ered By: Javi oMta on 05-26-2025 Neutrophils (Bld) [#/Vol] 4.4 10*3/uL 2.0-7.7 [facility] Anion gap in Serum or Plasma Ordered By: Javi Mota on 05-26-2025 Anion gap [Moles/Vol] 8 mmol/L - [facility] Automated lymphocyte count a s percentage of total leukocytesOrdered By: Javi Mota on 05-26-2025 Lymphocytes/100 WBC Auto (Unsp spec) 24.4 % - [facility] BUN/creatinine ratioOrdered By: Javijarrett Mota on 05-26-2025 Urea nitrogen/Creatinine [Mass ratio] 19.0 mg/mg 05-29 [facility] Basic Metabolic Profile (BMP )on 05-26-2025 BUN/CRE 19.0 RATIO Normal 05-29 [facility] Comment on above: Performed By: #### L 500.2500, L100.0100 ####[facility] [address], [address] Calcium [Mass/Vol] 8.5 mg/dL Normal 7.6-11.0 [facility] Comment on above: Performed By: #### L 500.2500, L100.0100 ####[facility] [address] [place], [address] Chloride [Moles/Vol] 106 mmol/L Normal 98-108 [facility] Comment on above: Performed By: #### L 500.2500, L100.0100 ####[facility] [address] [place], [address] CO2 [Moles/Vol] 26.0 mmol/L Normal 21.0-32.0 [facility] Comment on above: Performed By: #### L 500.2500, L100.0100 ####[facility] [address] [place], [address] Creatinine [Mass/Vol] 0.57 mg/dL Low 0.70-1.20 [facility] Comment on above: Performed By: #### L 500.2500, L100.0100 ####[facility] [address] [place], [address] ECRCL 130.77 ml/min Normal 50-250 [facility] Comment on above: Performed By: #### L 500.2500, L100.0100 ####[facility] [address] [place], [address] GAP 8 Normal 5-15 [facility] Comment on above: Performed By: #### L 500.2500, L100.0100 ####[facility] [address] [place], [address] GFR/1.73 sq M.predicted among non-blacks MDRD (S/P/Bld) [Vol rate/Area] 107 mL/min/{1.73_m2} Normal >60 [facility] Comment on above: Result Comment: mL/m in/1.73m2 CKD-EPI Creatinine Equation (2020) Performed By: #### L 500.2500, L100.0100 ####[facility] [address] [place], [address] Glucose [Mass/Vol] 80 mg/dL Normal 70-99 [facility] Comment on above: Performed By: #### L 500.2500, L100.0100 ####[facility] [address] [place], [address] Potassium [Moles/Vol] 3.9 mmol/L Normal 3.3-5.1 [facility] Comment on above: Performed By: #### L 500.2500, L100.0100 ####[facility] [address] [place], [address] Sodium [Moles/Vol] 140 mmol/L Normal 133-145 [facility] Comment on above: Performed By: #### L 500.2500, L100.0100 ####[facility] [address] [place], [address] Urea nitrogen [Mass/Vol] 11 mg/dL Normal 4-19 [facility] Comment on above: Performed By: #### L 500.2500, L100.0100 ####[facility] [address] [place], [address] Basophil percentageOrdered B y: Javi Mota on 05-26-2025 Basophils/100 WBC (Bld) 0.6 % 0-1 [facility] Bedside Glucoseon 05-26-2025 FINGERSTICK GLU 89 mg/dL Normal 74-106 [facility] Comment on above: Result Comment: SHAKA VELASQUEZ OF PATIENT CARE PER NURSING PROTOCOL Performed By: #### L 501.080 #### [facility] [address] [place], [address] CBC W/Diff, Automatedon 05-10 Absolute Lymph 1.72 X10 3/uL Normal 0.83-4.51 [facility] Comment on above: Performed By: #### L 500.2500, L100.0100 ####[facility] [address] [place], [address] Absolute Neut 4.4 X10 3/uL Normal 2.0-7.7 [facility] Comment on above: Performed By: #### L 500.2500, L100.0100 ####[facility] [address] [place], [address] Basophils/100 WBC (Bld) 0.6 % Normal 0-1 [facility] Comment on above: Performed By: #### L 500.2500, L100.0100 ####[facility] [address] [place], [address] Eosinophils/100 WBC (Bld) 2.7 % Normal 0-5 [facility] Comment on above: Performed By: #### L 500.2500, L100.0100 ####[facility] [address] [place], [address] Erythrocyte distribution width (RBC) [Ratio] 14.0 % Normal 11.6-14.6 [facility] Comment on above: Performed By: #### L 500.2500, L100.0100 ####[facility] [address] [place], [address] Hematocrit (Bld) [Volume fraction] 37.6 % Normal 37-47 [facility] Comment on above: Performed By: #### L 500.2500, L100.0100 ####[facility] [address] [place], [address] Hemoglobin (Bld) [Mass/Vol] 12.1 g/dL Normal 12.0-15.0 [facility] Comment on above: Performed By: #### L 500.2500, L100.0100 ####[facility] [address] [place], [address] IG% 0.400 Normal 0.0-0.9 [facility] Comment on above: Result Comment: IG% - Immature Granulocytes (promyelocytes, myelocytes and metamyelocytes) > 1% indicates that a LEFT SHIFT is Present. Performed By: #### L 500.2500, L100.0100 ####[facility] [address] [place], [address] Lymphocytes/100 WBC (Bld) 24.4 % Normal 19-41 [facility] Comment on above: Performed By: #### L 500.2500, L100.0100 ####[facility] [address], [address] MCH (RBC) [Entitic mass] 27.6 pg Normal 27.0-32.0 [facility] Comment on above: Performed By: #### L 500.2500, L100.0100 ####[facility] [address] [place], [address] MCHC (RBC) [Mass/Vol] 32.2 g/dL Normal 32-36 [facility] Comment on above: Performed By: #### L 500.2500, L100.0100 ####[facility] [address] [place], [address] MCV (RBC) [Entitic vol] 85.8 fL Normal 81-99 [facility] Comment on above: Performed By: #### L 500.2500, L100.0100 ####[facility] [address] [place], [address] Monocytes/100 WBC (Bld) 8.8 % Normal 0-10 [facility] Comment on above: Performed By: #### L 500.2500, L100.0100 ####[facility] [address] [place], [address] Neutrophils/100 WBC (Bld) 63.1 % Normal 47-70 [facility] Comment on above: Performed By: #### L 500.2500, L100.0100 ####[facility] [address] [place], [address] Nucleated RBC (Bld) [#/Vol] 0 10*3/uL Normal 0-5 [facility] Comment on above: Performed By: #### L 500.2500, L100.0100 ####[facility] [address], [address] Platelet mean volume (Bld) [Entitic vol] 9.7 fL Normal 6.2-12.0 [facility] Comment on above: Performed By: #### L 500.2500, L100.0100 ####[facility] [address] [place], [address] Platelets (Bld) [#/Vol] 265 10*3/uL Normal 150-450 [facility] Comment on above: Performed By: #### L 500.2500, L100.0100 ####[facility] [address] [place], [address] RBC (Bld) [#/Vol] 4.38 10*6/uL Normal 4.2-5.4 [facility] Comment on above: Performed By: #### L 500.2500, L100.0100 ####[facility] [address] [place], [address] RDW SD 43.7 fl Normal 35.1-43.9 [facility] Comment on above: Performed By: #### L 500.2500, L100.0100 ####[facility] [address] [place], [address] WBC (Bld) [#/Vol] 7.0 10*3/uL Normal 4.4-11.0 [facility] Comment on above: Performed By: #### L 500.2500, L100.0100 ####[facility] [address] [place], [address] Carbon dioxide, total [Moles /volume] in Central venous bloodOrdered By: Javi Mota on 05-26-2025 CO2 [Moles/Vol] 26.0 mmol/L 21.0-32.0 [facility] Chloride assayOrdered By: Jolynn Mota on 05-26-2025 Chloride [Moles/Vol] 106 mmol/L 98-108 [facility] Discharge Instructionon 05-10 Discharge Instruction [facility] Medical Records Department [address] [place] [address] Instructions for Home/Discharge Instructions 05/26/25 1057 MR#: [id number] Acct: [id number] Name: JACKIE HARRINGTON Rep #: [id number] : 1970 54 From: Javi Mota MD PCP: Dr. Michael Coles MD Status:ADM TUSHAR Discharge Instructions DC O2, CPAP, BIPAP needs Home O2 Discharge instructions: No Dressing / Incision Discharge Activity: Return to Normal Activity Dressing / Incision Call your doctor if you observe: Fever of 101 or Higher, Shortness of breath, Dizziness, Fainting spells, Swelling in the ankles, Chest pain and Increased palpitations (irregular heartbeat) Follow Up Care Test Results: Test results from this visit will be discussed in further detail at your follow-up appointment, if applicable. Discharge Plan Admission Admit Date/Time: 05/25/25 12:15 Attending Provider: Javi Mota Primary Care Provider: Michael Coles Instructions Patient Instructions: AFib Dc Discharge Orders/Prescriptions Prescriptions: New metoprolol tartrate 25 mg Tablet 12.5 mg PO BID 30 Days Qty: 30 0RF Eliquis 5 mg Tablet 5 mg PO BID 30 Days Qty: 60 0RF Continued ferrous sulfate [Feosol] 325 mg (65 mg iron) tablet 325 mg PO DAILY Co Q-10 75 mg capsule 75 mg PO DAILY cholecalciferol (vitamin D3) 10 mcg (400 unit) capsule 10 mcg PO DAILY multivitamin Capsule 1 cap PO DAILY calcium-vitamin D3-vitamin K 500-100-40 mg-unit-mcg tablet,chewable 1 tab PO DAILY Rx Instructions: chew thoroughly before swallowing; do not swallow whole (DME) blood-glucose meter [Accu-Chek Nithya Plus Meter] Misc See Rx Instructions .ROUTE .MEDSUPPLY Qty: 1 0RF Rx Instructions: As directed, check daily type 2 DM ascorbic acid (vitamin C) 1,000 mg tablet 1 g PO ONCE cetirizine 10 mg capsule 10 mg PO DAILY Qty: 90 3RF (DME) Accu-Chek Guide test strips Strip See Rx Instructions .ROUTE .MEDSUPPLY Qty: 100 3RF Rx Instructions: check glucose daily for type 2 DM venlafaxine 150 mg capsule,extended release 24hr See Rx Instructions .ROUTE .COMPLEX Qty: 90 3RF Dose Instruction: Take 1 capsule by mouth once daily Rx Instructions: Take 1 capsule by mouth once daily lisinopril 5 mg tablet 5 mg PO DAILY Qty: 90 2RF tirzepatide 12.5 mg/0.5 mL pen injector 12.5 mg subcut QWEEK 90 Days Qty: 6.5 1RF rosuvastatin 20 mg tablet 20 mg PO QHS Qty: 90 1RF metformin 1,000 mg tablet 1,000 mg PO BID Qty: 180 1RF levothyroxine 175 mcg tablet 175 mcg PO DAILY Qty: 90 2RF Referrals / Follow Up: Michael Coles MD [Primary Care Provider, Internal Medicine] - Within 1 Week Mati Mcginnis MD [Med Staff - Active Staff, Cardiology] - Within 1 Month Disposition Disposition (needs filled in before D/C Order can be placed): Home, Self Care 05/26/25 1126 Javi Mota MD CC: Dr. Michael Coles MD Signed Normal [facility] Electrocardiogram reportOrde red By: Ian Rivera on 05-26-2025 EKG study [facility] Cardiovascular Services [address] [place] [address] 12 Lead EKG 05/25/25 0942 MR#: [id number] Acct: [id number] Name: JACKIE HARRINGTON Rep #:[id number] : 1970 54 From: Ian Rivera MD Attending Dr: Dr. Javi Mota MD Status: ADM TUSHAR Ordering Dr: Ricci Andrews DO D ate: 05/25/25 Location: PCU Sex: F C Admitted: 05/25/25 Test Reason : AT Blood Pressure : */* mmHG Vent. Rate : 104 BPM Atrial Rate : * BPM P-R Int : * ms QRS Dur : 76 ms QT Int : 334 ms P-R-T Axes : * -2 38 degrees QTcB Int : 439 ms Atrial fibrillation with rapid ventricular response Low voltage QRS Abnormal ECG Confirmed by IAN RIVERA MD ([id number]), food expeditor DARRIUS ROLDAN ([id number]) on 58:31:59 AM Referred By: Confirmed By: IAN RIVERA MD 05/26/25 0832 Date _ Ian Rivera MD CC: Dr. Ricci Andrews DO; Dr. Michael Coles MD; Dr. Javi Mota MD ~ Signed [facility] Work Phone: [phone] Eosinophil percentageOrdered By: Javi Mota on 05-26-2025 Eosinophils/100 WBC (Bld) 2.7 % 0-5 [facility] Erythrocyte distribution wid th ratioOrdered By: Javi Mota on 05-26-2025 Erythrocyte distribution width (RBC) [Ratio] 14.0 % 11.6-14.6 [facility] Erythrocyte distribution wid th standard deviationOrdered By: Javi Mota on 05-26-2025 Erythrocyte distribution width (RBC) [Ratio] 43.7 fl 35.1-43.9 [facility] Glomerular filtration rate ( GFR) estimation/1.73 sq m using serum, plasma, or whole bOrdered By: Javi Mota on 05-26-2025 GFR/1.73 sq M.predicted among non-blacks MDRD (S/P/Bld) [Vol rate/Area] 107 mL/min/{1.73_m2} >60 [facility] Comment on above: mL/min/1.73m2 CKD-EP I Creatinine Equation (2020) [facility] deOrdered By: Javi Mota on 05-26-2025 Glucose [Mass/Vol] 89 mg/dL 74-106 [facility] Comment on above: MANAGEMENT OF PATIEN T CARE PER NURSING PROTOCOL Hematocrit Auto (Bld) [Volum e fraction]Ordered By: Javi Mota on 05-26-2025 Hematocrit (Bld) [Volume fraction] 37.6 % 37-47 [facility] Hemoglobin measurementOrdere d By: Javi Mota on 05-26-2025 Hemoglobin (Bld) [Mass/Vol] 12.1 g/dL 12.0-15.0 [facility] Immature granulocytes/100 WB C Auto (Bld)Ordered By: Javi Mota on 05-26-2025 Immature granulocytes/100 WBC (Bld) 0.400 % 0.0-0.9 [facility] Comment on above: IG% - Immature Granu locytes (promyelocytes, myelocytes and metamyelocytes) > 1% indicates that a LEFT SHIFT is Present. MCV (mean corpuscular volume ) determinationOrdered By: Javi Mota on 05-26-2025 MCV (RBC) [Entitic vol] 85.8 fL 81-99 [facility] Mean corpuscular hemoglobin (MCH) determinationOrdered By: Javi Mota on 05-26-2025 MCH (RBC) [Entitic mass] 27.6 pg 27.0-32.0 [facility] Mean corpuscular hemoglobin concentration (MCHC) determinationOrdered By: Javi Mota on 05-26-2025 MCHC (RBC) [Mass/Vol] 32.2 g/dL 32-36 [facility] Mean platelet volume determi nationOrdered By: Javi Mota on 05-26-2025 Platelet mean volume (Bld) [Entitic vol] 9.7 fL 6.2-12.0 [facility] Monocyte percentageOrdered B y: Javi Mota on 05-26-2025 Monocytes/100 WBC (Bld) 8.8 % 0-10 [facility] Neutrophil percentageOrdered By: Javi Mota on 05-26-2025 Neutrophils/100 WBC (Bld) 63.1 % 47-70 [facility] Nucleated red blood cell per centageOrdered By: Javi Mota on 05-26-2025 Nucleated RBC/100 WBC (Bld) [Ratio] 0 % 0-5 [facility] Platelet countOrdered By: Jolynn Mota on 05-26-2025 Platelets (Bld) [#/Vol] 265 10*3/uL 150-450 [facility] Potassium measurement (mass/ volume)Ordered By: Javi Mota on 05-26-2025 Potassium (Unsp spec) [Mass/Vol] 3.9 mmol/L 3.3-5.1 [facility] RBC Auto (Bld) [#/Vol]Ordere d By: Javi Mota on 05-26-2025 RBC (Bld) [#/Vol] 4.38 10*6/uL 4.2-5.4 [facility] Serum creatinine measurement (mass/volume)Ordered By: Javi Mota on 05-26-2025 Creatinine [Mass/Vol] 0.57 mg/dL Low 0.70-1.20 [facility] Serum glucose measurement (m ass/volume)Ordered By: Javi Mota on 05-26-2025 Glucose [Mass/Vol] 80 mg/dL 70-99 [facility] Serum or plasma calcium tika urement (mass/volume)Ordered By: Javi Mota on 05-26-2025 Calcium [Mass/Vol] 8.5 mg/dL 7.6-11.0 [facility] Serum or plasma urea nitroge n measurement (mass/volume)Ordered By: Javi Mota on 05-26-2025 Urea nitrogen [Mass/Vol] 11 mg/dL 4-19 [facility] Sodium levelOrdered By: Juan Mota on 05-26-2025 Sodium [Moles/Vol] 140 mmol/L 133-145 [facility] White blood cell (WBC) count Ordered By: Javi Mota on 05-26-2025 WBC (Bld) [#/Vol] 7.0 10*3/uL 4.4-11.0 [facility] 12 Lead EKGon 05-25-2025 12 Lead EKG [facility] Cardiovascular Services [address] [place] [address] 12 Lead EKG 05/25/25 0942 MR#: [id number] Acct: [id number] Name: JACKIE HARRINGTON Rep #: [id number] : 1970 54 From: Ian Rivera MD Attending Dr: Dr. Javi Mota MD Status : ADM TUSHAR Ordering Dr: Ricci Andrews DO Date: 5 Location: [facility] Sex: F C Admitted: 05/25/25 Test Reason : AT Blood Pressure : */* mmHG Vent. Rate : 104 BPM Atrial Rate : * BPM P-R Int : * ms QRS Dur : 76 ms QT Int : 334 ms P-R-T Axes : * -2 38 degrees QTcB Int : 439 ms Atrial fibrillation with rapid ventricular response Low voltage QRS Abnormal ECG Confirmed by NICOLE SILVERIO, IAN ([id number]), food expeditor DARRIUS ROLDAN ([id number]) on 05/26/2025 8:31:59 AM Referred By: Confirmed By: IAN RIVERA MD 05/26/25 0832 Date Ian Rivera MD CC: Dr. Ricci Andrews DO; Dr. Michael Coles MD; Dr. Javi Mota MD Signed Normal [facility] Activated partial thrombopla stin time (aPTT) in platelet poor plasma by coagulation aOrdered By: Ricci Andrews on 05-25-2025 aPTT Coag (PPP) [Time] 24.5 s 24.1-36.2 [facility] Basic Metabolic Profile (BMP )on 05-25-2025 BUN/CRE 15.9 RATIO Normal 05-29 [facility] Comment on above: Performed By: #### L 501.5200, L300.8000, L503.7505, L506.0400, L100.0100, L501.9520, L300.3900, L500.2500, L501.4021, L300.4310 ####[facility] [address] [place], [address] Calcium [Mass/Vol] 9.2 mg/dL Normal 7.6-11.0 [facility] Comment on above: Performed By: #### L 501.5200, L300.8000, L503.7505, L506.0400, L100.0100, L501.9520, L300.3900, L500.2500, L501.4021, L300.4310 ####[facility] [address] [place], [address] Chloride [Moles/Vol] 104 mmol/L Normal 98-108 [facility] Comment on above: Performed By: #### L 501.5200, L300.8000, L503.7505, L506.0400, L100.0100, L501.9520, L300.3900, L500.2500, L501.4021, L300.4310 ####[facility] [address] [place], [address] CO2 [Moles/Vol] 26.1 mmol/L Normal 21.0-32.0 [facility] Comment on above: Performed By: #### L 501.5200, L300.8000, L503.7505, L506.0400, L100.0100, L501.9520, L300.3900, L500.2500, L501.4021, L300.4310 ####[facility] [address] [place], [address] Creatinine [Mass/Vol] 0.65 mg/dL Low 0.70-1.20 [facility] Comment on above: Performed By: #### L 501.5200, L300.8000, L503.7505, L506.0400, L100.0100, L501.9520, L300.3900, L500.2500, L501.4021, L300.4310 ####[facility] [address] [place], [address] ECRCL 113.08 ml/min Normal 50-250 [facility] Comment on above: Performed By: #### L 501.5200, L300.8000, L503.7505, L506.0400, L100.0100, L501.9520, L300.3900, L500.2500, L501.4021, L300.4310 ####[facility] [address] [place], [place], [phone] GAP 11 Normal 5-15 [facility] Comment on above: Performed By: #### L 501.5200, L300.8000, L503.7505, L506.0400, L100.0100, L501.9520, L300.3900, L500.2500, L501.4021, L300.4310 ####[facility] [address] [place], [place], [phone] GFR/1.73 sq M.predicted among non-blacks MDRD (S/P/Bld) [Vol rate/Area] 104 mL/min/{1.73_m2} Normal >60 [facility] Comment on above: Result Comment: mL/m in/1.73m2 CKD-EPI Creatinine Equation (2020) Performed By: #### L 501.5200, L300.8000, L503.7505, L506.0400, L100.0100, L501.9520, L300.3900, L500.2500, L501.4021, L300.4310 ####[facility] [address] [place], [place], [phone] Glucose [Mass/Vol] 111 mg/dL High 70-99 [facility] Comment on above: Performed By: #### L 501.5200, L300.8000, L503.7505, L506.0400, L100.0100, L501.9520, L300.3900, L500.2500, L501.4021, L300.4310 ####[facility] [address] [place], [place], [phone] Potassium [Moles/Vol] 3.9 mmol/L Normal 3.3-5.1 [facility] Comment on above: Performed By: #### L 501.5200, L300.8000, L503.7505, L506.0400, L100.0100, L501.9520, L300.3900, L500.2500, L501.4021, L300.4310 ####[facility] [address] [place], [address] Sodium [Moles/Vol] 141 mmol/L Normal 133-145 [facility] Comment on above: Performed By: #### L 501.5200, L300.8000, L503.7505, L506.0400, L100.0100, L501.9520, L300.3900, L500.2500, L501.4021, L300.4310 ####[facility] [address] [place], [address] Urea nitrogen [Mass/Vol] 10 mg/dL Normal 4-19 [facility] Comment on above: Performed By: #### L 501.5200, L300.8000, L503.7505, L506.0400, L100.0100, L501.9520, L300.3900, L500.2500, L501.4021, L300.4310 ####[facility] [address] [place], [address] Bedside Glucoseon 05-25-2025 FINGERSTICK GLU 91 mg/dL Normal 74-106 [facility] Comment on above: Result Comment: SHAKA VELASQUEZ OF PATIENT CARE PER NURSING PROTOCOL Performed By: #### L 501.080 ####[facility] [address] [place], [address] CBC W/Diff, Automatedon 05-10 Absolute Lymph 2.13 X10 3/uL Normal 0.83-4.51 [facility] Comment on above: Performed By: #### L 501.5200, L300.8000, L503.7505, L506.0400, L100.0100, L501.9520, L300.3900, L500.2500, L501.4021, L300.4310 #### [facility] [address] [place], [place], [phone] ([phone]) Absolute Neut 8.8 X10 3/uL High 2.0-7.7 [facility] Comment on above: Performed By: #### L 501.5200, L300.8000, L503.7505, L506.0400, L100.0100, L501.9520, L300.3900, L500.2500, L501.4021, L300.4310 #### [facility] [address] [facility] [place], [address] (577) Basophils/100 WBC (Bld) 0.3 % Normal 0-1 [facility] Comment on above: Performed By: #### L 501.5200, L300.8000, L503.7505, L506.0400, L100.0100, L501.9520, L300.3900, L500.2500, L501.4021, L300.4310 #### [facility] [address] [facility] [place], [address] Eosinophils/100 WBC (Bld) 1.3 % Normal 0-5 [facility] Comment on above: Performed By: #### L 501.5200, L300.8000, L503.7505, L506.0400, L100.0100, L501.9520, L300.3900, L500.2500, L501.4021, L300.4310 #### [facility] [address] [place], [place], [phone] Erythrocyte distribution width (RBC) [Ratio] 13.8 % Normal 11.6-14.6 [facility] Comment on above: Performed By: #### L 501.5200, L300.8000, L503.7505, L506.0400, L100.0100, L501.9520, L300.3900, L500.2500, L501.4021, L300.4310 #### [facility] [address] [place], [address] Hematocrit (Bld) [Volume fraction] 42.7 % Normal 37-47 [facility] Comment on above: Performed By: #### L 501.5200, L300.8000, L503.7505, L506.0400, L100.0100, L501.9520, L300.3900, L500.2500, L501.4021, L300.4310 #### [facility] [address] [place], [address] Hemoglobin (Bld) [Mass/Vol] 14.4 g/dL Normal 12.0-15.0 [facility] Comment on above: Performed By: #### L 501.5200, L300.8000, L503.7505, L506.0400, L100.0100, L501.9520, L300.3900, L500.2500, L501.4021, L300.4310 #### [facility] [address] [place], [address] IG% 0.200 Normal 0.0-0.9 [facility] Comment on above: Result Comment: IG% - Immature Granulocytes (promyelocytes, myelocytes and metamyelocytes) > 1% indicates that a LEFT SHIFT is Present. Performed By: #### L 501.5200, L300.8000, L503.7505, L506.0400, L100.0100, L501.9520, L300.3900, L500.2500, L501.4021, L300.4310 #### [facility] [address] [place], [address] Lymphocytes/100 WBC (Bld) 17.4 % Low 19-41 [facility] Comment on above: Performed By: #### L 501.5200, L300.8000, L503.7505, L506.0400, L100.0100, L501.9520, L300.3900, L500.2500, L501.4021, L300.4310 #### [facility] [address] [place], [address] MCH (RBC) [Entitic mass] 28.1 pg Normal 27.0-32.0 [facility] Comment on above: Performed By: #### L 501.5200, L300.8000, L503.7505, L506.0400, L100.0100, L501.9520, L300.3900, L500.2500, L501.4021, L300.4310 #### [facility] [address] [place], [address] MCHC (RBC) [Mass/Vol] 33.7 g/dL Normal 32-36 [facility] Comment on above: Performed By: #### L 501.5200, L300.8000, L503.7505, L506.0400, L100.0100, L501.9520, L300.3900, L500.2500, L501.4021, L300.4310 #### [facility] [address] [facility] [place], [address] MCV (RBC) [Entitic vol] 83.2 fL Normal 81-99 [facility] Comment on above: Performed By: #### L 501.5200, L300.8000, L503.7505, L506.0400, L100.0100, L501.9520, L300.3900, L500.2500, L501.4021, L300.4310 #### [facility] [address] [place], [address] Monocytes/100 WBC (Bld) 8.9 % Normal 0-10 [facility] Comment on above: Performed By: #### L 501.5200, L300.8000, L503.7505, L506.0400, L100.0100, L501.9520, L300.3900, L500.2500, L501.4021, L300.4310 #### [facility] [address] [place], [address] Neutrophils/100 WBC (Bld) 71.9 % High 47-70 [facility] Comment on above: Performed By: #### L 501.5200, L300.8000, L503.7505, L506.0400, L100.0100, L501.9520, L300.3900, L500.2500, L501.4021, L300.4310 #### [facility] [address] [place], [address] Nucleated RBC (Bld) [#/Vol] 0 10*3/uL Normal 0-5 [facility] Comment on above: Performed By: #### L 501.5200, L300.8000, L503.7505, L506.0400, L100.0100, L501.9520, L300.3900, L500.2500, L501.4021, L300.4310 #### [facility] [address] [place], [place], [phone] (080) Platelet mean volume (Bld) [Entitic vol] 9.1 fL Normal 6.2-12.0 [facility] Comment on above: Performed By: #### L 501.5200, L300.8000, L503.7505, L506.0400, L100.0100, L501.9520, L300.3900, L500.2500, L501.4021, L300.4310 #### [facility] [address] [place], [address] Platelets (Bld) [#/Vol] 375 10*3/uL Normal 150-450 [facility] Comment on above: Performed By: #### L 501.5200, L300.8000, L503.7505, L506.0400, L100.0100, L501.9520, L300.3900, L500.2500, L501.4021, L300.4310 #### [facility] [address] [facility] [place], [address] RBC (Bld) [#/Vol] 5.13 10*6/uL Normal 4.2-5.4 [facility] Comment on above: Performed By: #### L 501.5200, L300.8000, L503.7505, L506.0400, L100.0100, L501.9520, L300.3900, L500.2500, L501.4021, L300.4310 #### [facility] [address] [facility] [place], [address] RDW SD 42.4 fl Normal 35.1-43.9 [facility] Comment on above: Performed By: #### L 501.5200, L300.8000, L503.7505, L506.0400, L100.0100, L501.9520, L300.3900, L500.2500, L501.4021, L300.4310 #### [facility] [address] [facility] [place], [address] WBC (Bld) [#/Vol] 12.2 10*3/uL High 4.4-11.0 [facility] Comment on above: Performed By: #### L 501.5200, L300.8000, L503.7505, L506.0400, L100.0100, L501.9520, L300.3900, L500.2500, L501.4021, L300.4310 #### [facility] [address] [place], [address] CTA Chest W/WO Contrast CTA Chest W/WO Contrast [facility] Imaging Services [address] [place] [address] CTA Chest W/WO Contrast MR#: [id number] Acct: [id number] Name: JACKIE HARRINGTON TREVOR Rep #: [id number] : 1970 F 54 From: Mundo mcgrath MD PCP: Dr. Michael Coles MD Status: REG ER Study: CTA Chest W/WO Contrast Date of Exam: 05/25/25 Exam# [id number] Ordering Dr: Ricci Andrews DO PROCEDURE: CTA CHEST W/WO CONTRAST 05/25/2025 REASON FOR EXAM: PE Diaphoretic. 2 syncopal episodes. TECHNIQUE: Procedure Code: CTCTACHWW Modality: CT Procedure: CTA CHEST W/WO CONTRAST Multiplanar Sagittal and Coronal images were obtained. 3D post processing was performed CONTRAST: Isovue-300 VOLUME: 100 mL One or more dose reduction techniques were used (e.g., Automated exposure control, adjustment of the mA and/or kV according to patient size, use of iterative reconstruction technique). RADIATION DOSE SUMMARY: CTDlvol: 11.6 mGy DLP: 481.7 mGycm COMPARISON: None FINDINGS: Hardware: None Lymph nodes: Unremarkable Heart: Unremarkable Thoracic Aorta: No thoracic aortic aneurysm or dissection. Pulmonary Vessels: No evidence of pulmonary embolism. Lungs and Airways: No focal infiltrate is seen. Pleura: No pleural effusion. Upper Abdomen: Status post partial gastrectomy. Bones: Degenerative changes of the thoracic spine. CT/CTA Chest W/WO Contrast IMPRESSION: NORMAL CHEST CTA. NO EVIDENCE OF ACUTE PULMONARY EMBOLISM. Reading Location: [facility] CC: Dr. Ricci Andrews DO; Dr. Michael Coles MD Credit Operations Specialist: Signed Normal [facility] Chest PA and Lateralon 05-25 Chest PA and Lateral [facility] Imaging Services [address] [place] [address] Chest PA and Lateral MR#: [id number] Acct: [id number] Name: JACKIE HARRINGTON Rep #: [id number] : 1970 F 54 From: Mundo mcgrath MD PCP: Dr. Michael Coles MD Status: REG ER Study: Chest PA and Lateral Date of Exam: 05/25/25 Exam# [id number] Ordering Dr: Ricci Andrews DO PROCEDURE: CHEST PA AND LATERAL 05/25/2025 REASON FOR EXAM: CHEST PAIN TECHNIQUE: Procedure Code: RADCXR Modality: DX Procedure: CHEST PA AND LATERAL COMPARISON: None FINDINGS: Hardware: EKG electrodes are seen. Heart: The heart size is normal. Mediastinum: The mediastinal contour is unremarkable. Lungs: The lungs are clear. Bones: Degenerative changes are identified within the thoracic spine. RAD/Chest PA and Lateral IMPRESSION: NO ACUTE FINDINGS. Reading Location: [place] [address] CC: Dr. Ricci Andrews DO; Dr. Michael Coles MD Credit Operations Specialist: Signed Normal [facility] D-Dimer Quantitative (DVT/PE )on 05-25-2025 D-DIMER QUANT 0.91 FEU/ug/m Invalid Interpretation Code 0.27-0.49 [facility] Comment on above: Order Comment: CRITI MEAGHAN VALUE CALLED TO MARIAH SUAREZ 05/25/25 1020 Celi Chaudhari. RESULTS READ BACK BY SAME. Result Comment: D-Di isela ELEVATED (>0.49): Additional studies and clinical assessments are indicated to conclude diagnosis of: Deep Vein Thrombosis (DVT) or Pulmonary Embolism (PE) Performed By: #### L 501.5200, L300.8000, L503.7505, L506.0400, L100.0100, L501.9520, L300.3900, L500.2500, L501.4021, L300.4310 #### [facility] [address] [place], [address] Echo Completeon 05-25-2025 Echo [facility] Cardiovascular Services [address] [place] [address] Echo Complete 05/25/25 1525 MR#: [id number] Acct: [id number] Name: JACKIE HARRINGTON Rep #: [id number] : 1970 54 From: Ian Rivera MD Attending Dr: Dr. Javi Mota MD Status : ADM TUSHAR Ordering Dr: Javi Mota MD Date: 05/25/25 Location: [facility] Sex: F C Admitted: 05/25/25 Reason For Study Reason For Study: Afib/Flutter Procedure This was a 2D Doppler, Color Flow transthoracic echocardiogram. Exam performed portable in patient room. Left Ventricle Normal LV size. Left ventricular systolic function is normal. The left ventricular ejection fraction is 55 %. Unable to assess diastolic dysfunction due to arrhythmia. No regional wall motion abnormalities noted. Right Ventricle Normal RV size. Normal systolic function. Atria Normal left atrium. Normal right atrium. Mitral Valve Normal mitral valve. Tricuspid Valve Normal tricuspid valve. Aortic Valve Trisinus/trileaflet aortic valve. Mild focal aortic valve calcification. Pulmonic Valve Normal pulmonic valve. Great Vessels Normal aortic root. The pulmonary artery is normal size. Inferior vena cava collapse with respiration. Pericardium/Pleural Small (<1.0 cm) pericardial effusion. MMode/2D Measurements Calculations LVIDd: 4.7 cm IVSd: 1.2 cm Ao root diam: 3.6 cm LVIDs: 3.4 cm LVPWd: 1.1 cm RVDd: 3.5 cm FS: 28.3 % LAV(MOD-bp): 48.6 ml LVAd ap4: 31.0 cm2 SV(MOD-sp4): 56.7 ml LAV(MOD-bp) Indexed: 23.8 ml/m2 LVLd ap4: 8.8 cm SI(MOD-sp4): 27.8 ml/m2 LAV(MOD-sp2): 43.4 ml EDV(MOD-sp4): 95.4 ml LAV(MOD-sp4): 48.2 ml EDV(sp4-el): 92.4 ml LVAs ap4: 18.1 cm2 LVLs ap4: 7.7 cm ESV(MOD-sp4): 38.7 ml ESV(sp4-el): 36.3 ml EF(MOD-sp4): 59.5 % EF(sp4-el): 60.7 % SV(sp4-el): 56.0 ml LA A4 area: 17.6 cm2 LA dimension(2D): 4.3 cm RA A4 area: 13.9 cm2 Doppler Measurements Calculations MV E max zenon: 88.4 cm/sec MV V2 max: 97.6 cm/sec Ao V2 max: 115.2 cm/sec MV max P.8 mmHg Ao max P.3 mmHg MV V2 mean: 51.0 cm/sec Ao V2 mean: 83.5 cm/sec MV mean P.3 mmHg Ao mean P.1 mmHg MV V2 VTI: 25.4 cm Ao V2 VTI: 20.7 cm AV (velocity ratio): 0.67 LV V1 max: 86.9 cm/sec LV V1 max P.1 mmHg LV V1 mean P.5 mmHg LV V1 mean: 57.2 cm/sec LV V1 VTI: 14.0 cm ECHO/Echo Complete Interpretation Summary Normal LV size. Left ventricular systolic function is normal. The left ventricular ejection fraction is 55 %. Unable to assess diastolic dysfunction due to arrhythmia. Ordering Physician: Javi Mota Performed By: Ricci Belle RCS 05/25/251640 Date aIn Rivera MD CC: Dr. Michael Coles MD; Dr. Javi Mota MD Date Dictated: 05/25/251524 Date Transcribed: 05/25/251640 Credit Operations Specialist: Signed Normal [facility] Echocardiogram study reportO rdered By: Ian Rivera on 05-25-2025 Study report [facility] Cardiovascular Services [address] [place] [address] Echo Complete 05/25/25 152 MR#: [id number] Acct: [id number] Name: JACKIE HARRINGTON Rep #:[id number] : 1970 54 From: Ian Elder Attending Dr: Dr. Javi Mota MD Status: ADM TUSHAR Ordering Dr: Javi Mota MD Da te: 05/25/25 [facility] [facility] Sex: F C Admitted: 05/25/25 Reason For Study Reason For Study: Afib/Flutter Procedure This was a 2D Doppler, Color Flow transthoracic echocardiogram. Exam performed portable in patient room. Left Ventricle Normal LV size. Left ventricular systolic function is normal. The left ventricular ejection fraction is 55 %. Unable to assess diastolic dysfunction due to arrhythmia. No regional wall motion abnormalities noted. Right Ventricle Normal RV size. Normal systolic function. Atria Normal left atrium. Normal right atrium. Mitral Valve Normal mitral valve. Tricuspid Valve Normal tricuspid valve. Aortic Valve Trisinus/trileaflet aortic valve. Mild focal aortic valve calcification. Pulmonic Valve Normal pulmonic valve. Great Vessels Normal aortic root. The pulmonary artery is normal size. Inferior vena cava collapse with respiration. Pericardium/Pleural Small (<1.0 cm) pericardial effusion. MMode/2D Measurements & Calculations LVIDd: 4.7 cm IVSd: 1.2 cm Ao root diam: 3.6 cm LVIDs: 3.4 cm LVPWd: 1.1 cm RVDd: 3.5 cm FS: 28.3 % LAV(MOD-bp): 48.6 ml LVAd ap4: 31.0 cm2 SV(MOD-sp4): 56.7 ml LAV(MOD-bp) Indexed: 23.8 ml/m2 LVLd ap4: 8.8 cm SI(MOD-sp4): 27.8 ml/m2 LAV(MOD-sp2): 43.4 ml EDV(MOD-sp4): 95.4 ml LAV(MOD-sp4): 48.2 ml EDV(sp4-el): 92.4 ml LVAs ap4: 18.1 cm2 LVLs ap4: 7.7 cm ESV(MOD-sp4): 38.7 ml ESV(sp4-el): 36.3 ml EF(MOD-sp4): 59.5 % EF(sp4-el): 60.7 % SV(sp4-el): 56.0 ml LA A4 area: 17.6 cm2 LA dimension(2D): 4.3 cm RA A4 area: 13.9 cm2 Doppler Measurements & Calculations MV E max zenon: 88.4 cm/sec MV V2 max: 97.6 cm/sec AoV2 max: 115.2 cm/sec MV max P.8 mmHg Aomax P.3 mmHg MV V2 mean: 51.0 cm/sec AoV2 mean: 83.5 cm/sec MV mean P.3 mmHg Aomean P.1 mmHg MV V2 VTI: 25.4 cm AoV2 VTI: 20.7 cm AV(velocity ratio): 0.67 LV V1 max: 86.9 cm/sec LV V1 max P.1 mmHg LV V1 mean P.5 mmHg LV V1 mean: 57.2 cm/sec LV V1 VTI: 14.0 cm ECHO/Echo Complete Interpretation Summary Normal LV size. Left ventricular systolic function is normal. The left ventricular ejection fraction is 55 %. Unable to assess diastolic dysfunction due to arrhythmia. Ordering Physician: Jaiv Mota Performed By: Ricci Belle RCS 05/25/25 1641 Date _ Ian Rivera MD CC: Dr. Michael Coles MD; Dr. Javi Mota MD ~ Date Dictated: 05/25/25 1525 Date Transcribed: 05/25/25 1641 Credit Operations Specialist: Signed [facility] Work Phone: Emergency Department Summary on 05-25-2025 Emergency Department Summary [facility] Medical Records Department [address] [place] [id number] Emergency Department Summary 05/25/25 MR#: [id number] Acct: [id number] Name: JACKIE HARRINGTON DECEMBER Rep #: [id number] : 1970 54 From: Ricci Andrews DO PCP: Dr. Michael Coles MD Status:ADM TUSHAR Location: [place] [address] HPI History of Present Illness Chief Complaint: Syncope Narrative Narrative: Chief complaint and HPI: 54-year-old female with past medical history of DM2, HTN, hypothyroidism, HLD, presents for evaluation of syncope. Patient was working on a house yesterday outside when she became lightheaded, nauseous, diaphoretic. States she went home and had 1 episode of emesis. states she woke up this morning and which shortly after drinking coffee she lowered herself to the ground and had a short episode of syncope. He then helped her to the couch where she laid down for about an hour. States he then helped her to the bathroom in which she had a minimal responsive episode on the toilet. He states during that time the patient was diaphoretic. She endorses fatigue and nausea currently. She denies any fever, chills, shortness of breath, chest pain, abdominal pain. No history of trauma. Review of systems: See HPI Medications: As listed on the chart Allergies: As listed on the chart PFSH: Per chart Vital signs: As listed on the chart. Reviewed. Physical exam: Gen: A O x3 Head: Normocephalic, atraumatic Eyes: No sclera icterus, conjunctiva clear ENT: Mildly dry mucous membranes Neck: Trachea midline CV: Irregularly irregular rhythm with tachycardia, no murmurs, no peripheral edema Resp: Lungs CTA BL, no w/r/c GI: Abd soft, non-distended, non-tender, no r/r/g Musc: Moves all extremities, no deformity Skin: Warm, dry Neuro: Alert, oriented, grossly intact Psych: Cooperative, appropriate mood and affect [facility] Medical History Colon cancer screening Anxiety and depression History of COVID-19 Acute back pain Bilateral shoulder pain Macromastia Fibroadenoma of right breast Coccyx pain Uterine fibroid Hypertension Hypothyroidism Hormone deficiency IBS (irritable bowel syndrome) Hyperlipemia Diabetes Asthma Seasonal allergies Home Medications ???Medication ???Instructions ???Recorded ???Last Taken ???Type calcium 500 mg-vitamin D3 100 1 tab PO DAILY supplement 03/29/20 05/25/25 History unit-vitamin K 40 mcg chewable tablet cholecalciferol (vitamin D3) 10 10 mcg PO DAILY supplement 0 05/25/25 History mcg (400 unit) capsule coenzyme Q10 75 mg capsule (Co 75 mg PO DAILY heart supplement 05/25/25 History Q-10) ferrous sulfate 325 mg (65 mg 325 mg PO DAILY supplement 0 05/25/25 History iron) tablet (Feosol) multivitamin 1 cap PO DAILY supplement 03/29/20 05/25/25 History blood-glucose meter (Accu-Chek #1 ea 07/31/20 Unknown Rx Nithya Plus Meter) cetirizine 10 mg capsule 10 mg PO DAILY #90 caps 10/07/21 1 Rx blood sugar diagnostic (Accu-Chek #100 ea 09/07/23 Unknown Rx Guide test strips) ascorbic acid (vitamin C) 1,000 mg 1 g PO ONCE supplement 08/26/24 05/25/25 History tablet venlafaxine 150 mg See Rx Instructions .Route 5 05/25/25 Rx capsule,extended release 24 hr .COMPLEX depression #90 caps lisinopril 5 mg tablet 5 mg PO DAILY hypertension #90 tab s 11/29/24 05/24/25 Rx tirzepatide 12.5 mg/0.5 mL 12.5 mg (0.5 mL) subcut QWEEK 09/0305/21/25 Rx subcutaneous pen injector blood sugar 3 months #6.5 mL metformin 1,000 mg tablet 1,000 mg PO BID blood sugar #180 0 03/22/25 05/25/25 Rx tabs rosuvastatin 20 mg tablet 20 mg PO QHS cholesterol #90 tabs 03/22/25 05/24/25 Rx levothyroxine 175 mcg tablet 175 mcg PO DAILY hypothyroidism 05/25/25 Rx #90 tabs Allergy/AdvReac Type Severity Reaction Status Date / Time latex Allergy Severe rash Verified 05/25/25 09:31 aspirin Allergy Unknown unknown Verified 05/25/25 09:31 adhesive tape Allergy Rash Verified 05/25/25 09:31 Cephalosporins Allergy Hives Verified 05/25/25 09:31 Penicillins Allergy Hives Verified 05/25/25 09:31 shrimp Allergy Anaphylaxis Verified 05/25/25 09:31 Family History Father Diabetes CVA (cerebral vascular accident) Cancer skin Hypertension Heart disease Hyperlipemia Mother Heart disease Hyperlipemia Grandfather Myocardial infarction, Onset Age: 48 Uncle Alcoholism Surgical History H/O cosmetic surgery Hx of breast reduction, elective Hx of bilateral breast reduction surgery History of right knee joint replacement History of hysterectomy History of endometrial ablat (more content not included)... Normal [facility] Free T3on 05-25-2025 Free T3 [Mass/Vol] 2.3 pg/mL Normal 2.18-3.98 [facility] Comment on above: Performed By: #### L 501.36147 #### [facility] [address] [place], [address] Free [id number] By: Javi Mota on 05-25-2025 Free T3 [Mass/Vol] 2.3 pg/mL 2.18-3.98 [facility] H AND P Exam - Hospitaliston 05-25-2025 H&P Exam - Hospitalist [facility] Medical Records Department [address] [place] [address] H P Exam - Hospitalist 05/25/25 1602 MR#: [id number] Acct: [id number] Name: JACKIE HARRINGTON Rep #: [id number] : 1970 54 From: Javi Mota MD PCP: Dr. Michael Coles MD Status:ADM TUSHAR Location: [place] [address] HPI - General General Date of Admission: 05/25/25 HPI Narrative JACKIE HARRINGTON, is a 54 F who presents to the hospital with 2 episodes of syncope over the last couple of days. Yesterday she had some lightheadedness and dizziness and was able to sit down before she completely blacked out, and then her found her on the toilet unresponsive with her eyes open and then today she was in the kitchen and she felt lightheaded and dizzy and diaphoretic and slid down against the cabinets onto the ground. None of the witnessed episode showed signs or symptoms consistent with seizures. She denies any palpitations or racing heartbeat and none of them were drop attacks. She does have symptoms with positional changes. In the emergency room EKG was read as being A-fib with RVR and she had an elevated proBNP. She did have elevated D-dimer so CTA of the chest was done which was negative for PE. TSH and free T4 were obtained, TSH was normal and T4 was elevated. [facility] History (Updated 05/25/25 @ 16:[address] Javi Mota MD) Colon cancer screening Anxiety and depression History of COVID-19 Acute back pain Bilateral shoulder pain Macromastia Fibroadenoma of right breast Coccyx pain Uterine fibroid Hypertension Hypothyroidism Hormone deficiency IBS (irritable bowel syndrome) Hyperlipemia Diabetes Asthma Seasonal allergies Home Medications ???Medication ???Instructions ???Recorded ???Last Taken ???Type calcium 500 mg-vitamin D3 100 1 tab PO DAILY supplement 03/29/20 05/25/25 History unit-vitamin K 40 mcg chewable tablet cholecalciferol (vitamin D3) 10 10 mcg PO DAILY supplement 0 05/25/25 History mcg (400 unit) capsule coenzyme Q10 75 mg capsule (Co 75 mg PO DAILY heart supplement 05/25/25 History Q-10) ferrous sulfate 325 mg (65 mg 325 mg PO DAILY supplement 0 05/25/25 History iron) tablet (Feosol) multivitamin 1 cap PO DAILY supplement 03/29/20 05/25/25 History blood-glucose meter (Accu-Chek #1 ea 07/31/20 Unknown Rx Nithya Plus Meter) cetirizine 10 mg capsule 10 mg PO DAILY #90 caps 10/07/21 1 Rx blood sugar diagnostic (Accu-Chek #100 ea 09/07/23 Unknown Rx Guide test strips) ascorbic acid (vitamin C) 1,000 mg 1 g PO ONCE supplement 08/26/24 05/25/25 History tablet venlafaxine 150 mg See Rx Instructions .Route 5 05/25/25 Rx capsule,extended release 24 hr .COMPLEX depression #90 caps lisinopril 5 mg tablet 5 mg PO DAILY hypertension #90 tab s 11/29/24 05/24/25 Rx tirzepatide 12.5 mg/0.5 mL 12.5 mg (0.5 mL) subcut QWEEK 0709/0305/21/25 Rx subcutaneous pen injector blood sugar 3 months #6.5 mL metformin 1,000 mg tablet 1,000 mg PO BID blood sugar #180 0 03/22/25 05/25/25 Rx tabs rosuvastatin 20 mg tablet 20 mg PO QHS cholesterol #90 tabs 08/13/25 10/15/25 Rx levothyroxine 175 mcg tablet 175 mcg PO DAILY hypothyroidism 05/25/25 Rx #90 tabs Allergy/AdvReac Type Severity Reaction Status Date / Time latex Allergy Severe rash Verified 05/25/25 09:31 aspirin Allergy Unknown unknown Verified 05/25/25 09:31 adhesive tape Allergy Rash Verified 05/25/25 09:31 Cephalosporins Allergy Hives Verified 05/25/25 09:31 Penicillins Allergy Hives Verified 05/25/25 09:31 shrimp Allergy Anaphylaxis Verified 05/25/25 09:31 Family History Father Diabetes CVA (cerebral vascular accident) Cancer skin Hypertension Heart disease Hyperlipemia Mother Heart disease Hyperlipemia Grandfather Myocardial infarction, Onset Age: 48 Uncle Alcoholism Surgical History H/O cosmetic surgery Hx of breast reduction, elective Hx of bilateral breast reduction surgery History of right knee joint replacement History of hysterectomy History of endometrial ablation History of gastric bypass History of tubal ligation History of Social History household members: spouse and children housing: house number of children: 2 current occupational status: unemployed Smoking Status: Former smoker alcohol intake: current alcohol intake frequency: holidays/special occasions only substance use type: does not use what type of physical activity do you participate in: walking frequency: daily seatbelt use: always do you feel safe at home: Yes additional soc (more content not included)... Normal [facility] normalized rat io (INR) calculationOrdered By: Ricci Andrews on 05-25-2025 INR Coag (Bld) [Relative time] 1.0 {INR} [facility] L501.4021on 05-25-2025 Trop T High Sen 8 ng/L Normal <=14 [facility] Comment on above: Performed By: #### L 501.5200, L300.8000, L503.7505, L506.0400, L100.0100, L501.9520, L300.3900, L500.2500, L501.4021, L300.4310 ####[facility] [address] [place], [address] Magnesiumon 05-25-2025 Magnesium [Mass/Vol] 2.0 mg/dL Normal 1.5-2.2 [facility] Comment on above: Performed By: #### L 501.5200, L300.8000, L503.7505, L506.0400, L100.0100, L501.9520, L300.3900, L500.2500, L501.4021, L300.4310 ####[facility] [address] [place], [address] Magnesium measurement (mass/ volume)Ordered By: Ricci Andrews on 05-25-2025 Magnesium (Unsp spec) [Mass/Vol] 2.0 mg/dL 1.5-2.2 [facility] Natriuretic peptide.B prohor ruby N-Terminal [Mass/volume] in Serum or PlasmaOrdered By: Ricci Andrews on 05-25-2025 Natriuretic peptide.B prohormone N-Terminal [Mass/Vol] 2028 pg/mL High <900 [facility] Comment on above: Heart Failure Unlike ly: < 300 pg/mLHeart Failure Likely< 50 Years: > 450 pg/mL50-75 Years: > 900 pg/mL>75 Years: > 1800 pg/mL Partial Thromboplast Timeon 05-25-2025 aPTT Coag (Bld) [Time] 24.5 s Normal 24.1-36.2 [facility] Comment on above: Order Comment: CRITI MEAGHAN VALUE CALLED TO MARIAH SUAREZ 05/25/25 1020 Celi Chaudhari. RESULTS READ BACK BY SAME. Performed By: #### L 501.5200, L300.8000, L503.7505, L506.0400, L100.0100, L501.9520, L300.3900, L500.2500, L501.4021, L300.4310 #### [facility] [address] [place], [address] Pro- Brain NATRIURETIC PEPTI Kathya 05-25-2025 Natriuretic peptide B (Bld) [Mass/Vol] 2028 pg/mL High <=900 [facility] Comment on above: Result Comment: Hear t Failure Unlikely: < 300 pg/mL Heart Failure Likely < 50 Years: > 450 pg/mL 50-75 Years: > 900 pg/mL >75 Years: > 1800 pg/mL Performed By: #### L 501.5200, L300.8000, L503.7505, L506.0400, L100.0100, L501.9520, L300.3900, L500.2500, L501.4021, L300.4310 ####[facility] [address] [place], [place], [phone] Prothrombin Time w/INRon INR Coag (PPP) [Relative time] 1.0 {INR} Normal [facility] Comment on above: Order Comment: CRITI MEAGHAN VALUE CALLED TO MARIAH SUAREZ 05/25/25 1020 Celi Watson. RESULTS READ BACK BY SAME. Performed By: #### L 501.5200, L300.8000, L503.7505, L506.0400, L100.0100, L501.9520, L300.3900, L500.2500, L501.4021, L300.4310 #### [facility] [address] [place], [place], [phone] PT Coag (PPP) [Time] 13.2 s Normal 11.7-14.9 [facility] Comment on above: Order Comment: CRITI MEAGHAN VALUE CALLED TO MARIAH ARGABRITE 05/25/25 1020 Celi Chaudhari. RESULTS READ BACK BY SAME. Performed By: #### L 501.5200, L300.8000, L503.7505, L506.0400, L100.0100, L501.9520, L300.3900, L500.2500, L501.4021, L300.4310 #### [facility] [address] [place], [place], [phone] Prothrombin timeOrdered By: Ricci Andrews on 05-25-2025 PT Coag (PPP) [Time] 13.2 s 11.7-14.9 [facility] T4 Free Directon 05-25-2025 T4 FREE DIRECT 1.60 ng/dL High 0.76-1.46 [facility] Comment on above: Performed By: #### L 501.5200, L300.8000, L503.7505, L506.0400, L100.0100, L501.9520, L300.3900, L500.2500, L501.4021, L300.4310 ####[facility] [address] [place], [place], [phone] T4 freeOrdered By: Ricci Casper on 05-25-2025 Free T4 [Mass/Vol] 1.60 ng/dL High 0.76-1.46 [facility] TSH DL <= 0.005 mIU/L QnOrde red By: Riccielsy CoronaTrinh on 05-25-2025 TSH Qn 1.010 uIU/mL 0.300-4.200 [facility] Thyroid Stim Hormone (TSH)on 05-25-2025 TSH 1.010 uIU/mL Normal 0.300-4.200 [facility] Comment on above: Performed By: #### L 501.5200, L300.8000, L503.7505, L506.0400, L100.0100, L501.9520, L300.3900, L500.2500, L501.4021, L300.4310 ####[facility] [address] [place], [place], [phone] Troponin T HS 2 HRon 025 Trop T High Sen 7 ng/L Normal <=14 [facility] Comment on above: Performed By: #### L 499.0042 ####[facility] [address] [place], [place], [phone] Troponin T.cardiac [Mass/vol ume] in Serum or Plasma by High sensitivity methodOrdered By: Ricci Andrews on 05-25-2025 Troponin T.cardiac High sensitivity method [Mass/Vol] 7 ng/L <14 [facility] Troponin T.cardiac High sensitivity method [Mass/Vol] 8 ng/L <14 [facility] Anion gap in Serum or Plasma Ordered By: Michael Coles on 04-24-2025 Anion gap [Moles/Vol] 12 mmol/L 12-22 [facility] BUN/creatinine ratioOrdered By: Michael Coles on 04-24-2025 Urea nitrogen/Creatinine [Mass ratio] 24.8 mg/mg High 05-29 [facility] Basic Metabolic Profile (BMP )on 04-24-2025 BUN/CRE 24.8 RATIO High 05-29 [facility] Comment on above: Performed By: #### L 501.9985, L501.9520, L500.2500 ####[facility] [address] [place], [address] Calcium [Mass/Vol] 9.4 mg/dL Normal 7.6-11.0 [facility] Comment on above: Performed By: #### L 501.9985, L501.9520, L500.2500 ####[facility] [address] [place], [address] Chloride [Moles/Vol] 103 mmol/L Normal 98-108 [facility] Comment on above: Performed By: #### L 501.9985, L501.9520, L500.2500 ####[facility] [address] [place], [address] CO2 [Moles/Vol] 26.3 mmol/L Normal 21.0-32.0 [facility] Comment on above: Performed By: #### L 501.9985, L501.9520, L500.2500 ####[facility] [address] [place], [address] Creatinine [Mass/Vol] 0.67 mg/dL Low 0.70-1.20 [facility] Comment on above: Performed By: #### L 501.9985, L501.9520, L500.2500 ####[facility] [address] [place], [address] GAP 12 Normal 5-15 [facility] Comment on above: Performed By: #### L 501.9985, L501.9520, L500.2500 ####[facility] [address] [place], [address] GFR/1.73 sq M.predicted among non-blacks MDRD (S/P/Bld) [Vol rate/Area] 103 mL/min/{1.73_m2} Normal >60 [facility] Comment on above: Result Comment: mL/m in/1.73m2 CKD-EPI Creatinine Equation (2020) Performed By: #### L 501.9985, L501.9520, L500.2500 ####[facility] [address] [place], [address] Glucose [Mass/Vol] 75 mg/dL Normal 70-99 [facility] Comment on above: Performed By: #### L 501.9985, L501.9520, L500.2500 ####[facility] [address] [place], [address] Potassium [Moles/Vol] 4.0 mmol/L Normal 3.3-5.1 [facility] Comment on above: Performed By: #### L 501.9985, L501.9520, L500.2500 ####[facility] [address] [place], [address] Sodium [Moles/Vol] 142 mmol/L Normal 133-145 [facility] Comment on above: Performed By: #### L 501.9985, L501.9520, L500.2500 ####[facility] [address] [place], [address] Urea nitrogen [Mass/Vol] 17 mg/dL Normal 4-19 [facility] Comment on above: Performed By: #### L 501.9985, L501.9520, L500.2500 ####[facility] [address] [place], [place], [phone] Carbon dioxide, total [Moles /volume] in Central venous bloodOrdered By: Michael Coles on 04-24-2025 CO2 [Moles/Vol] 26.3 mmol/L 21.0-32.0 [facility] Chloride assayOrdered By: Chloe Coles on 04-24-2025 Chloride [Moles/Vol] 103 mmol/L 98-108 [facility] Glomerular filtration rate ( GFR) estimation/1.73 sq m using serum, plasma, or whole bOrdered By: Michael Coles on 04-24-2025 GFR/1.73 sq M.predicted among non-blacks MDRD (S/P/Bld) [Vol rate/Area] 103 mL/min/{1.73_m2} >60 [facility] Comment on above: mL/min/1.73m2 CKD-EP I Creatinine Equation (2020) Hemoglobin A1con 04-24-2025 HbA1c (Bld) [Mass fraction] 6.0 % High <=5.6 [facility] Comment on above: Result Comment: Norm al < 5.7 % Prediabetic 5.7 - 6.4 % Diabetic >or= 6.5 % Please note range changes. Performed By: #### L 501.9985, L501.9520, L500.2500 ####[facility] [address] [place], [place], [phone] Hemoglobin A1c percentageOrd ered By: Michael Coles on 04-24-2025 HbA1c (Bld) [Mass fraction] 6.0 % High <5.7 [facility] Comment on above: Normal < 5.7 % Predi abetic 5.7 - 6.4 % Diabetic >or= 6.5 % Please note range changes. Potassium measurement (mass/ volume)Ordered By: Zarajunior Nunezdineshgiovanni on 04-24-2025 Potassium (Unsp spec) [Mass/Vol] 4.0 mmol/L 3.3-5.1 [facility] Serum creatinine measurement (mass/volume)Ordered By: theodore Coles on 04-24-2025 Creatinine [Mass/Vol] 0.67 mg/dL Low 0.70-1.20 [facility] Serum glucose measurement (m ass/volume)Ordered By: violetpesotumjunior Nunezdineshgiovanni on 04-24-2025 Glucose [Mass/Vol] 75 mg/dL 70-99 [facility] Serum or plasma calcium tika urement (mass/volume)Ordered By: [facility] Hospital[facility] Enriquerichard on 04-24-2025 Calcium [Mass/Vol] 9.4 mg/dL 7.6-11.0 [facility] Serum or plasma urea nitroge n measurement (mass/volume)Ordered By: [facility] Hospital[facility] Enriquerichard on 04-24-2025 Urea nitrogen [Mass/Vol] 17 mg/dL 4-19 [facility] Sodium levelOrdered By: [facility] Coles on 04-24-2025 Sodium [Moles/Vol] 142 mmol/L 133-145 [facility] TSH DL <= 0.005 mIU/L QnOrde red By: Chloeviolethoustonjunior Nunezdineshgiovanni on 04-24-2025 TSH Qn 0.710 uIU/mL 0.300-4.200 [facility] Thyroid Stim Hormone (TSH)on 04-24-2025 TSH 0.710 uIU/mL Normal 0.300-4.200 [facility] Comment on above: Performed By: #### L 501.9985, L501.9520, L500.2500 ####[facility] [address] [place], [address] Internal Medicine Office Vis iton 03-22-2025 Internal Medicine Office Visit [facility] [place] [address] OFFICE VISIT Date of Service: 03/22/25 MR#: [id number] Acct: [id number] Name: SUPPJACKIE COOK Rep #: [id number] : 1970 Provider: Dr. 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 Required: No Is patient in pain?: No Allergies latex Allergy (Severe, Verified 03/22/25 09:55) rash aspirin Allergy (Unknown, Verified 03/22/25 09:55) unknown adhesive tape Allergy (Verified 03/22/25 09:55) Rash Cephalosporins Allergy (Verified 03/22/25 09:55) Hives Penicillins Allergy (Verified 03/22/25 09:55) Hives shrimp Allergy (Verified 03/22/25 09:55) Anaphylaxis Medications ???Medication ???Instructions ???Recorded ???Confirmed ???Type calcium 500 mg-vitamin D3 100 1 tab PO DAILY 03/29/20 03/22/25 H istory unit-vitamin K 40 mcg chewable tablet cholecalciferol (vitamin D3) 10 10 mcg PO DAILY 03/29/20 03/22/25 History mcg (400 unit) capsule coenzyme Q10 75 mg capsule (Co 75 mg PO DAILY 03/29/20 03/22/25 H istory Q-10) ferrous sulfate 325 mg (65 mg 325 mg PO DAILY 03/29/20 03/22/25 History iron) tablet (Feosol) multivitamin 1 cap PO DAILY 03/29/20 03/22/25 H istory blood-glucose meter (Accu-Chek #1 ea 07/31/20 03/22/25 Rx Nithya Plus Meter) cetirizine 10 mg capsule 10 mg PO DAILY #90 caps 10/07/21 0 03/22/25 Rx blood sugar diagnostic (Accu-Chek #100 ea 09/07/23 03/22/25 Rx Guide test strips) ascorbic acid (vitamin C) 1,000 mg 1 g PO ONCE 08/26/24 03/22/25 Hi story tablet levothyroxine 175 mcg tablet 175 mcg PO DAILY #90 tabs 09/06/24 03/22/25 Rx venlafaxine 150 mg See Rx Instructions .Route 5 03/22/25 Rx capsule,extended release 24 hr .COMPLEX #90 caps lisinopril 5 mg tablet 5 mg PO DAILY #90 tabs 11/29/24 Rx tirzepatide 12.5 mg/0.5 mL 12.5 mg (0.5 mL) subcut QWEEK 3 03/22/25 Rx subcutaneous pen injector months #6.5 mL metformin 1,000 mg tablet 1,000 mg PO BID #180 tabs 03/22/25 Rx rosuvastatin 20 mg tablet 20 mg PO QHS #90 tabs 03/22/25 Rx Nurse's Note: Pharmacy sent request for metformin and crestor. Pt also needs acuucheck test strips. Pt test bid at most. PFSH Medical History Colon cancer screening Anxiety and depression History of COVID-19 Acute back pain Bilateral shoulder pain Macromastia Fibroadenoma of right breast Coccyx pain Uterine fibroid Hypertension Hypothyroidism Hormone deficiency IBS (irritable bowel syndrome) Hyperlipemia Diabetes Asthma Seasonal allergies Surgical History (Updated 03/22/25 @ 10:06 by Macie Jacinto MA) H/O cosmetic surgery Hx of breast reduction, elective Hx of bilateral breast reduction surgery History of right knee joint replacement History of hysterectomy History of endometrial ablation History of gastric bypass History of tubal ligation History of Family History Father Diabetes CVA (cerebral vascular accident) Cancer skin Hypertension Heart disease Hyperlipemia Mother Heart disease Hyperlipemia Grandfather Myocardial infarction, Onset Age: 48 Uncle Alcoholism Social History household members: spouse and children housing: house number of children: 2 current occupational status: unemployed Smoking Status: Former smoker alcohol intake: current alcohol intake frequency: holidays/special occasions only substance use type: does not use what type of physical activity do you participate in: walking frequency: daily seatbelt use: always do you feel safe at home: Yes 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 The patient reports experiencing episodes of hypoglycemia with glucose levels measuring at 43 and 40 mg/dL. These episodes occurred once or twice, previously while the patient was engaged in significant physical activity, such as walking in a (more content not included)... Normal [facility] - Hematology and Cell countsOrdered By: Michael Coles on 03-22-2025 HbA1c (Bld) [Mass fraction] 5.9 % 4.2-6.3 [facility] Internal Medicine Office Vis iton 12-15-2024 Internal Medicine Office Visit [facility] [address] [place] [address] [address] [place] [address] OFFICE VISIT Date of Service: 12/15/24 MR#: [id number] Acct: [id number] Name: JACKIE HARRINGTON Rep #: [id number] : 1970 Provider: Dr. Michael giles MD Age/Sex: 54/F [place] [facility] Status: Signed Intake Vital Signs 08/26/24 11:02 10/19/24 09:03 12/15/24 17:58 Height 5 ft 7 in 5 ft 7 in 5 ft 7 in Weight: 217 lb BMI 34.0 BP 116/78 Blood Pressure Location Lt brachial Position Sitting Respiration 16 Pulse 67 Pulse Source Monitor Temp 97.4 F L Temp Source Temporal Pulse Oximetry (%) 99 Oxygen Delivery Method room air Intake Visit Reasons: 3 M FU Chief Complaint: Follow-up chronic conditions 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 Required: No Is patient in pain?: No Allergies latex Allergy (Severe, Verified 12/15/24 17:56) rash aspirin Allergy (Unknown, Verified 12/15/24 17:56) unknown adhesive tape Allergy (Verified 12/15/24 17:56) Rash Cephalosporins Allergy (Verified 12/15/24 17:56) Hives Penicillins Allergy (Verified 12/15/24 17:56) Hives shrimp Allergy (Verified 12/15/24 17:56) Anaphylaxis Medications ???Medication ???Instructions ???Recorded ???Confirmed ???Type calcium 500 mg-vitamin D3 100 1 tab PO DAILY 03/29/20 12/15/24 H istory unit-vitamin K 40 mcg chewable tablet cholecalciferol (vitamin D3) 10 10 mcg PO DAILY 03/29/20 12/15/24 History mcg (400 unit) capsule coenzyme Q10 75 mg capsule (Co 75 mg PO DAILY 03/29/20 12/15/24 H istory Q-10) ferrous sulfate 325 mg (65 mg 325 mg PO DAILY 03/29/20 12/15/24 History iron) tablet (Feosol) multivitamin 1 cap PO DAILY 03/29/20 12/15/24 H istory blood-glucose meter (Accu-Chek #1 ea 07/31/20 12/15/24 Rx Nithya Plus Meter) cetirizine 10 mg capsule 10 mg PO DAILY #90 caps 10/07/21 0 12/15/24 Rx blood sugar diagnostic (Accu-Chek #100 ea 09/07/23 12/15/24 Rx Guide test strips) ascorbic acid (vitamin C) 1,000 mg 1 g PO ONCE 08/26/24 12/15/24 Hi story tablet tirzepatide 12.5 mg/0.5 mL 12.5 mg (0.5 mL) subcut QWEEK 3 12/15/24 Rx subcutaneous pen injector months #6.5 mL levothyroxine 175 mcg tablet 175 mcg PO DAILY #90 tabs 09/06/24 12/15/24 Rx venlafaxine 150 mg See Rx Instructions .Route 5 12/15/24 Rx capsule,extended release 24 hr .COMPLEX #90 caps metformin 1,000 mg tablet 1,000 mg PO BID #180 tabs 09/20/24 12/15/24 Rx rosuvastatin 20 mg tablet 20 mg PO QHS #90 tabs 09/20/2404/03 Rx lisinopril 5 mg tablet 5 mg PO DAILY #90 tabs 11/29/24 Rx Nurse's Note: Pt has allergies for the past couple of weeks, has some ear and head stuffiness and runny nose. It is all clear. [facility] Medical History Colon cancer screening Anxiety and depression History of COVID-19 Acute back pain Bilateral shoulder pain Macromastia Fibroadenoma of right breast Coccyx pain Uterine fibroid Hypertension Hypothyroidism Hormone deficiency IBS (irritable bowel syndrome) Hyperlipemia Diabetes Asthma Seasonal allergies Surgical History Hx of breast reduction, elective Hx of bilateral breast reduction surgery History of right knee joint replacement History of hysterectomy History of endometrial ablation History of gastric bypass History of tubal ligation History of Family History Father Diabetes CVA (cerebral vascular accident) Cancer skin Hypertension Heart disease Hyperlipemia Mother Heart disease Hyperlipemia Grandfather Myocardial infarction, Onset Age: 48 Uncle Alcoholism Social History household members: spouse and children housing: house number of children: 2 current occupational status: unemployed Smoking Status: Former smoker alcohol intake: current alcohol intake frequency: holidays/special occasions only substance use type: does not use what type of physical activity do you participate in: walking frequency: daily seatbelt use: always do you feel safe at home: Yes 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 No acute concerns at this time. A1c today is at 5.8 down from 6.2. At her last visit, dose of Mounjaro was increased to 12.5 mg which she is tolerating well. No concerning side effects reported. Has also made dietary changes. Blood pressure today at 116/78 mmHg. Currently on lisinopril. No chest pain, palpi (more content not included)... Normal [facility] - Hematology and Cell countsOrdered By: Michael Coles on 05-08-2025 HbA1c (Bld) [Mass fraction] 5.8 % 4.2-6.3 [facility] Office Visit Reporton 10-19-2024 [facility] Office Visit Report [facility] [address], [address] [place] [address] OFFICE VISIT Date of Service: 10/19/24 MR#: [id number] Acct: [id number] Name: JACKIE HARRINGTON Rep #: [id number] : 1970 Provider: BERENICE donald Age/Sex: 54/F Location: [facility] [place] Status: Signed Intake Vital Signs 10/19/23 09:03 08/26/24 11:02 10/19/24 08:57 10/19/24 09:03 Height 5 ft 7 in 5 ft 7 in 5 ft 7 in 5 ft 7 in Weight: 228 lb BMI 35.6 BP 110/66 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) Chief Complaint: Annual 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 Required: No Is patient in pain?: No Allergies latex Allergy (Severe, Verified 10/19/24 09:06) rash aspirin Allergy (Unknown, Verified 10/19/24 09:06) unknown adhesive tape Allergy (Verified 10/19/24 09:06) Rash Cephalosporins Allergy (Verified 10/19/24 09:06) Hives Penicillins Allergy (Verified 10/19/24 09:06) Hives shrimp Allergy (Verified 10/19/24 09:06) Anaphylaxis Medications ???Medication ???Instructions ???Recorded ???Confirmed ???Type calcium 500 mg-vitamin D3 100 1 tab PO DAILY 03/29/20 10/19/24 H istory unit-vitamin K 40 mcg chewable tablet cholecalciferol (vitamin D3) 10 10 mcg PO DAILY 03/29/20 10/19/24 History mcg (400 unit) capsule coenzyme Q10 75 mg capsule (Co 75 mg PO DAILY 03/29/20 10/19/24 H istory Q-10) ferrous sulfate 325 mg (65 mg 325 mg PO DAILY 03/29/20 10/19/24 History iron) tablet (Feosol) multivitamin 1 cap PO DAILY 03/29/20 10/19/24 H istory blood-glucose meter (Accu-Chek #1 ea 07/31/20 10/19/24 Rx Nithya Plus Meter) cetirizine 10 mg capsule 10 mg PO DAILY #90 caps 10/07/21 0 10/19/24 Rx blood sugar diagnostic (Accu-Chek #100 ea 09/07/23 10/19/24 Rx Guide test strips) lisinopril 5 mg tablet 5 mg PO DAILY #90 tabs 09/15/23 Rx empagliflozin 25 mg tablet 25 mg PO DAILY #90 tabs 07/25/24 0 10/19/24 Rx ascorbic acid (vitamin C) 1,000 mg 1 g PO ONCE 08/26/24 10/19/24 Hi story tablet tirzepatide 12.5 mg/0.5 mL 12.5 mg (0.5 mL) subcut QWEEK 3 10/19/24 Rx subcutaneous pen injector months #6.5 mL levothyroxine 175 mcg tablet 175 mcg PO DAILY #90 tabs 09/06/24 10/19/24 Rx venlafaxine 150 mg See Rx Instructions .Route 5 10/19/24 Rx capsule,extended release 24 hr .COMPLEX #90 caps metformin 1,000 mg tablet 1,000 mg PO BID #180 tabs 09/20/24 10/19/24 Rx rosuvastatin 20 mg tablet 20 mg PO QHS #90 tabs 09/20/2408/03 Rx Is last menstrual period known: No Post menopausal: Yes Patient : No : No PFSH Medical History Colon cancer screening Anxiety and depression History of COVID-19 Acute back pain Bilateral shoulder pain Macromastia Fibroadenoma of right breast Coccyx pain Uterine fibroid Hypertension Hypothyroidism Hormone deficiency IBS (irritable bowel syndrome) Hyperlipemia Diabetes Asthma Seasonal allergies Surgical History Hx of breast reduction, elective Hx of bilateral breast reduction surgery History of right knee joint replacement History of hysterectomy History of endometrial ablation History of gastric bypass History of tubal ligation History of Family History Father Diabetes CVA (cerebral vascular accident) Cancer skin Hypertension Heart disease Hyperlipemia Mother Heart disease Hyperlipemia Grandfather Myocardial infarction, Onset Age: 48 Uncle Alcoholism Social History household members: spouse and children housing: house number of children: 2 current occupational status: unemployed Smoking Status: Former smoker alcohol intake: current alcohol intake frequency: holidays/special occasions only substance use type: does not use what type of physical activity do you participate in: walking frequency: daily seatbelt use: always do you feel safe at home: Yes 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 Denies concerns Last PAP: NA Hyst History of abnormal PAP: no Last mammogram: 05/2024 History of abnormal mammogram: benign bx Colon cancer screenin Other preventative health care screenings: Sharyn Female Reproductive History Questions: metorrhagia: No, sexually active: Yes, dyspareunia: No and PCB: No ROS Con (more content not included)... Normal [facility] Internal Medicine Office Vis iton 08-26-2024 Internal Medicine Office Visit [facility] [address] [place] [address] [place] [address] OFFICE VISIT Date of Service: 08/26/24 MR#: [id number] Acct: [id number] Name: JACKIE HARRINGTON Rep #: [id number] : 1970 Provider: Dr. Michael giles MD Age/Sex: 54/F [place] [facility] Status: Signed Intake Vital Signs 05/20/24 11:15 08/26/24 11:02 Height 5 ft 7 in 5 ft 7 in Weight: 237 lb BMI 37.0 BP 118/66 Blood Pressure Location Lt brachial Position Sitting Respiration 17 Pulse 73 Pulse Source Monitor Temp 98.1 F Temp Source Temporal Pulse Oximetry (%) 99 Oxygen Delivery Method room air Intake Visit Reasons: 3 M FU Chief Complaint: 3 M FU Is patient in pain?: No Allergies latex Allergy (Severe, Verified 08/26/24 10:58) rash aspirin Allergy (Unknown, Verified 08/26/24 10:58) unknown adhesive tape Allergy (Verified 08/26/24 10:58) Rash Cephalosporins Allergy (Verified 08/26/24 10:58) Hives Penicillins Allergy (Verified 08/26/24 10:58) Hives shrimp Allergy (Verified 08/26/24 10:58) Anaphylaxis Medications ???Medication ???Instructions ???Recorded ???Confirmed ???Type calcium 500 mg-vitamin D3 100 1 tab PO DAILY 03/29/20 08/26/24 History unit-vitamin K 40 mcg chewable tablet cholecalciferol (vitamin D3) 10 10 mcg PO DAILY 03/29/20 08/26/24 History mcg (400 unit) capsule coenzyme Q10 75 mg capsule (Co 75 mg PO DAILY 03/29/20 08/26/24 History Q-10) ferrous sulfate 325 mg (65 mg 325 mg PO DAILY 03/29/20 08/26/24 History iron) tablet (Feosol) multivitamin 1 cap PO DAILY 03/29/20 08/26/24 History blood-glucose meter (Accu-Chek #1 ea 07/31/20 08/26/24 Rx Nithya Plus Meter) cetirizine 10 mg capsule 10 mg PO DAILY #90 caps 10/07/21 08/26/24 Rx blood sugar diagnostic (Accu-Chek #100 ea 09/07/23 08/26/24 Rx Guide test strips) lisinopril 5 mg tablet 5 mg PO DAILY #90 tabs 09/15/23 08/26/24 Rx tirzepatide 7.5 mg/0.5 mL 7.5 mg (0.5 mL) subcut QWEEK 3 06/20/24 08/26/24 Rx subcutaneous pen injector months #6.5 mL (Mounjaro) empagliflozin 25 mg tablet 25 mg PO DAILY #90 tabs 07/25/24 08/26/24 Rx levothyroxine 175 mcg tablet 175 mcg PO DAILY #90 tabs 07/25/24 08/26/24 Rx metformin 1,000 mg tablet 1,000 mg PO BID #180 tabs 07/25/24 08/26/24 Rx rosuvastatin 20 mg tablet 20 mg PO QHS #90 tabs 07/25/24 08/26/24 Rx venlafaxine 150 mg See Rx Instructions .Route 07/29/24 08/26/24 Rx capsule,extended release 24 hr .COMPLEX #90 caps ascorbic acid (vitamin C) 1,000 mg 1 g PO ONCE 08/26/24 08/26/24 History tablet Have you fallen in the past year?: No PFSH Medical History Health care maintenance Colon cancer screening Anxiety and depression History of COVID-19 Acute back pain Bilateral shoulder pain Macromastia Fibroadenoma of right breast Coccyx pain Uterine fibroid Hypertension Hypothyroidism Hormone deficiency IBS (irritable bowel syndrome) Hyperlipemia Diabetes Asthma Seasonal allergies Surgical History Hx of breast reduction, elective Hx of bilateral breast reduction surgery History of right knee joint replacement History of hysterectomy History of endometrial ablation History of gastric bypass History of tubal ligation History of Family History Father Diabetes CVA (cerebral vascular accident) Cancer skin Hypertension Heart disease Hyperlipemia Mother Heart disease Hyperlipemia Grandfather Myocardial infarction, Onset Age: 48 Uncle Alcoholism Social History household members: spouse and children housing: house number of children: 2 current occupational status: unemployed Smoking Status: Former smoker alcohol intake: current alcohol intake frequency: holidays/special occasions only substance use type: does not use what type of physical activity do you participate in: walking frequency: daily seatbelt use: always do you feel safe at home: Yes 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 No acute concerns at this time. Recent labs reviewed, A1c down from 6.9-6.2. She states that she has been more active lately and has lost some weight. Currently on Jardiance and Mounjaro however, there is concern for Jardiance becoming cost prohibitive. Recently switched to a new insurance. Blood pressure is stable, blood pressure today is at 118/66 mmHg. No syncopal or near syncopal episodes. Feels well. Other chronic medical conditions are stable. (more content not included)... Normal [facility] CBC W/Diff, Automatedon 08-10 Absolute Lymph 1.76 X10 3/uL Normal 0.83-4.51 [facility] Comment on above: Performed By: #### L 501.9520, L502.0250, L501.9985, L500.4100, L100.0100, L500.4050 ####[facility] [address] [place], [address] Absolute Neut 5.1 X10 3/uL Normal 2.0-7.7 [facility] Comment on above: Performed By: #### L 501.9520, L502.0250, L501.9985, L500.4100, L100.0100, L500.4050 ####[facility] [address] [place], [address] Basophils/100 WBC (Bld) 0.8 % Normal 0-1 [facility] Comment on above: Performed By: #### L 501.9520, L502.0250, L501.9985, L500.4100, L100.0100, L500.4050 ####[facility] [address] [place], [address] Eosinophils/100 WBC (Bld) 4.9 % Normal 0-5 [facility] Comment on above: Performed By: #### L 501.9520, L502.0250, L501.9985, L500.4100, L100.0100, L500.4050 ####[facility] [address] [place], [address] Erythrocyte distribution width (RBC) [Ratio] 14.0 % Normal 11.6-14.6 [facility] Comment on above: Performed By: #### L 501.9520, L502.0250, L501.9985, L500.4100, L100.0100, L500.4050 ####[facility] [address] [place], [address] Hematocrit (Bld) [Volume fraction] 45.3 % Normal 37-47 [facility] Comment on above: Performed By: #### L 501.9520, L502.0250, L501.9985, L500.4100, L100.0100, L500.4050 ####[facility] [address] [place], [address] Hemoglobin (Bld) [Mass/Vol] 14.0 g/dL Normal 12.0-15.0 [facility] Comment on above: Performed By: #### L 501.9520, L502.0250, L501.9985, L500.4100, L100.0100, L500.4050 ####[facility] [address] [place], [address] IG% 0.300 Normal 0.0-0.9 [facility] Comment on above: Result Comment: IG% - Immature Granulocytes (promyelocytes, myelocytes and metamyelocytes) > 1% indicates that a LEFT SHIFT is Present. Performed By: #### L 501.9520, L502.0250, L501.9985, L500.4100, L100.0100, L500.4050 ####[facility] [address] [place], [address] Lymphocytes/100 WBC (Bld) 22.6 % Normal 19-41 [facility] Comment on above: Performed By: #### L 501.9520, L502.0250, L501.9985, L500.4100, L100.0100, L500.4050 ####[facility] [address] [place], [address] MCH (RBC) [Entitic mass] 26.7 pg Low 27.0-32.0 [facility] Comment on above: Performed By: #### L 501.9520, L502.0250, L501.9985, L500.4100, L100.0100, L500.4050 ####[facility] [address] [place], [address] MCHC (RBC) [Mass/Vol] 30.9 g/dL Low 32-36 [facility] Comment on above: Performed By: #### L 501.9520, L502.0250, L501.9985, L500.4100, L100.0100, L500.4050 ####[facility] [address] [place], [address] MCV (RBC) [Entitic vol] 86.5 fL Normal 81-99 [facility] Comment on above: Performed By: #### L 501.9520, L502.0250, L501.9985, L500.4100, L100.0100, L500.4050 ####[facility] [address] [place], [address] Monocytes/100 WBC (Bld) 5.8 % Normal 0-10 [facility] Comment on above: Performed By: #### L 501.9520, L502.0250, L501.9985, L500.4100, L100.0100, L500.4050 ####[facility] [address] [place], [address] Neutrophils/100 WBC (Bld) 65.6 % Normal 47-70 [facility] Comment on above: Performed By: #### L 501.9520, L502.0250, L501.9985, L500.4100, L100.0100, L500.4050 ####[facility] [address] [place], [address] Nucleated RBC (Bld) [#/Vol] 0 10*3/uL Normal 0-5 [facility] Comment on above: Performed By: #### L 501.9520, L502.0250, L501.9985, L500.4100, L100.0100, L500.4050 ####[facility] [address] [place], [address] Platelet mean volume (Bld) [Entitic vol] 10.3 fL Normal 6.2-12.0 [facility] Comment on above: Performed By: #### L 501.9520, L502.0250, L501.9985, L500.4100, L100.0100, L500.4050 ####[facility] [address] [place], [address] Platelets (Bld) [#/Vol] 358 10*3/uL Normal 150-450 [facility] Comment on above: Performed By: #### L 501.9520, L502.0250, L501.9985, L500.4100, L100.0100, L500.4050 ####[facility] [address] [place], [address] RBC (Bld) [#/Vol] 5.24 10*6/uL Normal 4.2-5.4 [facility] Comment on above: Performed By: #### L 501.9520, L502.0250, L501.9985, L500.4100, L100.0100, L500.4050 ####[facility] [address] [place], [address] RDW SD 44.2 fl High 35.1-43.9 [facility] Comment on above: Performed By: #### L 501.9520, L502.0250, L501.9985, L500.4100, L100.0100, L500.4050 ####[facility] [address] [place], [address] WBC (Bld) [#/Vol] 7.8 10*3/uL Normal 4.4-11.0 [facility] Comment on above: Performed By: #### L [id number], L502.0250, L501.9985, L500.4100, L100.0100, L500.4050 ####[facility] [address] [place], [address] Comprehensive Metabolic Prof ilon 08-23-2024 Albumin [Mass/Vol] 3.7 g/dL Normal 3.2-5.0 [facility] Comment on above: Performed By: #### L 501.9520, L502.0250, L501.9985, L500.4100, L100.0100, L500.4050 ####[facility] [address] [place], [address] Albumin/Globulin [Mass ratio] 1.1 {ratio} Normal 0.9-2.4 [facility] Comment on above: Performed By: #### L 501.9520, L502.0250, L501.9985, L500.4100, L100.0100, L500.4050 ####[facility] [address] [place], [address] ALK P 86 U/L Normal 45-117 [facility] Comment on above: Performed By: #### L 501.9520, L502.0250, L501.9985, L500.4100, L100.0100, L500.4050 ####[facility] [address] [place], [address] ALT [Catalytic activity/Vol] 36 U/L Normal 13-56 [facility] Comment on above: Performed By: #### L 501.9520, L502.0250, L501.9985, L500.4100, L100.0100, L500.4050 ####[facility] [address] [place], [address] AST [Catalytic activity/Vol] 18 U/L Normal 15-37 [facility] Comment on above: Performed By: #### L 501.9520, L502.0250, L501.9985, L500.4100, L100.0100, L500.4050 ####[facility] [address] [place], [address] Bilirubin [Mass/Vol] 0.40 mg/dL Normal 0.20-1.00 [facility] Comment on above: Result Comment: For patients on eltrombopag therapy, use of Dimension [place] TBIL is not recommended. Performed By: #### L 501.9520, L502.0250, L501.9985, L500.4100, L100.0100, L500.4050 ####[facility] [address] [place], [address] BUN/CRE 30.0 RATIO High 10-20 [facility] Comment on above: Performed By: #### L 501.9520, L502.0250, L501.9985, L500.4100, L100.0100, L500.4050 ####[facility] [address] [place], [address] CA,Total 9.2 mg/dL Normal 8.5-10.1 [facility] Comment on above: Performed By: #### L 501.9520, L502.0250, L501.9985, L500.4100, L100.0100, L500.4050 ####[facility] [address] [place], [address] Chloride [Moles/Vol] 104 mmol/L Normal 98-107 [facility] Comment on above: Performed By: #### L 501.9520, L502.0250, L501.9985, L500.4100, L100.0100, L500.4050 ####[facility] [address] [place], [address] CO2 [Moles/Vol] 30.0 mmol/L Normal 21.0-32.0 [facility] Comment on above: Performed By: #### L 501.9520, L502.0250, L501.9985, L500.4100, L100.0100, L500.4050 ####[facility] [address] [place], [address] Creatinine [Mass/Vol] 0.60 mg/dL Normal 0.55-1.02 [facility] Comment on above: Result Comment: The validity of the calculated GFR GFRAA in patients over 70 years has not been determined. Clinical correlation is essential. Performed By: #### L 501.9520, L502.0250, L501.9985, L500.4100, L100.0100, L500.4050 ####[facility] [address] [place], [address] EST GFR - AA 133 mL/min Normal >60 [facility] Comment on above: Result Comment: Afri can [place] GFR Calc Performed By: #### L 501.9520, L502.0250, L501.9985, L500.4100, L100.0100, L500.4050 ####[facility] [address] [place], [address] GAP 3 Low 5-15 [facility] Comment on above: Performed By: #### L 501.9520, L502.0250, L501.9985, L500.4100, L100.0100, L500.4050 ####[facility] [address] [place], [address] GFR/1.73 sq M.predicted among non-blacks MDRD (S/P/Bld) [Vol rate/Area] 110 mL/min/{1.73_m2} Normal >60 [facility] Comment on above: Result Comment: Non- GFR Calc Performed By: #### L 501.9520, L502.0250, L501.9985, L500.4100, L100.0100, L500.4050 ####[facility] [address] [place], [address] Globulin (S) [Mass/Vol] 3.3 g/dL Normal 2.2-4.2 [facility] Comment on above: Performed By: #### L 501.9520, L502.0250, L501.9985, L500.4100, L100.0100, L500.4050 ####[facility] [address] [place], [address] Glucose [Mass/Vol] 102 mg/dL Normal 74-106 [facility] Comment on above: Result Comment: Fast ing Glucose result from 100 to 125 mg/dL suggests IMPAIRED HOMEOSTASIS per A.D.A. criteria. Performed By: #### L 501.9520, L502.0250, L501.9985, L500.4100, L100.0100, L500.4050 ####[facility] [address] [place], [address] Potassium [Moles/Vol] 4.3 mmol/L Normal 3.5-5.1 [facility] Comment on above: Performed By: #### L 501.9520, L502.0250, L501.9985, L500.4100, L100.0100, L500.4050 ####[facility] [address] [place], [address] Sodium [Moles/Vol] 137 mmol/L Normal 136-145 [facility] Comment on above: Performed By: #### L 501.9520, L502.0250, L501.9985, L500.4100, L100.0100, L500.4050 ####[facility] [address] [place], [address] T PROT 7.0 g/dL Normal 6.4-8.2 [facility] Comment on above: Performed By: #### L 501.9520, L502.0250, L501.9985, L500.4100, L100.0100, L500.4050 ####[facility] [address] [place], [address] Urea nitrogen [Mass/Vol] 18 mg/dL Normal 7-18 [facility] Comment on above: Performed By: #### L 501.9520, L502.0250, L501.9985, L500.4100, L100.0100, L500.4050 ####[facility] [address] [place], [place], [id number] Hemoglobin A1con 08-23-2024 HbA1c (Bld) [Mass fraction] 6.2 % High 3.8-5.6 [facility] Comment on above: Result Comment: Norm al < 5.7 % Prediabetic 5.7 - 6.4 % Diabetic >or= 6.5 % Please note range changes. Performed By: #### L 501.9520, L502.0250, L501.9985, L500.4100, L100.0100, L500.4050 ####[facility] [address] [place], [place], [id number] Lipid Profileon 08-23-2024 Cholesterol [Mass/Vol] 140 mg/dL Normal 200 [facility] Comment on above: Result Comment: <200 mg/dL Desirable 200-240 mg/dL Borderline >240 mg/dL High Risk Performed By: #### L 501.9520, L502.0250, L501.9985, L500.4100, L100.0100, L500.4050 ####[facility] [address] [place], [place], [id number] Cholesterol in HDL [Mass/Vol] 63 mg/dL Normal [facility] Comment on above: Result Comment: The drugs N-Acetylcysteine and Metamizole may falsely depress this assay. Reference Range HDL <40 mg/dL Low HDL Cholesterol HDL >or= 60 mg/dL High HDL Cholesterol Performed By: #### L 501.9520, L502.0250, L501.9985, L500.4100, L100.0100, L500.4050 ####[facility] [address] [place], [address] Cholesterol in LDL [Mass/Vol] 60 mg/dL Normal 0-130 [facility] Comment on above: Performed By: #### L 501.9520, L502.0250, L501.9985, L500.4100, L100.0100, L500.4050 ####[facility] [address] [place], [address] Cholesterol in VLDL [Mass/Vol] 17 mg/dL Normal 5-40 [facility] Comment on above: Performed By: #### L 501.9520, L502.0250, L501.9985, L500.4100, L100.0100, L500.4050 ####[facility] [address] [place], [address] Triglyceride [Mass/Vol] 83 mg/dL Normal [facility] Comment on above: Result Comment: The drugs N-Acetylcysteine and Metamizole may falsely depress this assay. Serum Triglycerides Reference Interval Normal <150 mg/dL Borderline high 150 - 199 mg/dL High 200 - 499 mg/dL Very High > or = 500 mg/dL Performed By: #### L 501.9520, L502.0250, L501.9985, L500.4100, L100.0100, L500.4050 ####[facility] [address] [place], [address] Microalb:Creat Ratio,Random URon 08-23-2024 Creatinine [Mass/Vol] 157.00 mg/dL Normal NO RAN GE EST. [facility] Comment on above: Performed By: #### L 501.9520, L502.0250, L501.9985, L500.4100, L100.0100, L500.4050 ####[facility] [address] [place], [address] MALB:CRE 7.3 mg/g CRE Normal <30 mg/g CRE [facility] Comment on above: Performed By: #### L 501.9520, L502.0250, L501.9985, L500.4100, L100.0100, L500.4050 ####[facility] [address] [place], [address] MICROALBUMIN,UR 11.5 mg/L Normal NO RANGE EST. [facility] Comment on above: Performed By: #### L 501.9520, L502.0250, L501.9985, L500.4100, L100.0100, L500.4050 ####[facility] [address] [place], [place], [id number] Thyroid Stim Hormone (TSH)on 08-23-2024 TSH 0.807 uIU/mL Normal 0.358-3.740 [facility] Comment on above: Performed By: #### L 501.9520, L502.0250, L501.9985, L500.4100, L100.0100, L500.4050 ####[facility] [address] [place], [place], [id number] Thin prep Papanicolaou smear with manual screeningOrdered By: Michael Coles on 08-26-2023 Thin prep Papanicolaou smear with manual screening < 5.0 mg/L NO RANGE EST. [facility] Urine albumin/creatinine rat io for detection of microalbuminuriaOrdered By: Michael Coles on 08-26-2023 Albumin/Creatinine DL <= 1.0 mg/L (24H U) [Ratio] TNP [facility] Comment on above: Test not performed Urine creatinine measurement (mass/volume)Ordered By: Michael Coles on 08-26-2023 Creatinine (U) [Mass/Vol] 15.60 mg/dL NO RANGE EST. [facility] Absolute lymphocyte countOrd ered By: Michael Coles on 08-20-2023 Lymphocytes Auto (Unsp spec) [#/Vol] 1.15 10*3/uL 0.83-4.51 [facility] Basophil percentageOrdered B y: Michael Coles on 08-20-2023 Basophils/100 WBC (Bld) 0.5 % 0-1 [facility] Bilirubin [Mass/Vol] 0.30 mg/dL 0.20-1.00 [facility] Comment on above: For patients on eltr ombopag therapy, use of Dimension [place] TBIL is not recommended. Chloride [Moles/Vol] 105 mmol/L 98-107 [facility] Cholesterol [Mass/Vol] 141 mg/dL <200 [facility] Comment on above: <200 mg/dL Desirable 200-240 mg/dL Borderline >240 mg/dL High Risk Eosinophils/100 WBC (Bld) 3.8 % 0-5 [facility] Glucose [Mass/Vol] 121 mg/dL 74-106 [facility] Comment on above: Fasting Glucose resu lt from 100 to 125 mg/dL suggests IMPAIRED HOMEOSTASIS per A.D.A. criteria. Neutrophils (Bld) [#/Vol] 4.3 10*3/uL 2.0-7.7 [facility] Neutrophils/100 WBC (Bld) 68.1 % 47-70 [facility] Potassium [Moles/Vol] 4.1 mmol/L 3.5-5.1 [facility] Protein [Mass/Vol] 6.8 g/dL 6.4-8.2 [facility] Sodium [Moles/Vol] 139 mmol/L 136-145 [facility] Triglyceride [Mass/Vol] 178 mg/dL <199 [facility] Comment on above: The drugs N-Acetylcy steine and Metamizole may falsely depress this assay.Serum Triglycerides Reference Interval Normal <150 mg/dL Borderline high 150 - 199 mg/dL High 200 - 499 mg/dL Very High > or = 500 mg/dL WBC (Bld) [#/Vol] 6.3 10*3/uL 4.4-11.0 [facility] Blood erythrocytes count (nu mber/volume)Ordered By: Michael Coles on 08-20-2023 RBC (Bld) [#/Vol] 4.96 10*6/uL 4.2-5.4 [facility] Blood hemoglobin measurement (mass/volume)Ordered By: Michael Coles on 08-20-2023 Hemoglobin (Bld) [Mass/Vol] 13.3 g/dL 12.0-15.0 [facility] Blood lymphocytes/100 leukoc ytesOrdered By: Michael Coles on 08-20-2023 Lymphocytes/100 WBC (Bld) 18.3 % 19-41 [facility] Blood monocytes/100 leukocyt esOrdered By: Michael Coles on 08-20-2023 Monocytes/100 WBC (Bld) 9.0 % 0-10 [facility] Blood platelet mean volumeOr dered By: Michael Coles on 08-20-2023 Platelet mean volume (Bld) [Entitic vol] 9.4 fL 6.2-12.0 [facility] Determination of erythrocyte mean corpuscular volume (MCV)Ordered By: Michael Coles on 08-20-2023 MCV (RBC) [Entitic vol] 88.5 fL 81-99 [facility] Hematocrit Auto (Bld) [Volum e fraction]Ordered By: Michael Coles on 08-20-2023 Hematocrit (Bld) [Volume fraction] 43.9 % 37-47 [facility] Laboratory - Chemistry and C hemistry - challengeOrdered By: Michael Coles on 08-20-2023 ALP [Catalytic activity/Vol] 87 U/L 45-117 [facility] ALT [Catalytic activity/Vol] 39 U/L 13-56 [facility] CO2 [Moles/Vol] 31.0 mmol/L 21.0-32.0 [facility] Globulin (S) [Mass/Vol] 3.5 g/dL 2.2-4.2 [facility] Urea nitrogen/Creatinine [Mass ratio] 15.5 mg/mg 10-20 [facility] Laboratory - Hematology and Cell countsOrdered By: Michael Coles on 08-20-2023 Erythrocyte distribution width (RBC) [Entitic vol] 42.5 fL 35.1-43.9 [facility] Erythrocyte distribution width (RBC) [Ratio] 13.1 % 11.6-14.6 [facility] Immature granulocytes/100 WBC (Bld) 0.300 % 0.0-0.9 [facility] Comment on above: IG% - Immature Granu locytes (promyelocytes, myelocytes and metamyelocytes) > 1% indicates that a LEFT SHIFT is Present. MCH (RBC) [Entitic mass] 26.8 pg 27.0-32.0 [facility] Nucleated RBC/100 WBC (Bld) [Ratio] 0 % 0-5 [facility] MCHC Auto (RBC) [Mass/Vol]Or dered By: Michael Coles on 08-20-2023 MCHC (RBC) [Mass/Vol] 30.3 g/dL 32-36 [facility] No Panel InformationOrdered By: Michael Coles on 08-20-2023 Estimated GFR (MDRD) Amer 123 mL/min >60 [facility] Comment on above: GFR Calc Estimated GFR (MDRD) Non-Af Amer 102 mL/min >60 [facility] Comment on above: Non- GFR Calc Thyroid Stimulating Hormone (TSH) 0.69 uIU/mL 0.358-3.74 [facility] Platelets bldOrdered By: Geovanni Coles on 08-20-2023 Platelets (Bld) [#/Vol] 348 10*3/uL 150-450 [facility] Serum or plasma albumin tika urement (mass/volume)Ordered By: Michael Coles on 08-20-2023 Albumin [Mass/Vol] 3.3 g/dL 3.2-5.0 [facility] Serum or plasma albumin/glob ulin mass ratioOrdered By: Michael Coles on 08-20-2023 Albumin/Globulin [Mass ratio] 0.9 {ratio} 0.9-2.4 [facility] Serum or plasma calcium tika urement (mass/volume)Ordered By: Michael Coles on 08-20-2023 Calcium [Mass/Vol] 8.7 mg/dL 8.5-10.1 [facility] Serum or plasma cholesterol in HDL measurement (mass/volume)Ordered By: Michael Coles on 08-20-2023 Cholesterol in HDL [Mass/Vol] 46 mg/dL >40 [facility] Comment on above: The drugs N-Acetylcy steine and Metamizole may falsely depress this assay. Reference Range HDL <40 mg/dL Low HDL Cholesterol HDL >or= 60 mg/dL High HDL Cholesterol Serum or plasma cholesterol in VLDL measurement (mass/volume)Ordered By: Michael Coles on 08-20-2023 Cholesterol in VLDL [Mass/Vol] 36 mg/dL 5-40 [facility] Serum or plasma creatinine m easurement (mass/volume)Ordered By: Michael Coles on 08-20-2023 Creatinine [Mass/Vol] 0.65 mg/dL 0.55-1.02 [facility] Comment on above: The validity of the calculated GFR & GFRAA in patients over 70 years has not been determined. Clinical correlation is essential. Serum or plasma low density lipoprotein (LDL) cholesterol measurement (mass/volume)Ordered By: Michael Coles on 08-20-2023 Cholesterol in LDL [Mass/Vol] 59 mg/dL 0-130 [facility] Serum or plasma urea nitroge n measurement (mass/volume)Ordered By: Michael Coles on 08-20-2023 Urea nitrogen [Mass/Vol] 10 mg/dL 7-18 [facility] Thin prep Papanicolaou smear with manual screeningOrdered By: Michael Coles on 08-20-2023 Thin prep Papanicolaou smear with manual screening 20 U/L 15-37 [facility] Thin prep Papanicolaou smear with manual screening 3 5-15 [facility] Whole blood hemoglobin A1c/t otal hemoglobin ratio (mass fraction)Ordered By: Michael Coles on 08-20-2023 HbA1c (Bld) [Mass fraction] 7.0 % 3.8-5.6 [facility] Comment on above: Normal < 5.7 % Predi abetic 5.7 - 6.4 % Diabetic >or= 6.5 % Please note range changes. CNOVon 08-09-2023 CNOV Office Visit (UCWSTR ) JACKIE HARRINGTON ([id number]) 1970 F Date Time Provider Department 08/09/23 8:30 AM [facility] During your visit today, we recorded the following information about you: Temperature Pulse Respiration Blood pressure 100.7 degrees 99/minute 18/minute 118/82 Weight 125.6 kg Mercedes Reid APRN.[facility] 08/09/2023 8:35 AM Signed CC: Patient presents with: Sinus Problem: With [...] bronchitis, bronchiectasis or COPD: No Smoker: No Seasonal/environmenta l allergies: No The ROS is otherwise negative. [...] Patient agreeable to treatment plan. Mercedes Reid APRN.[employer] SOFTWARE PROGRAM[employer] Referring Provider: SELF [[id number]] Allergies As of Date: 08/09/2023 Noted Allergy Reaction CEPHALOSPORINS 07/19/2002 14 - Other: See Comments 4 - Hives IODINE 07/31/2022 7 - Swelling 12 - Shortness of Breath LATEX 12/25/2020 2 - Rash PENICILLINS 07/29/2020 14 - Other: See Comments 4 - Hives ASPIRIN 12/25/2020 16 - Unknown NSAIDS (NON-STEROIDAL ANTI-INFLAM* 2 8 - GI Upset SHRIMP 12/25/2020 10 - Anaphylaxis Date Reviewed: 08/09/2023 Reviewed by: Alix Houston LPN - Fully Assessed Reason for Visit: Sinus Problem [99] Cmt: With fever, ear pain, face and eye pain x 1 day Primary Visit Diagnosis:URI, acute [J06.9] Order(s):COVID AND INFLUENZA A/B AND RSV NAAT, ROUTINE [SQCVFLRS] Order #: [id number] FUTURE COVID AND INFLUENZA A/B AND RSV NAAT, ROUTINE [SQCVFLRS] Order #: [id number]. #:[id number] Prescriptions as of 08/09/2023 - Ascorbic Acid 1,000 mg TbER Take 1,000 mg by mouth. - Ascorbic Acid 500 mg chew q 24 HR. - Calcium-Vitamin D3-Vitamin K 500-100-40 mg-unit-mcg chew Take by mouth. - cetirizine (ZYRTEC) 10 mg tablet Take 10 mg by mouth once daily. - cholecalciferol, vitamin D3, 10 mcg (400 unit) cap Take 10 mcg by mouth. - TRULICITY 1.5 mg/0.5 mL pen injector INJECT THE CONTENTS OF 1 PEN SUBCUTANEOUSLY ONCE A WEEK - JARDIANCE 25 mg tablet Take 25 mg by mouth once daily. - ferrous sulfat (more content not included)... Normal [facility] COVID AND INFLUENZA A/B AND RSV NAAT, ROUTINEon 08-09-2023 SARS-CoV-2 (COVID-19) RNA LUMA+probe Ql (Unsp spec) COVID 19 RESULT: Detected The method used is RT-PCR or an equivalent NAAT method. Reference Range (the expected result in uninfected individuals): Not detected INFLUENZA A PCR: Not detected INFLUENZA B PCR: Not detected RSV PCR: Not detected Abnormal [facility] Comment on above: Performed By: #### C VFLRS #### [facility] CLIA [id number] [id number] [address] [place] Laboratory - Hematology and Cell countson 05-27-2023 HbA1c (Bld) [Mass fraction] 7.0 % 4.2-6.3 [facility] Basophil percentageOrdered B y: Michael Coles on 02-18-2023 Chloride [Moles/Vol] 104 mmol/L 98-107 [facility] Glucose [Mass/Vol] 91 mg/dL 74-106 [facility] Potassium [Moles/Vol] 4.2 mmol/L 3.5-5.1 [facility] Sodium [Moles/Vol] 139 mmol/L 136-145 [facility] Laboratory - Chemistry and C hemistry - challengeOrdered By: Michael Coles on 02-18-2023 CO2 [Moles/Vol] 30.0 mmol/L 21.0-32.0 [facility] Urea nitrogen/Creatinine [Mass ratio] 22.9 mg/mg 10- [facility] No Panel InformationOrdered By: Michael Coles on 02-18-2023 Estimated GFR (MDRD) Amer 121 mL/min >60 [facility] Comment on above: GFR Calc Estimated GFR (MDRD) Non-Af Amer 100 mL/min >60 [facility] Comment on above: Non- GFR Calc Serum or plasma calcium tika urement (mass/volume)Ordered By: Michael Coles on 02-18-2023 Calcium [Mass/Vol] 8.7 mg/dL 8.5-10.1 [facility] Serum or plasma creatinine m easurement (mass/volume)Ordered By: Michael Coles on 02-18-2023 Creatinine [Mass/Vol] 0.66 mg/dL 0.55-1.02 [facility] Comment on above: The validity of the calculated GFR & GFRAA in patients over 70 years has not been determined. Clinical correlation is essential. Serum or plasma urea nitroge n measurement (mass/volume)Ordered By: Michael Coles on 02-18-2023 Urea nitrogen [Mass/Vol] 15 mg/dL 02-24 [facility] Thin prep Papanicolaou smear with manual screeningOrdered By: Michael Coles on 02-18-2023 Thin prep Papanicolaou smear with manual screening 5 5-15 [facility] Whole blood hemoglobin A1c/t otal hemoglobin ratio (mass fraction)Ordered By: Michael Coles on 02-18-2023 HbA1c (Bld) [Mass fraction] 6.7 % 3.8-5.6 [facility] Comment on above: Normal < 5.7 % Predi abetic 5.7 - 6.4 % Diabetic >or= 6.5 % Please note range changes. Laboratory - Hematology and Cell countson 11-19-2022 HbA1c (Bld) [Mass fraction] 7.0 % 4.2-6.3 [facility] No Panel InformationOrdered By: Dr. Coles on 08-26-2022 Urine Microalbumin/Creatinine Ratio 7.1 mg/g CRE <30 [facility] Thin prep Papanicolaou smear with manual screeningOrdered By: Dr. Coles on 08-26-2022 Thin prep Papanicolaou smear with manual screening 8.4 mg/L NO RANGE EST. [facility] Urine creatinine measurement (mass/volume)Ordered By: Dr. Coles on 08-26-2022 Creatinine (U) [Mass/Vol] 118.00 mg/dL NO RANGE EST. [facility] Absolute lymphocyte countOrd ered By: Dr. Coles on 08-25-2022 Lymphocytes Auto (Unsp spec) [#/Vol] 1.67 10*3/uL 0.83-4.51 [facility] Basophil percentageOrdered B y: Dr. Coles on 08-25-2022 Basophils/100 WBC (Bld) 0.8 % 0-1 [facility] Bilirubin [Mass/Vol] 0.40 mg/dL 0.20-1.00 [facility] Comment on above: For patients on eltr ombopag therapy, use of Dimension [place] TBIL is not recommended. Chloride [Moles/Vol] 105 mmol/L 98-107 [facility] Cholesterol [Mass/Vol] 153 mg/dL <200 [facility] Comment on above: <200 mg/dL Desirable 200-240 mg/dL Borderline >240 mg/dL High Risk Eosinophils/100 WBC (Bld) 8.5 % 0-5 [facility] Glucose [Mass/Vol] 105 mg/dL 74-106 [facility] Comment on above: Fasting Glucose resu lt from 100 to 125 mg/dL suggests IMPAIRED HOMEOSTASIS per A.D.A. criteria. Neutrophils (Bld) [#/Vol] 3.6 10*3/uL 2.0-7.7 [facility] Neutrophils/100 WBC (Bld) 56.9 % 47-70 [facility] Potassium [Moles/Vol] 4.2 mmol/L 3.5-5.1 [facility] Protein [Mass/Vol] 6.8 g/dL 6.4-8.2 [facility] Sodium [Moles/Vol] 140 mmol/L 136-145 [facility] Triglyceride [Mass/Vol] 107 mg/dL <199 [facility] Comment on above: The drugs N-Acetylcy steine and Metamizole may falsely depress this assay.Serum Triglycerides Reference Interval Normal <150 mg/dL Borderline high 150 - 199 mg/dL High 200 - 499 mg/dL Very High > or = 500 mg/dL WBC (Bld) [#/Vol] 6.4 10*3/uL 4.4-11.0 [facility] Blood erythrocytes count (nu mber/volume)Ordered By: Dr. Coles on 08-25-2022 RBC (Bld) [#/Vol] 4.98 10*6/uL 4.2-5.4 [facility] Blood hemoglobin measurement (mass/volume)Ordered By: Dr. Coles on 08-25-2022 Hemoglobin (Bld) [Mass/Vol] 13.7 g/dL 12.0-15.0 [facility] Blood lymphocytes/100 leukoc ytesOrdered By: Dr. Coles on 08-25-2022 Lymphocytes/100 WBC (Bld) 26.3 % 19-41 [facility] Blood monocytes/100 leukocyt esOrdered By: Dr. Coles on 08-25-2022 Monocytes/100 WBC (Bld) 7.2 % 0-10 [facility] Blood platelet mean volumeOr dered By: Dr. Coles on 08-25-2022 Platelet mean volume (Bld) [Entitic vol] 10.0 fL 6.2-12.0 [facility] Determination of erythrocyte mean corpuscular volume (MCV)Ordered By: Dr. Coles on 08-25-2022 MCV (RBC) [Entitic vol] 86.9 fL 81-99 [facility] Hematocrit Auto (Bld) [Volum e fraction]Ordered By: Dr. Coles on 08-25-2022 Hematocrit (Bld) [Volume fraction] 43.3 % 37-47 [facility] Laboratory - Chemistry and C hemistry - challengeOrdered By: Dr. Coles on 08-25-2022 ALP [Catalytic activity/Vol] 75 U/L 45-117 [facility] ALT [Catalytic activity/Vol] 34 U/L 13-56 [facility] CO2 [Moles/Vol] 28.0 mmol/L 21.0-32.0 [facility] Globulin (S) [Mass/Vol] 3.3 g/dL 2.2-4.2 [facility] Urea nitrogen/Creatinine [Mass ratio] 26.7 mg/mg 10-20 [facility] Laboratory - Hematology and Cell countsOrdered By: Dr. Coles on 08-25-2022 Erythrocyte distribution width (RBC) [Entitic vol] 42.8 fL 35.1-43.9 [facility] Erythrocyte distribution width (RBC) [Ratio] 13.6 % 11.6-14.6 [facility] Immature granulocytes/100 WBC (Bld) 0.300 % 0.0-0.9 [facility] Comment on above: IG% - Immature Granu locytes (promyelocytes, myelocytes and metamyelocytes) > 1% indicates that a LEFT SHIFT is Present. MCH (RBC) [Entitic mass] 27.5 pg 27.0-32.0 [facility] Nucleated RBC/100 WBC (Bld) [Ratio] 0 % 0-5 [facility] MCHC Auto (RBC) [Mass/Vol]Or dered By: Dr. Coles on 08-25-2022 MCHC (RBC) [Mass/Vol] 31.6 g/dL 32-36 [facility] No Panel InformationOrdered By: Dr. Coles on 08-25-2022 Estimated GFR (MDRD) Amer 126 mL/min >60 [facility] Comment on above: GFR Calc Estimated GFR (MDRD) Non-Af Amer 104 mL/min >60 [facility] Comment on above: Non- GFR Calc Thyroid Stimulating Hormone (TSH) 0.59 uIU/mL 0.358-3.74 [facility] Platelets bldOrdered By: Dr. Coles on 08-25-2022 Platelets (Bld) [#/Vol] 302 10*3/uL 150-450 [facility] Serum or plasma albumin tika urement (mass/volume)Ordered By: Dr. Coles on 08-25-2022 Albumin [Mass/Vol] 3.5 g/dL 3.2-5.0 [facility] Serum or plasma albumin/glob ulin mass ratioOrdered By: Dr. Coles on 08-25-2022 Albumin/Globulin [Mass ratio] 1.1 {ratio} 0.9-2.4 [facility] Serum or plasma calcium tika urement (mass/volume)Ordered By: Dr. Coles on 08-25-2022 Calcium [Mass/Vol] 8.7 mg/dL 8.5-10.1 [facility] Serum or plasma cholesterol in HDL measurement (mass/volume)Ordered By: Dr. Coles on 08-25-2022 Cholesterol in HDL [Mass/Vol] 62 mg/dL >40 [facility] Comment on above: The drugs N-Acetylcy steine and Metamizole may falsely depress this assay. Reference Range HDL <40 mg/dL Low HDL Cholesterol HDL >or= 60 mg/dL High HDL Cholesterol Serum or plasma cholesterol in VLDL measurement (mass/volume)Ordered By: Dr. Coles on 08-25-2022 Cholesterol in VLDL [Mass/Vol] 21 mg/dL 5-40 [facility] Serum or plasma creatinine m easurement (mass/volume)Ordered By: Dr. Coles on 08-25-2022 Creatinine [Mass/Vol] 0.64 mg/dL 0.55-1.02 [facility] Comment on above: The validity of the calculated GFR & GFRAA in patients over 70 years has not been determined. Clinical correlation is essential. Serum or plasma low density lipoprotein (LDL) cholesterol measurement (mass/volume)Ordered By: Dr. Coles on 08-25-2022 Cholesterol in LDL [Mass/Vol] 70 mg/dL 0-130 [facility] Serum or plasma urea nitroge n measurement (mass/volume)Ordered By: Dr. Coles on 08-25-2022 Urea nitrogen [Mass/Vol] 17 mg/dL 7-18 [facility] Thin prep Papanicolaou smear with manual screeningOrdered By: Dr. Coles on 08-25-2022 Thin prep Papanicolaou smear with manual screening 15 U/L 15-37 [facility] Thin prep Papanicolaou smear with manual screening 7 5-15 [facility] Laboratory - Hematology and Cell countson 08-22-2022 HbA1c (Bld) [Mass fraction] 6.7 % 4.2-6.3 [facility] - H[facility]ology [facility] 05-19-2022 HbA1c (Bld) [Mass fraction] 6.3 % 4.2-6.3 [facility] Vital Signs Date Time Vital Sign Value Performing Clinician Facility 05-29-2025 13:03-0400 Body height 170.[address] Michael Coles MD Work Phone: [facility] 05-29-2025 13:03-0400 Body mass index (BMI) [Ratio] 32.5 kg/m2 Dr. Michael Coles MD Work Phone: [facility] 05-29-2025 13:03-0400 Body temperature 97.8 [degF] Dr. Michael Coles MD Work Phone: [facility] 05-29-2025 13:03-0400 Body weight 94.[address] Michael Coles MD Work Phone: [facility] 05-29-2025 13:03-0400 Diastolic blood pressure 80 mm[Hg] Dr. Michael Coles MD Work Phone: [facility] 05-29-2025 13:03-0400 Heart rate 81 /min Dr. Michael Cloes MD Work Phone: [facility] 05-29-2025 13:03-0400 Respiratory rate 18 /min Dr. Michael Coles MD Work Phone: [facility] 05-29-2025 13:03-0400 SaO2% (BldA) [Mass fraction] 97 % Dr. Michael Coles MD Work Phone: [facility] 05-29-2025 13:03-0400 Systolic blood pressure 122 mm[Hg] Dr. Michael Coles MD Work Phone: [facility] 05-26-2025 12:48-0400 Diastolic blood pressure 64 mm[Hg] Dr. Michael Coles MD Work Phone: [facility] 05-26-2025 12:48-0400 Systolic blood pressure 119 mm[Hg] Dr. Michael Coles MD Work Phone: [facility] 05-26-2025 11:40-0400 Heart rate 69 /min Dr. Michael Coles MD Work Phone: [facility] 05-26-2025 09:34-0400 Body temperature 98.2 [degF] Dr. Michael Coles MD Work Phone: [facility] 05-26-2025 09:34-0400 Respiratory rate 16 /min Dr. Michael Coles MD Work Phone: [facility] 05-26-2025 09:34-0400 SaO2% (BldA) [Mass fraction] 96 % Dr. Michael Coles MD Work Phone: [facility] 05-25-2025 13:57-0400 Body mass index (BMI) [Ratio] 32.2 kg/m2 Dr. Michael Coles MD Work Phone: [facility] 05-25-2025 13:57-0400 Body weight 93.[address] Michael Coles MD Work Phone: [facility] 03-22-2025 10:06-0400 Body height 170.[address] Michael Coles MD Work Phone: [facility] 03-22-2025 10:06-0400 Body mass index (BMI) [Ratio] 32.5 kg/m2 Dr. Michael Coles MD Work Phone: [facility] 03-22-2025 10:06-0400 Body temperature 98.6 [degF] Dr. Michael Coles MD Work Phone: [facility] 03-22-2025 10:06-0400 Body weight 94.[address] Michael Coles MD Work Phone: [facility] 03-22-2025 10:06-0400 Diastolic blood pressure 70 mm[Hg] Dr. Michael Coles MD Work Phone: [facility] 03-22-2025 10:06-0400 Heart rate 78 /min Dr. Michael Coles MD Work Phone: [facility] 03-22-2025 10:06-0400 Respiratory rate 14 /min Dr. Michael Coles MD Work Phone: [facility] 03-22-2025 10:06-0400 SaO2% (BldA) [Mass fraction] 98 % Dr. Michael Coles MD Work Phone: [facility] 03-22-2025 10:06-0400 Systolic blood pressure 108 mm[Hg] Dr. Michael Coles MD Work Phone: [facility] 12-15-2024 17:58-0400 Body mass index (BMI) [Ratio] 34 kg/m2 Dr. Michael Coles MD Work Phone: [facility] 12-15-2024 17:58-0400 Body temperature 97.4 [degF] Dr. Michael Coles MD Work Phone: [facility] 12-15-2024 17:58-0400 Body weight 98.[address] Michael Coles MD Work Phone: [facility] 12-15-2024 17:58-0400 Diastolic blood pressure 78 mm[Hg] Dr. Michael Coles MD Work Phone: [facility] 12-15-2024 17:58-0400 Heart rate 67 /min Dr. Michael Coles MD Work Phone: [facility] 12-15-2024 17:58-0400 Respiratory rate 16 /min Dr. Michael Coles MD Work Phone: [facility] 12-15-2024 17:58-0400 SaO2% (BldA) [Mass fraction] 99 % Dr. Michael Coles MD Work Phone: [facility] 12-15-2024 17:58-0400 Systolic blood pressure 116 mm[Hg] Dr. Michael Coles MD Work Phone: [facility] 08-26-2023 10:28-0500 Body height 170.[address] Michael Coles Work Phone: [facility] 08-26-2023 10:28-0500 Body mass index (BMI) [Ratio] 43.7 kg/m2 Dr. Michael Coles Work Phone: [facility] 08-26-2023 10:28-0500 Body temperature 96.9 [degF] Dr. Michael Coles Work Phone: [facility] 08-26-2023 10:28-0500 Body weight 126.[address] Michael Coles Work Phone: [facility] 08-26-2023 10:28-0500 Diastolic blood pressure 70 mm[Hg] Dr. Michael Coles Work Phone: [facility] 01-17-2024 10:28-0500 Heart rate 86 /min Dr. Michael Coles Work Phone: [facility] 08-26-2023 10:28-0500 SaO2% (BldA) [Mass fraction] 97 % Dr. Michael Coles Work Phone: [facility] 08-26-2023 10:28-0500 Systolic blood pressure 108 mm[Hg] Dr. Michael Coles Work Phone: [facility] 08-09-2023 08:28-0500 Body temperature 100.71 [degF] Mercedes Reid APRN.SYSTEM SOFTWARE PROGRAMMER Work Phone: [facility] 08-09-2023 08:28-0500 Body weight 125.65 kg Mercedes Reid APRN.SYSTEM SOFTWARE PROGRAMMER Work Phone: [facility] 08-09-2023 08:28-0500 Diastolic blood pressure 82 mm[Hg] Mercedes Reid APRN.SYSTEM SOFTWARE PROGRAMMER Work Phone: [facility] 08-09-2023 08:28-0500 Heart rate 99 /min Mercedes Reid APRN.SYSTEM SOFTWARE PROGRAMMER Work Phone: [facility] 08-09-2023 08:28-0500 Respiratory rate 18 /min Mercedes Reid APRN.SYSTEM SOFTWARE PROGRAMMER Work Phone: [facility] 08-09-2023 08:28-0500 SaO2% (BldA) [Mass fraction] 97 % Mercedes Reid APRN.SYSTEM SOFTWARE PROGRAMMER Work Phone: [facility] 08-09-2023 08:28-0500 Systolic blood pressure 118 mm[Hg] Mercedes Reid APRN.SYSTEM SOFTWARE PROGRAMMER Work Phone: [facility] 05-27-2023 08:36-0400 Body height 170.[address] Michael Coles Work Phone: [facility] 05-27-2023 08:36-0400 Body mass index (BMI) [Ratio] 43 kg/m2 Dr. Michael Coles Work Phone: [facility] 05-27-2023 08:36-0400 Body temperature 97.6 [degF] Dr. Michael Coles Work Phone: [facility] 05-27-2023 08:36-0400 Body weight 124.[address] Michael Coles Work Phone: [facility] 05-27-2023 08:36-0400 Diastolic blood pressure 82 mm[Hg] Dr. Michael Coles Work Phone: [facility] 05-27-2023 08:36-0400 Heart rate 78 /min Dr. Michael Coles Work Phone: [facility] 05-27-2023 08:36-0400 Respiratory rate 14 /min Dr. Michael Coles Work Phone: [facility] 05-27-2023 08:36-0400 SaO2% (BldA) [Mass fraction] 98 % Dr. Michael Coles Work Phone: [facility] 05-27-2023 08:36-0400 Systolic blood pressure 120 mm[Hg] Dr. Michael Coles Work Phone: [facility] 03-15-2023 17:12-0400 Respiratory rate 18 /min Dr. Michael Coles Work Phone: [facility] 03-15-2023 16:46-0400 Body height 170.[address] Michael Coles Work Phone: [facility] 03-15-2023 16:46-0400 Body mass index (BMI) [Ratio] 43 kg/m2 Dr. Michael Coles Work Phone: [facility] 03-15-2023 16:46-0400 Body temperature 97.8 [degF] Dr. Michael Coles Work Phone: [facility] 08-06-2023 16:46-0400 Body weight 124.[address] Michael Coles Work Phone: [facility] 03-15-2023 16:46-0400 Diastolic blood pressure 85 mm[Hg] Dr. Michael Coles Work Phone: [facility] 03-15-2023 16:46-0400 Heart rate 77 /min Dr. Michael Coles Work Phone: [facility] 03-15-2023 16:46-0400 SaO2% (BldA) [Mass fraction] 97 % Dr. Michael Coles Work Phone: [facility] 03-15-2023 16:46-0400 Systolic blood pressure 132 mm[Hg] Dr. Michael Coles Work Phone: [facility] 02-23-2023 08:08-0400 Body mass index (BMI) [Ratio] 42.3 kg/m2 Dr. Michael Coles Work Phone: [facility] 02-23-2023 08:08-0400 Body temperature 95.6 [degF] Dr. Michael Coles Work Phone: [facility] 02-23-2023 08:08-0400 Body weight 122.[address] Michael Coles Work Phone: [facility] 02-23-2023 08:08-0400 Diastolic blood pressure 74 mm[Hg] Dr. Michael Coles Work Phone: [facility] 02-23-2023 08:08-0400 Heart rate 99 /min Dr. Michael Coles Work Phone: [facility] 02-23-2023 08:08-0400 Respiratory rate 18 /min Dr. Michael Coles Work Phone: [facility] 02-23-2023 08:08-0400 SaO2% (BldA) [Mass fraction] 98 % Dr. Michael Coles Work Phone: [facility] 02-23-2023 08:08-0400 Systolic blood pressure 96 mm[Hg] Dr. Michael Coles Work Phone: [facility] 11-19-2022 09:19-0400 Body mass index (BMI) [Ratio] 42 kg/m2 Dr. Michael Coles Work Phone: [facility] 11-19-2022 09:19-0400 Body temperature 97.5 [degF] Dr. Michael Coles Work Phone: [facility] 11-19-2022 09:19-0400 Body weight 121.[address] Michael Coles Work Phone: [facility] 11-19-2022 09:19-0400 Diastolic blood pressure 98 mm[Hg] Dr. Michael Coles Work Phone: [facility] 11-19-2022 09:19-0400 Heart rate 85 /min Dr. Michael Coles Work Phone: [facility] 11-19-2022 09:19-0400 Respiratory rate 14 /min Dr. Michael Coles Work Phone: [facility] 11-19-2022 09:19-0400 SaO2% (BldA) [Mass fraction] 98 % Dr. Michael Coles Work Phone: [facility] 11-19-2022 09:19-0400 Systolic blood pressure 104 mm[Hg] Dr. Michael Coles Work Phone: [facility] 11-13-2022 16:53-0400 Body height 170.[address] Michael Coles Work Phone: [facility] 11-13-2022 16:53-0400 Body mass index (BMI) [Ratio] 41.5 kg/m2 Dr. Michael Coles Work Phone: [facility] 11-13-2022 16:53-0400 Body temperature 96.9 [degF] Dr. Michael Coles Work Phone: [facility] 11-13-2022 16:53-0400 Body weight 120.[address] Michael Coles Work Phone: [facility] 11-13-2022 16:53-0400 Diastolic blood pressure 76 mm[Hg] Dr. Michael Coles Work Phone: [facility] 11-13-2022 16:53-0400 Heart rate 95 /min Dr. Michael Coles Work Phone: [facility] 11-13-2022 16:53-0400 Respiratory rate 18 /min Dr. Michael Coles Work Phone: [facility] 11-13-2022 16:53-0400 SaO2% (BldA) [Mass fraction] 99 % Dr. Michael Coles Work Phone: [facility] 11-13-2022 16:53-0400 Systolic blood pressure 105 mm[Hg] Dr. Michael Coles Work Phone: [facility] 10-27-2022 07:37-0400 Body height 170.[address] Michael Coles Work Phone: [facility] 10-27-2022 07:37-0400 Body mass index (BMI) [Ratio] 41.5 kg/m2 Dr. Michael Coles Work Phone: [facility] 10-27-2022 07:37-0400 Body temperature 97.6 [degF] Dr. Michael Coles Work Phone: [facility] 10-27-2022 07:37-0400 Body weight 120.[address] Michael Coles Work Phone: [facility] 10-27-2022 07:37-0400 Diastolic blood pressure 81 mm[Hg] Dr. Michael Coles Work Phone: [facility] 10-27-2022 07:37-0400 Heart rate 78 /min Dr. Michael Coles Work Phone: [facility] 10-27-2022 07:37-0400 Respiratory rate 16 /min Dr. Michael Coles Work Phone: [facility] 10-27-2022 07:37-0400 SaO2% (BldA) [Mass fraction] 98 % Dr. Michael Coles Work Phone: [facility] 10-27-2022 07:37-0400 Systolic blood pressure 107 mm[Hg] Dr. Michael Coles Work Phone: [facility] 10-16-2022 10:33-0500 Body mass index (BMI) [Ratio] 42.1 kg/m2 Dr. Michael Coles Work Phone: [facility] 10-16-2022 10:33-0500 Body weight 122.[address] Michael Coles Work Phone: [facility] 10-16-2022 10:33-0500 Diastolic blood pressure 74 mm[Hg] Dr. Michael Coles Work Phone: [facility] 10-16-2022 10:33-0500 Systolic blood pressure 112 mm[Hg] Dr. Michael Coles Work Phone: [facility] 08-22-2022 10:04-0500 Body height 170.[address] Michael Coles Work Phone: [facility] 08-22-2022 10:04-0500 Body mass index (BMI) [Ratio] 40.1 kg/m2 Dr. Michael Coles Work Phone: [facility] 08-22-2022 10:04-0500 Body temperature 96.9 [degF] Dr. Michael Coles Work Phone: [facility] 08-22-2022 10:04-0500 Body weight 116.[address] Michael Coles Work Phone: [facility] 08-22-2022 10:04-0500 Diastolic blood pressure 74 mm[Hg] Dr. Michael Coles Work Phone: [facility] 08-22-2022 10:04-0500 Heart rate 80 /min Dr. Michael Coles Work Phone: [facility] 08-22-2022 10:04-0500 Respiratory rate 16 /min Dr. Michael Coles Work Phone: [facility] 08-22-2022 10:04-0500 SaO2% (BldA) [Mass fraction] 96 % Dr. Michael Coles Work Phone: [facility] 08-22-2022 10:04-0500 Systolic blood pressure 106 mm[Hg] Dr. Michael Coles Work Phone: [facility] 07-31-2022 07:23-0500 Body temperature 98.4 [degF] Mercedes Reid APRN.SYSTEM SOFTWARE PROGRAMMER Work Phone: [facility] 07-31-2022 07:23-0500 Body weight 120.02 kg Mercedes Reid APRN.SYSTEM SOFTWARE PROGRAMMER Work Phone: [facility] 07-31-2022 07:23-0500 Diastolic blood pressure 78 mm[Hg] Mercedes Reid APRN.SYSTEM SOFTWARE PROGRAMMER Work Phone: [facility] 07-31-2022 07:23-0500 Heart rate 76 /min Mercedes Reid APRN.SYSTEM SOFTWARE PROGRAMMER Work Phone: [facility] 07-31-2022 07:23-0500 Respiratory rate 18 /min Mercedes Ried APRN.SYSTEM SOFTWARE PROGRAMMER Work Phone: [facility] 07-31-2022 07:23-0500 SaO2% (BldA) [Mass fraction] 97 % Mercedes Reid APRN.SYSTEM SOFTWARE PROGRAMMER Work Phone: [facility] 07-31-2022 07:23-0500 Systolic blood pressure 116 mm[Hg] Mercedes Reid APRN.SYSTEM SOFTWARE PROGRAMMER Work Phone: [facility] 05-19-2022 10:30-0400 Body mass index (BMI) [Ratio] 41.1 kg/m2 Dr. Michael Coles Work Phone: [facility] 05-19-2022 10:30-0400 Body temperature 97 [degF] Dr. Michael Coles Work Phone: [facility] 05-19-2022 10:30-0400 Body weight 119.[address] Michael Coles Work Phone: [facility] 05-19-2022 10:30-0400 Diastolic blood pressure 80 mm[Hg] Dr. Michael Coles Work Phone: [facility] 05-19-2022 10:30-0400 Heart rate 78 /min Dr. Michael Coles Work Phone: [facility] 05-19-2022 10:30-0400 Respiratory rate 16 /min Dr. Michael Coles Work Phone: [facility] 05-19-2022 10:30-0400 SaO2% (BldA) [Mass fraction] 96 % Dr. Michael Coles Work Phone: [facility] 05-19-2022 10:30-0400 Systolic blood pressure 118 mm[Hg] Dr. Michael Coles Work Phone: [facility] Encounters Encounter Date Encounter Type Care Provider Facility Start: 06-21-2025 End: 06-21-2025 ambulatory Michael Coles [place] Start: 06-19-2025 ambulatory Beth Britt NP Facil ity:[facility] Start: 05-29-2025 End: 05-29-2025 Patient encounter procedure Keyona NG -[facility] Work Phone: Start: 05-29-2025 End: 05-29-[address] Michael Coles MD Work Phone: -[facility] Start: 05-26-2025 Non-patient / Non-visit Dr. Jolynn Mota MD -[facility] Work Phone: Start: 05-25-2025 ambulatory Nunez Nicole Facility:[facility] Start: 05-25-2025 Non-patient / Non-visit Dr. Jolynn Mota MD -[facility] Work Phone: Start: 05-25-2025 End: 05-26-2025 ambulatory [facility] Facility:[facility] Start: 05-25-2025 End: 05-26-2025 Evaluation and management of inpatient Dr. Javi Mota MD -[facility] Work Phone: Start: 05-25-2025 End: 05-26-[address] Michael Coles MD Work Phone: -[facility] Start: 04-24-2025 End: 04-24-[address] Michael Coles MD Work Phone: -[facility] Start: 04-24-2025 End: 04-24-[address] Michael Coles MD -[facility] Start: 04-24-2025 End: 04-24-2025 ambulatory [facility] Facility:[facility] Start: 03-22-2025 End: 03-22-[address] Michael Coles MD -[facility] Work Phone: Start: 03-22-2025 End: 03-22-[address] Michael Coles MD Work Phone: -[facility] Start: 12-15-2024 End: 12-15-[address] Michael Coles MD -[facility] Work Phone: Start: 12-15-2024 End: 12-15-2024 ambulatory Michael Coles [place] Start: 10-19-2024 Encounter for gynecological examination (general) (routine) without abnormal findings Beth Britt [employer] [facility] Start: 10-19-2024 End: 10-19-2024 ambulatory Beth Britt [employer] [place] Start: 08-26-2024 End: 08-26-2024 ambulatory Michael Coles [place] Start: 08-23-2024 End: 08-23-2024 ambulatory Alonsopesotumjunior Coles Facility:[facility] Start: 08-26-2023 End: 08-26-[address] Michael Coles Work Phone: [facility] Work Phone: Start: 08-26-2023 End: 08-26-[address] Michael Coles Work Phone: [facility] Work Phone: Start: 08-20-2023 End: 08-20-[address] Michael Coles Work Phone: [facility] Work Phone: Start: 08-20-2023 End: 08-20-[address] Michael Coles Work Phone: [facility]-Laboratory, [facility] Start: 08-09-2023 End: 08-09-2023 ambulatory MICHAEL COLES Facility:[facility] Start: 08-09-2023 End: 08-09-2023 Patient encounter procedure Mercedes Reid APRN.CNP Work Phone: [facility] Comment on above: URI, acute (Primary Dx) Start: 05-27-2023 End: 05-27-[address] Michael Coles Work Phone: [facility] Work Phone: Start: 05-19-2023 End: 05-19-[address] Michael Coles Work Phone: [facility] Work Phone: Start: 05-19-2023 End: 05-19-[address] Michael Coles Work Phone: [facility]-Outpatient Breast Imaging Work Phone: Start: 03-15-2023 End: 03-15-2023 Emergency department patient visit Dr. Michael Coles Work Phone: [facility]-Emergency Department Work Phone: Start: 02-23-2023 End: 02-23-[address] Michael Coles Work Phone: [facility] Work Phone: Start: 02-18-2023 End: 02-18-[address] Michael Coles Work Phone: [facility] [place] [place] Start: 11-19-2022 End: 11-19-[address] Michael Coles Work Phone: [facility] Work Phone: Start: 11-13-2022 End: 11-13-2022 Emergency department patient visit Dr. Michael Coles Work Phone: [facility]-Emergency Department Start: 10-27-2022 End: 10-27-2022 Emergency department patient visit Dr. Michael Coles Work Phone: [facility]-Emergency Department Start: 10-16-2022 End: 10-16-[address] Michael Coles Work Phone: [facility] Start: 08-26-2022 End: 08-26-[address] Michael Coles Work Phone: [facility] Work Phone: Start: 08-26-2022 End: 08-26-[address] [facility] Start: 08-25-2022 End: 08-25-[address] Michael Coles Work Phone: [facility] Work Phone: Start: 08-25-2022 End: 08-25-[address] [facility] [facility] Start: 08-22-2022 End: 08-22-[address] Michael Coles Work Phone: [facility] Internal Medicine Start: 07-31-2022 End: 07-31-2022 Patient encounter procedure Mercedes Reid APRN.CNP Work Phone: [facility] Comment on above: Sinus congestion (Pr imary Dx) Start: 05-19-2022 End: 05-19-[address] Michael Coles Work Phone: [facility] Internal Medicine Procedures Date Procedure Procedure Detail Performing Clinician Start: 05-26-[address] Michael Coles MD Work Phone: Start: 05-25-2025 CT angiography of ch est with contrast Dr. Michael Coles MD Work Phone: Start: 05-25-2025 D-dimer assay, quantitative Dr. Michael Coles MD Work Phone: Comment on above: D-Dimer ELEVATED (>0 .49): Additional studies and clinicalassessments are indicated to conclude diagnosis of:Deep Vein Thrombosis (DVT) or Pulmonary Embolism (PE) Start: 05-25-2025 Radiologic exam chest [address] Michael Coles MD Work Phone: Start: 05-19-2023 Screening mammography Jael Coles Work Phone: Start: 10-27-2022 X-ray of lumbar spin e, two or three views Dr. Michael Coles Work Phone: Plan of Treatment Date Care Activity Detail Author Start: 05-29-2025 End: 05-29-2025 Patient encounter procedure Hospital discharge follow-up -[facility] Work Phone: Start: 05-26-2025 Patient discharge [facility] Start: 05-25-2025 End: 05-25-2025 [facility] Start: 05-25-2025 Care regimes management [facility] Start: 05-25-2025 Notification of physician [facility] Start: 05-25-2025 Following clinical pathway protocol [facility] Start: 05-25-2025 Assessment of risk o f venous thromboembolism [facility] Start: 05-25-2025 Insertion of cathete r into peripheral vein [facility] Start: 05-25-2025 Measuring intake and output [facility] Start: 05-25-2025 Providing care accor ding to standard [facility] Start: 05-25-2025 [facility] Start: 05-25-2025 Admission procedure [facility] Start: 05-25-2025 [facility] Start: 08-09-2023 End: 08-23-2023 COVID & INFLUENZA A/B & RSV NAAT, ROUTINE COVID & INFLUENZA A/B & RSV NAAT, ROUTINE Microbiology Routine URI, acute Expected: 08/09/2023, Expires: 08/23/2023 [facility] Work Phone: Comment on above: Expected: 08/09/2023 , Expires: 08/23/2023 Start: 05-19-2023 Screening mammography [facility] Start: 04-10-2023 Covid-19 Vaccine ( season) Covid-19 Vaccine () [facility] Start: 08-10-2022 Depression Assessment Depression Ass essment [facility] Start: 08-10-2021 DEPRESSION ASSESSMENT [facility] Start: 2019 SHINGRIX VACCINE (1 of 2) SALAZAR GRIX VACCINE (1 of 2) [facility] Start: 2014 COLOGUARD (FIT-DNA) COLOGUARD (FIT-D NA) [facility] Start: 2014 Colonoscopy COLONOSCOPY [facility] Start: 2014 COLORECTAL CANCER SCREENING COLORECTAL CANCER SCREENING [facility] Start: [address] COLONOGRAPHY [facility] Start: 2014 DIABETES SCREEN DIABETES SCREEN [facility] Start: 2014 Diabetes Screening Diabetes Screenin g [facility] Start: 2014 FECAL OCCULT BLOOD FECAL OCCULT BLOO D [facility] Start: 2014 Lipid panel Lipid Screening [facility] Start: 2014 LIPID SCREEN LIPID SCREEN [facility] Start: 2014 Screening for malign ant neoplasm of colon [facility] Start: 2014 SIGMOIDOSCOPY SIGMOIDOSCOPY [facility] Start: 2009 Mammography MAMMOGRAM [facility] Start: 2009 Screening for malign ant neoplasm of breast Mammogram Screening [facility] Start: 1999 HPV TESTING HPV TESTING [facility] Start: 1999 Screening for malign ant neoplasm of cervix HPV Testing [facility] Start: 1990 PAP TESTING PAP TESTING [facility] Start: 1990 Screening for malign ant neoplasm of cervix Pap Testing [facility] Start: 1988 Urine microalbumin profile [facility] Start: 1987 HEPATITIS C SCREENING HEPATITIS C [facility] Start: 1987 Hepatitis C screening Hepatitis C [facility] Start: 1987 HIV SCREENING HIV SCREENING [facility] Start: 1987 HIV screening HIV Screening [facility] Start: 1969 HEPATITIS B (1 of 3 - 3-dose series) HEPATITIS B (1 of 3 - 3-dose series) [facility] Start: 1969 Hepatitis B Vaccine (1 of 3 - 3-dose series) Hepatitis B Vaccine (1 of 3 - 3-dose series) [facility] Basic metabolic 2008 panel with ionized calcium - Serum or Plasma [facility] Hemoglobin A1c/Hemoglobin.total in Blood [facility] Patient Education [facility] Work Phone: Patient referral [facility] Work Phone: Thyroid stimulating hormone measurement [facility] Urine microalbumin/creatinine ratio measurement [facility] Immunizations Immunization Date Immunization Notes Care Provider Fa cility 05-02-2022 influenza, injectabl e, quadrivalent, preservative free Dr. Michael Coles Work Phone: [facility] 05-02-2022 influenza, seasonal, injectable Dr. Michael Coles Work Phone: [facility] 04-25-2022 Covrenny Moderna Bivale nt Booster; Translations: [Covid Moderna Bivalent Booster] Dr. Michael Coles Work Phone: [facility] 11-21-2020 Covid (Moderna) Dr. Deuce Coles Work Phone: [facility] 10-24-2020 Covid (Moderna) Dr. Deuce Coles Work Phone: [facility] Payers Date Payer Category Payer Self-pay [id number] 2023 Unknown [id number] 2019 Unknown ROSANA JAUREGUI PPO [id number] 2019-Present [phone] [id number] [place] [address] PPO [id number] 2019 Unknown [id number] Unknown [id number] Unknown [id number] Unknown [id number] Unknown [id number] Unknown [id number] Unknown [id number] Unknown [id number] Unknown [id number] Unknown [id number] Unknown [id number] Unknown [id number] Unknown [id number] Unknown [id number] Social History Date Type Detail Facility Start: 07-31-2022 End: 05-25-2025 Tobacco smoking status NMIS Ex-smoker [facility] History of tobacco use Current smoker [facility] Start: 07-31-2022 Tobacco use and exposure Smokeless tobacco non-user [facility] Start: 1970 Sex Assigned At Female [facility] Start: 08-22-2022 End: 08-26-2023 Tobacco smoking status [facility] Unknown if ever smoked [facility] Start: 2020 End: 08-09-2023 History of Social function [facility] Start: 2020 End: 08-09-2023 Tobacco use panel [facility] National Score (1-10 0), lower number is lower risk Not on file [facility] Start: 07-10-2021 Gender identity Identifies as female gender (finding) [facility] Start: 07-10-2021 Sexual orientation Heterosexual (tiki wilhelm) [facility] Medical Equipment Procedure Code Equipment Code Equipment Origin al Text Equipment Identifier Dates Blood Sugar Diagnostic (Accu-Chek Guide Test Strips) strip Start: 07-23-2021 Blood Sugar Diagnostic (Accu-Chek Nithya Plus Test Strp) strip Start: 07-31-2020 End: 11-09-2020 Blood Sugar Diagnostic (Accu-Chek Guide Test Strips) strip Start: 08-02-2020 End: 07-23-2021 Blood Sugar Diagnostic (Accu-Chek Guide Test Strips) strip Start: 07-23-2021 Blood Sugar Diagnostic (Accu-Chek Nithya Plus Test Strp) strip Start: 07-31-2020 End: 11-09-2020 Blood Sugar Diagnostic (Accu-Chek Guide Test Strips) strip Start: 08-02-2020 End: 07-23-2021 Blood Sugar Diagnostic (Accu-Chek Guide Test Strips) strip Start: 07-23-2021 Blood Sugar Diagnostic (Accu-Chek Nithya Plus Test Strp) strip Start: 07-31-2020 End: 11-09-2020 Blood Sugar Diagnostic (Accu-Chek Guide Test Strips) strip Start: 08-02-2020 End: 07-23-2021 Blood Sugar Diagnostic (Accu-Chek Guide Test Strips) strip Start: 07-23-2021 Blood Sugar Diagnostic (Accu-Chek Nithya Plus Test Strp) strip Start: 07-31-2020 End: 11-09-2020 Blood Sugar Diagnostic (Accu-Chek Guide Test Strips) strip Start: 08-02-2020 End: 07-23-2021 Blood Sugar Diagnostic (Accu-Chek Guide Test Strips) strip Start: 07-23-2021 Blood Sugar Diagnostic (Accu-Chek Nithya Plus Test Strp) strip Start: 07-31-2020 End: 11-09-2020 Blood Sugar Diagnostic (Accu-Chek Guide Test Strips) strip Start: 08-02-2020 End: 07-23-2021 Blood Sugar Diagnostic (Accu-Chek Guide Test Strips) strip Start: 07-23-2021 Blood Sugar Diagnostic (Accu-Chek Nithya Plus Test Strp) strip Start: 07-31-2020 End: 11-09-2020 Blood Sugar Diagnostic (Accu-Chek Guide Test Strips) strip Start: 08-02-2020 End: 07-23-2021 Blood Sugar Diagnostic (Accu-Chek Guide Test Strips) strip Start: 07-23-2021 Blood Sugar Diagnostic (Accu-Chek Nithya Plus Test Strp) strip Start: 07-31-2020 End: 11-09-2020 Blood Sugar Diagnostic (Accu-Chek Guide Test Strips) strip Start: 08-02-2020 End: 07-23-2021 Blood Sugar Diagnostic (Accu-Chek Guide Test Strips) strip Start: 07-23-2021 Blood Sugar Diagnostic (Accu-Chek Nithya Plus Test Strp) strip Start: 07-31-2020 End: 11-09-2020 Blood Sugar Diagnostic (Accu-Chek Guide Test Strips) strip Start: 08-02-2020 End: 07-23-2021 Blood Sugar Diagnostic (Accu-Chek Guide Test Strips) strip Start: 09-07-2023 Blood Sugar Diagnostic (Accu-Chek Nithya Plus Test Strp) strip Start: 07-31-2020 End: 11-09-2020 Blood Sugar Diagnostic (Accu-Chek Guide Test Strips) strip Start: 08-02-2020 End: 07-23-2021 Blood Sugar Diagnostic (Accu-Chek Guide Test Strips) strip Start: 07-23-2021 End: 09-07-2023 Blood Sugar Diagnostic (Accu-Chek Guide Test Strips) strip Start: 09-07-2023 Blood Sugar Diagnostic (Accu-Chek Nithya Plus Test Strp) strip Start: 07-31-2020 End: 11-09-2020 Blood Sugar Diagnostic (Accu-Chek Guide Test Strips) strip Start: 08-02-2020 End: 07-23-2021 Blood Sugar Diagnostic (Accu-Chek Guide Test Strips) strip Start: 07-23-2021 End: 09-07-2023 Blood Sugar Diagnostic (Accu-Chek Guide Test Strips) strip Start: 09-07-2023 Blood Sugar Diagnostic (Accu-Chek Nithya Plus Test Strp) strip Start: 07-31-2020 End: 11-09-2020 Blood Sugar Diagnostic (Accu-Chek Guide Test Strips) strip Start: 08-02-2020 End: 07-23-2021 Blood Sugar Diagnostic (Accu-Chek Guide Test Strips) strip Start: 07-23-2021 End: 09-07-2023 Blood Sugar Diagnostic (Accu-Chek Guide Test Strips) strip Start: 09-07-2023 Blood Sugar Diagnostic (Accu-Chek Nithya Plus Test Strp) strip Start: 07-31-2020 End: 11-09-2020 Blood Sugar Diagnostic (Accu-Chek Guide Test Strips) strip Start: 08-02-2020 End: 07-23-2021 Blood Sugar Diagnostic (Accu-Chek Guide Test Strips) strip Start: 07-23-2021 End: 09-07-2023 Blood Sugar Diagnostic (Accu-Chek Guide Test Strips) strip Start: 09-07-2023 Blood Sugar Diagnostic (Accu-Chek Nithya Plus Test Strp) strip Start: 07-31-2020 End: 11-09-2020 Blood Sugar Diagnostic (Accu-Chek Guide Test Strips) strip Start: 08-02-2020 End: 07-23-2021 Blood Sugar Diagnostic (Accu-Chek Guide Test Strips) strip Start: 07-23-2021 End: 09-07-2023 Goals Date Patient Goal Desired Activity /State Functional Status Date Assessment Result Facility 05-26-2025 Functional status [facility] Work Phone: Mental Status Date Assessment Result Facility 05-26-2025 Cognitive function Voice/Name [facility] Work Phone: Clinical Notes 07-31-2022 to 05-29-2025 Note Date & Type Note Facility 05-29-2025 Progress note [facility] 05-29-2025 Progress note Note Date/Time May 29, 2025 2:43pm [facility] Internal Medicine [address] [place] [address] [place] [address] OFFICE VISIT Date of Service: 05/29/25 MR#: [id number] Acct: [id number] Name: JACKIE HARRINGTON Rep #: [id number] : 1970 Provider: BERENICE Kay Age/Sex: 54/F [facility] Status: Signed Intake Vital Signs 05/25/25 13:57 05/29/25 13:03 Height 5 ft 7 in 5 ft 7 in Weight: 208 lb BMI 32.5 BP 122/80 H Blood Pressure Location Lt brachial Position Sitting Respiration 18 Pulse 81 Pulse Source Monitor Temp 97.8 F Temp Source Temporal Pulse Oximetry (%) 97 Oxygen Delivery Method room air Intake Visit Reasons: Transitional Care Management Chief Complaint: Transitional Care Management Is patient in pain?: No Allergies latex Allergy (Severe, Verified 05/29/25 13:02) rash aspirin Allergy (Unknown, Verified 05/29/25 13:02) unknown adhesive tape Allergy (Verified 05/29/25 13:02) Rash Cephalosporins Allergy (Verified 05/29/25 13:02) Hives Penicillins Allergy (Verified 05/29/25 13:02) Hives shrimp Allergy (Verified 05/29/25 13:02) Anaphylaxis Medications ?Medication ?Instructions ?Recorded ?Confirmed ?Type calcium 500 mg-vitamin D3 100 1 tab PO DAILY supplemen t 03/29/20 05/29/25 History unit-vitamin K 40 mcg chewable tablet cholecalciferol (vitamin D3) 10 10 mcg PO DAILY supple ment 03/29/20 05/29/25 History mcg (400 unit) capsule coenzyme Q10 75 mg capsule (Co 75 mg PO DAILY heart magallanes pplement 03/29/20 05/29/25 History Q-10) ferrous sulfate 325 mg (65 mg 325 mg PO DAILY suppleme nt 03/29/20 05/29/25 History iron) tablet (Feosol) multivitamin 1 cap PO DAILY supplement 05/29/25 History blood-glucose meter (Accu-Chek #1 ea 07/31/20 05/29/25 Rx Nithya Plus Meter) cetirizine 10 mg capsule 10 mg PO DAILY #90 caps /03/3105/29/25 Rx blood sugar diagnostic (Accu-Chek #100 ea 09/07/23 Rx Guide test strips) ascorbic acid (vitamin C) 1,000 mg 1 g PO ONCE supplem ent 08/26/24 05/29/25 History tablet venlafaxine 150 mg See Rx Instructions .Route 0 09/07/24 05/29/25 Rx capsule,extended release 24 hr .COMPLEX depression #90 caps tirzepatide 12.5 mg/0.5 mL 12.5 mg (0.5 mL) subcut QWE EK 02/07/25 05/29/25 Rx subcutaneous pen injector blood sugar 3 months #6.5 mL metformin 1,000 mg tablet 1,000 mg PO BID blood sugar #180 03/22/25 05/29/25 Rx tabs rosuvastatin 20 mg tablet 20 mg PO QHS cholesterol #90 tabs 03/22/25 05/29/25 Rx levothyroxine 175 mcg tablet 175 mcg PO DAILY hypothyr oidism 05/22/25 05/29/25 Rx #90 tabs apixaban 5 mg tablet (Eliquis) 5 mg PO BID 30 days #60 tabs 05/26/25 05/29/25 Rx metoprolol tartrate 25 mg tablet 12.5 mg PO BID 05/29/25 History Have you fallen in the past year?: No PFSH Medical History Colon cancer screening Anxiety and depression History of COVID-19 Acute back pain Bilateral shoulder pain Macromastia Fibroadenoma of right breast Coccyx pain Uterine fibroid Hypertension Hypothyroidism Hormone deficiency IBS (irritable bowel syndrome) Hyperlipemia Diabetes Asthma Seasonal allergies Surgical History H/O cosmetic surgery Hx of breast reduction, elective Hx of bilateral breast reduction surgery History of right knee joint replacement History of hysterectomy History of endometrial ablation History of gastric bypass History of tubal ligation History of Family History Father Diabetes CVA (cerebral vascular accident) Cancer skin Hypertension Heart disease Hyperlipemia Mother Heart disease Hyperlipemia Grandfather Myocardial infarction, Onset Age: 48 Uncle Alcoholism Social History household members: spouse and children housing: house number of children: 2 current occupational status: unemployed Smoking Status: Former smoker alcohol intake: current alcohol intake frequency: holidays/special occasions only substance use type: does not use what type of physical activity do you participate in: walking frequency: daily seatbelt use: always do you feel safe at home: Yes 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 Full Medication Reconciliation was completed on 05/29/25 Contact made with Patient Was told to see Cardiology within 1 month; patient has LVMTRC with Cardiology; awaiting call back. Has FU today at [place]. JACKIE HARRINGTON, is a 54 F who presents to the office today for transitional care management from hospital stay at [facility] for new onset of A-fib. Patient states she initially went to the ER after feeling dizzy and lightheaded and losing consciousness. Her heart rate while she was in the hospital was as high as the 140s. States heart rate has felt normal. States the only symptom that she had prior to going to the hospital was feeling dizzy. She denied any chest pain shortness of breath or palpitations. She was started on Eliquis has a follow-up scheduled with cardiology. Has noted blood pressuresare running on the low side. She states she was told at the hospital to not take the metoprolol if her systolic blood pressure was less than 100 so she has had to hold multiple doses. Her heart rate has been controlled well at home with heart rate in the 60s and 70s. She denies any chest pain shortness of breath dizziness nausea vomiting at this time. States she feels well otherwise. She has no further questions or concerns. ROS Const Constitutional: No body ache, chills, excessive sweating, fatigue, fever(s), frequent falls, headache(s), snoring, weight change, sleep problems, abnormal sleep pattern or change in appetite Eyes Eyes: No blurry vision, change in vision, eye pain or Light sensitivity ENT ENT: No abnormal hearing, ear or mastoid pain, tinnitus, nasal congestion, headache(s), neck pain or sore throat Resp Respiratory: No cough, shortness of breath, snoring or wheezing Cardio Cardiology: No chest pain at rest, chest pain with exertion, excessive sweating,shortness of breath, dyspnea on exertion, lightheadedness, orthopnea or palpitations Gastro GI: No abdominal pain, change in bowel habits, constipation, cramping, diarrhea,nausea/dyspepsia or vomiting Genitourinary-Female: No burning urination, painful urination, urinary incontinence, urinary frequency, abnormal vaginal bleeding or pelvic pain Musc Musculoskeletal: No abnormal gait, joint pain, back pain, limited range of motion, neck pain, numbness or tingling Skin Skin: No dry skin, redness, lesions, itchy eyes, rash or wounds Neuro Neurology: No abnormal gait, abnormal hearing, frequent falls, headache(s), memory loss, numbness or tingling Psych Psychiatric: No abnormal sleep pattern, No anxiety, No change in appetite, No irritability, No memory loss and No Thoughts of harming yourself/Others Endo Endocrine: No cold intolerance, excessive sweating, fatigue, flushing, heat intolerance, increased thirst/drinking, increased hunger or weight change Aller/Imm Allergy/Immunologic: No itchy eyes, seasonal allergy symptoms, hives or wheezing Hayes/Lymp Hematologic/Lymphatic: No easy bleeding, easy bruising, enlarged lymph nodes or other Exam Const General: cooperative, no acute distress, well groomed and well hydrated Nutritional Appearance: well nourished Orientation: alert and oriented x3 [facility] Head: normal to inspection Ears: hearing grossly normal bilaterally Nose: external nose normal and nares normal Face and sinus: normal facial exam Mouth: oral mucosae normal, lip normal and moist mucous membranes Eyes General: appearance normal, both eyes and all related structures Pupils: PERRL Neck Neck: normal visual inspection, no lymphadenopathy and trachea midline Thyroid: thyroid normal Carotids: normal carotid upstroke and no bruits Lymphatic: no lymphadenopathy noted Chest Chest palpation & inspection: normal inspection of the chest Resp Effort & Inspection: normal respiratory effort, able to speak in complete sentences and symmetric chest movement Auscultation: Bilateral: Clear to Auscultation Cardio Palpation: normal PMI Rate: regular rate Rhythm: abnormal rhythm irregularly irregular Heart Sounds: S1 normal and S2 normal Pulses: radial pulses present GI Inspection: normal to inspection Auscultation: normal bowel sounds Palpation: soft and nontender Musc Musculoskeletal: No joint tenderness, joint redness or muscle weakness Skin General: no rashes or lesions noted Lesions: no lesions Rashes: no rashes Trauma: no lacerations or abrasions Wounds: no wounds Neuro General: patient alert, patient oriented x3 and deep tendon reflexes 2+ bilaterally Speech: speech normal Motor: muscle tone normal throughout Extrem General: normal to inspection and capillary refill normal Psych Appearance: grossly normal and well kempt Coding Level of Care Code Established Pt Attention [employer] Patient Type Established History Comprehensive Exam Comprehensive Medical Decision Making Moderate Complexity Diagnoses Hospital discharge follow-up Z09 New onset a-fib I48.91 CPT Codes DSCHRG MED/CURRENT MED MERGE - 1111F (1111F) Time Spent (min) 45 Comment 18887 Assessment and Plan Assessment and Plan (1) Hospital discharge follow-up: Status: Acute Plan: Completed medication reconciliation as well as reviewed hospital records. Discussed case with Dr. Coles. Will have patient hold lisinopril as low blood pressure readings. Patient to follow-up with cardiology (2) New onset a-fib: Status: Acute Plan: Continue Eliquis, continue metoprolol. Will discontinue lisinopril at this timedue to low blood pressure readings patient is to follow-up with cardiology for further evaluation. Orders: Referrals Cardiology BERENICE Israel I48.91 - Unspecified atrial fibrillation Medications: Changed From metoprolol tartrate 12.5 mg (1/2 x 25 mg) PO BID 30 days 30 tabs 0RF To metoprolol tartrate 12.[address] Javi Mota MD Discontinued lisinopril Discontinued Reason: Order Changed 5 mg PO DAILY 90 tabs 2RF hypertension Plan Details Follow Up: As needed Clinical Quality Measures Falls Risk Screening/Assistive Devices Have you fallen in the past year?: No 05/30/25 1543 <Electronically signed by Keyona NG> Date _ Keyona NG Cosigner Signature: Date (if applicable) CC: ~ [facility] Work Phone: [phone]) 988-149110-17-2025 [facility] Medical Records Department [address] [place] [address] Discharge Summary 05/26/25 1352 MR#: [id number] Acct: [id number] Name: JACKIE HARRINGTON Rep #: [id number] : 1970 54 From: Javi Mota MD PCP: Dr. Michael Coles MD Status:DIS TUSHAR Location: [place] [address]-1 Providers Date of Admission: 05/25/25 Primary Care Physician: Dr. Michael Coles MD Reason For Visit: NEW AFIB Diagnosis Discharge Diagnosis (1) New onset a-fib: Status: Acute Code(s): I48.91 - Unspecified atrial fibrillation Medications at Discharge Home Medications calcium 500 mg-vitamin D3 100 unit-vitamin K 40 mcg chewable tablet 1 tab PO DAILY supplement 03/29/20 cholecalciferol (vitamin D3) 10 mcg (400 unit) capsule 10 mcg PO DAILY supplement 03/29/20 coenzyme Q10 75 mg capsule (Co Q-10) 75 mg PO DAILY heart supplement 03/29/20 ferrous sulfate 325 mg (65 mg iron) tablet (Feosol) 325 mg PO DAILY supplement 03/29/20 multivitamin 1 cap PO DAILY supplement 03/29/20 blood-glucose meter (Accu-Chek Nithya Plus Meter) #1 ea 07/31/20 cetirizine 10 mg capsule 10 mg PO DAILY #90 caps 10/07/21 blood sugar diagnostic (Accu-Chek Guide test strips) #100 ea 09/07/23 ascorbic acid (vitamin C) 1,000 mg tablet 1 g PO ONCE supplement 08/26/24 venlafaxine 150 mg capsule,extended release 24 hr See Rx Instructions .Route .COMPLEX depression #90 caps 09/07/24 lisinopril 5 mg tablet 5 mg PO DAILY hypertension #90 tabs 11/29/24 tirzepatide 12.5 mg/0.5 mL subcutaneous pen injector 12.5 mg (0.5 mL) subcut QWEEK blood sugar 3 months #6.5 mL 02/07/25 metformin 1,000 mg tablet 1,000 mg PO BID blood sugar #180 tabs 03/22/25 rosuvastatin 20 mg tablet 20 mg PO QHS cholesterol #90 tabs 03/22/25 levothyroxine 175 mcg tablet 175 mcg PO DAILY hypothyroidism #90 tabs 05/22/25 apixaban 5 mg tablet (Eliquis) 5 mg PO BID 30 days #60 tabs 05/26/25 metoprolol tartrate 25 mg tablet 12.5 mg (1/2 x 25 mg) PO BID 30 days #30 tabs 05/26/25 Hospital Course Operations None Procedures 2-D Echocardiogram Summary of Care Provided Minutes Spent on Discharge: 35 Hospital Course: Per HPI: JACKIE HARRINGTON, is a 54 F who presents to the hospital with 2 episodes of syncope over the last couple of days. Yesterday she had some lightheadedness and dizziness and was able to sit down before she completely blacked out, and then her found her on the toilet unresponsive with her eyes open and then today she was in the kitchen and she felt lightheaded and dizzy and diaphoretic and slid down against the cabinets onto the ground. None of the witnessed episode showed signs or symptoms consistent with seizures. She denies any palpitations or racing heartbeat and none of them were drop attacks. She does have symptoms with positional changes. In the emergency room EKG was read as being A-fib with RVR and she had an elevated proBNP. She did have elevated D-dimer so CTA of the chest was done which was negative for PE. TSH and free T4 were obtained, TSH was normal and T4 was elevated. Hospital Course: 1. Syncope secondary to new onset A-fib with RVR/essential HTN/HLD???84-year-old female presented to the hospital with a few syncopal episodes over the last 2 days. On presentation to the ER she was found to be in A-fib with RVR with a max rate of 146. She was given dose of Lopressor 5 mg IV x 1 she did have some postmedication hypotension and was orthostatic positive as well. She was started on IV fluids and sometime overnight converted to normal sinus rhythm. She was placed on metoprolol 12.5 mg p.o. twice daily as she states she normally sits at a lower blood pressure at baseline, she was able to tolerate this medication this morning and was feeling much better and requested discharge home. I discussed with her the possibility of discharge and she expressed understanding of the risk and benefits of going home and would like to go home today. She has a [id number] of 2 secondary to her type 2 diabetes and her gender therefore she was placed on Eliquis 5 mg p.o. twice daily. Her thyroid functions were also checked since this was new onset A-fib and her TSH was normal but her free T4 was high, her T3 was normal therefore I made no adjustments to her Synthroid. I do recommend outpatient follow-up with cardiology as well as her PCP for further monitoring and dose adjustments. We did obtain an echocardiogram which demonstrated an EF of 55% and a normal left atrium. 2. Type 2 diabetes, hypothyroidism are all chronic medical conditions which complicate his care. His home medications were continued where appropriate Physical Exam Narrative General: Alert, Oriented x3, Cooperative, No apparent distress HEENT: Atraumatic, PERRLA, EOMI, Normocephalic Oral: Moist mucosa Neck: Supple, No JVD Lungs: Diminished, Normal air movement, No rhonchi, No wheeze, No rale (more content not included)...[facility]10-17-2025 Discharge summary Author Javi Mota [facility] Note Date/Time May 26, 2025 1 1:26am [facility] Medical Records Department [address] [place] [address] Instructions for Home/Discharge Instructions 05/26/25 1057 MR#: [id number] Acct: [id number] Name: JACKIE HARRINGTON DECEMBER Rep #:[id number] : 1970 54 From: Javi samuels MD PCP: Dr. Michael Coles MD Status:A DM TUSHAR Discharge Instructions DC O2, CPAP, BIPAP needs Home O2 Discharge instructions: No Dressing / Incision Discharge Activity: Return to Normal Activity Dressing / Incision Call your doctor if you observe: Fever of 101 or Higher, Shortness of breath, Dizziness, Fainting spells, Swelling in the ankles, Chest pain and Increased palpitations (irregular heartbeat) Follow Up Care Test Results: Test results from this visit will be discussed in further detail at your follow- up appointment, if applicable. Discharge Plan Admission Admit Date/Time: 05/25/25 12:15 Attending Provider: Javi Mota Primary Care Provider: Michael Coles Instructions Patient Instructions: AFib Dc Discharge Orders/Prescriptions Prescriptions: New metoprolol tartrate 25 mg Tablet 12.5 mg PO BID 30 Days Qty: 30 0RF Eliquis 5 mg Tablet 5 mg PO BID 30 Days Qty: 60 0RF Continued ferrous sulfate [Feosol] 325 mg (65 mg iron) tablet 325 mg PO DAILY Co Q-10 75 mg capsule 75 mg PO DAILY cholecalciferol (vitamin D3) 10 mcg (400 unit) capsule 10 mcg PO DAILY multivitamin Capsule 1 cap PO DAILY calcium-vitamin D3-vitamin K 500-100-40 mg-unit-mcg tablet,chewable 1 tab PO DAILY Rx Instructions: chew thoroughly before swallowing; do not swallow whole (DME) blood-glucose meter [Accu-Chek Nithya Plus Meter] Misc See Rx Instructions .ROUTE .MEDSUPPLY Qty: 1 0RF Rx Instructions: As directed, check daily type 2 DM ascorbic acid (vitamin C) 1,000 mg tablet 1 g PO ONCE cetirizine 10 mg capsule 10 mg PO DAILY Qty: 90 3RF (DME) Accu-Chek Guide test strips Strip See Rx Instructions .ROUTE .MEDSUPPLY Qty: 100 3RF Rx Instructions: check glucose daily for type 2 DM venlafaxine 150 mg capsule,extended release 24hr See Rx Instructions .ROUTE .COMPLEX Qty: 90 3RF Dose Instruction: Take 1 capsule by mouth once daily Rx Instructions: Take 1 capsule by mouth once daily lisinopril 5 mg tablet 5 mg PO DAILY Qty: 90 2RF tirzepatide 12.5 mg/0.5 mL pen injector 12.5 mg subcut QWEEK 90 Days Qty: 6.5 1RF rosuvastatin 20 mg tablet 20 mg PO QHS Qty: 90 1RF metformin 1,000 mg tablet 1,000 mg PO BID Qty: 180 1RF levothyroxine 175 mcg tablet 175 mcg PO DAILY Qty: 90 2RF Referrals / Follow Up: Michael Coles MD [Primary Care Provider, Internal Medicine] - Within 1 Week Mati Mcginnis MD [Med Staff - Active Staff, Cardiology] - Within 1 Month Disposition Disposition (needs filled in before D/C Order can be placed): Home, Self Care 05/26/25 1126<Electronically signed by Javi Mota MD>Javi Mota MD CC: Dr. Michael Coles MD ~ Signed [facility] Work Phone: 1(646) 654-698810-17-2025 Discharge summary [facility] Medical Records Department [address] [place] [id number] Instructions for Home/Discharge Instructions 05/26/25 1057 MR#: [id number] Acct: [id number] Name: JACKIE HARRINGTON Rep #:[id number] : 1970 54 From: Javi samuels MD PCP: Dr. Michael Coles MD Status:A DM TUSHAR Discharge Instructions DC O2, CPAP, BIPAP needs Home O2 Discharge instructions: No Dressing / Incision Discharge Activity: Return to Normal Activity Dressing / Incision Call your doctor if you observe: Fever of 101 or Higher, Shortness of breath, Dizziness, Fainting spells, Swelling in the ankles, Chest pain and Increased palpitations (irregular heartbeat) Follow Up Care Test Results: Test results from this visit will be discussed in further detail at your follow- up appointment, if applicable. Discharge Plan Admission Admit Date/Time: 05/25/25 12:15 Attending Provider: Javi Mota Primary Care Provider: Michael Coles Instructions Patient Instructions: AFib Dc Discharge Orders/Prescriptions Prescriptions: New metoprolol tartrate 25 mg Tablet 12.5 mg PO BID 30 Days Qty: 30 0RF Eliquis 5 mg Tablet 5 mg PO BID 30 Days Qty: 60 0RF Continued ferrous sulfate [Feosol] 325 mg (65 mg iron) tablet 325 mg PO DAILY Co Q-10 75 mg capsule 75 mg PO DAILY cholecalciferol (vitamin D3) 10 mcg (400 unit) capsule 10 mcg PO DAILY multivitamin Capsule 1 cap PO DAILY calcium-vitamin D3-vitamin K 500-100-40 mg-unit-mcg tablet,chewable 1 tab PO DAILY Rx Instructions: chew thoroughly before swallowing; do not swallow whole (DME) blood-glucose meter [Accu-Chek Nithya Plus Meter] Misc See Rx Instructions .ROUTE .MEDSUPPLY Qty: 1 0RF Rx Instructions: As directed, check daily type 2 DM ascorbic acid (vitamin C) 1,000 mg tablet 1 g PO ONCE cetirizine 10 mg capsule 10 mg PO DAILY Qty: 90 3RF (DME) Accu-Chek Guide test strips Strip See Rx Instructions .ROUTE .MEDSUPPLY Qty: 100 3RF Rx Instructions: check glucose daily for type 2 DM venlafaxine 150 mg capsule,extended release 24hr See Rx Instructions .ROUTE .COMPLEX Qty: 90 3RF Dose Instruction: Take 1 capsule by mouth once daily Rx Instructions: Take 1 capsule by mouth once daily lisinopril 5 mg tablet 5 mg PO DAILY Qty: 90 2RF tirzepatide 12.5 mg/0.5 mL pen injector 12.5 mg subcut QWEEK 90 Days Qty: 6.5 1RF rosuvastatin 20 mg tablet 20 mg PO QHS Qty: 90 1RF metformin 1,000 mg tablet 1,000 mg PO BID Qty: 180 1RF levothyroxine 175 mcg tablet 175 mcg PO DAILY Qty: 90 2RF Referrals / Follow Up: Michael Coles MD [Primary Care Provider, Internal Medicine] - Within 1 Week Mati Mcginnis MD [Med Staff - Active Staff, Cardiology] - Within 1 Month Disposition Disposition (needs filled in before D/C Order can be placed): Home, Self Care 05/26/25 1126Javi Mota MD CC: Dr. Michael Coles MD ~ Signed [facility]10-16-2025 History and physical note Author Javi Mota [facility] Note Date/Time May 25, 2025 4 :16pm [facility] Medical Records Department [address] [place] [address] H&P Exam - Hospitalist 05/25/25 1602 MR#: [id number] Acct: [id number] Name: JACKIE HARRINGTON DECEMBER Rep #:[id number] : 1970 54 From: Javi samuels MD PCP: Dr. Michael Coles MD Status:A DM TUSHAR Location: [address] 1 HPI - General General Date of Admission: 05/25/25 HPI Narrative JACKIE HARRINGTON, is a 54 F who presents to the hospital with 2 episodes of syncope over the last couple of days. Yesterday she had some lightheadedness and dizziness and was able to sit down before she completely blacked out, and then her found her on the toilet unresponsive with her eyes open and then today she was in the kitchen and she felt lightheaded and dizzy and diaphoretic and slid down against the cabinets onto the ground. None of the witnessed episode showed signs or symptoms consistent with seizures. She denies any palpitations or racing heartbeat and none of them were drop attacks. She does have symptoms with positional changes. In the emergency room EKG was read as being A-fib with RVR and she had an elevated proBNP. She did have elevated D-dimer so CTA of the chest was done which was negative for PE. TSH and free T4 were obtained, TSH was normal and T4 was elevated. [facility] History (Updated 05/25/25 @ 16:[address] Javi Mota MD) Colon cancer screening Anxiety and depression History of COVID-19 Acute back pain Bilateral shoulder pain Macromastia Fibroadenoma of right breast Coccyx pain Uterine fibroid Hypertension Hypothyroidism Hormone deficiency IBS (irritable bowel syndrome) Hyperlipemia Diabetes Asthma Seasonal allergies Home Medications ?Medication ?Instructions ?Recorded ?Last Taken ?Type calcium 500 mg-vitamin D3 100 1 tab PO DAILY supplemen t 03/29/20 05/25/25 History unit-vitamin K 40 mcg chewable tablet cholecalciferol (vitamin D3) 10 10 mcg PO DAILY supple ment 03/29/20 05/25/25 History mcg (400 unit) capsule coenzyme Q10 75 mg capsule (Co 75 mg PO DAILY heart magallanes pplement 03/29/20 05/25/25 History Q-10) ferrous sulfate 325 mg (65 mg 325 mg PO DAILY suppleme nt 03/29/20 05/25/25 History iron) tablet (Feosol) multivitamin 1 cap PO DAILY supplement 05/25/25 History blood-glucose meter (Accu-Chek #1 ea 07/31/20 Unknown Rx Nithya Plus Meter) cetirizine 10 mg capsule 10 mg PO DAILY #90 caps /03/3105/25/25 Rx blood sugar diagnostic (Accu-Chek #100 ea 09/07/23 Unk nown Rx Guide test strips) ascorbic acid (vitamin C) 1,000 mg 1 g PO ONCE supplem ent 08/26/24 05/25/25 History tablet venlafaxine 150 mg See Rx Instructions .Route 0 09/07/24 05/25/25 Rx capsule,extended release 24 hr .COMPLEX depression #90 caps lisinopril 5 mg tablet 5 mg PO DAILY hypertension # 90 tabs 11/29/24 05/24/25 Rx tirzepatide 12.5 mg/0.5 mL 12.5 mg (0.5 mL) subcut QWE EK 02/07/25 05/21/25 Rx subcutaneous pen injector blood sugar 3 months #6.5 mL metformin 1,000 mg tablet 1,000 mg PO BID blood sugar #180 03/22/25 05/25/25 Rx tabs rosuvastatin 20 mg tablet 20 mg PO QHS cholesterol #90 tabs 03/22/25 05/24/25 Rx levothyroxine 175 mcg tablet 175 mcg PO DAILY hypothyr oidism 05/22/25 05/25/25 Rx #90 tabs Allergy/AdvReac Type Severity Reaction Status Date / Time latex Allergy Severe rash Verified 05/25/25 09:31 aspirin Allergy Unknown unknown Verified 05/25/25 09:31 adhesive tape Allergy Rash Verified 05/25/25 09:31 Cephalosporins Allergy Hives Verified 05/25/25 09:31 Penicillins Allergy Hives Verified 05/25/25 09:31 shrimp Allergy Anaphylaxis Verified 05/25/25 09:31 Family History Father Diabetes CVA (cerebral vascular accident) Cancer skin Hypertension Heart disease Hyperlipemia Mother Heart disease Hyperlipemia Grandfather Myocardial infarction, Onset Age: 48 Uncle Alcoholism Surgical History H/O cosmetic surgery Hx of breast reduction, elective Hx of bilateral breast reduction surgery History of right knee joint replacement History of hysterectomy History of endometrial ablation History of gastric bypass History of tubal ligation History of Social History household members: spouse and children housing: house number of children: 2 current occupational status: unemployed Smoking Status: Former smoker alcohol intake: current alcohol intake frequency: holidays/special occasions only substance use type: does not use what type of physical activity do you participate in: walking frequency: daily seatbelt use: always do you feel safe at home: Yes 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 Constitutional Constitutional: Denies chills, fatigue, fever(s) or malaise Eyes Eyes: Denies blurry vision ENT HEENT: Denies headache(s) or nasal discharge Cardiovascular Cardiovascular: Reports syncope; Denies chest pain or dyspnea on exertion Respiratory/Chest Respiratory/Chest: Denies cough, shortness of breath at rest or shortness of breath with exertion Gastrointestinal Gastrointestinal: Denies constipation, diarrhea, nausea or vomiting Genitourinary Genitourinary: Denies dysuria Neurologic Neurologic: Denies focal weakness, numbness or tremor(s) Psychiatric Psychiatric: Denies anxiety or depression Vital Signs Vital Signs Vital Signs: 05/25/25 09:31 05/25/25 09:39 05/25/25 09:42 Temperature 98 F Temperature Source Oral Pulse Rate 91 146 H Respiratory Rate 18 18 Respiratory Effort Normal Respiratory Pattern Normal Blood Pressure 81/60 L 96/63 Blood Pressure Mean 67 74 Blood Pressure Source Blood Pressure Position Blood Pressure Location Pulse Ox 97 100 Oxygen Delivery Method Room Air Room Air 05/25/25 10:00 05/25/25 10:15 05/25/25 10:20 Temperature Temperature Source Pulse Rate 96 99 99 Respiratory Rate 16 16 16 Respiratory Effort Respiratory Pattern Blood Pressure 81/68 L 78/62 L 91/63 Blood Pressure Mean 72 67 72 Blood Pressure Source Blood Pressure Position Blood Pressure Location Pulse Ox 98 95 99 Oxygen Delivery Method 05/25/25 10:32 05/25/25 10:53 05/25/25 11:00 Temperature Temperature Source Pulse Rate 113 H 102 H 112 H Respiratory Rate 16 14 16 Respiratory Effort Respiratory Pattern Blood Pressure 97/68 100/63 104/72 Blood Pressure Mean 77 75 82 Blood Pressure Source Blood Pressure Position Blood Pressure Location Pulse Ox 99 100 98 Oxygen Delivery Method Room Air 05/25/25 11:13 05/25/25 11:58 05/25/25 12:00 Temperature Temperature Source Pulse Rate 97 95 98 Respiratory Rate 14 18 16 Respiratory Effort Respiratory Pattern Blood Pressure 104/62 108/70 94/72 Blood Pressure Mean 76 82 79 Blood Pressure Source Blood Pressure Position Blood Pressure Location Pulse Ox 98 100 99 Oxygen Delivery Method Room Air Room Air Room Air 05/25/25 12:22 05/25/25 13:57 05/25/25 14:00 Temperature 98.1 F 97.3 F L Temperature Source Temporal Pulse Rate 105 H 85 Respiratory Rate 15 14 Respiratory Effort Respiratory Pattern Blood Pressure 89/76 L 89/76 L Blood Pressure Mean 80 80 Blood Pressure Source Monitor Blood Pressure Position Supine Blood Pressure Location Left Arm Pulse Ox 100 96 Oxygen Delivery Method Room Air Room Air Weight Weight: 205 lb 11.06 oz Body Mass Index (BMI) 32.2 Physical Exam Narrative General: Alert, Oriented x3, Cooperative, No apparent distress HEENT: Atraumatic, PERRLA, EOMI, Normocephalic Oral: Dry mucosa Neck: Supple, No JVD Lungs: Diminished, Normal air movement, No rhonchi, No wheeze, No rales Cardiovascular: Irregular rate and rhythm, Regular Rhythm, Normal S1, Normal S2,No murmurs Abdomen: Soft, Non Tender, Non-Distended, No Hepato-splenomegaly Extremities: No edema, Capillary Refill Less than 3 Seconds Skin: No rashes, No breakdown Musculoskeletal: No Tenderness to Palpation of Joints or Extremities Neurological: No focal neurological deficits, moves all extremities Psych/Mental Status: Normal Affect, Appropriate Results Lab / Micro Data 05/25/25 09:43 05/25/25 09:43 Labs: Laboratory Results - last 24 hr 05/25/25 09:43: WBC 12.2 H, RBC 5.13, Hgb 14.4, Hct 42.7, MCV 83.2, MCH 28.1, MCHC 33.7, RDW Std Deviation 42.4, RDW Coeff of Cher 13.8, Plt Count 375, MPV 9.1, Immature Gran % (Auto) 0.200, Neut % (Auto) 71.9 H, Lymph % (Auto) 17.4 L, [place] % (Auto) 8.9, Eos % (Auto) 1.3, Baso % (Auto) 0.3, Absolute Neuts (auto) 8.8 H, Absolute Lymphs (auto) 2.13, Nucleated RBC % 0, PT 13.2, INR 1.0, APTT 24.5, D-Dimer Quant (PE/DVT) 0.91 H*, Sodium 141, Potassium 3.9, Chloride 104, Carbon Dioxide 26.1, Anion Gap 11, BUN 10, Creatinine 0.65 L, Estim Creat Clear Calc 113.08, Est GFR (MDRD) Non-Af 104, BUN/Creatinine Ratio 15.9, Glucose 111 H, Calcium 9.2, Magnesium 2.0, Troponin T High Sens 8, NT pro BNP II 2027 H, TSH 1.010, Free T4 1.60 H 05/25/25 11:44: Troponin T Hi Sens 2 Hr 7 Imaging Radiology Impression Chest X-Ray 05/25/25 09:42 IMPRESSION: NO ACUTE FINDINGS. Reading Location: [facility] Chest CTA 05/25/25 10:21 IMPRESSION: NORMAL CHEST CTA. NO EVIDENCE OF ACUTE PULMONARY EMBOLISM. Reading Location: [facility] Assessment & Plan Assessment/Plan (1) New onset a-fib: PLAN: Plan 1. New onset A-fib with RVR/essential HTN/HLD ? She was given some blood pressure medications in the emergency room and her heart rate did decrease below 100 ? Blood pressures are little bit on the soft side that she says she is normally 100/72 ? Based on her [id number] score of 2 will start her on Eliquis ? Orthostatic vital signs ? Echo is pending ? Will obtain a T3 given the elevation in her T4 ? Will start her on a little bit of fluids as she appears little bit dehydrated,her proBNP is elevated to over 2000 ? Will hold her home blood pressure medications given the initiation of rate control medications ? Continue with Crestor 2. DM2 ? Hold her home metformin ? Sliding scale insulin ? Accu-Cheks ? Monitor make adjustments as necessary 3. Hypothyroidism ? TSH is normal T4 is elevated, T3 is pending ? In the meantime can resume her home Synthroid and can adjust as necessary based on lab work DVT: Lionel 75 minutes was spent on direct patient care, including documentation as well as chart review and collaboration with colleagues Charges/Coding Visit Charges Inpatient E&M: 54452 Init Hosp L3 05/25/25 1616 <Electronically signed by Javi Mota MD> Cosigner Signature (if applicable): CC: Dr. Michael Coles MD; Dr. Javi Mota MD~ Signed [facility] Work Phone: 1(489) 127-824810-16-2025 Discharge summary Author Ricci Andrews [facility] Note Date/Time May 25, 2025 3 :23pm [facility] Medical Records Department [address] [place] [address] Emergency Department Summary 05/25/25 MR#: [id number] Acct: [id number] Name: JACKIE HARRINGTON DECEMBER Rep #:[id number] : 1970 54 From: Ricci padron DO PCP: Dr. Michael Coles MD Status:A DM TUSHAR Location: [place] [address] HPI History of Present Illness Chief Complaint: Syncope Narrative Narrative: Chief complaint and HPI: 54-year-old female with past medical history of DM2, HTN, hypothyroidism, HLD, presents for evaluation of syncope. Patient was working on a house yesterday outside when she became lightheaded, nauseous, diaphoretic. States she went home and had 1 episode of emesis. states she woke up this morning and which shortly after drinking coffee she lowered herself to the ground and had a short episode of syncope. He then helped her tothe couch where she laid down for about an hour. States he then helped her to the bathroom in which she had a minimal responsive episode on the toilet. He states during that time the patient was diaphoretic. She endorses fatigue and nausea currently. She denies any fever, chills, shortness of breath, chest pain, abdominal pain. No history of trauma. Review of systems: See HPI Medications: As listed on the chart Allergies: As listed on the chart PFSH: Per chart Vital signs: As listed on the chart. Reviewed. Physical exam: Gen: A&O x3 Head: Normocephalic, atraumatic Eyes: No sclera icterus, conjunctiva clear ENT: Mildly dry mucous membranes Neck: Trachea midline CV: Irregularly irregular rhythm with tachycardia, no murmurs, no peripheral edema Resp: Lungs CTA BL, no w/r/c GI: Abd soft, non-distended, non-tender, no r/r/g Musc: Moves all extremities, no deformity Skin: Warm, dry Neuro: Alert, oriented, grossly intact Psych: Cooperative, appropriate mood and affect [facility] Medical History Colon cancer screening Anxiety and depression History of COVID-19 Acute back pain Bilateral shoulder pain Macromastia Fibroadenoma of right breast Coccyx pain Uterine fibroid Hypertension Hypothyroidism Hormone deficiency IBS (irritable bowel syndrome) Hyperlipemia Diabetes Asthma Seasonal allergies Home Medications ?Medication ?Instructions ?Recorded ?Last Taken ?Type calcium 500 mg-vitamin D3 100 1 tab PO DAILY supplemen t 03/29/20 05/25/25 History unit-vitamin K 40 mcg chewable tablet cholecalciferol (vitamin D3) 10 10 mcg PO DAILY supple ment 03/29/20 05/25/25 History mcg (400 unit) capsule coenzyme Q10 75 mg capsule (Co 75 mg PO DAILY heart magallanes pplement 03/29/20 05/25/25 History Q-10) ferrous sulfate 325 mg (65 mg 325 mg PO DAILY suppleme nt 03/29/20 05/25/25 History iron) tablet (Feosol) multivitamin 1 cap PO DAILY supplement 05/25/25 History blood-glucose meter (Accu-Chek #1 ea 07/31/20 Unknown Rx Nithya Plus Meter) cetirizine 10 mg capsule 10 mg PO DAILY #90 caps 02/2 03/3105/25/25 Rx blood sugar diagnostic (Accu-Chek #100 ea 09/07/23 Unk nown Rx Guide test strips) ascorbic acid (vitamin C) 1,000 mg 1 g PO ONCE supplem ent 08/26/24 05/25/25 History tablet venlafaxine 150 mg See Rx Instructions .Route 0 09/07/24 05/25/25 Rx capsule,extended release 24 hr .COMPLEX depression #90 caps lisinopril 5 mg tablet 5 mg PO DAILY hypertension # 90 tabs 11/29/24 05/24/25 Rx tirzepatide 12.5 mg/0.5 mL 12.5 mg (0.5 mL) subcut QWE EK 02/07/25 05/21/25 Rx subcutaneous pen injector blood sugar 3 months #6.5 mL metformin 1,000 mg tablet 1,000 mg PO BID blood sugar #180 03/22/25 05/25/25 Rx tabs rosuvastatin 20 mg tablet 20 mg PO QHS cholesterol #90 tabs 03/22/25 05/24/25 Rx levothyroxine 175 mcg tablet 175 mcg PO DAILY hypothyr oidism 05/22/25 05/25/25 Rx #90 tabs Allergy/AdvReac Type Severity Reaction Status Date / Time latex Allergy Severe rash Verified 05/25/25 09:31 aspirin Allergy Unknown unknown Verified 05/25/25 09:31 adhesive tape Allergy Rash Verified 05/25/25 09:31 Cephalosporins Allergy Hives Verified 05/25/25 09:31 Penicillins Allergy Hives Verified 05/25/25 09:31 shrimp Allergy Anaphylaxis Verified 05/25/25 09:31 Family History Father Diabetes CVA (cerebral vascular accident) Cancer skin Hypertension Heart disease Hyperlipemia Mother Heart disease Hyperlipemia Grandfather Myocardial infarction, Onset Age: 48 Uncle Alcoholism Surgical History H/O cosmetic surgery Hx of breast reduction, elective Hx of bilateral breast reduction surgery History of right knee joint replacement History of hysterectomy History of endometrial ablation History of gastric bypass History of tubal ligation History of Social History household members: spouse and children housing: house number of children: 2 current occupational status: unemployed Smoking Status: Former smoker alcohol intake: current alcohol intake frequency: holidays/special occasions only substance use type: does not use what type of physical activity do you participate in: walking frequency: daily seatbelt use: always do you feel safe at home: Yes 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 Exam Const Vital Signs: 05/25/25 09:31 05/25/25 09:39 05/25/25 09:42 Temperature 98 F Temperature Source Oral Pulse Rate 91 146 H Respiratory Rate 18 18 Respiratory Effort Normal Respiratory Pattern Normal Blood Pressure 81/60 L 96/63 Blood Pressure Mean 67 74 Pulse Ox 97 100 Oxygen Delivery Method Room Air Room Air 05/25/25 10:00 05/25/25 10:15 05/25/25 10:20 Temperature Temperature Source Pulse Rate 96 99 99 Respiratory Rate 16 16 16 Respiratory Effort Respiratory Pattern Blood Pressure 81/68 L 78/62 L 91/63 Blood Pressure Mean 72 67 72 Pulse Ox 98 95 99 Oxygen Delivery Method 05/25/25 10:32 05/25/25 10:53 05/25/25 11:00 Temperature Temperature Source Pulse Rate 113 H 102 H 112 H Respiratory Rate 16 14 16 Respiratory Effort Respiratory Pattern Blood Pressure 97/68 100/63 104/72 Blood Pressure Mean 77 75 82 Pulse Ox 99 100 98 Oxygen Delivery Method Room Air 05/25/25 11:13 05/25/25 11:58 05/25/25 12:00 Temperature Temperature Source Pulse Rate 97 95 98 Respiratory Rate 14 18 16 Respiratory Effort Respiratory Pattern Blood Pressure 104/62 108/70 94/72 Blood Pressure Mean 76 82 79 Pulse Ox 98 100 99 Oxygen Delivery Method Room Air Room Air Room Air MDM MDM MDM Narrative Medical decision making narrative: 54-year-old female with past medical history of DM2, HTN, hypothyroidism, HLD, presents for evaluation of syncope. See HPI. On presentation, patient is in atrial fibrillation with RVR with hypotension. Hypotension increased once placed on monitor bed to 96/63. Her heart rate was irregular. She has no history of atrial fibrillation. Differential diagnosis includes but is not limited to atrial fibrillation with RVR, other arrhythmia, electrolyte abnormality, thyroid disease, dehydration, ACS, PE. Patient not endorsing any chest pain at this time however aspirin was ordered in case ACS as a cause of her atrial fibrillation. Patient declined aspirin as she has history of gastricbypass. Originally was going to give the patient diltiazem for RVR however she became hypotensive with SBP in the 70s. NS bolus started. Blood pressure improved to SBP in the low 100s. She still intermittently in RVR. Will give metoprolol 5 mg IV only. CBC with mild leukocytosis of 12.2. No anemia. Platelets unremarkable. Coagulation panel unremarkable. D- dimer elevated 0.91. CT chest ordered to rule out PE as a source of A-fib and hypotension. BMP unremarkable. Magnesium unremarkable. Troponin unremarkable x 2. BNP elevatedat 2027. Likely secondary to patient's A-fib. She is not overtly fluid overloaded on exam. TSH unremarkable However free T4 elevated at 1.6. CTA of the chest negative for PE. On reevaluation, patient remains in atrial fibrillation however she is rate controlled and blood pressure has improved. Sheis still feeling fatigued. Patient's [id number] is a 3. Eliquis ordered. Patient is new onset atrial fibrillation. Given her intermittent hypotension aswell as syncope, I do feel that she would warrant admission for further workup and monitoring. Patient confirmed understanding the plan. I spoke with the hospitalist service who accepted admission. EKG: Interpreted by me/EM physician: EKG shows atrial fibrillation with RVR. Heart rate 103. No acute ischemic changes Diagnostic: Interpreted by me/EM physician: Chest x-ray without pneumonia, effusion, cardiomegaly, pneumothorax. Radiology in agreement. Impression: 1. New onset atrial fibrillation with RVR, heart rate now controlled 2. Hypotension likely secondary to #1 3. Syncope Lab Data Labs: Laboratory Results - last 24 hr 05/25/25 05/25/25 09:43 11:44 WBC 12.2 H RBC 5.13 Hgb 14.4 Hct 42.7 MCV 83.2 MCH 28.1 MCHC 33.7 RDW Std Deviation 42.4 RDW Coeff of Cher 13.8 Plt Count 375 MPV 9.1 Immature Gran % (Auto) 0.200 Neut % (Auto) 71.9 H Lymph % (Auto) 17.4 L [place] % (Auto) 8.9 Eos % (Auto) 1.3 Baso % (Auto) 0.3 Absolute Neuts (auto) 8.8 H Absolute Lymphs (auto) 2.13 Nucleated RBC % 0 PT 13.2 INR 1.0 APTT 24.5 D-Dimer Quant (PE/DVT) 0.91 H* Sodium 141 Potassium 3.9 Chloride 104 Carbon Dioxide 26.1 Anion Gap 11 BUN 10 Creatinine 0.65 L Estim Creat Clear Calc 113.08 Est GFR (MDRD) Non-Af 104 BUN/Creatinine Ratio 15.9 Glucose 111 H Calcium 9.2 Magnesium 2.0 Troponin T High Sens 8 Troponin T Hi Sens 2 Hr 7 NT pro BNP II 2027 H TSH 1.010 Free T4 1.60 H Radiography Diagnostic Testing: Clinical Impression(s) from Imaging Studies Chest X-Ray 05/25/25 09:42 IMPRESSION: NO ACUTE FINDINGS. Reading Location: [facility] Chest CTA 05/25/25 10:21 IMPRESSION: NORMAL CHEST CTA. NO EVIDENCE OF ACUTE PULMONARY EMBOLISM. Reading Location: [facility] Discharge Plan Disposition Disposition: Acute Care Hospital [facility] Discharge Date/Time: 05/25/25 13:40 What to do if you have Problems For any increased pain, shortness of breath, bleeding, nausea or vomiting, chestpain, or any unexpected problems, contact your Primary Care Provider. Call [facility] ([phone]) or report to the closest Emergency Room. Call 911 if necessary. 05/25/25 1523 <Electronically signed by Ricci Andrews DO> Cosigner Signature (if applicable): CC: Dr. Michael Coles MD ~ Signed [facility] Work Phone: [phone] 834-240210-16-2025 History and physical note [facility] Medical Records Department [address] [place] [address] H&P Exam - Hospitalist 05/25/25 1602 MR#: [id number] Acct: [id number] Name: JACKIE HARRINGTON DECEMBER Rep #:[id number] : 1970 54 From: Javi samuels MD PCP: Dr. Michael Coles MD Status:A DM TUSHAR Location: [place] [id number] HPI - General General Date of Admission: 05/25/25 HPI Narrative JACKIE HARRINGTON, is a 54 F who presents to the hospital with 2 episodes of syncope over the last couple of days. Yesterday she had some lightheadedness and dizziness and was able to sit down before she completely blacked out, and then her found her on the toilet unresponsive with her eyes openand then today she was in the kitchen and she felt lightheaded and dizzy and diaphoretic and slid down against the cabinets onto the ground. None of the witnessed episode showed signs or symptoms consistent with seizures. She denies any palpitations or racing heartbeat and none of them were drop attacks. She does have symptoms with positional changes. In the emergency room EKG was read as being A-fib with RVR and she had an elevated proBNP. She did have elevated D- dimer so CTA of the chest was done which was negative for PE. TSH and free T4 were obtained, TSH was normal and T4 was elevated. [facility] Medical History (Updated 05/25/25 @ 16:[address] Javi Mota MD) Colon cancer screening Anxiety and depression History of COVID-19 Acute back pain Bilateral shoulder pain Macromastia Fibroadenoma of right breast Coccyx pain Uterine fibroid Hypertension Hypothyroidism Hormone deficiency IBS (irritable bowel syndrome) Hyperlipemia Diabetes Asthma Seasonal allergies Home Medications ?Medication ?Instructions ?Recorded ?Last Taken ?Type calcium 500 mg-vitamin D3 100 1 tab PO DAILY supplemen t 03/29/20 05/25/25 History unit-vitamin K 40 mcg chewable tablet cholecalciferol (vitamin D3) 10 10 mcg PO DAILY supple ment 03/29/20 05/25/25 History mcg (400 unit) capsule coenzyme Q10 75 mg capsule (Co 75 mg PO DAILY heart magallanes pplement 03/29/20 05/25/25 History Q-10) ferrous sulfate 325 mg (65 mg 325 mg PO DAILY suppleme nt 03/29/20 05/25/25 History iron) tablet (Feosol) multivitamin 1 cap PO DAILY supplement 05/25/25 History blood-glucose meter (Accu-Chek #1 ea 07/31/20 Unknown Rx Nithya Plus Meter) cetirizine 10 mg capsule 10 mg PO DAILY #90 caps 09/1105/25/25 Rx blood sugar diagnostic (Accu-Chek #100 ea 09/07/23 Unk nown Rx Guide test strips) ascorbic acid (vitamin C) 1,000 mg 1 g PO ONCE supplem ent 08/26/24 05/25/25 History tablet venlafaxine 150 mg See Rx Instructions .Route 0 09/07/24 05/25/25 Rx capsule,extended release 24 hr .COMPLEX depression #90 caps lisinopril 5 mg tablet 5 mg PO DAILY hypertension # 90 tabs 11/29/24 05/24/25 Rx tirzepatide 12.5 mg/0.5 mL 12.5 mg (0.5 mL) subcut QWE EK 02/07/25 05/21/25 Rx subcutaneous pen injector blood sugar 3 months #6.5 mL metformin 1,000 mg tablet 1,000 mg PO BID blood sugar #180 03/22/25 05/25/25 Rx tabs rosuvastatin 20 mg tablet 20 mg PO QHS cholesterol #90 tabs 03/22/25 05/24/25 Rx levothyroxine 175 mcg tablet 175 mcg PO DAILY hypothyr oidism 05/22/25 05/25/25 Rx #90 tabs Allergy/AdvReac Type Severity Reaction Status Date / Time latex Allergy Severe rash Verified 05/25/25 09:31 aspirin Allergy Unknown unknown Verified 05/25/25 09:31 adhesive tape Allergy Rash Verified 05/25/25 09:31 Cephalosporins Allergy Hives Verified 05/25/25 09:31 Penicillins Allergy Hives Verified 05/25/25 09:31 shrimp Allergy Anaphylaxis Verified 05/25/25 09:31 Family History Father Diabetes CVA (cerebral vascular accident) Cancer skin Hypertension Heart disease Hyperlipemia Mother Heart disease Hyperlipemia Grandfather Myocardial infarction, Onset Age: 48 Uncle Alcoholism Surgical History H/O cosmetic surgery Hx of breast reduction, elective Hx of bilateral breast reduction surgery History of right knee joint replacement History of hysterectomy History of endometrial ablation History of gastric bypass History of tubal ligation History of Social History household members: spouse and children housing: house number of children: 2 current occupational status: unemployed Smoking Status: Former smoker alcohol intake: current alcohol intake frequency: holidays/special occasions only substance use type: does not use what type of physical activity do you participate in: walking frequency: daily seatbelt use: always do you feel safe at home: Yes 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 Constitutional Constitutional: Denies chills, fatigue, fever(s) or malaise Eyes Eyes: Denies blurry vision ENT HEENT: Denies headache(s) or nasal discharge Cardiovascular Cardiovascular: Reports syncope; Denies chest pain or dyspnea on exertion Respiratory/Chest Respiratory/Chest: Denies cough, shortness of breath at rest or shortness of breath with exertion Gastrointestinal Gastrointestinal: Denies constipation, diarrhea, nausea or vomiting Genitourinary Genitourinary: Denies dysuria Neurologic Neurologic: Denies focal weakness, numbness or tremor(s) Psychiatric Psychiatric: Denies anxiety or depression Vital Signs Vital Signs Vital Signs: 05/25/25 09:31 05/25/25 09:39 05/25/25 09:42 Temperature 98 F Temperature Source Oral Pulse Rate 91 146 H Respiratory Rate 18 18 Respiratory Effort Normal Respiratory Pattern Normal Blood Pressure 81/60 L 96/63 Blood Pressure Mean 67 74 Blood Pressure Source Blood Pressure Position Blood Pressure Location Pulse Ox 97 100 Oxygen Delivery Method Room Air Room Air 05/25/25 10:00 05/25/25 10:15 05/25/25 10:20 Temperature Temperature Source Pulse Rate 96 99 99 Respiratory Rate 16 16 16 Respiratory Effort Respiratory Pattern Blood Pressure 81/68 L 78/62 L 91/63 Blood Pressure Mean 72 67 72 Blood Pressure Source Blood Pressure Position Blood Pressure Location Pulse Ox 98 95 99 Oxygen Delivery Method 05/25/25 10:32 05/25/25 10:53 05/25/25 11:00 Temperature Temperature Source Pulse Rate 113 H 102 H 112 H Respiratory Rate 16 14 16 Respiratory Effort Respiratory Pattern Blood Pressure 97/68 100/63 104/72 Blood Pressure Mean 77 75 82 Blood Pressure Source Blood Pressure Position Blood Pressure Location Pulse Ox 99 100 98 Oxygen Delivery Method Room Air 05/25/25 11:13 05/25/25 11:58 05/25/25 12:00 Temperature Temperature Source Pulse Rate 97 95 98 Respiratory Rate 14 18 16 Respiratory Effort Respiratory Pattern Blood Pressure 104/62 108/70 94/72 Blood Pressure Mean 76 82 79 Blood Pressure Source Blood Pressure Position Blood Pressure Location Pulse Ox 98 100 99 Oxygen Delivery Method Room Air Room Air Room Air 05/25/25 12:22 05/25/25 13:57 05/25/25 14:00 Temperature 98.1 F 97.3 F L Temperature Source Temporal Pulse Rate 105 H 85 Respiratory Rate 15 14 Respiratory Effort Respiratory Pattern Blood Pressure 89/76 L 89/76 L Blood Pressure Mean 80 80 Blood Pressure Source Monitor Blood Pressure Position Supine Blood Pressure Location Left Arm Pulse Ox 100 96 Oxygen Delivery Method Room Air Room Air Weight Weight: 205 lb 11.06 oz Body Mass Index (BMI) 32.2 Physical Exam Narrative General: Alert, Oriented x3, Cooperative, No apparent distress HEENT: Atraumatic, PERRLA, EOMI, Normocephalic Oral: Dry mucosa Neck: Supple, No JVD Lungs: Diminished, Normal air movement, No rhonchi, No wheeze, No rales Cardiovascular: Irregular rate and rhythm, Regular Rhythm, Normal S1, Normal S2,No murmurs Abdomen: Soft, Non Tender, Non-Distended, No Hepato-splenomegaly Extremities: No edema, Capillary Refill Less than 3 Seconds Skin: No rashes, No breakdown Musculoskeletal: No Tenderness to Palpation of Joints or Extremities Neurological: No focal neurological deficits, moves all extremities Psych/Mental Status: Normal Affect, Appropriate Results Lab / Micro Data 05/25/25 09:43 05/25/25 09:43 Labs: Laboratory Results - last 24 hr 05/25/25 09:43: WBC 12.2 H, RBC 5.13, Hgb 14.4, Hct 42.7, MCV 83.2, MCH 28.1, MCHC 33.7, RDW Std Deviation 42.4, RDW Coeff of Cher 13.8, Plt Count 375, MPV 9.1, Immature Gran % (Auto) 0.200, Neut % (Auto) 71.9 H, Lymph % (Auto) 17.4 L, [place] % (Auto) 8.9, Eos % (Auto) 1.3, Baso % (Auto) 0.3, AbsoluteNeuts (auto) 8.8 H, Absolute Lymphs (auto) 2.13, Nucleated RBC % 0, PT 13.2, INR 1.0, APTT 24.5, D-Dimer Quant (PE/DVT) 0.91 H*, Sodium 141, Potassium 3.9, Chloride 104, Carbon Dioxide 26.1, Anion Gap 11, BUN 10, Creatinine 0.65 L, Estim Creat Clear Calc 113.08, Est GFR (MDRD) Non-Af 104, BUN/Creatinine Ratio 15.9, Glucose 111 H, Calcium 9.2, Magnesium 2.0, Troponin T High Sens 8, NT pro BNP II 2027 H, TSH 1.010, Free T4 1.60 H 05/25/25 11:44: Troponin T Hi Sens 2 Hr 7 Imaging Radiology Impression Chest X-Ray 05/25/25 09:42 IMPRESSION: NO ACUTE FINDINGS. Reading Location: [facility] Chest CTA 05/25/25 10:21 IMPRESSION: NORMAL CHEST CTA. NO EVIDENCE OF ACUTE PULMONARY EMBOLISM. Reading Location: [facility] Assessment & Plan Assessment/Plan (1) New onset a-fib: PLAN: Plan 1. New onset A-fib with RVR/essential HTN/HLD ? She was given some blood pressure medications in the emergency room and her heart rate did decrease below 100 ? Blood pressures are little bit on the soft side that she says she is normally 100/72 ? Based on her [id number] score of 2 will start her on Eliquis ? Orthostatic vital signs ? Echo is pending ? Will obtain a T3 given the elevation in her T4 ? Will start her on a little bit of fluids as she appears little bit dehydrated,her proBNP is elevated to over 2000 ? Will hold her home blood pressure medications given the initiation of rate control medications ? Continue with Crestor 2. DM2 ? Hold her home metformin ? Sliding scale insulin ? Accu-Cheks ? Monitor make adjustments as necessary 3. Hypothyroidism ? TSH is normal T4 is elevated, T3 is pending ? In the meantime can resume her home Synthroid and can adjust as necessary based on lab work DVT: Eliquis 75 minutes was spent on direct patient care, including documentation as well as chart review and collaboration with colleagues Charges/Coding Visit Charges Inpatient E&M: 79194 Init Hosp L3 05/25/25 1616 Cosigner Signature (if applicable): CC: Dr. Michael Coles MD; Dr. Javi Mota MD~ Signed [facility]10-16-2025 Discharge summary [facility] Medical Records Department [address] [place] [id number] Emergency Department Summary 05/25/25 MR#: [id number] Acct: [id number] Name: JACKIE HARRINGTON Rep #:[id number] : 1970 54 From: Ricci padron DO PCP: Dr. Michael Coles MD Status:A DM TUSHAR Location: [place] [address] HPI History of Present Illness Chief Complaint: Syncope Narrative Narrative: Chief complaint and HPI: 54-year-old female with past medical history of DM2, HTN, hypothyroidism, HLD, presents for evaluation of syncope. Patient was working on a house yesterday outside when she became lightheaded, nauseous, diaphoretic. States she went home and had 1 episode of emesis. states she woke up this morning and which shortly after drinking coffee she lowered herself to the ground and had a short episode of syncope. He then helped her tothe couch where she laid down for about an hour. States he then helped her to the bathroom in which she had a minimal responsive episode on the toilet. He states during that time the patient was diaphoretic. She endorses fatigue and nausea currently. She denies any fever, chills, shortness of breath, chest pain, abdominal pain. No history of trauma. Review of systems: See HPI Medications: As listed on the chart Allergies: As listed on the chart PFSH: Per chart Vital signs: As listed on the chart. Reviewed. Physical exam: Gen: A&O x3 Head: Normocephalic, atraumatic Eyes: No sclera icterus, conjunctiva clear ENT: Mildly dry mucous membranes Neck: Trachea midline CV: Irregularly irregular rhythm with tachycardia, no murmurs, no peripheral edema Resp: Lungs CTA BL, no w/r/c GI: Abd soft, non-distended, non-tender, no r/r/g Musc: Moves all extremities, no deformity Skin: Warm, dry Neuro: Alert, oriented, grossly intact Psych: Cooperative, appropriate mood and affect PFS PFS Medical History Colon cancer screening Anxiety and depression History of COVID-19 Acute back pain Bilateral shoulder pain Macromastia Fibroadenoma of right breast Coccyx pain Uterine fibroid Hypertension Hypothyroidism Hormone deficiency IBS (irritable bowel syndrome) Hyperlipemia Diabetes Asthma Seasonal allergies Home Medications ?Medication ?Instructions ?Recorded ?Last Taken ?Type calcium 500 mg-vitamin D3 100 1 tab PO DAILY supplemen t 03/29/20 05/25/25 History unit-vitamin K 40 mcg chewable tablet cholecalciferol (vitamin D3) 10 10 mcg PO DAILY supple ment 03/29/20 05/25/25 History mcg (400 unit) capsule coenzyme Q10 75 mg capsule (Co 75 mg PO DAILY heart magallanes pplement 03/29/20 05/25/25 History Q-10) ferrous sulfate 325 mg (65 mg 325 mg PO DAILY suppleme nt 03/29/20 05/25/25 History iron) tablet (Feosol) multivitamin 1 cap PO DAILY supplement 05/25/25 History blood-glucose meter (Accu-Chek #1 ea 07/31/20 Unknown Rx Nithya Plus Meter) cetirizine 10 mg capsule 10 mg PO DAILY #90 caps 09/1105/25/25 Rx blood sugar diagnostic (Accu-Chek #100 ea 09/07/23 Unk nown Rx Guide test strips) ascorbic acid (vitamin C) 1,000 mg 1 g PO ONCE supplem ent 08/26/24 05/25/25 History tablet venlafaxine 150 mg See Rx Instructions .Route 0 09/07/24 05/25/25 Rx capsule,extended release 24 hr .COMPLEX depression #90 caps lisinopril 5 mg tablet 5 mg PO DAILY hypertension # 90 tabs 11/29/24 05/24/25 Rx tirzepatide 12.5 mg/0.5 mL 12.5 mg (0.5 mL) subcut QWE EK 02/07/25 05/21/25 Rx subcutaneous pen injector blood sugar 3 months #6.5 mL metformin 1,000 mg tablet 1,000 mg PO BID blood sugar #180 03/22/25 05/25/25 Rx tabs rosuvastatin 20 mg tablet 20 mg PO QHS cholesterol #90 tabs 03/22/25 05/24/25 Rx levothyroxine 175 mcg tablet 175 mcg PO DAILY hypothyr oidism 05/22/25 05/25/25 Rx #90 tabs Allergy/AdvReac Type Severity Reaction Status Date / Time latex Allergy Severe rash Verified 05/25/25 09:31 aspirin Allergy Unknown unknown Verified 05/25/25 09:31 adhesive tape Allergy Rash Verified 05/25/25 09:31 Cephalosporins Allergy Hives Verified 05/25/25 09:31 Penicillins Allergy Hives Verified 05/25/25 09:31 shrimp Allergy Anaphylaxis Verified 05/25/25 09:31 Family History Father Diabetes CVA (cerebral vascular accident) Cancer skin Hypertension Heart disease Hyperlipemia Mother Heart disease Hyperlipemia Grandfather Myocardial infarction, Onset Age: 48 Uncle Alcoholism Surgical History H/O cosmetic surgery Hx of breast reduction, elective Hx of bilateral breast reduction surgery History of right knee joint replacement History of hysterectomy History of endometrial ablation History of gastric bypass History of tubal ligation History of Social History household members: spouse and children housing: house number of children: 2 current occupational status: unemployed Smoking Status: Former smoker alcohol intake: current alcohol intake frequency: holidays/special occasions only substance use type: does not use what type of physical activity do you participate in: walking frequency: daily seatbelt use: always do you feel safe at home: Yes 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 Physical Exam Const Vital Signs: 05/25/25 09:31 05/25/25 09:39 05/25/25 09:42 Temperature 98 F Temperature Source Oral Pulse Rate 91 146 H Respiratory Rate 18 18 Respiratory Effort Normal Respiratory Pattern Normal Blood Pressure 81/60 L 96/63 Blood Pressure Mean 67 74 Pulse Ox 97 100 Oxygen Delivery Method Room Air Room Air 05/25/25 10:00 05/25/25 10:15 05/25/25 10:20 Temperature Temperature Source Pulse Rate 96 99 99 Respiratory Rate 16 16 16 Respiratory Effort Respiratory Pattern Blood Pressure 81/68 L 78/62 L 91/63 Blood Pressure Mean 72 67 72 Pulse Ox 98 95 99 Oxygen Delivery Method 05/25/25 10:32 05/25/25 10:53 05/25/25 11:00 Temperature Temperature Source Pulse Rate 113 H 102 H 112 H Respiratory Rate 16 14 16 Respiratory Effort Respiratory Pattern Blood Pressure 97/68 100/63 104/72 Blood Pressure Mean 77 75 82 Pulse Ox 99 100 98 Oxygen Delivery Method Room Air 05/25/25 11:13 05/25/25 11:58 05/25/25 12:00 Temperature Temperature Source Pulse Rate 97 95 98 Respiratory Rate 14 18 16 Respiratory Effort Respiratory Pattern Blood Pressure 104/62 108/70 94/72 Blood Pressure Mean 76 82 79 Pulse Ox 98 100 99 Oxygen Delivery Method Room Air Room Air Room Air MDM MDM MDM Narrative Medical decision making narrative: 54-year-old female with past medical history of DM2, HTN, hypothyroidism, HLD, presents for evaluation of syncope. See HPI. On presentation, patient is in atrial fibrillation with RVR with hypotension. Hypotension increased once placed on monitor bed to 96/63. Her heart rate was irregular. She has no history of atrial fibrillation. Differential diagnosis includes but is not limited to atrial fibrillation with RVR, other arrhythmia, electrolyte abnormality, thyroid disease, dehydration, ACS, PE.Patient not endorsing any chest pain at this time however aspirin was ordered in case ACS as a cause of her atrial fibrillation. Patient declined aspirin as she has history of gastricbypass. Originally was going to give the patient diltiazem for RVR however she became hypotensive with SBP in the 70s. NS bolus started. Blood pressure improved to SBP in the low 100s. She still intermittently in RVR. Will give metoprolol 5 mg IV only. CBC with mild leukocytosis of 12.2. No anemia. Platelets unremarkable. Coagulation panel unremarkable. D-dimer elevated 0.91. CT chest ordered to rule out PE as a source of A-fib and hypotension. BMP unremarkable. Magnesium unremarkable. Troponin unremarkable x 2. BNP elevatedat 2027. Likely secondary to patient's A- fib. She is not overtly fluid overloaded on exam. TSH unremarkable However free T4 elevated at 1.6. CTA of the chest negative for PE. On reevaluation, patient remains in atrial fibrillation however she is rate controlled and blood pressure has improved. Sheis still feeling fatigued. Patient's [id number] is a 3. Eliquis ordered. Patient is new onset atrial fibrillation. Given her intermittent hypotension aswell as syncope, I do feel that she would warrant admission for further workup and monitoring. Patient confirmed understanding the plan. I spoke with the hospitalist service who accepted admission. EKG: Interpreted by me/EM physician: EKG shows atrial fibrillation with RVR. Heart rate 103. No acute ischemic changes Diagnostic: Interpreted by me/EM physician: Chest x-ray without pneumonia, effusion, cardiomegaly, pneumothorax. Radiology in agreement. Impression: 1. New onset atrial fibrillation with RVR, heart rate now controlled 2. Hypotension likely secondary to #1 3. Syncope Lab Data Labs: Laboratory Results - last 24 hr 05/25/25 05/25/25 09:43 11:44 WBC 12.2 H RBC 5.13 Hgb 14.4 Hct 42.7 MCV 83.2 MCH 28.1 MCHC 33.7 RDW Std Deviation 42.4 RDW Coeff of Cher 13.8 Plt Count 375 MPV 9.1 Immature Gran % (Auto) 0.200 Neut % (Auto) 71.9 H Lymph % (Auto) 17.4 L [place] % (Auto) 8.9 Eos % (Auto) 1.3 Baso % (Auto) 0.3 Absolute Neuts (auto) 8.8 H Absolute Lymphs (auto) 2.13 Nucleated RBC % 0 PT 13.2 INR 1.0 APTT 24.5 D-Dimer Quant (PE/DVT) 0.91 H* Sodium 141 Potassium 3.9 Chloride 104 Carbon Dioxide 26.1 Anion Gap 11 BUN 10 Creatinine 0.65 L Estim Creat Clear Calc 113.08 Est GFR (MDRD) Non-Af 104 BUN/Creatinine Ratio 15.9 Glucose 111 H Calcium 9.2 Magnesium 2.0 Troponin T High Sens 8 Troponin T Hi Sens 2 Hr 7 NT pro BNP II 2027 H TSH 1.010 Free T4 1.60 H Radiography Diagnostic Testing: Clinical Impression(s) from Imaging Studies Chest X-Ray 05/25/25 09:42 IMPRESSION: NO ACUTE FINDINGS. Reading Location: [facility] Chest CTA 05/25/25 10:21 IMPRESSION: NORMAL CHEST CTA. NO EVIDENCE OF ACUTE PULMONARY EMBOLISM. Reading Location: [facility] Discharge Plan Disposition Disposition: Acute Care Hospital [facility] Discharge Date/Time: 05/25/25 13:40 What to do if you have Problems For any increased pain, shortness of breath, bleeding, nausea or vomiting, chestpain, or any unexpected problems, contact your Primary Care Provider. Call [facility] ([phone]) or report tothe closest Emergency Room. Call 911 if necessary. 05/25/25 1523 Cosigner Signature (if applicable): CC: Dr. Michael Coles MD ~ Signed [facility]10-16-2025 Radiology Diagnostic study note [facility] Imaging Services [address] [place] [address] Chest PA and Lateral MR#: [id number] Acct: [id number] Name: JACKIE HARRINGTON MAY Rep #: [id number] : 1970 F 54 From: Jamil Francois MD PCP: Dr. Michael Coles MD Status: R EG ER Study:Chest PA and Lateral Date of Exam: 05/25/25 Exam# [id number] Ordering Dr: Ricci Matos DO PROCEDURE: CHEST PA AND LATERAL 05/25/2025 REASON FOR EXAM: CHEST PAIN TECHNIQUE: Procedure Code: RADCXR Modality: DX Procedure: CHEST PA AND LATERAL COMPARISON: None FINDINGS: Hardware: EKG electrodes are seen. Heart: The heart size is normal. Mediastinum: The mediastinal contour is unremarkable. Lungs: The lungs are clear. Bones: Degenerative changes are identified within the thoracic spine. RAD/Chest PA and Lateral IMPRESSION: NO ACUTE FINDINGS. Reading Location: [facility] CC: Dr. Ricci Andrews DO; Dr. Michael Coles MD ~ Credit Operations Specialist: Signed [facility]10-16-2025 Radiology Diagnostic study note [facility] Imaging Services [address] [place] [address] CTA Chest W/WO Contrast MR#: [id number] Acct: [id number] Name: JACKIE HARRINGTON MAY Rep #: [id number] : 1970 F 54 From: Jamil Francois MD PCP: Dr. Michael Coles MD Status: R EG ER Study:CTA Chest W/WO Contrast Date of Exam: 05/25/25 Exam# [id number] Ordering Dr: Ricci Matos DO PROCEDURE: CTA CHEST W/WO CONTRAST 05/25/2025 REASON FOR EXAM: PE Diaphoretic. 2 syncopal episodes. TECHNIQUE: Procedure Code: CTCTACHWW Modality: CT Procedure: CTA CHEST W/WO CONTRAST Multiplanar Sagittal and Coronal images were obtained. 3D post processing was performed CONTRAST: Isovue-300 VOLUME: 100 mL One or more dose reduction techniques were used (e.g., Automated exposure control, adjustment of the mA and/or kV according to patient size, use of iterative reconstruction technique). RADIATION DOSE SUMMARY: CTDlvol: 11.6 mGy DLP: 481.7 mGycm COMPARISON: None FINDINGS: Hardware: None Lymph nodes: Unremarkable Heart: Unremarkable Thoracic Aorta: No thoracic aortic aneurysm or dissection. Pulmonary Vessels: No evidence of pulmonary embolism. Lungs and Airways: No focal infiltrate is seen. Pleura: No pleural effusion. Upper Abdomen: Status post partial gastrectomy. Bones: Degenerative changes of the thoracic spine. CT/CTA Chest W/WO Contrast IMPRESSION: NORMAL CHEST CTA. NO EVIDENCE OF ACUTE PULMONARY EMBOLISM. Reading Location: [place] [address] CC: Dr. Ricci Andrews DO; Dr. Michael Coles MD ~ Credit Operations Specialist: Signed [facility]08-13-2025 Evaluation note* Diagnosis Onset Date Resolution Status Admit Date Anxiety and depression chronic [facility] 2024 9:54am Hypertension chronic March 22, 2025 9:54am Hypothyroidism chronic March 9:54am Type 2 diabetes mellitus chronic March 22, 2025 9:54am [facility] Work Phone: 1(400) 136-522808-13-2025 Evaluation note* Diagnosis Onset Date Resolution Status Admit Date Anxiety and depression chronic [facility] 2024 9:54am Hypertension chronic March 22, 2025 9:54am Hypothyroidism chronic March 9:54am Type 2 diabetes mellitus chronic March 22, 2025 9:54am New onset a-fib acute May 102024 12:15pm Hospital discharge follow-up acute May 29, 2025 12:57pm New onset a-fib acute May 112024 12:57pm [facility] Work Phone: 1(349) 744-997705-08-2025 Evaluation note* Diagnosis Onset Date Resolution Status Admit Date Anxiety and depression chronic Ma y 2024 5:49pm Hyperlipemia chronic December 15 5:49pm Hypertension chronic December 15, 5:49pm Hypothyroidism chronic December 15, 025 5:49pm Seasonal allergies chronic December 5:49pm Type 2 diabetes mellitus chronic December 15, 2024 5:49pm [facility] Work Phone: [phone] NoteHNO ID: [id number] Author: Mercedes Reid APRN.SYSTEM SOFTWARE PROGRAMMER Service: ? Author Type: Nurse Practitioner Type: [...] Patient agreeable to treatment plan. Mercedes Reid APRN.[facility]12-31-2023 History of Present illness Narrative* Mercedes Reid APRN.[facility] - 08/09/2023 8:34 AM EST CC: Patient presents with: Sinus Problem: With [...] ALLERGIES Cephalosporins, Iodine, Latex, Penicillins, Aspirin, Nsaids (Non- Steroidal Anti-Inflammatory Drug), and Shrimp MEDICATIONS Ascorbic Acid [...] flag symptoms discussed with the patient. Reviewed appropriateaction plan to take if red flag symptoms occur. Patient agreeable to treatment plan. Mercedes Reid APRN.SYSTEM SOFTWARE PROGRAMMER [facility] Discharge summary Author Alfonso Abraham [facility] March 15, 2023 5:13pm Note Date/Time March 15, 2023 5:1 3pm [facility] Medical Records Department [address] [place] [address] Emergency Department Summary 03/15/23 MR#: [id number] Acct: [id number] Name: JACKIE HARRINGTON Rep #:[id number] : 1970 52 From: Alfonso Abraham MD PCP: Dr. Michael Coles MD Status:R EG ER Location: ED HPI History of Present Illness HPI Narrative: 52-year-old diabetic female who was breaking up a fight between her 2 dogs on when 1 dog bit her on her left lower leg. Initially was doing well. Today she developed redness and increased discomfort. No fever. No streaks. She has had a history of cellulitis in the past after surgical wounds. Chief Complaint: Bite Informant: patient and spouse/S.O. Occured/Mechanism Mechanism/Context: Yes injury Onset/Context/Timing Onset: Days Context: Sudden Onset Timing: Continuous Location: Left lower leg redness began today. Current Severity: Mild Maximum Severity: Mild Associated Symptoms Associated Symptoms: Negative for Parasthesia, Weakness or Loss of Funtion Narrative Narrative: 52-year-old female history of diabetes is a dog bite in left lower leg since . Started getting red hemostatic today. Denies fever or chills.. Prior similar symptoms: Yes Recent Illness/Hospitalization: No ROS ROS ED ROS Narrative Denies. Review of Systems ROS Unobtainable: Denies due to encephalopathy Constitutional Constitutional ED: Denies chills or fever(s) Eyes Eyes: Denies blurry vision ENT ENT ED: Denies ear pain Cardiovascular Cardiovascular: Denies chest pain Respiratory/Chest Respiratory/Chest: Denies cough or dyspnea Gastrointestinal Gastrointestinal: Denies abdominal pain Genitourinary Genitourinary ED: Denies dysuria Musculoskeletal Musculoskeletal: Denies arthralgias Integumentary Denies abscess Neurologic Neurologic: Denies headache(s) Psychiatric Psychiatric: Denies anxiety Endocrine Endocrinology: Denies polydipsia Allergic/Immunologic Allergic/Immunologic ED: Denies mouth swelling or tongue swelling [facility] Medical History Acute back pain Asthma Bilateral shoulder pain Coccyx pain Diabetes Fibroadenoma of right breast Hormone deficiency Hyperlipemia Hypertension Hypothyroidism IBS (irritable bowel syndrome) Macromastia Seasonal allergies Uterine fibroid Home Medications ascorbic acid (vitamin C) 1,000 mg tablet,extended release 1,000 mg PO Q12H 03/29/20 [History Last Taken Unknown] calcium-vitamin D3-vitamin K 500 mg-100 unit-40 mcg chewable tablet 1 tab PO DAILY 03/29/20 [History Last Taken Unknown] cholecalciferol (vitamin D3) 10 mcg (400 unit) capsule 10 mcg PO DAILY 03/29/20 [History Last Taken Unknown] coenzyme Q10 75 mg capsule (Co Q-10) 75 mg PO DAILY 03/29/20 [History Last Taken Unknown] ferrous sulfate 325 mg (65 mg iron) tablet (Feosol) 325 mg PO DAILY 03/29/20 [History Last Taken Unknown] multivitamin 1 cap PO DAILY 03/29/20 [History Last Taken Unknown] blood-glucose meter (Accu-Chek Nithya Plus Meter) #1 ea 07/31/20 [Rx Last Taken Unknown] blood sugar diagnostic (Accu-Chek Guide test strips) #100 ea 07/23/21 [Rx Last Taken Unknown] cetirizine 10 mg capsule 10 mg PO DAILY #90 caps 10/07/21 [Rx Last Taken Unknown] empagliflozin 25 mg tablet 25 mg PO DAILY #90 tabs 08/27/22 [Rx Last Taken Unknown] levothyroxine 175 mcg tablet 175 mcg PO DAILY #90 tabs 08/27/22 [Rx Last Taken Unknown] lisinopril 5 mg tablet 5 mg PO DAILY #90 tabs 08/27/22 [Rx Last Taken Unknown] metformin 1,000 mg tablet 1,000 mg PO BID #180 tabs 08/27/22 [Rx Last Taken Unknown] rosuvastatin 20 mg tablet 20 mg PO QHS #90 tabs 08/27/22 [Rx Last Taken Unknown] cyclobenzaprine 10 mg tablet 10 mg PO TID PRN Muscle Spasm #12 TABLETS 10/27/22 [Rx Last Taken Unknown] dulaglutide 3 mg/0.5 mL subcutaneous pen injector (Trulicity) See Rx Instructions .Route .COMPLEX #4 mL 02/23/23 [Rx Last Taken Unknown] venlafaxine 150 mg capsule,extended release 24 hr See Rx Instructions .Route .COMPLEX #90 caps 03/12/23 [Rx Last Taken Unknown] clindamycin HCl 300 mg capsule (Cleocin HCl) 300 mg PO Q6H 10 days #40 CAPSULES 03/15/23 [Rx Last Taken Unknown] Allergy/AdvReac Type Severity Reaction Status Date / Time latex Allergy Severe rash Verified 03/15/23 16:48 aspirin Allergy Unknown unknown Verified 03/15/23 16:48 adhesive tape Allergy Rash Verified 03/15/23 16:48 Cephalosporins Allergy Hives Verified 03/15/23 16:48 Penicillins Allergy Hives Verified 03/15/23 16:48 shrimp Allergy Anaphylaxis Verified 03/15/23 16:48 Family History Father Diabetes CVA (cerebral vascular accident) Cancer skin Hypertension Heart disease Hyperlipemia Mother Heart disease Hyperlipemia Grandfather Myocardial infarction, Onset Age: 48 Uncle Alcoholism Surgical History History of History of endometrial ablation History of gastric bypass History of hysterectomy History of right knee joint replacement History of tubal ligation Hx of bilateral breast reduction surgery Hx of breast reduction, elective Social History household members: spouse and children housing: house number of children: 2 current occupational status: unemployed Smoking Status: Former smoker alcohol intake: current alcohol intake frequency: holidays/special occasions only substance use type: does not use what type of physical activity do you participate in: walking frequency: daily seatbelt use: always do you feel safe at home: Yes 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 Vital signs stable afebrile. H EENT examunremarkable. Lungs clear. Heart regular rhythm no murmur. Abdomen soft nontender. Moving all 4 extremities. Neurovascular intact patient has 2 puncture wounds left lower anterior leg. Consistent with tolerated. There is some mild surrounding cellulitis. Is warm to the touch. Mildly swollen. Tender. No lymphangitic streaking. No inguinal lymphadenopathy. Const Vital Signs: 03/15/23 16:46 Temperature 97.8 F Temperature Source Temporal Pulse Rate 77 Respiratory Rate 18 Blood Pressure 132/85 H Blood Pressure Mean 100 Pulse Ox 97 Oxygen Delivery Method Room Air Positive well nourished and well developed; Negative for cachectic, contracturesor unkempt General Appearance ED: well developed and NAD; Negative for unkempt, cachectic or contractures Nutritional Appearance: Negative for cachectic HEENT normocephalic and atraumatic; Negative for trauma or tenderness Eyes PERRL and EOMs intact bilaterally General Eye ED: Negative for other Neck full ROM and no lymphadenopathy General: Negative for tenderness Resp normal respiratory effort and clear to auscultation bilaterally Effort and Inspection: Negative for other Auscultation: Negative for rales, rhonchi or wheezes Cardio regular rate, regular rhythm, S1 normal heart sound, S2 normal heart sound and no murmurs Jugular Venous Distention: Negative for other Rate: Negative for bradycardia or tachycardic GI non-tender, non-distended and no masses Inspection: Negative for abdominal distention Auscultation: normoactive bowel sounds Palpation: soft and tender Bladder / Kidney Exam: No CVA tenderness Back/Spine no CVA tenderness General Back: Negative for CVA tenderness Cervical Spine: Negative for cervical spine tenderness Thoracic Spine / Upper Back: Negative for thoracic spinal tenderness Lumbar Spine / Lower Back: Negative for lumbar spinal tenderness Extremity normal to inspection and full ROM Extremity Narrative: Except left lower leg 2 puncture wounds consistent with a dog bite on the distalmedial aspect of the left lower leg. Surrounding cellulitis. No lymphangitic streaking. No subcu air pus. No inguinal lymphadenopathy. General Extremety ED: Yes edema; Negative for deformity General Extremity: edema; Negative for deformity Neuro oriented x3, CN's II-XII intact bilaterally and no sensory deficits noted Sensorium / Orientation: alert, oriented to person, oriented to place and oriented to time; Negative for orientation impaired, confused, lethargic or stuporous Motor Exam: strength 5/5 throughout Psych mental status grossly normal and thought process normal Appearance: Negative for unkempt Attitude: No agitated Mood & Affect: Negative for anxious Skin skin turgor normal Skin Narrative: Dog bite left lower leg. Cellulitis. General Skin Exam: Negative for other Lesions: no lesions Rashes: No no rashes Image ED - Lower Extremity Diagram: 1. Dog bite puncture wound left lower leg. Mild cellulitis. MDM MDM MDM Narrative Medical decision making narrative: 52-year-old diabetic with dog bite cellulitis left lower leg. She is allergic to both Augmentin and cephalexin's with hives. She be placed on clindamycin first dose given here. 4 times daily for 10 days. Close follow-up to ensure isimproving. She knows if it is getting worse and not improving to return becauseshe may need IV antibiotics. She does not need to be admitted at this time History & Record Review Discussion w/independent historian: Patient and Family Discharge Plan Triage Chief Complaint: Bite ED Provider: Alfonso Abraham Dx/Rx/DC Orders Clinical Impression: Dog bite of left lower leg with infection, History of diabetes mellitus Instructions: ED Dog Bite Prescriptions: New clindamycin HCl [Cleocin HCl] 300 mg capsule 300 mg PO Q6H 10 Days Qty: 40 0RF No Action ferrous sulfate [Feosol] 325 mg (65 mg iron) tablet 325 mg PO DAILY ascorbic acid (vitamin C) 1,000 mg tablet extended release 1,000 mg PO Q12H Co Q-10 75 mg capsule 75 mg PO DAILY cholecalciferol (vitamin D3) 10 mcg (400 unit) capsule 10 mcg PO DAILY multivitamin capsule 1 cap PO DAILY calcium-vitamin D3-vitamin K 500-100-40 mg-unit-mcg tablet,chewable 1 tab PO DAILY Rx Instructions: chew thoroughly before swallowing; do not swallow whole (DME) blood-glucose meter [Accu-Chek Nithya Plus Meter] Misc See Rx Instructions .ROUTE .MEDSUPPLY Qty: 1 0RF Rx Instructions: As directed, check daily type 2 DM cyclobenzaprine 10 mg tablet 10 mg PO TID PRN (Reason: Muscle Spasm) Qty: 12 0RF (DME) Accu-Chek Guide test strips Strip See Rx Instructions .ROUTE .MEDSUPPLY Qty: 100 3RF Rx Instructions: check glucose daily for type 2 DM cetirizine 10 mg capsule 10 mg PO DAILY Qty: 90 3RF rosuvastatin 20 mg tablet 20 mg PO QHS Qty: 90 3RF metformin 1,000 mg tablet 1,000 mg PO BID Qty: 180 3RF lisinopril 5 mg tablet 5 mg PO DAILY Qty: 90 3RF levothyroxine 175 mcg tablet 175 mcg PO DAILY Qty: 90 3RF empagliflozin 25 mg tablet 25 mg PO DAILY Qty: 90 0RF Trulicity 3 mg/0.5 mL pen injector See Rx Instructions .ROUTE .COMPLEX Qty: 4 3RF Dose Instruction: INJECT THE CONTENTS OF 1 PEN SUBCUTANEOUSLY ONCE A WEEK. Rx Instructions: INJECT THE CONTENTS OF 1 PEN SUBCUTANEOUSLY ONCE A WEEK. venlafaxine 150 mg capsule,extended release 24hr See Rx Instructions .ROUTE .COMPLEX Qty: 90 0RF Dose Instruction: Take 1 capsule by mouth once daily Rx Instructions: Take 1 capsule by mouth once daily Primary Care Provider: Michael Coles Referrals: Michael Coles MD [Primary Care Provider] - 3-5 Days if not improving Activity Restrictions/Additional Instructions: Infected dog bite of your left lower leg. The antibiotic clindamycin 300 mg 4 times a day for the next 10 days. Follow-up with your doctor if not improving. If it is looking a lot worse the leg gets significantly more red, swollen, streaks up your leg, fever or you are feeling worse return to his room after admitted for IV antibiotics. I am hopeful that the oral antibiotics should be able to take care of this. Motrin and Tylenol for pain. Ice and elevate. Disposition Disposition: Home, Self Care What to do if you have Problems For any increased pain, shortness of breath, bleeding, nausea or vomiting, chestpain, or any unexpected problems, contact your Primary Care Provider. Call [facility] ([phone]) or report to the closest Emergency Room. Call 911 if necessary. 03/15/231712 <Electronically signed by Alfonso Abraham MD> Cosigner Signature (if applicable): CC: Dr. Michael Coles MD ~ Signed [facility] Work Phone: 1(269) 384-892304-06-[address] Ponce [facility] November 13, 2022 6:08pm Note Date/Time November 13, 2022 6:06 pm [facility] Medical Records Department [address] [place] [address] Emergency Department Summary 11/13/22 MR#: [id number] Acct: [id number] Name: JACKIE HARRINGTON Rep #:[id number] : 1970 52 From: Benjamín Ponce MD PCP: Dr. Michael Coles MD Status:R EG ER Location: ED HPI History of Present Illness Chief Complaint: Back Informant: patient Onset/Context/Timing Onset: Weeks (2) Context: Sudden Onset Injury: twisting and bending Timing: Continuous Quality: Aching Location: Lumbar and Buttock Current Severity: Moderate Maximum Severity: Moderate Worsened by: improves with Bending, Lifting and - (Lying down) Relieved by: - (Better with walking and getting around) Associated Symptoms Associated Symptoms: Negative for Numbness, Tingling, Radiation to Right Leg, Radiation to Left Leg, Fever, Abdominal Pain, Dysuria, Unable to Ambulate, Unable to Transfer, Urinary Retention, Urinary Incontinence, Constipation or Fecal Incontinence Narrative Narrative: Patient was seen here 3 days after an injury 2 weeks ago for the same symptoms, they are persistent. They are not really changing, pain is in her left low back, except it is moved into her left buttock as well, but not down her lower extremity or into the other side. No bowel or bladder dysfunction. The pain started with her simply bending over and opening a dog cage and moving the wrongway it felt like. She was prescribed prednisone and Flexeril she states those were helping but they are gone. She has had no other injuries. [facility] Medical History Asthma Bilateral shoulder pain Coccyx pain Diabetes Fibroadenoma of right breast Hormone deficiency Hyperlipemia Hypertension Hypothyroidism IBS (irritable bowel syndrome) Macromastia Seasonal allergies Uterine fibroid Home Medications ascorbic acid (vitamin C) 1,000 mg tablet,extended release 1,000 mg PO Q12H 03/29/20 [History Last Taken Unknown] calcium-vitamin D3-vitamin K 500 mg-100 unit-40 mcg chewable tablet 1 tab PO DAILY 03/29/20 [History Last Taken Unknown] cholecalciferol (vitamin D3) 10 mcg (400 unit) capsule 10 mcg PO DAILY 03/29/20 [History Last Taken Unknown] coenzyme Q10 75 mg capsule (Co Q-10) 75 mg PO DAILY 03/29/20 [History Last Taken Unknown] ferrous sulfate 325 mg (65 mg iron) tablet (Feosol) 325 mg PO DAILY 03/29/20 [History Last Taken Unknown] multivitamin 1 cap PO DAILY 03/29/20 [History Last Taken Unknown] blood-glucose meter (Accu-Chek Nithya Plus Meter) #1 ea 07/31/20 [Rx Last Taken Unknown] blood sugar diagnostic (Accu-Chek Guide test strips) #100 ea 07/23/21 [Rx Last Taken Unknown] cetirizine 10 mg capsule 10 mg PO DAILY #90 caps 10/07/21 [Rx Last Taken Unknown] empagliflozin 25 mg tablet 25 mg PO DAILY #90 tabs 08/27/22 [Rx Last Taken Unknown] levothyroxine 175 mcg tablet 175 mcg PO DAILY #90 tabs 08/27/22 [Rx Last Taken Unknown] lisinopril 5 mg tablet 5 mg PO DAILY #90 tabs 08/27/22 [Rx Last Taken Unknown] metformin 1,000 mg tablet 1,000 mg PO BID #180 tabs 08/27/22 [Rx Last Taken Unknown] rosuvastatin 20 mg tablet 20 mg PO QHS #90 tabs 08/27/22 [Rx Last Taken Unknown] venlafaxine 150 mg capsule,extended release 24 hr (Effexor XR) 150 mg PO DAILY #90 caps 08/27/22 [Rx Last Taken Unknown] dulaglutide 1.5 mg/0.5 mL subcutaneous pen injector (Trulicity) See Rx Instructions .Route .COMPLEX #12 mL 09/15/22 [Rx Last Taken Unknown] cyclobenzaprine 10 mg tablet 10 mg PO TID PRN Muscle Spasm #12 TABLETS 10/27/22 [Rx Last Taken Unknown] methylprednisolone 4 mg tablets in a dose pack (Medrol (Augustus)) 4 mg PO DAILY #21 tabs 10/27/22 [Rx Last Taken Unknown] orphenadrine citrate 100 mg tablet,extended release 100 mg PO Q12H PRN muscle spasm #14 tabs 11/13/22 [Rx Last Taken Unknown] tramadol 50 mg tablet 50 mg PO Q6H PRN pain 3 days #12 tabs 11/13/22 [Rx Last Taken Unknown] Allergy/AdvReac Type Severity Reaction Status Date / Time latex Allergy Severe rash Verified 11/13/22 16:57 aspirin Allergy Unknown unknown Verified 11/13/22 16:57 adhesive tape Allergy Rash Verified 11/13/22 16:57 Cephalosporins Allergy Hives Verified 11/13/22 16:57 Penicillins Allergy Hives Verified 11/13/22 16:57 shrimp Allergy Anaphylaxis Verified 11/13/22 16:57 Family History Father Diabetes CVA (cerebral vascular accident) Cancer skin Hypertension Heart disease Hyperlipemia Mother Heart disease Hyperlipemia Grandfather Myocardial infarction, Onset Age: 48 Uncle Alcoholism Surgical History History of History of endometrial ablation History of gastric bypass History of hysterectomy History of right knee joint replacement History of tubal ligation Hx of bilateral breast reduction surgery Social History household members: spouse and children housing: house number of children: 2 current occupational status: unemployed Smoking Status: Former smoker alcohol intake: current alcohol intake frequency: holidays/special occasions only substance use type: does not use what type of physical activity do you participate in: walking frequency: daily seatbelt use: always do you feel safe at home: Yes 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 ROS ED Constitutional Constitutional ED: Denies chills or fever(s) Gastrointestinal Gastrointestinal: Denies abdominal pain, constipation, fecal incontinence, nausea or vomiting Genitourinary Genitourinary ED: Reports other Details: no urinary retention ; Denies abdominal discomfort, urinary frequency or urinary incontinence Musculoskeletal Musculoskeletal: Reports as per HPI and back pain; Denies neck pain Integumentary Denies rash or wounds Neurologic Neurologic: Denies headache(s), paresthesias or weakness EXAM Physical Exam Const Vital Signs: 11/13/22 16:53 Temperature 96.9 F L Temperature Source Temporal Pulse Rate 95 Respiratory Rate 18 Blood Pressure 105/76 Blood Pressure Mean 85 Pulse Ox 99 Oxygen Delivery Method Room Air Positive well nourished, well developed and obese General Appearance ED: well developed and NAD Nutritional Appearance: obese HEENT Negative for trauma or tenderness Eyes PERRL and EOMs intact bilaterally Neck full ROM and supple GI normal to inspection, nondistended, normoactive bowel sounds, soft to palpation and non-tender Back/Spine normal to inspection Lumbar Spine / Lower Back: ROM limited, lumbar spinal tenderness L3 and L4, paraspinal muscle tenderness left and straight leg raise negative bilaterally Extremity normal to inspection, full ROM and no pedal edema Neuro oriented x3 and no sensory deficits noted Sensorium / Orientation: alert Motor Exam: strength 5/5 throughout and clonus absent Deep Tendon Reflexes: Rt Patellar (L4): 2+, Lt Patellar (L4): 2+, Rt Ankle (S1):2+ and Lt Ankle (S1): 2+ Deep Tendon Reflexes Back: Rt Patellar (L4): 2+, Lt Patellar (L4): 2+, Rt Ankle (S1): 2+ and Lt Ankle (S1): 2+ Plantar Reflex: Downgoing: bilateral Psych mental status grossly normal and thought process normal Skin no rashes or lesions noted and no wounds MDM MDM MDM Narrative Medical decision making narrative: I reviewed x-ray results from 2 weeks ago they were negative. I do not think these need to be repeated. Patient is having mild pain in the midline, but since she already had x-rays I think we are good there. She is having a lot of paraspinal pain and tenderness and in the area of the left SI joint. We discussed SI joint dysfunction in the differential diagnosis including muscle strain, tendon injury, ligament injury which I think are less likely given that this was low force. I am happy to prescribe her medications for supportive carewhich she is amenable to, I also recommend following up with either physical therapy and/or chiropractic, and we discussed lying on a tennis ball and seeing if that helps this, as often is the case with SI joint dysfunction that is mechanical. Since she had a Archana-en-Y in the past, cannot prescribe her anti-inflammatories, and I do not think she needs more prednisone. I will give her a short course of tramadol, and a muscle relaxer that does not interact withthat. She is comfortable with that overall plan of following up. History & Record Review Additional record(s) reviewed:: Prior ED visit Discharge Plan Triage Chief Complaint: Back ED Provider: Benjamín Ponce Dx/Rx/DC Orders Clinical Impression: Sacroiliac joint dysfunction of left side Instructions: Anatomy of the Sacroiliac Joint, ED Sacroiliitis Prescriptions: New tramadol 50 mg tablet 50 mg PO Q6H PRN (Reason: pain) 3 Days Qty: 12 0RF orphenadrine citrate 100 mg tablet extended release 100 mg PO Q12H PRN (Reason: muscle spasm) Qty: 14 0RF No Action ferrous sulfate [Feosol] 325 mg (65 mg iron) tablet 325 mg PO DAILY ascorbic acid (vitamin C) 1,000 mg tablet extended release 1,000 mg PO Q12H Co Q-10 75 mg capsule 75 mg PO DAILY cholecalciferol (vitamin D3) 10 mcg (400 unit) capsule 10 mcg PO DAILY multivitamin capsule 1 cap PO DAILY calcium-vitamin D3-vitamin K 500-100-40 mg-unit-mcg tablet,chewable 1 tab PO DAILY Rx Instructions: chew thoroughly before swallowing; do not swallow whole (DME) blood-glucose meter [Accu-Chek Nithya Plus Meter] Misc See Rx Instructions .ROUTE .MEDSUPPLY Qty: 1 0RF Rx Instructions: As directed, check daily type 2 DM methylprednisolone [Medrol (Augustus)] 4 mg tablets,dose pack 4 mg PO DAILY Qty: 21 0RF Rx Instructions: Take taper dose as directed cyclobenzaprine 10 mg tablet 10 mg PO TID PRN (Reason: Muscle Spasm) Qty: 12 0RF (DME) Accu-Chek Guide test strips Strip See Rx Instructions .ROUTE .MEDSUPPLY Qty: 100 3RF Rx Instructions: check glucose daily for type 2 DM cetirizine 10 mg capsule 10 mg PO DAILY Qty: 90 3RF rosuvastatin 20 mg tablet 20 mg PO QHS Qty: 90 3RF metformin 1,000 mg tablet 1,000 mg PO BID Qty: 180 3RF lisinopril 5 mg tablet 5 mg PO DAILY Qty: 90 3RF levothyroxine 175 mcg tablet 175 mcg PO DAILY Qty: 90 3RF venlafaxine [Effexor XR] 150 mg capsule,extended release 24hr 150 mg PO DAILY Qty: 90 0RF empagliflozin 25 mg tablet 25 mg PO DAILY Qty: 90 0RF Trulicity 1.5 mg/0.5 mL pen injector See Rx Instructions .ROUTE .COMPLEX Qty: 12 0RF Dose Instruction: INJECT THE CONTENTS OF 1 PEN SUBCUTANEOUSLY ONCE A WEEK Rx Instructions: INJECT THE CONTENTS OF 1 PEN SUBCUTANEOUSLY ONCE A WEEK Primary Care Provider: Michael Coles Referrals: Michael Coles MD [Primary Care Provider] - 1 Week if not improving (Or may follow-up with chiropracty without a physician referral) Disposition Disposition: Home, Self Care What to do if you have Problems For any increased pain, shortness of breath, bleeding, nausea or vomiting, chestpain, or any unexpected problems, contact your Primary Care Provider. Call [facility] ([phone]) or report to the closest Emergency Room. Call 911 if necessary. 11/13/221807 <Electronically signed by Benjamín Ponce MD> Cosigner Signature (if applicable): CC: Dr. Michael Coles MD ~ Signed [facility] Work Phone: 1(172) 609-871403-20-2023 Hospital Discharge instructions Additional Instructions Keep an eye on your blood sugars while taking methylprednisolone. Do not drive while taking muscle relaxers. Follow-up with your primary care provider in the next 3 to 5 days. [facility] Work Phone: 1(830) 170-982512-22-2022 History of Present illness Narrative* Mercedes Reid APRN.SYSTEM SOFTWARE PROGRAMMER - 07/31/2022 7:21 AM EST CC: Patient presents with: Sinus Problem: Sinus, congestion bilateral ear pressure, BLOOM and face hurts x 1 day Is sinus drainage and congestion started 4 days ago altogether. HPI: Jackie Harrington is a 52 year old female who presents to the office with complaint of head congestionand sinus symptoms for a few days. Symptoms [...] ALLERGIES Cephalosporins, Iodine, Latex, Penicillins, Aspirin, Nsaids (Non- Steroidal Anti-Inflammatory Drug), and Shrimp MEDICATIONS No prescriptions [...] Patient agreeable to treatment plan. Mercedes Reid APRN.SYSTEM SOFTWARE PROGRAMMER documented [facility] Medical Records Department [address] [place] [address] Counseling Note - Pharmacy 05/26/25 1341 MR#: [id number] Acct: [id number] Name: JACKIE HARRINGTON Rep #:[id number] : 1970 54 From: Trini Montaño PCP: Dr. Michael Coles MD Status:D IS TUSHAR Y Location: [place] [address] Pharmacy [facility] Counseling Pharmacy Service has performed discharge medication reconciliation and counseling for this patient. 1. APIXABAN 5MG PO BID 2. METOPROLOL TARTRATE 12.5MG PO BID The patient's discharge medication list was reviewed for discrepancies and discrepancies were resolved. The patient was counseled on the following discharge medications and changes in medications for homegoing were reviewed. The Reason for Use, instructions for use, and potential side effects were reviewed for all new medications. The patient's questions regarding all of their medications were answered. The patient was able to verbally demonstrate an understanding of their dischargemedications. Medications at Discharge Home Medications calcium 500 mg-vitamin D3 100 unit-vitamin K 40 mcg chewable tablet 1 tab PO DAILY supplement 03/29/20 cholecalciferol (vitamin D3) 10 mcg (400 unit) capsule 10 mcg PO DAILY supplement 03/29/20 coenzyme Q10 75 mg capsule (Co Q-10) 75 mg PO DAILY heart supplement 03/29/20 ferrous sulfate 325 mg (65 mg iron) tablet (Feosol) 325 mg PO DAILY supplement 03/29/20 multivitamin 1 cap PO DAILY supplement 03/29/20 blood-glucose meter (Accu-Chek Nithya Plus Meter) #1 ea 07/31/20 cetirizine 10 mg capsule 10 mg PO DAILY #90 caps 10/07/21 blood sugar diagnostic (Accu-Chek Guide test strips) #100 ea 09/07/23 ascorbic acid (vitamin C) 1,000 mg tablet 1 g PO ONCE supplement 08/26/24 venlafaxine 150 mg capsule,extended release 24 hr See Rx Instructions .Route .COMPLEX depression #90 caps 09/07/24 lisinopril 5 mg tablet 5 mg PO DAILY hypertension #90 tabs 11/29/24 tirzepatide 12.5 mg/0.5 mL subcutaneous pen injector 12.5 mg (0.5 mL) subcut QWEEK blood sugar 3 months #6.5 mL 02/07/25 metformin 1,000 mg tablet 1,000 mg PO BID blood sugar #180 tabs 03/22/25 rosuvastatin 20 mg tablet 20 mg PO QHS cholesterol #90 tabs 03/22/25 levothyroxine 175 mcg tablet 175 mcg PO DAILY hypothyroidism #90 tabs 05/22/25 apixaban 5 mg tablet (Eliquis) 5 mg PO BID 30 days #60 tabs 05/26/25 metoprolol tartrate 25 mg tablet 12.5 mg (1/2 x 25 mg) PO BID 30 days #30 tabs 05/26/25 05/26/25 1341 Date _ Trini Knox Signature (if applicable): Date CC: ~ [facility]igned [facility] Author Trini Montaño [facility] Note Date/Time May 26, 2025 1 :41pm [facility] Medical Records Department [address] [place] [address] Counseling Note - Pharmacy 05/26/25 134 MR#: [id number] Acct: [id number] Name: JACKIE HARRINGTON Rep #:[id number] : 1970 54 From: Trini Montaño PCP: Dr. Michael Coles MD Status:D IS TUSHAR Y [facility] Counseling Pharmacy Service has performed discharge medication reconciliation and counseling for this patient. 1. APIXABAN 5MG PO BID 2. METOPROLOL TARTRATE 12.5MG PO BID The patient's discharge medication list was reviewed for discrepancies and discrepancies were resolved. The patient was counseled on the following discharge medications and changes in medications for homegoing were reviewed. The Reason for Use, instructions for use, and potential side effects were reviewed for all new medications. The patient's questions regarding all of their medications were answered. The patient was able to verbally demonstrate an understanding of their dischargemedications. Medications at Discharge Home Medications calcium 500 mg-vitamin D3 100 unit-vitamin K 40 mcg chewable tablet 1 tab PO DAILY supplement 03/29/20 cholecalciferol (vitamin D3) 10 mcg (400 unit) capsule 10 mcg PO DAILY supplement 03/29/20 coenzyme Q10 75 mg capsule (Co Q-10) 75 mg PO DAILY heart supplement 03/29/20 ferrous sulfate 325 mg (65 mg iron) tablet (Feosol) 325 mg PO DAILY supplement 03/29/20 multivitamin 1 cap PO DAILY supplement 03/29/20 blood-glucose meter (Accu-Chek Nithya Plus Meter) #1 ea 07/31/20 cetirizine 10 mg capsule 10 mg PO DAILY #90 caps 10/07/21 blood sugar diagnostic (Accu-Chek Guide test strips) #100 ea 09/07/23 ascorbic acid (vitamin C) 1,000 mg tablet 1 g PO ONCE supplement 08/26/24 venlafaxine 150 mg capsule,extended release 24 hr See Rx Instructions .Route .COMPLEX depression #90 caps 09/07/24 lisinopril 5 mg tablet 5 mg PO DAILY hypertension #90 tabs 11/29/24 tirzepatide 12.5 mg/0.5 mL subcutaneous pen injector 12.5 mg (0.5 mL) subcut QWEEK blood sugar 3 months #6.5 mL 02/07/25 metformin 1,000 mg tablet 1,000 mg PO BID blood sugar #180 tabs 03/22/25 rosuvastatin 20 mg tablet 20 mg PO QHS cholesterol #90 tabs 03/22/25 levothyroxine 175 mcg tablet 175 mcg PO DAILY hypothyroidism #90 tabs 05/22/25 apixaban 5 mg tablet (Eliquis) 5 mg PO BID 30 days #60 tabs 10/17/25 metoprolol tartrate 25 mg tablet 12.5 mg (1/2 x 25 mg) PO BID 30 days #30 tabs 05/26/25 05/26/25 1341 <Electronically signed by Trini Montaño> Date _ Trini Montaño Cosigner Signature (if applicable): Date CC: ~ Signed [facility] Work Phone: Discharge summary Author Dr. Leon [facility] October 27, 2022 9:36am Note Date/Time October 27, 2022 8:0 1am [facility] Medical Records Department [address] [place] [address] Emergency Department Summary 10/27/22 MR#: [id number] Acct: [id number] Name: JACKIE HARRINGTON DECEMBER Rep #:[id number] : 1970 52 From: Kan Leon MD PCP: Dr. Michael Coles MD Status:R ER Location: ED HPI History of Present Illness Chief Complaint: Back Narrative Narrative: 52-year-old female past medical history of hypertension, diabetes, IBS, states she had a Archana-en-Y procedure remotely presents with injury to her left low backthat she sustained on Thursday, 4 days ago. She took one of her husbands meloxicam, and has been taking Tylenol with mild relief of her symptoms. However, this morning she woke with increasing pain on the left side. She is currently using a cane to ambulate. She initially injured her left low back when she let the dogs out of their cage, and twisted incorrectly. While she states that she had almost immediate pain in that area, it was improving with a heating pad and Tylenol. She denies any fevers or chills. No nausea or vomiting. No loss of bowel or bladder, no saddle anesthesia. The pain does notradiate down her leg, however when she moves her left leg she feels tightness inher left low back. [facility] Medical History Asthma Bilateral shoulder pain Coccyx pain Diabetes Fibroadenoma of right breast Hormone deficiency Hyperlipemia Hypertension Hypothyroidism IBS (irritable bowel syndrome) Macromastia Seasonal allergies Uterine fibroid Home Medications ascorbic acid (vitamin C) 1,000 mg tablet,extended release 1,000 mg PO Q12H 03/29/20 [History Last Taken Unknown] calcium-vitamin D3-vitamin K 500 mg-100 unit-40 mcg chewable tablet 1 tab PO DAILY 03/29/20 [History Last Taken Unknown] cholecalciferol (vitamin D3) 10 mcg (400 unit) capsule 10 mcg PO DAILY 03/29/20 [History Last Taken Unknown] coenzyme Q10 75 mg capsule (Co Q-10) 75 mg PO DAILY 03/29/20 [History Last Taken Unknown] ferrous sulfate 325 mg (65 mg iron) tablet (Feosol) 325 mg PO DAILY 03/29/20 [History Last Taken Unknown] multivitamin 1 cap PO DAILY 03/29/20 [History Last Taken Unknown] blood-glucose meter (Accu-Chek Nithya Plus Meter) #1 ea 07/31/20 [Rx Last Taken Unknown] blood sugar diagnostic (Accu-Chek Guide test strips) #100 ea 07/23/21 [Rx Last Taken Unknown] cetirizine 10 mg capsule 10 mg PO DAILY #90 caps 10/07/21 [Rx Last Taken Unknown] empagliflozin 25 mg tablet 25 mg PO DAILY #90 tabs 08/27/22 [Rx Last Taken Unknown] levothyroxine 175 mcg tablet 175 mcg PO DAILY #90 tabs 08/27/22 [Rx Last Taken Unknown] lisinopril 5 mg tablet 5 mg PO DAILY #90 tabs 08/27/22 [Rx Last Taken Unknown] metformin 1,000 mg tablet 1,000 mg PO BID #180 tabs 08/27/22 [Rx Last Taken Unknown] rosuvastatin 20 mg tablet 20 mg PO QHS #90 tabs 08/27/22 [Rx Last Taken Unknown] venlafaxine 150 mg capsule,extended release 24 hr (Effexor XR) 150 mg PO DAILY #90 caps 08/27/22 [Rx Last Taken Unknown] dulaglutide 1.5 mg/0.5 mL subcutaneous pen injector ([facility]) See Rx Instructions .Route .COMPLEX #12 mL 09/15/22 [Rx Last Taken Unknown] cyclobenzaprine 10 mg tablet 10 mg PO TID PRN Muscle Spasm #12 TABLETS 10/27/22 [Rx Last Taken Unknown] methylprednisolone 4 mg tablets in a dose pack (Medrol (Augustus)) 4 mg PO DAILY #21 tabs 10/27/22 [Rx Last Taken Unknown] Allergy/AdvReac Type Severity Reaction Status Date / Time latex Allergy Severe rash Verified 10/27/22 07:37 aspirin Allergy Unknown unknown Verified 10/27/22 07:37 adhesive tape Allergy Rash Verified 10/27/22 07:37 Cephalosporins Allergy Hives Verified 10/27/22 07:37 Penicillins Allergy Hives Verified 10/27/22 07:37 shrimp Allergy Anaphylaxis Verified 10/27/22 07:37 Family History Father Diabetes CVA (cerebral vascular accident) Cancer skin Hypertension Heart disease Hyperlipemia Mother Heart disease Hyperlipemia Grandfather Myocardial infarction, Onset Age: 48 Uncle Alcoholism Surgical History History of History of endometrial ablation History of gastric bypass History of hysterectomy History of right knee joint replacement History of tubal ligation Hx of bilateral breast reduction surgery Social History household members: spouse and children housing: house number of children: 2 current occupational status: unemployed Smoking Status: Former smoker alcohol intake: current alcohol intake frequency: holidays/special occasions only substance use type: does not use what type of physical activity do you participate in: walking frequency: daily seatbelt use: always do you feel safe at home: Yes 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 HEENT: No sore throat. No neck pain. No loss of vision. No rhinorrhea. Cardiovascular: No chest pain. No palpitations. No pedal edema. Respiratory: No cough, no shortness of breath. Abdominal: No abdominal pain. No nausea. No vomiting. Genitourinary: No dysuria. No hematuria. Musculoskeletal: No myalgias. No arthralgias. Left low back pain. Neurologic: No headaches. No dizziness. No lightheadedness. No saddle anesthesia. No loss of bowel or bladder. No radicular symptoms. Skin: No rash. No change in color. Psychiatric: No depression. No anxiety. EXAM Physical Exam Narrative Exam Narrative: Afebrile. Vital signs noted. HEENT: Normocephalic. Atraumatic. PERRL, EOMI. Neck soft and supple. No pointtenderness or step off. Cardiovascular: Regular rate and rhythm. No murmurs, rubs, or gallops appreciated. Respiratory: No tachypnea. Lungs clear to auscultation bilaterally. Gastrointestinal: Abdomen soft, nontender, with normoactive bowel sounds. No rebound or guarding. Neurological: Awake. Alert. Nonfocal, nonlateralizing. DTRs equal and symmetricpatellar. Straight leg raising negative bilaterally without cross symptoms. EHL intact bilaterally. Skin: No rash. Normal color. No pallor. Musculoskeletal: No pedal edema. Full range of motion extremities. Mild tenderness to palpation left lumbar paraspinal area, no vertebral point tenderness or bony step-off, with mild tenderness in sacroiliac joint on the left. Const Vital Signs: 10/27/22 07:37 Temperature 97.6 F L Temperature Source Temporal Pulse Rate 78 Respiratory Rate 16 Blood Pressure 107/81 H Blood Pressure Mean 89 Pulse Ox 98 Oxygen Delivery Method Room Air MDM MDM MDM Narrative Medical decision making narrative: Patient denies previous, chronic problems with low back pain. I do feel that she has more of a lumbosacral strain. In the differential diagnosis is also cauda equina syndrome, but I do not feel that she has any red flag signs, and her pain is mildly reproducible. She has a normal neurological examination. X-rays were obtained of the lumbar spine and interpreted by myself. I had a lengthy discussion with the patient and her regarding analgesia. She states that she cannot take anti-inflammatories, but can take steroid such as Medrol Dosepak. I do feel that she would benefit from this given the inflammation of her left lumbar area. Regarding muscle relaxers, she is unsure if she would like a prescription for them. She did accept a dose here for analgesia, and declined use of narcotic pain medications here in the emergency department and/or for home use. She was ordered Norflex 60 mg intramuscularly. She will continue alternating heat and ice at home. I will write her prescription for Medrol Dosepak. She was told to keep an eye on her blood sugaras these tend to increase while taking steroids. She was also warned of the risk of ulcer formation. However, she does state that she has tolerated Medrol Dosepak previously. Additionally, she was written a prescription for Flexeril 10 mg tablets #12 to take as needed. I reviewed her x-rays and interpreted themas no acute fracture. I reviewed the radiology report which confirms my independent interpretation. At this point in time, I do feel she can be discharged safely home with follow-up to her primary care provider. Return instructions to the emergency department were reviewed. Disposition is discharged home in stable condition. Radiography Diagnostic Testing: Clinical Impression(s) from Imaging Studies Lumbar Spine X-Ray 10/27/22 07:56 IMPRESSION: 1. Minimal anterior wedging of T11 vertebral body is presumably from remote injury. 2. Normal lumbar spine. Electronically Signed: Kan Lawrence MD at 9:25 EDT , Discharge Plan Triage Chief Complaint: Back ED Provider: Kan Leon Dx/Rx/DC Orders Clinical Impression: Low back strain, Lumbar back pain Instructions: ED Back Sprain/Strain, ED Pain, Acute, Uncertain Cause Prescriptions: New methylprednisolone [Medrol (Augustus)] 4 mg tablets,dose pack 4 mg PO DAILY Qty: 21 0RF Rx Instructions: Take taper dose as directed cyclobenzaprine 10 mg tablet 10 mg PO TID PRN (Reason: Muscle Spasm) Qty: 12 0RF No Action ferrous sulfate [Feosol] 325 mg (65 mg iron) tablet 325 mg PO DAILY ascorbic acid (vitamin C) 1,000 mg tablet extended release 1,000 mg PO Q12H Co Q-10 75 mg capsule 75 mg PO DAILY cholecalciferol (vitamin D3) 10 mcg (400 unit) capsule 10 mcg PO DAILY multivitamin capsule 1 cap PO DAILY calcium-vitamin D3-vitamin K 500-100-40 mg-unit-mcg tablet,chewable 1 tab PO DAILY Rx Instructions: chew thoroughly before swallowing; do not swallow whole (DME) blood-glucose meter [Accu-Chek Nithya Plus Meter] [facility] See Rx Instructions .ROUTE .MEDSUPPLY Qty: 1 0RF Rx Instructions: As directed, check daily type 2 DM (DME) Accu-Chek Guide test strips Strip See Rx Instructions .ROUTE .MEDSUPPLY Qty: 100 3RF Rx Instructions: check glucose daily for type 2 DM cetirizine 10 mg capsule 10 mg PO DAILY Qty: 90 3RF rosuvastatin 20 mg tablet 20 mg PO QHS Qty: 90 3RF metformin 1,000 mg tablet 1,000 mg PO BID Qty: 180 3RF lisinopril 5 mg tablet 5 mg PO DAILY Qty: 90 3RF levothyroxine 175 mcg tablet 175 mcg PO DAILY Qty: 90 3RF venlafaxine [Effexor XR] 150 mg capsule,extended release 24hr 150 mg PO DAILY Qty: 90 0RF empagliflozin 25 mg tablet 25 mg PO DAILY Qty: 90 0RF Trulicity 1.5 mg/0.5 mL pen injector See Rx Instructions .ROUTE .COMPLEX Qty: 12 0RF Dose Instruction: INJECT THE CONTENTS OF 1 PEN SUBCUTANEOUSLY ONCE A WEEK Rx Instructions: INJECT THE CONTENTS OF 1 PEN SUBCUTANEOUSLY ONCE A WEEK Primary Care Provider: Michael Coles Referrals: Michael Coles MD [Primary Care Provider] - 3-5 Days if not improving Activity Restrictions/Additional Instructions: Keep an eye on your blood sugars while taking methylprednisolone. Do not drive while taking muscle relaxers. Follow-up with your primary care provider in the next 3 to 5 days. Disposition Disposition: Home, Self Care What to do if you have Problems For any increased pain, shortness of breath, bleeding, nausea or vomiting, chestpain, or any unexpected problems, contact your Primary Care Provider. Call [facility] ([phone]) or report to the closest Emergency Room. Call 911 if necessary. 10/27/22 7679 <Electronically signed by Kan Leon MD> Cosigner Signature (if applicable): CC: Dr. Michael Coles MD ~ Signed [facility] Work Phone: Discharge summary [facility] Medical Records Department [address] [place] [address] Discharge Summary 05/26/25 1352 MR#: [id number] Acct: [id number] Name: JACKIE HARRINGTON Rep #:[id number] : 1970 54 From: Javi samuels MD PCP: Dr. Michael Coles MD Status:D IS TUSHAR Location: [place] [address]- Providers Date of Admission: 05/25/25 Primary Care Physician: Dr. Michael Coles MD Reason For Visit: NEW AFIB Diagnosis Discharge Diagnosis (1) New onset a-fib: Status: Acute Code(s): I48.91 - Unspecified atrial fibrillation Medications at Discharge Home Medications calcium 500 mg-vitamin D3 100 unit-vitamin K 40 mcg chewable tablet 1 tab PO DAILY supplement 03/29/20 cholecalciferol (vitamin D3) 10 mcg (400 unit) capsule 10 mcg PO DAILY supplement 03/29/20 coenzyme Q10 75 mg capsule (Co Q-10) 75 mg PO DAILY heart supplement 03/29/20 ferrous sulfate 325 mg (65 mg iron) tablet (Feosol) 325 mg PO DAILY supplement 03/29/20 multivitamin 1 cap PO DAILY supplement 03/29/20 blood-glucose meter (Accu-Chek Nithya Plus Meter) #1 ea 07/31/20 cetirizine 10 mg capsule 10 mg PO DAILY #90 caps 10/07/21 blood sugar diagnostic (Accu-Chek Guide test strips) #100 ea 09/07/23 ascorbic acid (vitamin C) 1,000 mg tablet 1 g PO ONCE supplement 08/26/24 venlafaxine 150 mg capsule,extended release 24 hr See Rx Instructions .Route .COMPLEX depression #90 caps 09/07/24 lisinopril 5 mg tablet 5 mg PO DAILY hypertension #90 tabs 11/29/24 tirzepatide 12.5 mg/0.5 mL subcutaneous pen injector 12.5 mg (0.5 mL) subcut QWEEK blood sugar 3 months #6.5 mL 02/07/25 metformin 1,000 mg tablet 1,000 mg PO BID blood sugar #180 tabs 03/22/25 rosuvastatin 20 mg tablet 20 mg PO QHS cholesterol #90 tabs 03/22/25 levothyroxine 175 mcg tablet 175 mcg PO DAILY hypothyroidism #90 tabs 05/22/25 apixaban 5 mg tablet (Eliquis) 5 mg PO BID 30 days #60 tabs 05/26/25 metoprolol tartrate 25 mg tablet 12.5 mg (1/2 x 25 mg) PO BID 30 days #30 tabs 05/26/25 Hospital Course Operations None Procedures 2-D Echocardiogram Summary of Care Provided Minutes Spent on Discharge: 35 Hospital Course: Per HPI: JACKIE HARRINGTON, is a 54 F who presents to the hospital with 2 episodes ofsyncope over the last couple of days. Yesterday she had some lightheadedness and dizziness and was able to sit down before she completely blacked out, and then her found her on the toilet unresponsive with her eyes open and then today she was in the kitchen and she felt lightheaded and dizzy and diaphoretic and slid down against the cabinets onto the ground. None of the witnessed episode showed signs or symptoms consistent with seizures. She deniesany palpitations or racing heartbeat and none of them were drop attacks. She does have symptoms with positional changes. In the emergency room EKG was read as being A-fib with RVR and she had an elevated proBNP. She did have elevated D-dimer so CTA of the chest was done which was negative for PE. TSH and free T4were obtained, TSH was normal and T4 was elevated. Hospital Course: 1. Syncope secondary to new onset A-fib with RVR/essential HTN/HLD?84-year-old female presented to the hospital with a few syncopal episodes over the last 2 days. On presentation to the ER she was found to be in A-fib with RVR with a max rate of 146. She was given dose of Lopressor 5 mg IV x 1 she did have some postmedication hypotension and was orthostatic positive as well. She was started on IVfluids and sometime overnight converted to normal sinus rhythm. She was placed on metoprolol 12.5 mg p.o. twice daily as she states she normallysits at a lower blood pressure at baseline, she was able to tolerate this medication this morning and was feeling much better and requested discharge home.I discussed with her the possibility of discharge and she expressed understanding of the risk and benefits of going home and would like to go home today. She has a [id number] of 2 secondary to her type 2 diabetes and her gender therefore she was placed on Eliquis 5 mg p.o. twice daily. Her thyroid functions were also checked since this was new onset A-fib and her TSH was normal but her free T4 w as high, her T3 was normal therefore I made no adjustments to her Synthroid. I do recommend outpatient follow-up with cardiology as well as her PCP for further monitoring and dose adjustments. We didobtain an echocardiogram which demonstrated an EF of 55% and a normal left atrium. 2. Type 2 diabetes, hypothyroidism are all chronic medical conditions which complicate his care. His home medications were continued where appropriate Physical Exam Narrative General: Alert, Oriented x3, Cooperative, No apparent distress HEENT: Atraumatic, PERRLA, EOMI, Normocephalic Oral: Moist mucosa Neck: Supple, No JVD Lungs: Diminished, Normal air movement, No rhonchi, No wheeze, No rales Cardiovascular: Regular rate, Regular Rhythm, Normal S1, Normal S2, No murmurs Abdomen: Soft, Non Tender, Non-Distended, No Hepato-splenomegaly Extremities: No edema, Capillary Refill Less than 3 Seconds Skin: No rashes, No breakdown Musculoskeletal: No Tenderness to Palpation of Joints or Extremities Neurological: No focal neurological deficits, moves all extremities Psych/Mental Status: Normal Affect, Appropriate Weight / BMI Weight Weight: 205 lb 11.06 oz Body Mass Index (BMI) 32.2 ABG / Lab / Microbiology Data 05/26/25 04:45 05/26/25 04:45 Laboratory: Laboratory Results - last 24 hr 05/25/25 11:44: Free T3 pg/dL 2.3 05/25/25 20:45: POC Glucose 91 05/26/25 04:45: WBC 7.0, RBC 4.38, Hgb 12.1, Hct 37.6, MCV 85.8, MCH 27.6, MCHC 32.2, RDW Std Deviation 43.7, RDW Coeff of Cher 14.0, Plt Count 265, MPV 9.7, Immature Gran % (Auto) 0.400, Neut % (Auto) 63.1, Lymph % (Auto) 24.4, [place] % (Auto) 8.8, Eos % (Auto) 2.7, Baso % (Auto) 0.6, Absolute Neuts (auto) 4.4, Absolute Lymphs (auto) 1.72, Nucleated RBC % 0, Sodium 140, Potassium 3.9, Chloride 106,Carbon Dioxide 26.0, Anion Gap 8, BUN 11, Creatinine 0.57 L, EstimCreat Clear Calc 130.77, Est GFR (MDRD) Non-Af 107, BUN/Creatinine Ratio 19.0, Glucose 80, Calcium 8.5 Radiography Diagnostic Testing: Radiology Impression Echocardiogram 05/25/25 13:48 Interpretation Summary Normal LV size. Left ventricular systolic function is normal. The left ventricular ejection fraction is 55 %. Unable to assess diastolic dysfunction due to arrhythmia. Ordering Physician: Javi Mota Performed By: Ricci Belle RCS D/C Instructions Call your doctor if you observe: Fever of 101 or Higher, Shortness of breath, Dizziness, Fainting spells, Swelling in the ankles, Chest pain and Increased palpitations (irregular heartbeat) DC O2, CPAP, BIPAP Needs Home O2 Discharge instructions: No Meaningful Use Info Meaningful Use Meaningful Use Diagnoses (Choose all that apply): None applicable Discharge Plan Admission Admit Date/Time: 05/25/25 12:15 Attending Provider: Javi Mota Primary Care Provider: Michael Coles Instructions Patient Instructions: AFib Dc Discharge Orders/Prescriptions Prescriptions: New metoprolol tartrate 25 mg Tablet 12.5 mg PO BID 30 Days Qty: 30 0RF Eliquis 5 mg Tablet 5 mg PO BID 30 Days Qty: 60 0RF Continued ferrous sulfate [Feosol] 325 mg (65 mg iron) tablet 325 mg PO DAILY Co Q-10 75 mg capsule 75 mg PO DAILY cholecalciferol (vitamin D3) 10 mcg (400 unit) capsule 10 mcg PO DAILY multivitamin Capsule 1 cap PO DAILY calcium-vitamin D3-vitamin K 500-100-40 mg-unit-mcg tablet,chewable 1 tab PO DAILY Rx Instructions: chew thoroughly before swallowing; do not swallow whole (DME) blood-glucose meter [Accu-Chek Nithya Plus Meter] Misc See Rx Instructions .ROUTE .MEDSUPPLY Qty: 1 0RF Rx Instructions: As directed, check daily type 2 DM ascorbic acid (vitamin C) 1,000 mg tablet 1 g PO ONCE cetirizine 10 mg capsule 10 mg PO DAILY Qty: 90 3RF (DME) Accu-Chek Guide test strips Strip See Rx Instructions .ROUTE .MEDSUPPLY Qty: 100 3RF Rx Instructions: check glucose daily for type 2 DM venlafaxine 150 mg capsule,extended release 24hr See Rx Instructions .ROUTE .COMPLEX Qty: 90 3RF Dose Instruction: Take 1 capsule by mouth once daily Rx Instructions: Take 1 capsule by mouth once daily lisinopril 5 mg tablet 5 mg PO DAILY Qty: 90 2RF tirzepatide 12.5 mg/0.5 mL pen injector 12.5 mg subcut QWEEK 90 Days Qty: 6.5 1RF rosuvastatin 20 mg tablet 20 mg PO QHS Qty: 90 1RF metformin 1,000 mg tablet 1,000 mg PO BID Qty: 180 1RF levothyroxine 175 mcg tablet 175 mcg PO DAILY Qty: 90 2RF Referrals / Follow Up: Michael Coles MD [Primary Care Provider, Internal Medicine] - Within 1 Week Mati Mcginnis MD [Med Staff - Active Staff, Cardiology] - Within 1 Month Disposition Disposition (needs filled in before D/C Order can be placed): Home, Self Care Charges/Coding Visit Charges Inpatient E&M: 16247 Disch Hosp >30min 05/26/25 1358 Cosigner Signature (if applicable): CC: Dr. Michael Coles MD; Dr. Javi Mota MD~ [facility] Author Ricci Corona-Trinh [facility] Note Date/Time May 25, 2025 3 :23pm [facility] Medical Records Department [address] [place] [address] Emergency Department Summary 05/25/25 MR#: [id number] Acct: [id number] Name: JACKIE HARRINGTON Rep #:[id number] : 1970 54 From: Ricci Burnette ggmalick DO PCP: Dr. Michael Coles MD Status:A DM TUSHAR Location: [place] [address] HPI History of Present Illness Chief Complaint: Syncope Narrative Narrative: Chief complaint and HPI: 54-year-old female with past medical history of DM2, HTN, hypothyroidism, HLD, presents for evaluation of syncope. Patient was working on a house yesterday outside when she became lightheaded, nauseous, diaphoretic. States she went home and had 1 episode of emesis. states she woke up this morning and which shortly after drinking coffee she lowered herself to the ground and had a short episode of syncope. He then helped her tothe couch where she laid down for about an hour. States he then helped her to the bathroom in which she had a minimal responsive episode on the toilet. He states during that time the patient was diaphoretic. She endorses fatigue and nausea currently. She denies any fever, chills, shortness of breath, chest pain, abdominal pain. No history of trauma. Review of systems: See HPI Medications: As listed on the chart Allergies: As listed on the chart PFSH: Per chart Vital signs: As listed on the chart. Reviewed. Physical exam: Gen: A&O x3 Head: Normocephalic, atraumatic Eyes: No sclera icterus, conjunctiva clear ENT: Mildly dry mucous membranes Neck: Trachea midline CV: Irregularly irregular rhythm with tachycardia, no murmurs, no peripheral edema Resp: Lungs CTA BL, no w/r/c GI: Abd soft, non-distended, non-tender, no r/r/g Musc: Moves all extremities, no deformity Skin: Warm, dry Neuro: Alert, oriented, grossly intact Psych: Cooperative, appropriate mood and affect PFS PFS Medical History Colon cancer screening Anxiety and depression History of COVID-19 Acute back pain Bilateral shoulder pain Macromastia Fibroadenoma of right breast Coccyx pain Uterine fibroid Hypertension Hypothyroidism Hormone deficiency IBS (irritable bowel syndrome) Hyperlipemia Diabetes Asthma Seasonal allergies Home Medications ?Medication ?Instructions ?Recorded ?Last Taken ?Type calcium 500 mg-vitamin D3 100 1 tab PO DAILY supplemen t 03/29/20 05/25/25 History unit-vitamin K 40 mcg chewable tablet cholecalciferol (vitamin D3) 10 10 mcg PO DAILY supple ment 03/29/20 05/25/25 History mcg (400 unit) capsule coenzyme Q10 75 mg capsule (Co 75 mg PO DAILY heart magallanes pplement 03/29/20 05/25/25 History Q-10) ferrous sulfate 325 mg (65 mg 325 mg PO DAILY suppleme nt 03/29/20 05/25/25 History iron) tablet (Feosol) multivitamin 1 cap PO DAILY supplement 05/25/25 History blood-glucose meter (Accu-Chek #1 ea 07/31/20 Unknown Rx Nithya Plus Meter) cetirizine 10 mg capsule 10 mg PO DAILY #90 caps 09/1105/25/25 Rx blood sugar diagnostic (Accu-Chek #100 ea 09/07/23 Unk nown Rx Guide test strips) ascorbic acid (vitamin C) 1,000 mg 1 g PO ONCE supplem ent 08/26/24 05/25/25 History tablet venlafaxine 150 mg See Rx Instructions .Route 0 09/07/24 05/25/25 Rx capsule,extended release 24 hr .COMPLEX depression #90 caps lisinopril 5 mg tablet 5 mg PO DAILY hypertension # 90 tabs 11/29/24 05/24/25 Rx tirzepatide 12.5 mg/0.5 mL 12.5 mg (0.5 mL) subcut QWE EK 02/07/25 05/21/25 Rx subcutaneous pen injector blood sugar 3 months #6.5 mL metformin 1,000 mg tablet 1,000 mg PO BID blood sugar #180 03/22/25 05/25/25 Rx tabs rosuvastatin 20 mg tablet 20 mg PO QHS cholesterol #90 tabs 03/22/25 05/24/25 Rx levothyroxine 175 mcg tablet 175 mcg PO DAILY hypothyr oidism 05/22/25 05/25/25 Rx #90 tabs Allergy/AdvReac Type Severity Reaction Status Date / Time latex Allergy Severe rash Verified 05/25/25 09:31 aspirin Allergy Unknown unknown Verified 05/25/25 09:31 adhesive tape Allergy Rash Verified 05/25/25 09:31 Cephalosporins Allergy Hives Verified 05/25/25 09:31 Penicillins Allergy Hives Verified 05/25/25 09:31 shrimp Allergy Anaphylaxis Verified 05/25/25 09:31 Family History Father Diabetes CVA (cerebral vascular accident) Cancer skin Hypertension Heart disease Hyperlipemia Mother Heart disease Hyperlipemia Grandfather Myocardial infarction, Onset Age: 48 Uncle Alcoholism Surgical History H/O cosmetic surgery Hx of breast reduction, elective Hx of bilateral breast reduction surgery History of right knee joint replacement History of hysterectomy History of endometrial ablation History of gastric bypass History of tubal ligation History of Social History household members: spouse and children housing: house number of children: 2 current occupational status: unemployed Smoking Status: Former smoker alcohol intake: current alcohol intake frequency: holidays/special occasions only substance use type: does not use what type of physical activity do you participate in: walking frequency: daily seatbelt use: always do you feel safe at home: Yes 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 Physical Exam Const Vital Signs: 05/25/25 09:31 05/25/25 09:39 05/25/25 09:42 Temperature 98 F Temperature Source Oral Pulse Rate 91 146 H Respiratory Rate 18 18 Respiratory Effort Normal Respiratory Pattern Normal Blood Pressure 81/60 L 96/63 Blood Pressure Mean 67 74 Pulse Ox 97 100 Oxygen Delivery Method Room Air Room Air 05/25/25 10:00 05/25/25 10:15 05/25/25 10:20 Temperature Temperature Source Pulse Rate 96 99 99 Respiratory Rate 16 16 16 Respiratory Effort Respiratory Pattern Blood Pressure 81/68 L 78/62 L 91/63 Blood Pressure Mean 72 67 72 Pulse Ox 98 95 99 Oxygen Delivery Method 05/25/25 10:32 05/25/25 10:53 05/25/25 11:00 Temperature Temperature Source Pulse Rate 113 H 102 H 112 H Respiratory Rate 16 14 16 Respiratory Effort Respiratory Pattern Blood Pressure 97/68 100/63 104/72 Blood Pressure Mean 77 75 82 Pulse Ox 99 100 98 Oxygen Delivery Method Room Air 05/25/25 11:13 05/25/25 11:58 05/25/25 12:00 Temperature Temperature Source Pulse Rate 97 95 98 Respiratory Rate 14 18 16 Respiratory Effort Respiratory Pattern Blood Pressure 104/62 108/70 94/72 Blood Pressure Mean 76 82 79 Pulse Ox 98 100 99 Oxygen Delivery Method Room Air Room Air Room Air MDM MDM MDM Narrative Medical decision making narrative: 54-year-old female with past medical history of DM2, HTN, hypothyroidism, HLD, presents for evaluation of syncope. See HPI. On presentation, patient is in atrial fibrillation with RVR with hypotension. Hypotension increased once placed on monitor bed to 96/63. Her heart rate was irregular. She has no history of atrial fibrillation. Differential diagnosis includes but is not limited to atrial fibrillation with RVR, other arrhythmia, electrolyte abnormality, thyroid disease, dehydration, ACS, PE. Patient not endorsing any chest pain at this time however aspirin was ordered in case ACS as a cause of her atrial fibrillation. Patient declined aspirin as she has history of gastricbypass. Originally was going to give the patient diltiazem for RVR however she became hypotensive with SBP in the 70s. NS bolus started. Blood pressure improved to SBP in the low 100s. She still intermittently in RVR. Will give metoprolol 5 mg IV only. CBC with mild leukocytosis of 12.2. No anemia. Platelets unremarkable. Coagulation panel unremarkable. D- dimer elevated 0.91. CT chest ordered to rule out PE as a source of A-fib and hypotension. BMP unremarkable. Magnesium unremarkable. Troponin unremarkable x 2. BNP elevatedat 2027. Likely secondary to patient's A-fib. She is not overtly fluid overloaded on exam. TSH unremarkable However free T4 elevated at 1.6. CTA of the chest negative for PE. On reevaluation, patient remains in atrial fibrillation however she is rate controlled and blood pressure has improved. Sheis still feeling fatigued. Patient's [id number] is a 3. Eliquis ordered. Patient is new onset atrial fibrillation. Given her intermittent hypotension aswell as syncope, I do feel that she would warrant admission for further workup and monitoring. Patient confirmed understanding the plan. I spoke with the hospitalist service who accepted admission. EKG: Interpreted by me/EM physician: EKG shows atrial fibrillation with RVR. Heart rate 103. No acute ischemic changes Diagnostic: Interpreted by me/EM physician: Chest x-ray without pneumonia, effusion, cardiomegaly, pneumothorax. Radiology in agreement. Impression: 1. New onset atrial fibrillation with RVR, heart rate now controlled 2. Hypotension likely secondary to #1 3. Syncope Lab Data Labs: Laboratory Results - last 24 hr 05/25/25 05/25/25 09:43 11:44 WBC 12.2 H RBC 5.13 Hgb 14.4 Hct 42.7 MCV 83.2 MCH 28.1 MCHC 33.7 RDW Std Deviation 42.4 RDW Coeff of Cher 13.8 Plt Count 375 MPV 9.1 Immature Gran % (Auto) 0.200 Neut % (Auto) 71.9 H Lymph % (Auto) 17.4 L [place] % (Auto) 8.9 Eos % (Auto) 1.3 Baso % (Auto) 0.3 Absolute Neuts (auto) 8.8 H Absolute Lymphs (auto) 2.13 Nucleated RBC % 0 PT 13.2 INR 1.0 APTT 24.5 D-Dimer Quant (PE/DVT) 0.91 H* Sodium 141 Potassium 3.9 Chloride 104 Carbon Dioxide 26.1 Anion Gap 11 BUN 10 Creatinine 0.65 L Estim Creat Clear Calc 113.08 Est GFR (MDRD) Non-Af 104 BUN/Creatinine Ratio 15.9 Glucose 111 H Calcium 9.2 Magnesium 2.0 Troponin T High Sens 8 Troponin T Hi Sens 2 Hr 7 NT pro BNP II 2027 H TSH 1.010 Free T4 1.60 H Radiography Diagnostic Testing: Clinical Impression(s) from Imaging Studies Chest X-Ray 05/25/25 09:42 IMPRESSION: NO ACUTE FINDINGS. Reading Location: [facility] Chest CTA 05/25/25 10:21 IMPRESSION: NORMAL CHEST CTA. NO EVIDENCE OF ACUTE PULMONARY EMBOLISM. Reading Location: [facility] Discharge Plan Disposition Disposition: Acute Care Hospital [facility] Discharge Date/Time: 05/25/25 13:40 What to do if you have Problems For any increased pain, shortness of breath, bleeding, nausea or vomiting, chestpain, or any unexpected problems, contact your Primary Care Provider. Call [facility] ([phone]) or report to the closest Emergency Room. Call 911 if necessary. 05/25/25 1523 <Electronically signed by Ricci Andrews DO> Cosigner Signature (if applicable): CC: Dr. Michael Coles MD ~ Signed [facility] Work Phone: Discharge summary Author Javi Mota [facility] Note Date/Time May 26, 2025 1 1:26am [facility] Medical Records Department [address] [place] [address] Instructions for Home/Discharge Instructions 05/26/25 1057 MR#: [id number] Acct: [id number] Name: JACKIE HARRINGTON Rep #:[id number] : 1970 54 From: Javi samuels MD PCP: Dr. Michael Coles MD Status:A DM TUSHAR Discharge Instructions DC O2, CPAP, BIPAP needs Home O2 Discharge instructions: No Dressing / Incision Discharge Activity: Return to Normal Activity Dressing / Incision Call your doctor if you observe: Fever of 101 or Higher, Shortness of breath, Dizziness, Fainting spells, Swelling in the ankles, Chest pain and Increased palpitations (irregular heartbeat) Follow Up Care Test Results: Test results from this visit will be discussed in further detail at your follow- up appointment, if applicable. Discharge Plan Admission Admit Date/Time: 05/25/25 12:15 Attending Provider: Javi Mota Primary Care Provider: Michael Coles Instructions Patient Instructions: AFib Dc Discharge Orders/Prescriptions Prescriptions: New metoprolol tartrate 25 mg Tablet 12.5 mg PO BID 30 Days Qty: 30 0RF Eliquis 5 mg Tablet 5 mg PO BID 30 Days Qty: 60 0RF Continued ferrous sulfate [Feosol] 325 mg (65 mg iron) tablet 325 mg PO DAILY Co Q-10 75 mg capsule 75 mg PO DAILY cholecalciferol (vitamin D3) 10 mcg (400 unit) capsule 10 mcg PO DAILY multivitamin Capsule 1 cap PO DAILY calcium-vitamin D3-vitamin K 500-100-40 mg-unit-mcg tablet,chewable 1 tab PO DAILY Rx Instructions: chew thoroughly before swallowing; do not swallow whole (DME) blood-glucose meter [Accu-Chek Nithya Plus Meter] Misc See Rx Instructions .ROUTE .MEDSUPPLY Qty: 1 0RF Rx Instructions: As directed, check daily type 2 DM ascorbic acid (vitamin C) 1,000 mg tablet 1 g PO ONCE cetirizine 10 mg capsule 10 mg PO DAILY Qty: 90 3RF (DME) Accu-Chek Guide test strips Strip See Rx Instructions .ROUTE .MEDSUPPLY Qty: 100 3RF Rx Instructions: check glucose daily for type 2 DM venlafaxine 150 mg capsule,extended release 24hr See Rx Instructions .ROUTE .COMPLEX Qty: 90 3RF Dose Instruction: Take 1 capsule by mouth once daily Rx Instructions: Take 1 capsule by mouth once daily lisinopril 5 mg tablet 5 mg PO DAILY Qty: 90 2RF tirzepatide 12.5 mg/0.5 mL pen injector 12.5 mg subcut QWEEK 90 Days Qty: 6.5 1RF rosuvastatin 20 mg tablet 20 mg PO QHS Qty: 90 1RF metformin 1,000 mg tablet 1,000 mg PO BID Qty: 180 1RF levothyroxine 175 mcg tablet 175 mcg PO DAILY Qty: 90 2RF Referrals / Follow Up: Michael Coles MD [Primary Care Provider, Internal Medicine] - Within 1 Week Mati Mcginnis MD [Med Staff - Active Staff, Cardiology] - Within 1 Month Disposition Disposition (needs filled in before D/C Order can be placed): Home, Self Care 05/26/25 1126<Electronically signed by Javi Mota MD>Javi Mota MD CC: Dr. Mcihael Coles MD ~ Signed [facility] Work Phone: Discharge summary Author Javi Mota [facility] Note Date/Time May 26, 2025 1 :58pm [facility] Medical Records Department [address] [place] [address] Discharge Summary 05/26/25 1352 MR#: [id number] Acct: [id number] Name: JACKIE HARRINGTON Rep #:[id number] : 1970 54 From: Javi samuels MD PCP: Dr. Michael Coles MD Status:D IS TUSHAR Location: [place] [address] Providers Date of Admission: 05/25/25 Primary Care Physician: Dr. Michael Coles MD Reason For Visit: NEW AFIB Diagnosis Discharge Diagnosis (1) New onset a-fib: Status: Acute Code(s): I48.91 - Unspecified atrial fibrillation Medications at Discharge Home Medications calcium 500 mg-vitamin D3 100 unit-vitamin K 40 mcg chewable tablet 1 tab PO DAILY supplement 03/29/20 cholecalciferol (vitamin D3) 10 mcg (400 unit) capsule 10 mcg PO DAILY supplement 03/29/20 coenzyme Q10 75 mg capsule (Co Q-10) 75 mg PO DAILY heart supplement 03/29/20 ferrous sulfate 325 mg (65 mg iron) tablet (Feosol) 325 mg PO DAILY supplement 03/29/20 multivitamin 1 cap PO DAILY supplement 03/29/20 blood-glucose meter (Accu-Chek Nithya Plus Meter) #1 ea 07/31/20 cetirizine 10 mg capsule 10 mg PO DAILY #90 caps 10/07/21 blood sugar diagnostic (Accu-Chek Guide test strips) #100 ea 09/07/23 ascorbic acid (vitamin C) 1,000 mg tablet 1 g PO ONCE supplement 08/26/24 venlafaxine 150 mg capsule,extended release 24 hr See Rx Instructions .Route .COMPLEX depression #90 caps 09/07/24 lisinopril 5 mg tablet 5 mg PO DAILY hypertension #90 tabs 11/29/24 tirzepatide 12.5 mg/0.5 mL subcutaneous pen injector 12.5 mg (0.5 mL) subcut QWEEK blood sugar 3 months #6.5 mL 02/07/25 metformin 1,000 mg tablet 1,000 mg PO BID blood sugar #180 tabs 03/22/25 rosuvastatin 20 mg tablet 20 mg PO QHS cholesterol #90 tabs 03/22/25 levothyroxine 175 mcg tablet 175 mcg PO DAILY hypothyroidism #90 tabs 05/22/25 apixaban 5 mg tablet (Eliquis) 5 mg PO BID 30 days #60 tabs 05/26/25 metoprolol tartrate 25 mg tablet 12.5 mg (1/2 x 25 mg) PO BID 30 days #30 tabs 05/26/25 Hospital Course Operations None Procedures 2-D Echocardiogram Summary of Care Provided Minutes Spent on Discharge: 35 Hospital Course: Per HPI: JACKIE HARRINGTON, is a 54 F who presents to the hospital with 2 episodes ofsyncope over the last couple of days. Yesterday she had some lightheadedness and dizziness and was able to sit down before she completely blacked out, and then her found her on the toilet unresponsive with her eyes open and then today she was in the kitchen and she felt lightheaded and dizzy and diaphoretic and slid down against the cabinets onto the ground. None of the witnessed episode showed signs or symptoms consistent with seizures. She deniesany palpitations or racing heartbeat and none of them were drop attacks. She does have symptoms with positional changes. In the emergency room EKG was read as being A-fib with RVR and she had an elevated proBNP. She did have elevated D-dimer so CTA of the chest was done which was negative for PE. TSH and free T4were obtained, TSH was normal and T4 was elevated. Hospital Course: 1. Syncope secondary to new onset A-fib with RVR/essential HTN/HLD?84-year-old female presented to the hospital with a few syncopal episodes over the last 2 days. On presentation to the ER she was found to be in A-fib with RVR with a max rate of 146. She was given dose of Lopressor 5 mg IV x 1 she did have some postmedication hypotension and was orthostatic positive as well. She was started on IV fluids and sometime overnight converted to normal sinus rhythm. She was placed on metoprolol 12.5 mg p.o. twice daily as she states she normallysits at a lower blood pressure at baseline, she was able to tolerate this medication this morning and was feeling much better and requested discharge home. I discussed with her the possibility of discharge and she expressed understanding of the risk and benefits of going home and would like to go home today. She has a [id number] of 2 secondary to her type 2 diabetes and her gender therefore she was placed on Eliquis 5 mg p.o. twice daily. Her thyroid functions were also checked since this was new onset A-fib and her TSH was normal but her free T4 was high, her T3 was normal therefore I made no adjustments to her Synthroid. I do recommend outpatient follow-up with cardiology as well as her PCP for further monitoring and dose adjustments. We did obtain an echocardiogram which demonstrated an EF of 55% and a normal left atrium. 2. Type 2 diabetes, hypothyroidism are all chronic medical conditions which complicate his care. His home medications were continued where appropriate Physical Exam Narrative General: Alert, Oriented x3, Cooperative, No apparent distress HEENT: Atraumatic, PERRLA, EOMI, Normocephalic Oral: Moist mucosa Neck: Supple, No JVD Lungs: Diminished, Normal air movement, No rhonchi, No wheeze, No rales Cardiovascular: Regular rate, Regular Rhythm, Normal S1, Normal S2, No murmurs Abdomen: Soft, Non Tender, Non-Distended, No Hepato-splenomegaly Extremities: No edema, Capillary Refill Less than 3 Seconds Skin: No rashes, No breakdown Musculoskeletal: No Tenderness to Palpation of Joints or Extremities Neurological: No focal neurological deficits, moves all extremities Psych/Mental Status: Normal Affect, Appropriate Weight / BMI Weight Weight: 205 lb 11.06 oz Body Mass Index (BMI) 32.2 ABG / Lab / Microbiology Data 05/26/25 04:45 05/26/25 04:45 Laboratory: Laboratory Results - last 24 hr 05/25/25 11:44: Free T3 pg/dL 2.3 05/25/25 20:45: POC Glucose 91 05/26/25 04:45: WBC 7.0, RBC 4.38, Hgb 12.1, Hct 37.6, MCV 85.8, MCH 27.6, MCHC 32.2, RDW Std Deviation 43.7, RDW Coeff of Cher 14.0, Plt Count 265, MPV 9.7, Immature Gran % (Auto) 0.400, Neut % (Auto) 63.1, Lymph % (Auto) 24.4, [place] % (Auto) 8.8, Eos % (Auto) 2.7, Baso % (Auto) 0.6, Absolute Neuts (auto) 4.4, Absolute Lymphs (auto) 1.72, Nucleated RBC % 0, Sodium 140, Potassium 3.9, Chloride 106, Carbon Dioxide 26.0, Anion Gap 8, BUN 11, Creatinine 0.57 L, EstimCreat Clear Calc 130.77, Est GFR (MDRD) Non-Af 107, BUN/Creatinine Ratio 19.0, Glucose 80, Calcium 8.5 Radiography Diagnostic Testing: Radiology Impression Echocardiogram 05/25/25 13:48 Interpretation Summary Normal LV size. Left ventricular systolic function is normal. The left ventricular ejection fraction is 55 %. Unable to assess diastolic dysfunction due to arrhythmia. Ordering Physician: Javi Mota Performed By: Ricci Belle RCS D/C Instructions Call your doctor if you observe: Fever of 101 or Higher, Shortness of breath, Dizziness, Fainting spells, Swelling in the ankles, Chest pain and Increased palpitations (irregular heartbeat) DC O2, CPAP, BIPAP Needs Home O2 Discharge instructions: No Meaningful Use Info Meaningful Use Meaningful Use Diagnoses (Choose all that apply): None applicable Discharge Plan Admission Admit Date/Time: 05/25/25 12:15 Attending Provider: Javi Mota Primary Care Provider: Michael Coles Instructions Patient Instructions: AFib Dc Discharge Orders/Prescriptions Prescriptions: New metoprolol tartrate 25 mg Tablet 12.5 mg PO BID 30 Days Qty: 30 0RF Eliquis 5 mg Tablet 5 mg PO BID 30 Days Qty: 60 0RF Continued ferrous sulfate [Feosol] 325 mg (65 mg iron) tablet 325 mg PO DAILY Co Q-10 75 mg capsule 75 mg PO DAILY cholecalciferol (vitamin D3) 10 mcg (400 unit) capsule 10 mcg PO DAILY multivitamin Capsule 1 cap PO DAILY calcium-vitamin D3-vitamin K 500-100-40 mg-unit-mcg tablet,chewable 1 tab PO DAILY Rx Instructions: chew thoroughly before swallowing; do not swallow whole (DME) blood-glucose meter [Accu-Chek Nithya Plus Meter] Misc See Rx Instructions .ROUTE .MEDSUPPLY Qty: 1 0RF Rx Instructions: As directed, check daily type 2 DM ascorbic acid (vitamin C) 1,000 mg tablet 1 g PO ONCE cetirizine 10 mg capsule 10 mg PO DAILY Qty: 90 3RF (DME) Accu-Chek Guide test strips Strip See Rx Instructions .ROUTE .MEDSUPPLY Qty: 100 3RF Rx Instructions: check glucose daily for type 2 DM venlafaxine 150 mg capsule,extended release 24hr See Rx Instructions .ROUTE .COMPLEX Qty: 90 3RF Dose Instruction: Take 1 capsule by mouth once daily Rx Instructions: Take 1 capsule by mouth once daily lisinopril 5 mg tablet 5 mg PO DAILY Qty: 90 2RF tirzepatide 12.5 mg/0.5 mL pen injector 12.5 mg subcut QWEEK 90 Days Qty: 6.5 1RF rosuvastatin 20 mg tablet 20 mg PO QHS Qty: 90 1RF metformin 1,000 mg tablet 1,000 mg PO BID Qty: 180 1RF levothyroxine 175 mcg tablet 175 mcg PO DAILY Qty: 90 2RF Referrals / Follow Up: Michael Coles MD [Primary Care Provider, Internal Medicine] - Within 1 Week Mati Mcginnis MD [Med Staff - Active Staff, Cardiology] - Within 1 Month Disposition Disposition (needs filled in before D/C Order can be placed): Home, Self Care Charges/Coding Visit Charges Inpatient E&M: 43610 Disch Hosp >30min 05/26/25 1351 <Electronically signed by Javi Mota MD> Cosigner Signature (if applicable): CC: Dr. Michael Coles MD; Dr. Javi Mota MD~ Signed [facility] Work Phone: Evaluation note* Diagnosis Sinus congestion- Primary Other diseases of nasal cavity and sinuses [facility] Diagnosis Onset Date Resolution Status Hypertension chronic Hypothyroidism chronic Macromastia chronic Type 2 diabetes mellitus chr onic Hypertension chronic Hypothyroidism chronic Macromastia chronic Type 2 diabetes mellitus chr [facility] Work Phone: Evaluation note* Diagnosis Onset Date Resolution Status Hypertension chronic Hypothyroidism chronic Macromastia chronic Type 2 diabetes mellitus chr onic Encounter for routine gynecological examination noneactive [facility] Work Phone: Evaluation note* Diagnosis Onset Date Resolution Status Acute back pain acute Hypertension chronic Hypothyroidism chronic Type 2 diabetes mellitus chr onic Hyperlipemia chronic Hypothyroidism chronic Type 2 diabetes mellitus [facility] Work Phone: Evaluation note* Diagnosis Onset Date Resolution Status Hyperlipemia chronic Hypothyroidism chronic Type 2 diabetes mellitus [facility] Work Phone: Evaluation note* Diagnosis URI, acute- Primary Acute upper respiratory infections of unspecified site [facility] Diagnosis Onset Date Resolution Status Hypertension chronic Hypothyroidism chronic Type 2 diabetes mellitus [facility] Work Phone: Evaluation note* Diagnosis Onset Date Resolution Status Hypertension chronic Hypothyroidism chronic Type 2 diabetes mellitus chr onic Anxiety and depression chron ic Hypertension chronic Type 2 diabetes mellitus [facility] Work Phone: History and physical note Author Javi Mota [facility] Note Date/Time May 25, 2025 4 :16pm [facility] Medical Records Department [address] [place] [id number] H&P Exam - Hospitalist 05/25/25 1602 MR#: [id number] Acct: [id number] Name: JACKIE HARRINGTON DECEMBER Rep #:[id number] : 1970 54 From: Javi samuels MD PCP: Dr. Michael Coles MD Status:A DM TUSHAR Location: [place] [address] HPI - General General Date of Admission: 05/25/25 HPI Narrative JACKIE HARRINGTON, is a 54 F who presents to the hospital with 2 episodes of syncope over the last couple of days. Yesterday she had some lightheadedness and dizziness and was able to sit down before she completely blacked out, and then her found her on the toilet unresponsive with her eyes open and then today she was in the kitchen and she felt lightheaded and dizzy and diaphoretic and slid down against the cabinets onto the ground. None of the witnessed episode showed signs or symptoms consistent with seizures. She denies any palpitations or racing heartbeat and none of them were drop attacks. She does have symptoms with positional changes. In the emergency room EKG was read as being A-fib with RVR and she had an elevated proBNP. She did have elevated D-dimer so CTA of the chest was done which was negative for PE. TSH and free T4 were obtained, TSH was normal and T4 was elevated. [facility] Medical History (Updated 05/25/25 @ 16:[address] Javi Mota MD) Colon cancer screening Anxiety and depression History of COVID-19 Acute back pain Bilateral shoulder pain Macromastia Fibroadenoma of right breast Coccyx pain Uterine fibroid Hypertension Hypothyroidism Hormone deficiency IBS (irritable bowel syndrome) Hyperlipemia Diabetes Asthma Seasonal allergies Home Medications ?Medication ?Instructions ?Recorded ?Last Taken ?Type calcium 500 mg-vitamin D3 100 1 tab PO DAILY supplemen t 03/29/20 05/25/25 History unit-vitamin K 40 mcg chewable tablet cholecalciferol (vitamin D3) 10 10 mcg PO DAILY supple ment 03/29/20 05/25/25 History mcg (400 unit) capsule coenzyme Q10 75 mg capsule (Co 75 mg PO DAILY heart magallanes pplement 03/29/20 05/25/25 History Q-10) ferrous sulfate 325 mg (65 mg 325 mg PO DAILY suppleme nt 03/29/20 05/25/25 History iron) tablet (Feosol) multivitamin 1 cap PO DAILY supplement 05/25/25 History blood-glucose meter (Accu-Chek #1 ea 07/31/20 Unknown Rx Nithya Plus Meter) cetirizine 10 mg capsule 10 mg PO DAILY #90 caps 09/1105/25/25 Rx blood sugar diagnostic (Accu-Chek #100 ea 09/07/23 Unk nown Rx Guide test strips) ascorbic acid (vitamin C) 1,000 mg 1 g PO ONCE supplem ent 08/26/24 05/25/25 History tablet venlafaxine 150 mg See Rx Instructions .Route 0 09/07/24 05/25/25 Rx capsule,extended release 24 hr .COMPLEX depression #90 caps lisinopril 5 mg tablet 5 mg PO DAILY hypertension # 90 tabs 11/29/24 05/24/25 Rx tirzepatide 12.5 mg/0.5 mL 12.5 mg (0.5 mL) subcut QWE EK 02/07/25 05/21/25 Rx subcutaneous pen injector blood sugar 3 months #6.5 mL metformin 1,000 mg tablet 1,000 mg PO BID blood sugar #180 03/22/25 05/25/25 Rx tabs rosuvastatin 20 mg tablet 20 mg PO QHS cholesterol #90 tabs 03/22/25 05/24/25 Rx levothyroxine 175 mcg tablet 175 mcg PO DAILY hypothyr oidism 05/22/25 05/25/25 Rx #90 tabs Allergy/AdvReac Type Severity Reaction Status Date / Time latex Allergy Severe rash Verified 05/25/25 09:31 aspirin Allergy Unknown unknown Verified 05/25/25 09:31 adhesive tape Allergy Rash Verified 05/25/25 09:31 Cephalosporins Allergy Hives Verified 05/25/25 09:31 Penicillins Allergy Hives Verified 05/25/25 09:31 shrimp Allergy Anaphylaxis Verified 05/25/25 09:31 Family History Father Diabetes CVA (cerebral vascular accident) Cancer skin Hypertension Heart disease Hyperlipemia Mother Heart disease Hyperlipemia Grandfather Myocardial infarction, Onset Age: 48 Uncle Alcoholism Surgical History H/O cosmetic surgery Hx of breast reduction, elective Hx of bilateral breast reduction surgery History of right knee joint replacement History of hysterectomy History of endometrial ablation History of gastric bypass History of tubal ligation History of Social History household members: spouse and children housing: house number of children: 2 current occupational status: unemployed Smoking Status: Former smoker alcohol intake: current alcohol intake frequency: holidays/special occasions only substance use type: does not use what type of physical activity do you participate in: walking frequency: daily seatbelt use: always do you feel safe at home: Yes 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 Constitutional Constitutional: Denies chills, fatigue, fever(s) or malaise Eyes Eyes: Denies blurry vision ENT HEENT: Denies headache(s) or nasal discharge Cardiovascular Cardiovascular: Reports syncope; Denies chest pain or dyspnea on exertion Respiratory/Chest Respiratory/Chest: Denies cough, shortness of breath at rest or shortness of breath with exertion Gastrointestinal Gastrointestinal: Denies constipation, diarrhea, nausea or vomiting Genitourinary Genitourinary: Denies dysuria Neurologic Neurologic: Denies focal weakness, numbness or tremor(s) Psychiatric Psychiatric: Denies anxiety or depression Vital Signs Vital Signs Vital Signs: 05/25/25 09:31 05/25/25 09:39 05/25/25 09:42 Temperature 98 F Temperature Source Oral Pulse Rate 91 146 H Respiratory Rate 18 18 Respiratory Effort Normal Respiratory Pattern Normal Blood Pressure 81/60 L 96/63 Blood Pressure Mean 67 74 Blood Pressure Source Blood Pressure Position Blood Pressure Location Pulse Ox 97 100 Oxygen Delivery Method Room Air Room Air 05/25/25 10:00 05/25/25 10:15 05/25/25 10:20 Temperature Temperature Source Pulse Rate 96 99 99 Respiratory Rate 16 16 16 Respiratory Effort Respiratory Pattern Blood Pressure 81/68 L 78/62 L 91/63 Blood Pressure Mean 72 67 72 Blood Pressure Source Blood Pressure Position Blood Pressure Location Pulse Ox 98 95 99 Oxygen Delivery Method 05/25/25 10:32 05/25/25 10:53 05/25/25 11:00 Temperature Temperature Source Pulse Rate 113 H 102 H 112 H Respiratory Rate 16 14 16 Respiratory Effort Respiratory Pattern Blood Pressure 97/68 100/63 104/72 Blood Pressure Mean 77 75 82 Blood Pressure Source Blood Pressure Position Blood Pressure Location Pulse Ox 99 100 98 Oxygen Delivery Method Room Air 05/25/25 11:13 05/25/25 11:58 05/25/25 12:00 Temperature Temperature Source Pulse Rate 97 95 98 Respiratory Rate 14 18 16 Respiratory Effort Respiratory Pattern Blood Pressure 104/62 108/70 94/72 Blood Pressure Mean 76 82 79 Blood Pressure Source Blood Pressure Position Blood Pressure Location Pulse Ox 98 100 99 Oxygen Delivery Method Room Air Room Air Room Air 05/25/25 12:22 05/25/25 13:57 05/25/25 14:00 Temperature 98.1 F 97.3 F L Temperature Source Temporal Pulse Rate 105 H 85 Respiratory Rate 15 14 Respiratory Effort Respiratory Pattern Blood Pressure 89/76 L 89/76 L Blood Pressure Mean 80 80 Blood Pressure Source Monitor Blood Pressure Position Supine Blood Pressure Location Left Arm Pulse Ox 100 96 Oxygen Delivery Method Room Air Room Air Weight Weight: 205 lb 11.06 oz Body Mass Index (BMI) 32.2 Physical Exam Narrative General: Alert, Oriented x3, Cooperative, No apparent distress HEENT: Atraumatic, PERRLA, EOMI, Normocephalic Oral: Dry mucosa Neck: Supple, No JVD Lungs: Diminished, Normal air movement, No rhonchi, No wheeze, No rales Cardiovascular: Irregular rate and rhythm, Regular Rhythm, Normal S1, Normal S2,No murmurs Abdomen: Soft, Non Tender, Non-Distended, No Hepato-splenomegaly Extremities: No edema, Capillary Refill Less than 3 Seconds Skin: No rashes, No breakdown Musculoskeletal: No Tenderness to Palpation of Joints or Extremities Neurological: No focal neurological deficits, moves all extremities Psych/Mental Status: Normal Affect, Appropriate Results Lab / Micro Data 05/25/25 09:43 05/25/25 09:43 Labs: Laboratory Results - last 24 hr 05/25/25 09:43: WBC 12.2 H, RBC 5.13, Hgb 14.4, Hct 42.7, MCV 83.2, MCH 28.1, MCHC 33.7, RDW Std Deviation 42.4, RDW Coeff of Cher 13.8, Plt Count 375, MPV 9.1, Immature Gran % (Auto) 0.200, Neut % (Auto) 71.9 H, Lymph % (Auto) 17.4 L, [place] % (Auto) 8.9, Eos % (Auto) 1.3, Baso % (Auto) 0.3, Absolute Neuts (auto) 8.8 H, Absolute Lymphs (auto) 2.13, Nucleated RBC % 0, PT 13.2, INR 1.0, APTT 24.5, D-Dimer Quant (PE/DVT) 0.91 H*, Sodium 141, Potassium 3.9, Chloride 104, Carbon Dioxide 26.1, Anion Gap 11, BUN 10, Creatinine 0.65 L, Estim Creat Clear Calc 113.08, Est GFR (MDRD) Non-Af 104, BUN/Creatinine Ratio 15.9, Glucose 111 H, Calcium 9.2, Magnesium 2.0, Troponin T High Sens 8, NT pro BNP II 2027 H, TSH 1.010, Free T4 1.60 H 05/25/25 11:44: Troponin T Hi Sens 2 Hr 7 Imaging Radiology Impression Chest X-Ray 05/25/25 09:42 IMPRESSION: NO ACUTE FINDINGS. Reading Location: [facility] Chest CTA 05/25/25 10:21 IMPRESSION: NORMAL CHEST CTA. NO EVIDENCE OF ACUTE PULMONARY EMBOLISM. Reading Location: [facility] Assessment & Plan Assessment/Plan (1) New onset a-fib: PLAN: Plan 1. New onset A-fib with RVR/essential HTN/HLD ? She was given some blood pressure medications in the emergency room and her heart rate did decrease below 100 ? Blood pressures are little bit on the soft side that she says she is normally 100/72 ? Based on her [id number] score of 2 will start her on Eliquis ? Orthostatic vital signs ? Echo is pending ? Will obtain a T3 given the elevation in her T4 ? Will start her on a little bit of fluids as she appears little bit dehydrated,her proBNP is elevated to over 2000 ? Will hold her home blood pressure medications given the initiation of rate control medications ? Continue with Crestor 2. DM2 ? Hold her home metformin ? Sliding scale insulin ? Accu-Cheks ? Monitor make adjustments as necessary 3. Hypothyroidism ? TSH is normal T4 is elevated, T3 is pending ? In the meantime can resume her home Synthroid and can adjust as necessary based on lab work DVT: Eliquis 75 minutes was spent on direct patient care, including documentation as well as chart review and collaboration with colleagues Charges/Coding Visit Charges Inpatient E&M: 92521 Init Hosp L3 05/25/25 1616 <Electronically signed by Javi Mota MD> Cosigner Signature (if applicable): CC: Dr. Michael Coles MD; Dr. Javi Mota MD~ Signed [facility] Work Phone: Hospital Discharge instructions Additional Instructions Infected dog bite of your left lower leg. The antibiotic clindamycin 300 mg 4 times a day for the next 10 days. Follow-up with your doctor if not improving. If it is looking a lot worse the leg gets significantly more red, swollen, streaks up your leg, fever or you are feeling worse return to his room after admitted for IV antibiotics. I am hopeful that the oral antibiotics should be able to take care of this. Motrin and Tylenol for pain. 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 Reason for Visit Hypertension Hypothyroidism Macromastia Type 2 diabetes mellitus Encounter for routine gynecological examination Chief Complaint 3 M FU 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 PAIN back Reason for Visit Hypertension Hypothyroidism Macromastia Type 2 diabetes mellitus Encounter for routine gynecological examination Chief Complaint 3 M FU 3 m fu DOG BITE Reason for Visit Acute back pain Hypertension Hypothyroidism Type 2 diabetes mellitus Hyperlipemia Hypothyroidism Type 2 diabetes mellitus Chief Complaint 3 m fu DOG BITE SCREENING Reason for Visit Hyperlipemia Hypothyroidism Type 2 diabetes mellitus Chief Complaint SCREENING 3 M FU Reason for Visit Hypertension Hypothyroidism Type 2 diabetes mellitus Chief Complaint SCREENING 3 M FU 3 M FU Reason for Visit Hypertension Hypothyroidism Type 2 diabetes mellitus Anxiety and depression Hypertension Type 2 diabetes mellitus Chief Complaint Admit Date 3 M FU December 15, 2024 5:49pm 3 M FU March 22, 2025 9: 54am Reason for Visit Admit Date Anxiety and depression December 15, 2024 5:4 9pm Hyperlipemia December 15, 2024 5:49pm Hypertension December 15, 2024 5:49pm Hypothyroidism December 15, 2024 5:49pm Seasonal allergies December 15, 2024 5:49pm Type 2 diabetes mellitus December 15, 2024 5 :49pm Chief Complaint Admit Date 3 M FU March 22, 2025 9: 54am Reason for Visit Admit Date Anxiety and depression March 22, 2025 9:54am Hypertension March 22, 2025 9: 54am Hypothyroidism March 22, 2025 9: 54am Type 2 diabetes mellitus March 22 9:54am Chief Complaint Admit Date 3 M FU March 22, 2025 9: 54am NEW AFIB May 25, 2025 1 2:15pm NEW AFIB May 25, 2025 4 :02pm NEW AFIB May 26, 2025 1 :52pm Transitional Care Management May 12:57pm Reason for Visit Admit Date Anxiety and depression March 22, 2025 9:54am Hypertension March 22, 2025 9: 54am Hypothyroidism March 22, 2025 9: 54am Type 2 diabetes mellitus March 22 9:54am New onset a-fib May 25, 2025 1 2:15pm Hospital discharge follow-up May 12:57pm New onset a-fib May 29, 2025 1 2:57pm Family History No Family History Records Found Relationship Condition Age at Onset Recorded Date/T johny father Diabetes mellitus Unknown Cerebrovascular accident (CVA) Unknown Malignant neoplasm Unknown Hypertension Unknown Cardiac disease Unknown Hyperlipidemia Unknown mother Cardiac disease Unknown grandfather Myocardial infarction 48 uncle Alcoholism Unknown Advance Directives No Advanced Directives Records Found Advance Directive Response Recorded Date/ Time Living Will No March 08, 2020 10:36am Power of Manager Research No March 08 10:36am Advance Directive Response Recorded Date/ Time Living Will No October 27, 2022 8:14am Power of Manager Research No October 27 8:14am Advance Directive Response Recorded Date/ Time Name of Medical Power of Manager Research FRANKLIN TASHJOEYAmanda MELENDEZ November 13, 2022 5:18pm Living Will Yes November 13, 2022 5:18pm Power of Manager Research Yes November 13 5:18pm Advance Directive Response Recorded Date/ Time Living Will No March 15, 2023 5:12pm Power of Manager Research No March 15 5:12pm Advance Directive Response Recorded Date/ Time Living Will No March 15, 2023 4:12pm Power of Manager Research No March 15 4:12pm Advance Directive Response Recorded Date/ Time Do you have a Healthcare Power of Manager Research? Yes May 25, 2025 1:57pm Advance Directive Response Recorded Date/ Time Do you have a Healthcare Power of Manager Research? Yes May 25, 2025 12:57pm Health Concerns Infection Onset Date Last Indicated Resolved Time COVID-19 Rule-Out 08/09/2023 08/09/2023 Summary Purpose Additional Source Comments Source Comments (unrecognize d section and content) In the event this informatio n is protected by the Federal Confidentiality of Alcohol and Drug Abuse Patient Records regulations: The Federal rules restrict any use of the information to criminally investigate or prosecute any alcohol or drug abuse patient.[facility] the event this information is protected by the Federal Confidentiality of Alcohol and Drug Abuse Patient Records regulations: The Federal rules restrict any use of the information to criminally investigate or prosecute any alcohol or drug abuse patient.[facility] Reason for Visit (unrecogniz ed section and content) Reason Comments Sinus Problem Sinus, congestion bi lateral ear pressure, BLOOM and face hurts x 1 day Reason Comments Sinus Problem With fever, ear pain , face and eye pain x 1 day Care Teams (unrecognized sec tion and content) Bulb Tester Relationship Specialty Start Date End Date Michael Coles MD [address] [place] [address] PCP - General Internal Medicine 07/31/22 Team Status: Active Member Role Status Dates Dr. Michael Coles MD Primary Care Provider Active Team Status: Inactive Member Role Status Dates Dr. Michael Coles MD Primary Care P robest, Attending Provider, Referring Provider Active Team Status: Active Member Role Status Dates Dr. Michael Coles MD Primary Care P robest, Attending Provider, Referring Provider Active Team Status: Inactive Member Role Status Dates Dr. Michael Coles MD Primary Care Provider, Refer ring Provider Active Beth Britt FILLER BLOCK INSERTER REMOVER, FILLER BLOCK INSERTER REMOVER-C Attending Provider Active Team Status: Inactive Member Role Status Dates Dr. Michael Coles MD Primary Care Provider Active Kan Leon MD Emergency Provider Active Team Status: Inactive Member Role Status Dates Dr. Michael Coles MD Primary Care Provider Active Kan Leon MD Attending Provider, Emergency Provid er Active Team Status: Inactive Member Role Status Dates Dr. Michael Coles MD Primary Care Provider Active Dr. Benjamín Ponce MD Emergency Provider Active Team Status: Inactive Member Role Status Dates Dr. Michael Coles MD Primary Care Provider, Atten ding Provider Active Team Status: Inactive Member Role Status Dates Dr. Michael Coles MD Primary Care Provider Active Dr. Alfonso Abraham MD Emergency Provider Active Team Status: Inactive Member Role Status Dates Dr. Mihcael Coles MD Primary Care Provider Active Beth Britt FILLER BLOCK INSERTER REMOVER, FILLER BLOCK INSERTER REMOVER-C Attending Provider, Referring Provider Active Team Status: Inactive Member Role Status Dates Dr. Michael Coles MD Primary Care Provider Active Dr. Alfonso Abraham MD Attending Provider, Emergency Pro vider Active Bulb Tester Relationship Specialty [place] [address] [place] [id number] PCP - General Internal Medicine 07/31/22 Team Status: Active Member Role/Relationship Status Dates Dr. Michael Coles MD Primary Care Provider Active Team Status: Inactive Member Role/Relationship Status Dates Dr. Michael Coles MD Primary Care Provider Active Start: December 15, 2024 End: December 15, 2024 Dr. Michael Coles MD Attending Provider Active Start: December 15, 2024 End: December 15, 2024 Dr. Michael Coles MD Referring Provider Active Start: December 15, 2024 End: December 15, 2024 Team Status: Inactive Member Role/Relationship Status Dates Dr. Michael Coles MD Primary Care Provider Active Start: March 22, 2025 End: March 22, 2025 Dr. Michael Coles MD Attending Provider Active Start: March 22, 2025 End: March 22, 2025 Dr. Michael Coles MD Referring Provider Active Start: March 22, 2025 End: March 22, 2025 Team Status: Active Member Role/Relationship Status Dates Dr. Michael Coles MD Primary care physician Activ e Team Status: Inactive Member Role/Relationship Status Dates Dr. Michael Coles MD Primary care physician Activ e Start: March 22, 2025 End: March 22, 2025 Dr. Michael Coles MD Attending physician Active Start: March 22, 2025 End: March 22, 2025 Dr. Michael Coles MD Referring Provider Active Start: March 22, 2025 End: March 22, 2025 Team Status: Inactive Member Role/Relationship Status Dates Dr. Michael Coles MD Primary care physician Activ e Start: April 24, 2025 End: April 24, 2025 Dr. Michael Coles MD Attending physician Active Start: April 24, 2025 End: April 24, 2025 Dr. Michael Coles MD Referring Provider Active Start: April 24, 2025 End: April 24, 2025 Team Status: Inactive Member Role/Relationship Status Dates Dr. Michael Coles MD Primary care physician Activ e Start: May 25, 2025 End: May 26, 2025 Dr. Ricci Andrews DO Emergency Department Physician Active Start: May 25, 2025 End: May 26, 2025 Dr. Javi Mota MD Admitting physician Active Start: May 25, 2025 End: May 26, 2025 Dr. Javi Mota MD Attending physician Active Start: May 25, 2025 End: May 26, 2025 Team Status: Active Member Role/Relationship Status Dates Dr. Michael Coles MD Primary care physician Activ e Start: May 25, 2025 Dr. Ian Rivera MD Attending physician Active Start: May 25, 2025 Team Status: Active Member Role/Relationship Status Dates Dr. Michael Coles MD Primary care physician Activ e Start: May 25, 2025 Dr. Ricci Andrews DO Emergency Department Physician Active Start: May 25, 2025 Dr. Javi Mota MD Admitting physician Active Start: May 25, 2025 Dr. Javi Mota MD Attending physician Active Start: May 25, 2025 Dr. Javi Mota MD Nurse Practitioner Active Start: May 25, 2025 Team Status: Active Member Role/Relationship Status Dates Dr. Michael Coles MD Primary care physician Activ e Start: May 26, 2025 Dr. Ricci Andrews DO Emergency Department Physician Active Start: May 26, 2025 Dr. Javi Mota MD Admitting physician Active Start: May 26, 2025 Dr. Javi Mota MD Attending physician Active Start: May 26, 2025 Dr. Javi Mota MD Nurse Practitioner Active Start: May 26, 2025 Team Status: Inactive Member Role/Relationship Status Dates Dr. Michael Coles MD Primary care physician Activ e Start: May 29, 2025 End: May 29, 2025 Dr. Michael Coles MD Referring Provider Active Start: May 29, 2025 End: May 29, 2025 BERENICE Israel Attending physician Active Start: May 29, 2025 End: May 29, 2025 Goals (unrecognized section and content) Goals may be documented in a n alternate sectionGoals may be documented in an alternate sectionGoals may be documented in an alternate sectionGoals may be documented in an alternate sectionGoals may be documented in an alternate sectionGoals may be documented in an alternate sectionGoals may be documented in an alternate sectionGoals may be documented in an alternate sectionGoals may be documented in an alternate sectionGoals may be documented in an alternate section INFORMATION SOURCE (unrecogn ized section and content) DATE CREATED AUTHOR 08/10/2023 [facility] DATE CREATED AUTHOR AUTHOR'S ESTEBAN CARRION 06/22/2025 [facility] FOR RECORDS PERTAINING TO PATIENTS WHO ARE [...] BE BASED ON THE PRIMARY CLINICAL RECORDS. [facility] [employer] [facility]. provides no warranty or guarantee of the accuracy or completeness of information in this document.
--- NOTE | 2025-07-20 11:47 | STRESSREP_ITS ---
Stress Test Report Date: 07/19/2025 Procedure: Exercise tolerance test/imaging study Indications: Abnormal ECG Consent: Per the patient Procedure: The patient exercised on a Bret protocol for 8 minutes achieving a peak heart rate of 137 bpm (83% predicted maximal heart rate) with a peak blood pressure 142/82 mmHg and a peak MET capacity of 10.1 METs. The baseline ECG demonstrated sinus rhythm. The peak exercise ECG showed sinus tachycardia with no ischemic changes. Occasional PVCs noted. The functional capacity was considered average for age. There was no complaint of chest discomfort during exercise or recovery. The examination was discontinued secondary to leg discomfort. The patient was injected with 13.1 mCi of technetium 99m Cardiolite and subsequently rest SPECT Cardiolite nuclear imaging was obtained in the horizontal long, vertical long, and short axis views. Post-exercise, the patient was injected with 42.2 mCi of technetium 99m Cardiolite and subsequently stress SPECT Cardiolite nuclear imaging was obtained in the horizontal long, vertical long, and short axis views. A gated Cardiolite study at peak stress was obtained. Rest and stress SPECT Cardiolite nuclear imaging status post realignment, normalization, and attenuation correction, demonstrates the appearance of relative uniform tracer uptake and myocardial perfusion appearing within normal limits. There is end systolic thickening and brightening. The gated Cardiolite study demonstrates myocardial thickening and inward wall motion. The reported LVEF is 64%. Impression: 1. Technically adequate exercise tolerance test 2. Peak exercise ECG with no ischemic changes 3. Rare to occasional PVCs 4. Rest and stress SPECT Cardiolite nuclear imaging demonstrate relative uniform tracer uptake and myocardial perfusion appearing within normal limits. 5. The gated Cardiolite study reports an LVEF of 64%. This note was generated with SeeSpaceation software. It may contain incorrect words, spelling, and punctuation that were not noted in checking the note before signing.
== END | disposition home or self-care (01) ==
LOC: CVS 06:22
PROVIDERS: PCP Internal Medicine; Referring Provider Internal Medicine Cardiovascular Disease; Visit Provider Internal Medicine Cardiovascular Disease
DX: I48.0 Paroxysmal atrial fibrillation (principal); R55 Syncope and collapse; E11.69 Type 2 diabetes mellitus with other specified complication; I10 Essential (primary) hypertension; F41.9 Anxiety disorder, unspecified; F32.A Depression, unspecified; E03.9 Hypothyroidism, unspecified
CPT/HCPCS: 78452; 93017; 93880; A9500; A4216

== ENCOUNTER → 2025-07-24 | Outpatient (CLI) | payer OTHER, SELFPAY ==
--- NOTE | 2025-07-24 18:43 | CT_ITS ---
PROCEDURE: BRAIN/HEAD WITHOUT CONTRAST 07/24/2025 REASON FOR EXAM: SYNCOPE TECHNIQUE: Procedure Code: CTBR Modality: CT Procedure: BRAIN/HEAD WITHOUT CONTRAST Coronal and Sagittal reconstruction series were provided. One or more dose reduction techniques were used (e.g., Automated exposure control, adjustment of the mA and/or kV according to patient size, use of iterative reconstruction technique. RADIATION DOSE SUMMARY: DLP: 847 mGycm COMPARISON: None FINDINGS: There is no acute infarct, intracranial hemorrhage, or mass effect. There is no hydrocephalus or significant midline shift. There is mild chronic microvascular ischemic changes. No acute, depressed calvarial fractures. No large scalp hematomas. The paranasal sinuses are clear. CT/Brain/Head without Contrast IMPRESSION: No acute intracranial process. Reading Location: [id number]
--- OUTSIDE RECORDS SUMMARY | 2025-07-24 20:48 | XMS RPT_ITS | CCD ---
Author Organization [facility] Care Team Providers Care Looper Operator Name Role Phone Michael Coles MD Primary [...] SILVERIO, Dr. Ann Referring Provider 1([phone]) Sharyn SILVERIO, Dr. Ann Primary Care Physician Sharyn SILVERIO, Dr. Ann Attending Physician 1(3 [phone]) Sharyn SILVERIO, Dr. Ann Referring Provider 1(33 0) [facility] JHAVERI, Dr. Wynne Emergency [facility] t Physician Svetlana SILVERIO, Dr. Javi Herman Admitting Physician Svetlana SILVERIO, Dr. Javi Herman Attending Physician Nicole SILVERIO, Dr. Sosa Attending Physician Svetlana SILVERIO, Dr. Javi Herman Nurse Practitioner Ungerer MATHEMATICAL ENGINEERING TECHNICIAN-CKeyona Attending Physician Sharyn SILVERIO, Dr. Ann Primary Care Physician Sharyn SILVERIO, Dr. Ann Attending Physician 1(3 30) Sharyn SILVERIO, Dr. Ann Referring Provider 1(33 0) [facility] JHAVERI, Dr. Wynne Emergency [facility] t Physician Svetlana SILVERIO, Dr. Javi Herman Admitting Physician Svetlana SILVERIO, Dr. Javi Herman Attending Physician Nicole SILVERIO, Dr. Sosa Attending Physician Svetlana SILVERIO, Dr. Javi Herman Nurse Practitioner Ungerer MATHEMATICAL ENGINEERING TECHNICIAN-C, Keyona Attending Physician UngererBetoKeyona Attending Unavailable Oleghe, Efewongbe Referring Unavailable Oleghe, Efewongbe Primary Care Unavailable Oleghe, Efewongbe Attending Unavailable Oleghe, Efewongbe Referring Unavailable Oleghe, Efewongbe Primary Care Unavailable Nicole, Ian Attending Unavailable Oleghe, Efewongbe Primary Care Unavailable Balwinder MATHEMATICAL ENGINEERING TECHNICIAN, Beth Attending Unavailable Balwinder MATHEMATICAL ENGINEERING TECHNICIAN, Beth Referring Unavailable Oleghe, Efewongbe Primary Care [...] Attending Unavailable Oleghe, Efewongbe Referring Unavailable Balwinder MATHEMATICAL ENGINEERING TECHNICIAN, Beth Attending Unavailable Oleghe, Efewongbe Primary Care Unavailable Oleghe, Efewongbe Referring Unavailable Oleghe, Efewongbe Primary Care Unavailable Oleghe, Efewongbe Attending Unavailable Oleghe, Efewongbe Referring Unavailable Oleghe, Efewongbe Primary Care Unavailable Oleghe, Efewongbe Attending Unavailable Oleghe, Efewongbe Referring Unavailable Allergies Allergy Classification Reported Allergen(s) Allergy Type Date of Onset Reaction(s) Facility (16 sources) Aspirin; Translations: [ASPIRIN] Drug Allergy 1 Unknown [facility] (3 sources) Cephalosporins (Antibiotic); Translations: [CEPHALOSPORINS] Drug Allergy 2 Other: See Comments, Hives [facility] (3 sources) Iodine; Translations: [IODINE] Drug Allergy 2 Swelling, Shortness of Breath [facility] (16 sources) Latex; Translations: [LATEX] Drug Allergy 1 Rash [facility] (3 sources) Non-steroidal anti-inflammatory agent; Translations: [NSAIDS (NON-STEROIDAL ANTI-INFLAMMATORY DRUG)] Drug Allergy 2 GI Upset [facility] (3 sources) Penicillins; Translations: [PENICILLINS] Drug Allergy 0 Other: See Comments, [facility] (16 sources) shrimp allergenic extract; Translations: [SHRIMP] Drug Allergy 1 Anaphylaxis [facility] (14 sources) Adhesive Tape; Translations: [adhesive tape] Allergy to substance 3 Rash [facility] (13 sources) Cephalosporins (Antibiotic) Allergy to substance 3 [facility] (13 sources) Penicillins Allergy to substance 3 [facility] (1 source) Aspirin Drug Allergy 5 [facility] Repository (1 source) Cephalosporins (Antibiotic) Drug allergy (disorder) 5 [facility] Repository (1 source) Latex Drug allergy (disorder) 5 [facility] Rep[facility] (1 source) Penicillins Drug allergy (disorder) 5 [facility] Rep[facility] (1 source) Shrimp product Drug allergy (disorder) 5 [facility] Repository Medications Current Medications Medication Drug Class(es) [...] 07-31-2020 Blood-Glucose Meter (Accu-Chek Nithya Plus Meter) [facility] .[facility]TE .MEDSUPPLY 1 July 31, 2020 1:00am As directed, check daily type 2 DM Start: 07-31-2020 Blood-Glucose Meter (Accu-Chek Nithya Plus Meter) [facility] Active 0 .ROUTE .MEDSUPPLY July 31, 2020 [...] Vis itoruss 06-21-2025 Internal Medicine Office Visit [facility] Internal Medicine [address] [place], [place] [address] OFFICE VISIT Date of Service: 06/21/25 MR#: [id number] Acct: [id number] Name: JACKIE HARRINGTON Rep #: [id number] : 1970 Provider: Dr. 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 The patient reports that she stopped taking lisinopril due to lo (more content not included)... Normal [facility] SCRN MAMM (CAD)W/JANESSA BILATo n 06-19-2025 SCRN MAMM (CAD)W/JANESSA BILAT [facility] Imaging Services [address] [place] [address] SCRN MAMM (CAD)W/JANESSA NARENDRA MR#: [id number] Acct: [id number] Name: JACKIE HARRINGTON Rep #: [id number] : 1970 F 54 From: Irma Rod PCP: Dr. Michael Coles MD Status: REG CLI Study: SCRN MAMM (CAD)W/JANESSA BILAT Date of Exam: 06/10 Exam# [id number] Ordering Dr: Beth Britt NP, NP EXAM: [...] be mailed to the patient. Reading Location: [id number] CC: BERENICE Britt; Dr. Michael Coles MD Type Inspector: Signed Normal [facility] Internal Medicine Office Vis itoruss 05-29-2025 Internal Medicine Office Visit [facility] Internal Medicine [facility] [place] [address] [place] [address] OFFICE VISIT Date of Service: 05/29/25 MR#: [id number] Acct: [id number] Name: JACKIE HARRINGTON Rep #: [id number] : 1970 Provider: BERENICE couch Age/Sex: 54/F Location: [facility] [place] Status: Signed Intake Vital Signs 05/25/25 13:57 [...] you fallen in the past year?: No [facility] Medical History Colon cancer screening Anxiety and [...] 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 history: - 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 Normal [facility] Absolute lymphocyte countOrd ered By: Javi Mota on 05-26-2025 Lymphocytes Auto (Unsp spec) [#/Vol] 1.72 10*3/uL 0.83-4.51 [facility] Absolute neutrophil countOrd ered By: Javi Mota on 05-26-2025 Neutrophils (Bld) [#/Vol] 4.4 10*3/uL 2.0-7.7 [facility] Anion gap in Serum or Plasma Ordered By: Javi Mota on 05-26-2025 Anion gap [Moles/Vol] 8 mmol/L - [facility] Automated lymphocyte count a s percentage of total leukocytesOrdered By: Javi Mota on 05-26-2025 Lymphocytes/100 WBC Auto (Unsp spec) 24.4 % - [facility] BUN/creatinine ratioOrdered By: Javijarrett Mota on 05-26-2025 Urea nitrogen/Creatinine [Mass ratio] 19.0 mg/mg 05-29 [facility] Basic Metabolic Profile (BMP )on 05-26-2025 BUN/CRE 19.0 RATIO Normal 05-29 [facility] Comment on above: Performed By: #### L 500.2500, L100.0100 ####[facility] [address], [address] Calcium [Mass/Vol] 8.5 mg/dL Normal 7.6-11.0 [facility] Comment on above: Performed By: #### L 500.2500, L100.0100 ####[facility] [address] [place], [address] Chloride [Moles/Vol] 106 mmol/L Normal 98-108 [facility] Comment on above: Performed By: #### L 500.2500, L100.0100 ####[facility] [address] [place], [address] CO2 [Moles/Vol] 26.0 mmol/L Normal 21.0-32.0 [facility] Comment on above: Performed By: #### L 500.2500, L100.0100 ####[facility] [address] [place], [address] Creatinine [Mass/Vol] 0.57 mg/dL Low 0.70-1.20 [facility] Comment on above: Performed By: #### L 500.2500, L100.0100 ####[facility] [address] [place], [address] ECRCL 130.77 ml/min Normal 50-250 [facility] Comment on above: Performed By: #### L 500.2500, L100.0100 ####[facility] [address] [place], [address] GAP 8 Normal 5-15 [facility] Comment on above: Performed By: #### L 500.2500, L100.0100 ####[facility] [address] [place], [address] GFR/1.73 sq M.predicted among non-blacks MDRD (S/P/Bld) [Vol rate/Area] 107 mL/min/{1.73_m2} Normal >60 [facility] Comment on above: Result Comment: mL/m in/1.73m2 CKD-EPI Creatinine Equation (2020) Performed By: #### L 500.2500, L100.0100 ####[facility] [address] [place], [address] Glucose [Mass/Vol] 80 mg/dL Normal 70-99 [facility] Comment on above: Performed By: #### L 500.2500, L100.0100 ####[facility] [address] [place], [address] Potassium [Moles/Vol] 3.9 mmol/L Normal 3.3-5.1 [facility] Comment on above: Performed By: #### L 500.2500, L100.0100 ####[facility] [address] [place], [address] Sodium [Moles/Vol] 140 mmol/L Normal 133-145 [facility] Comment on above: Performed By: #### L 500.2500, L100.0100 ####[facility] [address] [place], [address] Urea nitrogen [Mass/Vol] 11 mg/dL Normal 4-19 [facility] Comment on above: Performed By: #### L 500.2500, L100.0100 ####[facility] [address] [place], [address] Basophil percentageOrdered B y: Javi Mota on 05-26-2025 Basophils/100 WBC (Bld) 0.6 % 0-1 [facility] Bedside Glucoseon 05-26-2025 FINGERSTICK GLU 89 mg/dL Normal 74-106 [facility] Comment on above: Result Comment: SHAKA VELASQUEZ OF PATIENT CARE PER NURSING PROTOCOL Performed By: #### L 501.080 #### [facility] Laboratory [address] [place], [address] CBC W/Diff, Automatedon 05-10 Absolute Lymph 1.72 X10 3/uL Normal 0.83-4.51 [facility] Comment on above: Performed By: #### L 500.2500, L100.0100 ####[facility] [address] [place], [address] Absolute Neut 4.4 X10 3/uL Normal 2.0-7.7 [facility] Comment on above: Performed By: #### L 500.2500, L100.0100 ####[facility] [address] [place], [address] Basophils/100 WBC (Bld) 0.6 % Normal 0-1 [facility] Comment on above: Performed By: #### L 500.2500, L100.0100 ####[facility] [address] [place], [address] Eosinophils/100 WBC (Bld) 2.7 % Normal 0-5 [facility] Comment on above: Performed By: #### L 500.2500, L100.0100 ####[facility] [address] [place], [address] Erythrocyte distribution width (RBC) [Ratio] 14.0 % Normal 11.6-14.6 [facility] Comment on above: Performed By: #### L 500.2500, L100.0100 ####[facility] [address] [place], [address] Hematocrit (Bld) [Volume fraction] 37.6 % Normal 37-47 [facility] Comment on above: Performed By: #### L 500.2500, L100.0100 ####[facility] [address] [place], [address] Hemoglobin (Bld) [Mass/Vol] 12.1 g/dL Normal 12.0-15.0 [facility] Comment on above: Performed By: #### L 500.2500, L100.0100 ####[facility] [address] [place], [address] IG% 0.400 Normal 0.0-0.9 [facility] Comment on above: Result Comment: IG% - Immature Granulocytes (promyelocytes, myelocytes and metamyelocytes) > 1% indicates that a LEFT SHIFT is Present. Performed By: #### L 500.2500, L100.0100 ####[facility] [address] [place], [address] Lymphocytes/100 WBC (Bld) 24.4 % Normal 19-41 [facility] Comment on above: Performed By: #### L 500.2500, L100.0100 ####[facility] [address] [place], [address] MCH (RBC) [Entitic mass] 27.6 pg Normal 27.0-32.0 [facility] Comment on above: Performed By: #### L 500.2500, L100.0100 ####[facility] [address] [place], [address] MCHC (RBC) [Mass/Vol] 32.2 g/dL Normal 32-36 [facility] Comment on above: Performed By: #### L 500.2500, L100.0100 ####[facility] [address] [place], [address] MCV (RBC) [Entitic vol] 85.8 fL Normal 81-99 [facility] Comment on above: Performed By: #### L 500.2500, L100.0100 ####[facility] [address] [place], [address] Monocytes/100 WBC (Bld) 8.8 % Normal 0-10 [facility] Comment on above: Performed By: #### L 500.2500, L100.0100 ####[facility] [address] [place], [address] Neutrophils/100 WBC (Bld) 63.1 % Normal 47-70 [facility] Comment on above: Performed By: #### L 500.2500, L100.0100 ####[facility] [address] [place], [address] Nucleated RBC (Bld) [#/Vol] 0 10*3/uL Normal 0-5 [facility] Comment on above: Performed By: #### L 500.2500, L100.0100 ####[facility] [address] [place], [address] Platelet mean volume (Bld) [Entitic vol] 9.7 fL Normal 6.2-12.0 [facility] Comment on above: Performed By: #### L 500.2500, L100.0100 ####[facility] [address] [place], [address] Platelets (Bld) [#/Vol] 265 10*3/uL Normal 150-450 [facility] Comment on above: Performed By: #### L 500.2500, L100.0100 ####[facility] [address] [place], [address] RBC (Bld) [#/Vol] 4.38 10*6/uL Normal 4.2-5.4 [facility] Comment on above: Performed By: #### L 500.2500, L100.0100 ####[facility] [address] [place], [address] RDW SD 43.7 fl Normal 35.1-43.9 [facility] Comment on above: Performed By: #### L 500.2500, L100.0100 ####[facility] [address] [place], [address] WBC (Bld) [#/Vol] 7.0 10*3/uL Normal 4.4-11.0 [facility] Comment on above: Performed By: #### L 500.2500, L100.0100 ####[facility] [address] [place], [address] Carbon dioxide, total [Moles /volume] in Central venous bloodOrdered By: Javi Mota on 05-26-2025 CO2 [Moles/Vol] 26.0 mmol/L 21.0-32.0 [facility] Chloride assayOrdered By: Jolynn Mota on 05-26-2025 Chloride [Moles/Vol] 106 mmol/L 98-108 [facility] Discharge Instructionon 05-10 Discharge Instruction [facility] Medical Records Department [address] [place] [address] Instructions for Home/Discharge Instructions 05/26/25 1057 MR#: [id number] Acct: [id number] Name: JACKIE HARRINGTON Rep #: [id number] : 1970 54 From: Javi Mota MD [...] placed): Home, Self Care 05/26/25 1126 Javi Mtoa MD CC: Dr. Michael Coles MD Signed Normal [facility] Electrocardiogram reportOrde red By: Ian Rivera on 05-26-2025 EKG study [facility] Cardiovascular Services [address] [place] [address] 12 Lead EKG 05/25/25 0942 MR#: [id number] Acct: [id number] Name: JACKIE HARRINGTON Rep #:[id number] : 1970 54 From: Ian Rivera MD [...] ECG Confirmed by IAN RIVERA MD ([id number]), editorial project manager DARRIUS ROLDAN ([id number]) on 58:31:59 AM Referred By: Confirmed By: IAN RIVERA MD 05/26/25 0832 Date _ Ian Rivera MD CC: Dr. Ricci Andrews DO; Dr. Michael Coles MD; Dr. Javi Mota MD ~ Signed [facility] Work Phone: [phone] Eosinophil percentageOrdered By: Javi Mota on 05-26-2025 Eosinophils/100 WBC (Bld) 2.7 % 0-5 [facility] Erythrocyte distribution wid th ratioOrdered By: Javi Mota on 05-26-2025 Erythrocyte distribution width (RBC) [Ratio] 14.0 % 11.6-14.6 [facility] Erythrocyte distribution wid th standard deviationOrdered By: Javi Mota on 05-26-2025 Erythrocyte distribution width (RBC) [Ratio] 43.7 fl 35.1-43.9 [facility] Glomerular filtration rate ( GFR) estimation/1.73 sq m using serum, plasma, or whole bOrdered By: Javi Mota on 05-26-2025 GFR/1.73 sq M.predicted among non-blacks MDRD (S/P/Bld) [Vol rate/Area] 107 mL/min/{1.73_m2} >60 [facility] Comment on above: mL/min/1.73m2 CKD-EP I Creatinine Equation (2020) [facility]dered By: Javi Mota on 05-26-2025 Glucose [Mass/Vol] 89 mg/dL 74-106 [facility] Comment on above: MANAGEMENT OF PATIEN T CARE PER NURSING PROTOCOL Hematocrit Auto (Bld) [Volum e fraction]Ordered By: Javi Mota on 05-26-2025 Hematocrit (Bld) [Volume fraction] 37.6 % 37-47 [facility] Hemoglobin measurementOrdere d By: Javi Mota on 05-26-2025 Hemoglobin (Bld) [Mass/Vol] 12.1 g/dL 12.0-15.0 [facility] Immature granulocytes/100 WB C Auto (Bld)Ordered By: Javi Mota on 05-26-2025 Immature granulocytes/100 WBC (Bld) 0.400 % 0.0-0.9 [facility] Comment on above: IG% - Immature Granu locytes (promyelocytes, myelocytes and metamyelocytes) > 1% indicates that a LEFT SHIFT is Present. MCV (mean corpuscular volume ) determinationOrdered By: Javi Mota on 05-26-2025 MCV (RBC) [Entitic vol] 85.8 fL 81-99 [facility] Mean corpuscular hemoglobin (MCH) determinationOrdered By: Javi Mota on 05-26-2025 MCH (RBC) [Entitic mass] 27.6 pg 27.0-32.0 [facility] Mean corpuscular hemoglobin concentration (MCHC) determinationOrdered By: Javi Mota on 05-26-2025 MCHC (RBC) [Mass/Vol] 32.2 g/dL 32-36 [facility] Mean platelet volume determi nationOrdered By: Javi Mota on 05-26-2025 Platelet mean volume (Bld) [Entitic vol] 9.7 fL 6.2-12.0 [facility] Monocyte percentageOrdered B y: Javi Mota on 05-26-2025 Monocytes/100 WBC (Bld) 8.8 % 0-10 [facility] Neutrophil percentageOrdered By: Javi Mota on 05-26-2025 Neutrophils/100 WBC (Bld) 63.1 % 47-70 [facility] Nucleated red blood cell per centageOrdered By: Javi Mota on 05-26-2025 Nucleated RBC/100 WBC (Bld) [Ratio] 0 % 0-5 [facility] Platelet countOrdered By: Jolynn Mota on 05-26-2025 Platelets (Bld) [#/Vol] 265 10*3/uL 150-450 [facility] Potassium measurement (mass/ volume)Ordered By: Javi Mota on 05-26-2025 Potassium (Unsp spec) [Mass/Vol] 3.9 mmol/L 3.3-5.1 [facility] RBC Auto (Bld) [#/Vol]Ordere d By: Javi Mota on 05-26-2025 RBC (Bld) [#/Vol] 4.38 10*6/uL 4.2-5.4 [facility] Serum creatinine measurement (mass/volume)Ordered By: Javi Mota on 05-26-2025 Creatinine [Mass/Vol] 0.57 mg/dL Low 0.70-1.20 [facility] Serum glucose measurement (m ass/volume)Ordered By: Javi Mota on 05-26-2025 Glucose [Mass/Vol] 80 mg/dL 70-99 [facility] Serum or plasma calcium tika urement (mass/volume)Ordered By: Javi Mota on 05-26-2025 Calcium [Mass/Vol] 8.5 mg/dL 7.6-11.0 [facility] Serum or plasma urea nitroge n measurement (mass/volume)Ordered By: Javi Mota on 05-26-2025 Urea nitrogen [Mass/Vol] 11 mg/dL 4-19 [facility] Sodium levelOrdered By: Juan Mota on 05-26-2025 Sodium [Moles/Vol] 140 mmol/L 133-145 [facility] White blood cell (WBC) count Ordered By: Javi Mota on 05-26-2025 WBC (Bld) [#/Vol] 7.0 10*3/uL 4.4-11.0 [facility] 12 Lead EKGon 05-25-2025 12 Lead EKG [facility] Cardiovascular Services [address] [place] [address] 12 Lead EKG 05/25/25 0942 MR#: [id number] Acct: [id number] Name: JACKIE HARRINGTON Rep #: [id number] : 1970 54 From: Ian Rivera MD Attending Dr: Dr. Javi Mota MD Status : ADM TUSHAR Ordering Dr: Ricci Andrews DO Date: 5 Location: [facility] Sex: F C Admitted: 05/25/25 Test Reason [...] ECG Confirmed by NICOLE SILVERIO, IAN ([id number]), editorial project manager DARRIUS ROLDAN ([id number]) on 05/26/2025 8:31:59 AM Referred By: Confirmed By: IAN RIVERA MD 05/26/25 0832 Date Ian Rivera MD CC: Dr. Ricci Andrews DO; Dr. Michael Coles MD; Dr. Javi Mota MD Signed Normal [facility] Activated partial thrombopla stin time (aPTT) in platelet poor plasma by coagulation aOrdered By: Ricci Andrews on 05-25-2025 aPTT Coag (PPP) [Time] 24.5 s 24.1-36.2 [facility] Basic Metabolic Profile (BMP )on 05-25-2025 BUN/CRE 15.9 RATIO Normal 05-29 [facility] Comment on above: Performed By: #### L 501.5200, L300.8000, L503.7505, L506.0400, L100.0100, L501.9520, L300.3900, L500.2500, L501.4021, L300.4310 ####[facility] [address] [place], [address] Calcium [Mass/Vol] 9.2 mg/dL Normal 7.6-11.0 [facility] Comment on above: Performed By: #### L 501.5200, L300.8000, L503.7505, L506.0400, L100.0100, L501.9520, L300.3900, L500.2500, L501.4021, L300.4310 ####[facility] [address] [place], [address] Chloride [Moles/Vol] 104 mmol/L Normal 98-108 [facility] Comment on above: Performed By: #### L 501.5200, L300.8000, L503.7505, L506.0400, L100.0100, L501.9520, L300.3900, L500.2500, L501.4021, L300.4310 ####[facility] [address] [place], [address] CO2 [Moles/Vol] 26.1 mmol/L Normal 21.0-32.0 [facility] Comment on above: Performed By: #### L 501.5200, L300.8000, L503.7505, L506.0400, L100.0100, L501.9520, L300.3900, L500.2500, L501.4021, L300.4310 ####[facility] [address] [place], [address] Creatinine [Mass/Vol] 0.65 mg/dL Low 0.70-1.20 [facility] Comment on above: Performed By: #### L 501.5200, L300.8000, L503.7505, L506.0400, L100.0100, L501.9520, L300.3900, L500.2500, L501.4021, L300.4310 ####[facility] [address] [place], [address] ECRCL 113.08 ml/min Normal 50-250 [facility] Comment on above: Performed By: #### L 501.5200, L300.8000, L503.7505, L506.0400, L100.0100, L501.9520, L300.3900, L500.2500, L501.4021, L300.4310 ####[facility] [address] [place], [place], [phone] GAP 11 Normal 5-15 [facility] Comment on above: Performed By: #### L 501.5200, L300.8000, L503.7505, L506.0400, L100.0100, L501.9520, L300.3900, L500.2500, L501.4021, L300.4310 ####[facility] [address] [place], [place], [phone] GFR/1.73 sq M.predicted among non-blacks MDRD (S/P/Bld) [Vol rate/Area] 104 mL/min/{1.73_m2} Normal >60 [facility] Comment on above: Result Comment: mL/m in/1.73m2 CKD-EPI Creatinine Equation (2020) Performed By: #### L 501.5200, L300.8000, L503.7505, L506.0400, L100.0100, L501.9520, L300.3900, L500.2500, L501.4021, L300.4310 ####[facility] [address] [place], [place], [phone] Glucose [Mass/Vol] 111 mg/dL High 70-99 [facility] Comment on above: Performed By: #### L 501.5200, L300.8000, L503.7505, L506.0400, L100.0100, L501.9520, L300.3900, L500.2500, L501.4021, L300.4310 ####[facility] [address] [place], [place], [phone] Potassium [Moles/Vol] 3.9 mmol/L Normal 3.3-5.1 [facility] Comment on above: Performed By: #### L 501.5200, L300.8000, L503.7505, L506.0400, L100.0100, L501.9520, L300.3900, L500.2500, L501.4021, L300.4310 ####[facility] [address] [place], [address] Sodium [Moles/Vol] 141 mmol/L Normal 133-145 [facility] Comment on above: Performed By: #### L 501.5200, L300.8000, L503.7505, L506.0400, L100.0100, L501.9520, L300.3900, L500.2500, L501.4021, L300.4310 ####[facility] [address] [place], [address] Urea nitrogen [Mass/Vol] 10 mg/dL Normal 4-19 [facility] Comment on above: Performed By: #### L 501.5200, L300.8000, L503.7505, L506.0400, L100.0100, L501.9520, L300.3900, L500.2500, L501.4021, L300.4310 ####[facility] [address] [place], [address] Bedside Glucoseon 05-25-2025 FINGERSTICK GLU 91 mg/dL Normal 74-106 [facility] Comment on above: Result Comment: SHAKA VELASQUEZ OF PATIENT CARE PER NURSING PROTOCOL Performed By: #### L 501.080 ####[facility] [address] [place], [address] CBC W/Diff, Automatedon 05-10 Absolute Lymph 2.13 X10 3/uL Normal 0.83-4.51 [facility] Comment on above: Performed By: #### L 501.5200, L300.8000, L503.7505, L506.0400, L100.0100, L501.9520, L300.3900, L500.2500, L501.4021, L300.4310 #### [facility] [address] [place], [place], [phone] Absolute Neut 8.8 X10 3/uL High 2.0-7.7 [facility] Comment on above: Performed By: #### L 501.5200, L300.8000, L503.7505, L506.0400, L100.0100, L501.9520, L300.3900, L500.2500, L501.4021, L300.4310 #### [facility] [address] [facility] [place], [address] [phone]) Basophils/100 WBC (Bld) 0.3 % Normal 0-1 [facility] Comment on above: Performed By: #### L 501.5200, L300.8000, L503.7505, L506.0400, L100.0100, L501.9520, L300.3900, L500.2500, L501.4021, L300.4310 #### [facility] [address] [facility] [place], [address] Eosinophils/100 WBC (Bld) 1.3 % Normal 0-5 [facility] Comment on above: Performed By: #### L 501.5200, L300.8000, L503.7505, L506.0400, L100.0100, L501.9520, L300.3900, L500.2500, L501.4021, L300.4310 #### [facility] [address] [place], [place], [phone] Erythrocyte distribution width (RBC) [Ratio] 13.8 % Normal 11.6-14.6 [facility] Comment on above: Performed By: #### L 501.5200, L300.8000, L503.7505, L506.0400, L100.0100, L501.9520, L300.3900, L500.2500, L501.4021, L300.4310 #### [facility] [address] [place], [address] Hematocrit (Bld) [Volume fraction] 42.7 % Normal 37-47 [facility] Comment on above: Performed By: #### L 501.5200, L300.8000, L503.7505, L506.0400, L100.0100, L501.9520, L300.3900, L500.2500, L501.4021, L300.4310 #### [facility] [address] [place], [address] Hemoglobin (Bld) [Mass/Vol] 14.4 g/dL Normal 12.0-15.0 [facility] Comment on above: Performed By: #### L 501.5200, L300.8000, L503.7505, L506.0400, L100.0100, L501.9520, L300.3900, L500.2500, L501.4021, L300.4310 #### [facility] [address] [place], [address] IG% 0.200 Normal 0.0-0.9 [facility] Comment on above: Result Comment: IG% - Immature Granulocytes (promyelocytes, myelocytes and metamyelocytes) > 1% indicates that a LEFT SHIFT is Present. Performed By: #### L 501.5200, L300.8000, L503.7505, L506.0400, L100.0100, L501.9520, L300.3900, L500.2500, L501.4021, L300.4310 #### [facility] [address] [place], [address] Lymphocytes/100 WBC (Bld) 17.4 % Low 19-41 [facility] Comment on above: Performed By: #### L 501.5200, L300.8000, L503.7505, L506.0400, L100.0100, L501.9520, L300.3900, L500.2500, L501.4021, L300.4310 #### [facility] [address], [address] MCH (RBC) [Entitic mass] 28.1 pg Normal 27.0-32.0 [facility] Comment on above: Performed By: #### L 501.5200, L300.8000, L503.7505, L506.0400, L100.0100, L501.9520, L300.3900, L500.2500, L501.4021, L300.4310 #### [facility] [address], [address] MCHC (RBC) [Mass/Vol] 33.7 g/dL Normal 32-36 [facility] Comment on above: Performed By: #### L 501.5200, L300.8000, L503.7505, L506.0400, L100.0100, L501.9520, L300.3900, L500.2500, L501.4021, L300.4310 #### [facility] [address] [facility] [place], [address] MCV (RBC) [Entitic vol] 83.2 fL Normal 81-99 [facility] Comment on above: Performed By: #### L 501.5200, L300.8000, L503.7505, L506.0400, L100.0100, L501.9520, L300.3900, L500.2500, L501.4021, L300.4310 #### [facility] [address] [place], [address] Monocytes/100 WBC (Bld) 8.9 % Normal 0-10 [facility] Comment on above: Performed By: #### L 501.5200, L300.8000, L503.7505, L506.0400, L100.0100, L501.9520, L300.3900, L500.2500, L501.4021, L300.4310 #### [facility] [address] [place], [address] Neutrophils/100 WBC (Bld) 71.9 % High 47-70 [facility] Comment on above: Performed By: #### L 501.5200, L300.8000, L503.7505, L506.0400, L100.0100, L501.9520, L300.3900, L500.2500, L501.4021, L300.4310 #### [facility] [address] [place], [address] Nucleated RBC (Bld) [#/Vol] 0 10*3/uL Normal 0-5 [facility] Comment on above: Performed By: #### L 501.5200, L300.8000, L503.7505, L506.0400, L100.0100, L501.9520, L300.3900, L500.2500, L501.4021, L300.4310 #### [facility] [address] [place], [place], [phone]) Platelet mean volume (Bld) [Entitic vol] 9.1 fL Normal 6.2-12.0 [facility] Comment on above: Performed By: #### L 501.5200, L300.8000, L503.7505, L506.0400, L100.0100, L501.9520, L300.3900, L500.2500, L501.4021, L300.4310 #### [facility] [address] [place], [address] Platelets (Bld) [#/Vol] 375 10*3/uL Normal 150-450 [facility] Comment on above: Performed By: #### L 501.5200, L300.8000, L503.7505, L506.0400, L100.0100, L501.9520, L300.3900, L500.2500, L501.4021, L300.4310 #### [facility] [address] [facility] [place], [address] RBC (Bld) [#/Vol] 5.13 10*6/uL Normal 4.2-5.4 [facility] Comment on above: Performed By: #### L 501.5200, L300.8000, L503.7505, L506.0400, L100.0100, L501.9520, L300.3900, L500.2500, L501.4021, L300.4310 #### [facility] [address] [facility] [place], [address] RDW SD 42.4 fl Normal 35.1-43.9 [facility] Comment on above: Performed By: #### L 501.5200, L300.8000, L503.7505, L506.0400, L100.0100, L501.9520, L300.3900, L500.2500, L501.4021, L300.4310 #### [facility] [address] [facility] [place], [address] WBC (Bld) [#/Vol] 12.2 10*3/uL High 4.4-11.0 [facility] Comment on above: Performed By: #### L 501.5200, L300.8000, L503.7505, L506.0400, L100.0100, L501.9520, L300.3900, L500.2500, L501.4021, L300.4310 #### [facility] [address] [place], [address] CTA Chest W/WO Contrast CTA Chest W/WO Contrast [facility] [address] [place] [address] CTA Chest W/WO Contrast MR#: [id number] Acct: [id number] Name: JACKIE HARRINGTON TREVOR Rep #: [id number] : 1970 F 54 From: Mundo mcgrath MD PCP: Dr. Michael Coles MD Status: REG ER Study: CTA Chest W/WO Contrast Date of Exam: 05/25/25 Exam# [id number] Ordering Dr: Ricci Andrews DO PROCEDURE: CTA [...] EVIDENCE OF ACUTE PULMONARY EMBOLISM. Reading Location: [facility] CC: Dr. Ricci Andrews DO; Dr. Michael Coles MD Type Inspector: Signed Normal [facility] Chest PA and Lateralon 05-25 Chest PA and Lateral [facility] Imaging Services [address] [place] [address] Chest PA and Lateral MR#: [id number] Acct: [id number] Name: JACKIE HARRINGTON Rep #: [id number] : 1970 F 54 From: Mundo mcgrath MD PCP: Dr. Michael Coles MD Status: REG ER Study: Chest PA and Lateral Date of Exam: 05/25/25 Exam# [id number] Ordering Dr: Ricci Andrews DO PROCEDURE: CHEST [...] Lateral IMPRESSION: NO ACUTE FINDINGS. Reading Location: [place] [address] CC: Dr. Ricci Andrews DO; Dr. Michael Coles MD Type Inspector: Signed Normal [facility] D-Dimer Quantitative (DVT/PE )on 05-25-2025 D-DIMER QUANT 0.91 FEU/ug/m Invalid Interpretation Code 0.27-0.49 [facility] Comment on above: Order Comment: CRITI MEAGHAN VALUE CALLED TO MARIAH SUAREZ 05/25/25 1020 Celi Chaudhari. RESULTS READ BACK BY SAME. Result Comment: D-Di isela ELEVATED (>0.49): Additional studies and clinical assessments are indicated to conclude diagnosis of: Deep Vein Thrombosis (DVT) or Pulmonary Embolism (PE) Performed By: #### L 501.5200, L300.8000, L503.7505, L506.0400, L100.0100, L501.9520, L300.3900, L500.2500, L501.4021, L300.4310 #### [facility] [address] [place], [address] Echo Completeon 05-25-2025 Echo [facility] [address] [address] Echo Complete 05/25/25 1525 MR#: [id number] Acct: [id number] Name: JACKIE HARRINGTON Rep #: [id number] : 1970 54 From: Ian Rivera MD Attending Dr: Dr. Javi Mota MD Status : ADM TUSHAR Ordering Dr: Javi Mota MD Date: 05/25/25 Location: [facility] Sex: F C Admitted: 05/25/25 Reason For [...] MD Date Dictated: 05/25/251524 Date Transcribed: 05/25/251640 Type Inspector: Signed Normal [facility] Echocardiogram study reportO rdered By: Ian Rivera on 05-25-2025 Study report [facility] Cardiovascular Services [address] [place] [address] Echo Complete 05/25/25 152 MR#: [id number] Acct: [id number] Name: JACKIE HARRINGTON Rep #:[id number] : 1970 54 From: Ian Elder Attending Dr: Dr. Javi Mota MD Status: ADM TUSHAR Ordering Dr: Javi Mota MD Da te: 05/25/25 Location: [facility] Sex: F C Admitted: 05/25/25 Reason For [...] Javi Mota Performed By: Ricci Belle RCS 05/25/25 1641 Date _ Ian Rivera MD CC: Dr. Michael Coles MD; Dr. Javi Mota MD ~ Date Dictated: 05/25/25 1525 Date Transcribed: 05/25/25 1641 Type Inspector: Signed [facility] Work Phone: Emergency Department Summary on 05-25-2025 Emergency Department Summary [facility] Medical Records Department [address] [place] [address] Emergency Department Summary 05/25/25 MR#: [id number] Acct: [id number] Name: JACKIE HARRINGTON DECEMBER Rep #: [id number] : 1970 54 From: Ricci Andrews DO PCP: Dr. Michael Coles MD Status:ADM TUSHAR Location: [place] [address] HPI History of Present Illness Chief Complaint: [...] intact Psych: Cooperative, appropriate mood and affect [facility] Medical History Colon cancer screening Anxiety and [...] endometrial ablat (more content not included)... Normal [facility] Free T3on 05-25-2025 Free T3 [Mass/Vol] 2.3 pg/mL Normal 2.18-3.98 [facility] Comment on above: Performed By: #### L 501.63098 #### [facility] Laboratory [address] [place], [address] Free U5Tslootm By: Javi Mota on 05-25-2025 Free T3 [Mass/Vol] 2.3 pg/mL 2.18-3.98 [facility] H AND P Exam - Hospitaliston 05-25-2025 H&P Exam - Hospitalist [facility] Medical Records Department [address] [place] [address] H P Exam - Hospitalist 05/25/25 1602 MR#: [id number] Acct: [id number] Name: JACKIE HARRINGTON Rep #: [id number] : 1970 54 From: Javi Mota MD PCP: Dr. Michael Coles MD Status:ADM TUSHAR Location: [place] [address] HPI - General General Date of Admission: [...] TSH was normal and T4 was elevated. [facility] Medical History (Updated 05/25/25 @ 16:11 by [...] additional soc (more content not included)... Normal [facility] International normalized rat io (INR) calculationOrdered By: Ricci Andrews on 05-25-2025 INR Coag (Bld) [Relative time] 1.0 {INR} [facility] L501.4021on 05-25-2025 Trop T High Sen 8 ng/L Normal <=14 [facility] Comment on above: Performed By: #### L 501.5200, L300.8000, L503.7505, L506.0400, L100.0100, L501.9520, L300.3900, L500.2500, L501.4021, L300.4310 ####[facility] [address] [place], [address] Magnesiumon 05-25-2025 Magnesium [Mass/Vol] 2.0 mg/dL Normal 1.5-2.2 [facility] Comment on above: Performed By: #### L 501.5200, L300.8000, L503.7505, L506.0400, L100.0100, L501.9520, L300.3900, L500.2500, L501.4021, L300.4310 ####[facility] [address] [place], [address] Magnesium measurement (mass/ volume)Ordered By: Ricci Andrews on 05-25-2025 Magnesium (Unsp spec) [Mass/Vol] 2.0 mg/dL 1.5-2.2 [facility] Natriuretic peptide.B prohor ruby N-Terminal [Mass/volume] in Serum or PlasmaOrdered By: Ricci Andrews on 05-25-2025 Natriuretic peptide.B prohormone N-Terminal [Mass/Vol] 2028 pg/mL High <900 [facility] Comment on above: Heart Failure Unlike ly: < 300 pg/mLHeart Failure Likely< 50 Years: > 450 pg/mL50-75 Years: > 900 pg/mL>75 Years: > 1800 pg/mL Partial Thromboplast Timeon 05-25-2025 aPTT Coag (Bld) [Time] 24.5 s Normal 24.1-36.2 [facility] Comment on above: Order Comment: CRITI MEAGHAN VALUE CALLED TO MARIAH SUAREZ 05/25/25 1020 Celi Chaudhari. RESULTS READ BACK BY SAME. Performed By: #### L 501.5200, L300.8000, L503.7505, L506.0400, L100.0100, L501.9520, L300.3900, L500.2500, L501.4021, L300.4310 #### [facility] Laboratory [address] [place], [address] Pro- Brain NATRIURETIC PEPTI Kathya 05-25-2025 Natriuretic peptide B (Bld) [Mass/Vol] 2028 pg/mL High <=900 [facility] Comment on above: Result Comment: Hear t Failure Unlikely: < 300 pg/mL Heart Failure Likely < 50 Years: > 450 pg/mL 50-75 Years: > 900 pg/mL >75 Years: > 1800 pg/mL Performed By: #### L 501.5200, L300.8000, L503.7505, L506.0400, L100.0100, L501.9520, L300.3900, L500.2500, L501.4021, L300.4310 ####[facility] [address] [place], [place], [phone] Prothrombin Time w/INRon INR Coag (PPP) [Relative time] 1.0 {INR} Normal [facility] Comment on above: Order Comment: CRITI MEAGHAN VALUE CALLED TO MARIAH SUAREZ 05/25/25 1020 Celi Watson. RESULTS READ BACK BY SAME. Performed By: #### L 501.5200, L300.8000, L503.7505, L506.0400, L100.0100, L501.9520, L300.3900, L500.2500, L501.4021, L300.4310 #### [facility] Laboratory [address] [place], [place], [phone] PT Coag (PPP) [Time] 13.2 s Normal 11.7-14.9 [facility] Comment on above: Order Comment: CRITI MEAGHAN VALUE CALLED TO MARIAH ARGABRITE 05/25/25 1020 Celi Chaudhari. RESULTS READ BACK BY SAME. Performed By: #### L 501.5200, L300.8000, L503.7505, L506.0400, L100.0100, L501.9520, L300.3900, L500.2500, L501.4021, L300.4310 #### [facility] [address] [place], [place], [phone] Prothrombin timeOrdered By: Ricci Andrews on 05-25-2025 PT Coag (PPP) [Time] 13.2 s 11.7-14.9 [facility] T4 Free Directon 05-25-2025 T4 FREE DIRECT 1.60 ng/dL High 0.76-1.46 [facility] Comment on above: Performed By: #### L 501.5200, L300.8000, L503.7505, L506.0400, L100.0100, L501.9520, L300.3900, L500.2500, L501.4021, L300.4310 ####[facility] [address] [place], [place], [phone] T4 freeOrdered By: Ricci Casper on 05-25-2025 Free T4 [Mass/Vol] 1.60 ng/dL High 0.76-1.46 [facility] TSH DL <= 0.005 mIU/L QnOrde red By: Riccielsy CoronaTrinh on 05-25-2025 TSH Qn 1.010 uIU/mL 0.300-4.200 [facility] Thyroid Stim Hormone (TSH)on 05-25-2025 TSH 1.010 uIU/mL Normal 0.300-4.200 [facility] Comment on above: Performed By: #### L 501.5200, L300.8000, L503.7505, L506.0400, L100.0100, L501.9520, L300.3900, L500.2500, L501.4021, L300.4310 ####[facility] [address] [place], [place], [phone] Troponin T HS 2 HRon 025 Trop T High Sen 7 ng/L Normal <=14 [facility] Comment on above: Performed By: #### L 499.0042 ####[facility] [address] [place], [place], [phone] Troponin T.cardiac [Mass/vol ume] in Serum or Plasma by High sensitivity methodOrdered By: Ricci Andrews on 05-25-2025 Troponin T.cardiac High sensitivity method [Mass/Vol] 7 ng/L <14 [facility] Troponin T.cardiac High sensitivity method [Mass/Vol] 8 ng/L <14 [facility] Anion gap in Serum or Plasma Ordered By: Michael Coles on 04-24-2025 Anion gap [Moles/Vol] 12 mmol/L 12-22 [facility] BUN/creatinine ratioOrdered By: Michael Coles on 04-24-2025 Urea nitrogen/Creatinine [Mass ratio] 24.8 mg/mg High 05-29 [facility] Basic Metabolic Profile (BMP )on 04-24-2025 BUN/CRE 24.8 RATIO High 05-29 [facility] Comment on above: Performed By: #### L 501.9985, L501.9520, L500.2500 ####[facility] [address] [place], [address] Calcium [Mass/Vol] 9.4 mg/dL Normal 7.6-11.0 [facility] Comment on above: Performed By: #### L 501.9985, L501.9520, L500.2500 ####[facility] [address] [place], [address] Chloride [Moles/Vol] 103 mmol/L Normal 98-108 [facility] Comment on above: Performed By: #### L 501.9985, L501.9520, L500.2500 ####[facility] [address] [place], [address] CO2 [Moles/Vol] 26.3 mmol/L Normal 21.0-32.0 [facility] Comment on above: Performed By: #### L 501.9985, L501.9520, L500.2500 ####[facility] [address] [place], [address] Creatinine [Mass/Vol] 0.67 mg/dL Low 0.70-1.20 [facility] Comment on above: Performed By: #### L 501.9985, L501.9520, L500.2500 ####[facility] [address] [place], [address] GAP 12 Normal 5-15 [facility] Comment on above: Performed By: #### L 501.9985, L501.9520, L500.2500 ####[facility] [address] [place], [address] GFR/1.73 sq M.predicted among non-blacks MDRD (S/P/Bld) [Vol rate/Area] 103 mL/min/{1.73_m2} Normal >60 [facility] Comment on above: Result Comment: mL/m in/1.73m2 CKD-EPI Creatinine Equation (2020) Performed By: #### L 501.9985, L501.9520, L500.2500 ####[facility] [address] [place], [address] Glucose [Mass/Vol] 75 mg/dL Normal 70-99 [facility] Comment on above: Performed By: #### L 501.9985, L501.9520, L500.2500 ####[facility] [address] [place], [address] Potassium [Moles/Vol] 4.0 mmol/L Normal 3.3-5.1 [facility] Comment on above: Performed By: #### L 501.9985, L501.9520, L500.2500 ####[facility] [address] [place], [address] Sodium [Moles/Vol] 142 mmol/L Normal 133-145 [facility] Comment on above: Performed By: #### L 501.9985, L501.9520, L500.2500 ####[facility] [address] [place], [address] Urea nitrogen [Mass/Vol] 17 mg/dL Normal 4-19 [facility] Comment on above: Performed By: #### L 501.9985, L501.9520, L500.2500 ####[facility] [address] [place], [place], [id number] Carbon dioxide, total [Moles /volume] in Central venous bloodOrdered By: Michael Coles on 04-24-2025 CO2 [Moles/Vol] 26.3 mmol/L 21.0-32.0 [facility] Chloride assayOrdered By: Chloe Coles on 04-24-2025 Chloride [Moles/Vol] 103 mmol/L 98-108 [facility] Glomerular filtration rate ( GFR) estimation/1.73 sq m using serum, plasma, or whole bOrdered By: Michael Coles on 04-24-2025 GFR/1.73 sq M.predicted among non-blacks MDRD (S/P/Bld) [Vol rate/Area] 103 mL/min/{1.73_m2} >60 [facility] Comment on above: mL/min/1.73m2 CKD-EP I Creatinine Equation (2020) Hemoglobin A1con 04-24-2025 HbA1c (Bld) [Mass fraction] 6.0 % High <=5.6 [facility] Comment on above: Result Comment: Norm al < 5.7 % Prediabetic 5.7 - 6.4 % Diabetic >or= 6.5 % Please note range changes. Performed By: #### L 501.9985, L501.9520, L500.2500 ####[facility] [address] [place], [place], [phone] Hemoglobin A1c percentageOrd ered By: Michael Coles on 04-24-2025 HbA1c (Bld) [Mass fraction] 6.0 % High <5.7 [facility] Comment on above: Normal < 5.7 % Predi abetic 5.7 - 6.4 % Diabetic >or= 6.5 % Please note range changes. Potassium measurement (mass/ volume)Ordered By: Zarajunior Nunezdineshgiovanni on 04-24-2025 Potassium (Unsp spec) [Mass/Vol] 4.0 mmol/L 3.3-5.1 [facility] Serum creatinine measurement (mass/volume)Ordered By: theodore Coles on 04-24-2025 Creatinine [Mass/Vol] 0.67 mg/dL Low 0.70-1.20 [facility] Serum glucose measurement (m ass/volume)Ordered By: violetchilhowiejunior Nunezdineshgiovanni on 04-24-2025 Glucose [Mass/Vol] 75 mg/dL 70-99 [facility] Serum or plasma calcium tika urement (mass/volume)[facility] By: [facility] on 04-24-2025 Calcium [Mass/Vol] 9.4 mg/dL 7.6-11.0 [facility] Serum or plasma urea nitroge n measurement (mass/volume)Ordered By: [facility] on 04-24-2025 Urea nitrogen [Mass/Vol] 17 mg/dL 4-19 [facility] Sodium levelOrdered By: [facility] [place] willard Colse on 04-24-2025 Sodium [Moles/Vol] 142 mmol/L 133-145 [facility] TSH DL <= 0.005 mIU/L QnOrde red By: Chloeviolethoustonjunior Nunezdineshgiovanni on 04-24-2025 TSH Qn 0.710 uIU/mL 0.300-4.200 [facility] Thyroid Stim Hormone (TSH)on 04-24-2025 TSH 0.710 uIU/mL Normal 0.300-4.200 [facility] Comment on above: Performed By: #### L 501.9985, L501.9520, L500.2500 ####[facility] [address] [place], [address] Internal Medicine Office Vis iton 03-22-2025 Internal Medicine Office Visit [facility] [place] [address] OFFICE VISIT Date of Service: 03/22/25 MR#: [id number] Acct: [id number] Name: SUPPJACKIE COOK Rep #: [id number] : 1970 Provider: Dr. 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 Normal [facility] Laboratory - Hematology and Cell countsOrdered By: Michael Coles on 03-22-2025 HbA1c (Bld) [Mass fraction] 5.9 % 4.2-6.3 [facility] Internal Medicine Office Vis iton 12-15-2024 Internal Medicine Office Visit [facility] [address] [place] [address] [place] [address] OFFICE VISIT Date of Service: 12/15/24 MR#: [id number] Acct: [id number] Name: JACKIE HARRINGTON Rep #: [id number] : 1970 Provider: Dr. 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 It is all clear. 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 Normal [facility] Laboratory - Hematology and Cell countsOrdered By: Michael Coles on 05-08-2025 HbA1c (Bld) [Mass fraction] 5.8 % 4.2-6.3 [facility] Sticker On Office Visit Reporton 10-19-2024 Sticker On Office Visit Report 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 Normal [facility] Internal Medicine Office Vis iton 08-26-2024 Internal Medicine Office Visit [facility] [address] [place] [address] [place] [address] OFFICE VISIT Date of Service: 08/26/24 MR#: [id number] Acct: [id number] Name: JACKIE HARRINGTON Rep #: [id number] : 1970 Provider: Dr. 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 (more content not included)... Normal [facility] CBC W/Diff, Automatedon 08-10 Absolute Lymph 1.76 X10 3/uL Normal 0.83-4.51 [facility] Comment on above: Performed By: #### L 501.9520, L502.0250, L501.9985, L500.4100, L100.0100, L500.4050 ####[facility] [address] [place], [address] Absolute Neut 5.1 X10 3/uL Normal 2.0-7.7 [facility] Comment on above: Performed By: #### L 501.9520, L502.0250, L501.9985, L500.4100, L100.0100, L500.4050 ####[facility] [address] [place], [address] Basophils/100 WBC (Bld) 0.8 % Normal 0-1 [facility] Comment on above: Performed By: #### L 501.9520, L502.0250, L501.9985, L500.4100, L100.0100, L500.4050 ####[facility] [address] [place], [address] Eosinophils/100 WBC (Bld) 4.9 % Normal 0-5 [facility] Comment on above: Performed By: #### L 501.9520, L502.0250, L501.9985, L500.4100, L100.0100, L500.4050 ####[facility] [address] [place], [address] Erythrocyte distribution width (RBC) [Ratio] 14.0 % Normal 11.6-14.6 [facility] Comment on above: Performed By: #### L 501.9520, L502.0250, L501.9985, L500.4100, L100.0100, L500.4050 ####[facility] [address] [place], [address] Hematocrit (Bld) [Volume fraction] 45.3 % Normal 37-47 [facility] Comment on above: Performed By: #### L 501.9520, L502.0250, L501.9985, L500.4100, L100.0100, L500.4050 ####[facility] [address] [place], [address] Hemoglobin (Bld) [Mass/Vol] 14.0 g/dL Normal 12.0-15.0 [facility] Comment on above: Performed By: #### L 501.9520, L502.0250, L501.9985, L500.4100, L100.0100, L500.4050 ####[facility] [address] [place], [address] IG% 0.300 Normal 0.0-0.9 [facility] Comment on above: Result Comment: IG% - Immature Granulocytes (promyelocytes, myelocytes and metamyelocytes) > 1% indicates that a LEFT SHIFT is Present. Performed By: #### L 501.9520, L502.0250, L501.9985, L500.4100, L100.0100, L500.4050 ####[facility] [address] [place], [address] Lymphocytes/100 WBC (Bld) 22.6 % Normal 19-41 [facility] Comment on above: Performed By: #### L 501.9520, L502.0250, L501.9985, L500.4100, L100.0100, L500.4050 ####[facility] [address] [place], [address] MCH (RBC) [Entitic mass] 26.7 pg Low 27.0-32.0 [facility] Comment on above: Performed By: #### L 501.9520, L502.0250, L501.9985, L500.4100, L100.0100, L500.4050 ####[facility] [address] [place], [address] MCHC (RBC) [Mass/Vol] 30.9 g/dL Low 32-36 [facility] Comment on above: Performed By: #### L 501.9520, L502.0250, L501.9985, L500.4100, L100.0100, L500.4050 ####[facility] [address] [place], [address] MCV (RBC) [Entitic vol] 86.5 fL Normal 81-99 [facility] Comment on above: Performed By: #### L 501.9520, L502.0250, L501.9985, L500.4100, L100.0100, L500.4050 ####[facility] [address] [place], [address] Monocytes/100 WBC (Bld) 5.8 % Normal 0-10 [facility] Comment on above: Performed By: #### L 501.9520, L502.0250, L501.9985, L500.4100, L100.0100, L500.4050 ####[facility] [address] [place], [address] Neutrophils/100 WBC (Bld) 65.6 % Normal 47-70 [facility] Comment on above: Performed By: #### L 501.9520, L502.0250, L501.9985, L500.4100, L100.0100, L500.4050 ####[facility] [address] [place], [address] Nucleated RBC (Bld) [#/Vol] 0 10*3/uL Normal 0-5 [facility] Comment on above: Performed By: #### L 501.9520, L502.0250, L501.9985, L500.4100, L100.0100, L500.4050 ####[facility] [address] [place], [address] Platelet mean volume (Bld) [Entitic vol] 10.3 fL Normal 6.2-12.0 [facility] Comment on above: Performed By: #### L 501.9520, L502.0250, L501.9985, L500.4100, L100.0100, L500.4050 ####[facility] [address] [place], [address] Platelets (Bld) [#/Vol] 358 10*3/uL Normal 150-450 [facility] Comment on above: Performed By: #### L 501.9520, L502.0250, L501.9985, L500.4100, L100.0100, L500.4050 ####[facility] [address] [place], [address] RBC (Bld) [#/Vol] 5.24 10*6/uL Normal 4.2-5.4 [facility] Comment on above: Performed By: #### L 501.9520, L502.0250, L501.9985, L500.4100, L100.0100, L500.4050 ####[facility] [address] [place], [address] RDW SD 44.2 fl High 35.1-43.9 [facility] Comment on above: Performed By: #### L 501.9520, L502.0250, L501.9985, L500.4100, L100.0100, L500.4050 ####[facility] [address] [place], [address] WBC (Bld) [#/Vol] 7.8 10*3/uL Normal 4.4-11.0 [facility] Comment on above: Performed By: #### L 501.9520, L502.0250, L501.9985, L500.4100, L100.0100, L500.4050 ####[facility] [address] [place], [address] Comprehensive Metabolic Prof ilon 08-23-2024 Albumin [Mass/Vol] 3.7 g/dL Normal 3.2-5.0 [facility] Comment on above: Performed By: #### L 501.9520, L502.0250, L501.9985, L500.4100, L100.0100, L500.4050 ####[facility] [address] [place], [address] Albumin/Globulin [Mass ratio] 1.1 {ratio} Normal 0.9-2.4 [facility] Comment on above: Performed By: #### L 501.9520, L502.0250, L501.9985, L500.4100, L100.0100, L500.4050 ####[facility] [address] [place], [address] ALK P 86 U/L Normal 45-117 [facility] Comment on above: Performed By: #### L 501.9520, L502.0250, L501.9985, L500.4100, L100.0100, L500.4050 ####[facility] [address] [place], [address] ALT [Catalytic activity/Vol] 36 U/L Normal 13-56 [facility] Comment on above: Performed By: #### L 501.9520, L502.0250, L501.9985, L500.4100, L100.0100, L500.4050 ####[facility] [address] [place], [address] AST [Catalytic activity/Vol] 18 U/L Normal 15-37 [facility] Comment on above: Performed By: #### L 501.9520, L502.0250, L501.9985, L500.4100, L100.0100, L500.4050 ####[facility] [address] [place], [address] Bilirubin [Mass/Vol] 0.40 mg/dL Normal 0.20-1.00 [facility] Comment on above: Result Comment: For patients on eltrombopag therapy, use of Dimension [place] TBIL is not recommended. Performed By: #### L 501.9520, L502.0250, L501.9985, L500.4100, L100.0100, L500.4050 ####[facility] [address] [place], [address] BUN/CRE 30.0 RATIO High 10-20 [facility] Comment on above: Performed By: #### L 501.9520, L502.0250, L501.9985, L500.4100, L100.0100, L500.4050 ####[facility] [address] [place], [address] CA,Total 9.2 mg/dL Normal 8.5-10.1 [facility] Comment on above: Performed By: #### L 501.9520, L502.0250, L501.9985, L500.4100, L100.0100, L500.4050 ####[facility] [address] [place], [address] Chloride [Moles/Vol] 104 mmol/L Normal 98-107 [facility] Comment on above: Performed By: #### L 501.9520, L502.0250, L501.9985, L500.4100, L100.0100, L500.4050 ####[facility] [address] [place], [address] CO2 [Moles/Vol] 30.0 mmol/L Normal 21.0-32.0 [facility] Comment on above: Performed By: #### L 501.9520, L502.0250, L501.9985, L500.4100, L100.0100, L500.4050 ####[facility] [address] [place], [address] Creatinine [Mass/Vol] 0.60 mg/dL Normal 0.55-1.02 [facility] Comment on above: Result Comment: The validity of the calculated GFR GFRAA in patients over 70 years has not been determined. Clinical correlation is essential. Performed By: #### L 501.9520, L502.0250, L501.9985, L500.4100, L100.0100, L500.4050 ####[facility] [address] [place], [address] EST GFR - AA 133 mL/min Normal >60 [facility] Comment on above: Result Comment: Afri can Finnish GFR Calc Performed By: #### L 501.9520, L502.0250, L501.9985, L500.4100, L100.0100, L500.4050 ####[facility] [address] [place], [address] GAP 3 Low 5-15 [facility] Comment on above: Performed By: #### L 501.9520, L502.0250, L501.9985, L500.4100, L100.0100, L500.4050 ####[facility] [address] [place], [address] GFR/1.73 sq M.predicted among non-blacks MDRD (S/P/Bld) [Vol rate/Area] 110 mL/min/{1.73_m2} Normal >60 [facility] Comment on above: Result Comment: Non- GFR Calc Performed By: #### L 501.9520, L502.0250, L501.9985, L500.4100, L100.0100, L500.4050 ####[facility] [address] [place], [address] Globulin (S) [Mass/Vol] 3.3 g/dL Normal 2.2-4.2 [facility] Comment on above: Performed By: #### L 501.9520, L502.0250, L501.9985, L500.4100, L100.0100, L500.4050 ####[facility] [address] [place], [address] Glucose [Mass/Vol] 102 mg/dL Normal 74-106 [facility] Comment on above: Result Comment: Fast ing Glucose result from 100 to 125 mg/dL suggests IMPAIRED HOMEOSTASIS per A.D.A. criteria. Performed By: #### L 501.9520, L502.0250, L501.9985, L500.4100, L100.0100, L500.4050 ####[facility] [address] [place], [address] Potassium [Moles/Vol] 4.3 mmol/L Normal 3.5-5.1 [facility] Comment on above: Performed By: #### L 501.9520, L502.0250, L501.9985, L500.4100, L100.0100, L500.4050 ####[facility] [address] [place], [address] Sodium [Moles/Vol] 137 mmol/L Normal 136-145 [facility] Comment on above: Performed By: #### L 501.9520, L502.0250, L501.9985, L500.4100, L100.0100, L500.4050 ####[facility] [address] [place], [address] T PROT 7.0 g/dL Normal 6.4-8.2 [facility] Comment on above: Performed By: #### L 501.9520, L502.0250, L501.9985, L500.4100, L100.0100, L500.4050 ####[facility] [address] [place], [address] Urea nitrogen [Mass/Vol] 18 mg/dL Normal 7-18 [facility] Comment on above: Performed By: #### L 501.9520, L502.0250, L501.9985, L500.4100, L100.0100, L500.4050 ####[facility] [address] [place], [place], [id number] Hemoglobin A1con 08-23-2024 HbA1c (Bld) [Mass fraction] 6.2 % High 3.8-5.6 [facility] Comment on above: Result Comment: Norm al < 5.7 % Prediabetic 5.7 - 6.4 % Diabetic >or= 6.5 % Please note range changes. Performed By: #### L 501.9520, L502.0250, L501.9985, L500.4100, L100.0100, L500.4050 ####[facility] [address] [place], [place], [id number] Lipid Profileon 08-23-2024 Cholesterol [Mass/Vol] 140 mg/dL Normal 200 [facility] Comment on above: Result Comment: <200 mg/dL Desirable 200-240 mg/dL Borderline >240 mg/dL High Risk Performed By: #### L 501.9520, L502.0250, L501.9985, L500.4100, L100.0100, L500.4050 ####[facility] [address] [place], [place], [address] Cholesterol in HDL [Mass/Vol] 63 mg/dL Normal [facility] Comment on above: Result Comment: The drugs N-Acetylcysteine and Metamizole may falsely depress this assay. Reference Range HDL <40 mg/dL Low HDL Cholesterol HDL >or= 60 mg/dL High HDL Cholesterol Performed By: #### L 501.9520, L502.0250, L501.9985, L500.4100, L100.0100, L500.4050 ####[facility] [address] [place], [address] Cholesterol in LDL [Mass/Vol] 60 mg/dL Normal 0-130 [facility] Comment on above: Performed By: #### L 501.9520, L502.0250, L501.9985, L500.4100, L100.0100, L500.4050 ####[facility] [address] [place], [address] Cholesterol in VLDL [Mass/Vol] 17 mg/dL Normal 5-40 [facility] Comment on above: Performed By: #### L 501.9520, L502.0250, L501.9985, L500.4100, L100.0100, L500.4050 ####[facility] [address] [place], [address] Triglyceride [Mass/Vol] 83 mg/dL Normal [facility] Comment on above: Result Comment: The drugs N-Acetylcysteine and Metamizole may falsely depress this assay. Serum Triglycerides Reference Interval Normal <150 mg/dL Borderline high 150 - 199 mg/dL High 200 - 499 mg/dL Very High > or = 500 mg/dL Performed By: #### L 501.9520, L502.0250, L501.9985, L500.4100, L100.0100, L500.4050 ####[facility] [address] [place], [address] Microalb:Creat Ratio,Random URon 08-23-2024 Creatinine [Mass/Vol] 157.00 mg/dL Normal NO RAN GE EST. [facility] Comment on above: Performed By: #### L 501.9520, L502.0250, L501.9985, L500.4100, L100.0100, L500.4050 ####[facility] [address] [place], [address] MALB:CRE 7.3 mg/g CRE Normal <30 mg/g CRE [facility] Comment on above: Performed By: #### L 501.9520, L502.0250, L501.9985, L500.4100, L100.0100, L500.4050 ####[facility] [address] [place], [address] MICROALBUMIN,UR 11.5 mg/L Normal NO RANGE EST. [facility] Comment on above: Performed By: #### L 501.9520, L502.0250, L501.9985, L500.4100, L100.0100, L500.4050 ####[facility] [address] [place], [place], [address] Thyroid Stim Hormone (TSH)on 08-23-2024 TSH 0.807 uIU/mL Normal 0.358-3.740 [facility] Comment on above: Performed By: #### L 501.9520, L502.0250, L501.9985, L500.4100, L100.0100, L500.4050 ####[facility] [address] [place], [place], [address] Thin prep Papanicolaou smear with manual screeningOrdered By: Michael Coles on 08-26-2023 Thin prep Papanicolaou smear with manual screening < 5.0 mg/L NO RANGE EST. [facility] Urine albumin/creatinine rat io for detection of microalbuminuriaOrdered By: Michael Coles on 08-26-2023 Albumin/Creatinine DL <= 1.0 mg/L (24H U) [Ratio] TNP [facility] Comment on above: Test not performed Urine creatinine measurement (mass/volume)Ordered By: Michael Coles on 08-26-2023 Creatinine (U) [Mass/Vol] 15.60 mg/dL NO RANGE EST. [facility] Absolute lymphocyte countOrd ered By: Michael Coles on 08-20-2023 Lymphocytes Auto (Unsp spec) [#/Vol] 1.15 10*3/uL 0.83-4.51 [facility] Basophil percentageOrdered B y: Michael Coles on 08-20-2023 Basophils/100 WBC (Bld) 0.5 % 0-1 [facility] Bilirubin [Mass/Vol] 0.30 mg/dL 0.20-1.00 [facility] Comment on above: For patients on eltr ombopag therapy, use of Dimension [place] TBIL is not recommended. Chloride [Moles/Vol] 105 mmol/L 98-107 [facility] Cholesterol [Mass/Vol] 141 mg/dL <200 [facility] Comment on above: <200 mg/dL Desirable 200-240 mg/dL Borderline >240 mg/dL High Risk Eosinophils/100 WBC (Bld) 3.8 % 0-5 [facility] Glucose [Mass/Vol] 121 mg/dL 74-106 [facility] Comment on above: Fasting Glucose resu lt from 100 to 125 mg/dL suggests IMPAIRED HOMEOSTASIS per A.D.A. criteria. Neutrophils (Bld) [#/Vol] 4.3 10*3/uL 2.0-7.7 [facility] Neutrophils/100 WBC (Bld) 68.1 % 47-70 [facility] Potassium [Moles/Vol] 4.1 mmol/L 3.5-5.1 [facility] Protein [Mass/Vol] 6.8 g/dL 6.4-8.2 [facility] Sodium [Moles/Vol] 139 mmol/L 136-145 [facility] Triglyceride [Mass/Vol] 178 mg/dL <199 [facility] Comment on above: The drugs N-Acetylcy steine and Metamizole may falsely depress this assay.Serum Triglycerides Reference Interval Normal <150 mg/dL Borderline high 150 - 199 mg/dL High 200 - 499 mg/dL Very High > or = 500 mg/dL WBC (Bld) [#/Vol] 6.3 10*3/uL 4.4-11.0 [facility] Blood erythrocytes count (nu mber/volume)Ordered By: Michael Coles on 08-20-2023 RBC (Bld) [#/Vol] 4.96 10*6/uL 4.2-5.4 [facility] Blood hemoglobin measurement (mass/volume)Ordered By: Michael Coles on 08-20-2023 Hemoglobin (Bld) [Mass/Vol] 13.3 g/dL 12.0-15.0 [facility] Blood lymphocytes/100 leukoc ytesOrdered By: Michael Coles on 08-20-2023 Lymphocytes/100 WBC (Bld) 18.3 % 19-41 [facility] Blood monocytes/100 leukocyt esOrdered By: Michael Coles on 08-20-2023 Monocytes/100 WBC (Bld) 9.0 % 0-10 [facility] Blood platelet mean volumeOr dered By: Michael Coles on 08-20-2023 Platelet mean volume (Bld) [Entitic vol] 9.4 fL 6.2-12.0 [facility] Determination of erythrocyte mean corpuscular volume (MCV)Ordered By: Michael Coles on 08-20-2023 MCV (RBC) [Entitic vol] 88.5 fL 81-99 [facility] Hematocrit Auto (Bld) [Volum e fraction]Ordered By: Michael Coles on 08-20-2023 Hematocrit (Bld) [Volume fraction] 43.9 % 37-47 [facility] Laboratory - Chemistry and C hemistry - challengeOrdered By: Michael Coles on 08-20-2023 ALP [Catalytic activity/Vol] 87 U/L 45-117 [facility] ALT [Catalytic activity/Vol] 39 U/L 13-56 [facility] CO2 [Moles/Vol] 31.0 mmol/L 21.0-32.0 [facility] Globulin (S) [Mass/Vol] 3.5 g/dL 2.2-4.2 [facility] Urea nitrogen/Creatinine [Mass ratio] 15.5 mg/mg 10-20 [facility] Laboratory - Hematology and Cell countsOrdered By: Michael Coles on 08-20-2023 Erythrocyte distribution width (RBC) [Entitic vol] 42.5 fL 35.1-43.9 [facility] Erythrocyte distribution width (RBC) [Ratio] 13.1 % 11.6-14.6 [facility] Immature granulocytes/100 WBC (Bld) 0.300 % 0.0-0.9 [facility] Comment on above: IG% - Immature Granu locytes (promyelocytes, myelocytes and metamyelocytes) > 1% indicates that a LEFT SHIFT is Present. MCH (RBC) [Entitic mass] 26.8 pg 27.0-32.0 [facility] Nucleated RBC/100 WBC (Bld) [Ratio] 0 % 0-5 [facility] MCHC Auto (RBC) [Mass/Vol]Or dered By: Michael Coles on 08-20-2023 MCHC (RBC) [Mass/Vol] 30.3 g/dL 32-36 [facility] No Panel InformationOrdered By: Michael Coles on 08-20-2023 Estimated GFR (MDRD) Amer 123 mL/min >60 [facility] Comment on above: GFR Calc Estimated GFR (MDRD) Non-Af Amer 102 mL/min >60 [facility] Comment on above: Non- GFR Calc Thyroid Stimulating Hormone (TSH) 0.69 uIU/mL 0.358-3.74 [facility] Platelets bldOrdered By: Geovanni Coles on 08-20-2023 Platelets (Bld) [#/Vol] 348 10*3/uL 150-450 [facility] Serum or plasma albumin tika urement (mass/volume)Ordered By: Michael Coles on 08-20-2023 Albumin [Mass/Vol] 3.3 g/dL 3.2-5.0 [facility] Serum or plasma albumin/glob ulin mass ratioOrdered By: Michael Coles on 08-20-2023 Albumin/Globulin [Mass ratio] 0.9 {ratio} 0.9-2.4 [facility] Serum or plasma calcium tika urement (mass/volume)Ordered By: Michael Coles on 08-20-2023 Calcium [Mass/Vol] 8.7 mg/dL 8.5-10.1 [facility] Serum or plasma cholesterol in HDL measurement (mass/volume)Ordered By: Michael Coles on 08-20-2023 Cholesterol in HDL [Mass/Vol] 46 mg/dL >40 [facility] Comment on above: The drugs N-Acetylcy steine and Metamizole may falsely depress this assay. Reference Range HDL <40 mg/dL Low HDL Cholesterol HDL >or= 60 mg/dL High HDL Cholesterol Serum or plasma cholesterol in VLDL measurement (mass/volume)Ordered By: Michael Coles on 08-20-2023 Cholesterol in VLDL [Mass/Vol] 36 mg/dL 5-40 [facility] Serum or plasma creatinine m easurement (mass/volume)Ordered By: Michael Coles on 08-20-2023 Creatinine [Mass/Vol] 0.65 mg/dL 0.55-1.02 [facility] Comment on above: The validity of the calculated GFR & GFRAA in patients over 70 years has not been determined. Clinical correlation is essential. Serum or plasma low density lipoprotein (LDL) cholesterol measurement (mass/volume)Ordered By: Michael Coles on 08-20-2023 Cholesterol in LDL [Mass/Vol] 59 mg/dL 0-130 [facility] Serum or plasma urea nitroge n measurement (mass/volume)Ordered By: Michael Coles on 08-20-2023 Urea nitrogen [Mass/Vol] 10 mg/dL 7-18 [facility] Thin prep Papanicolaou smear with manual screeningOrdered By: Michael Coles on 08-20-2023 Thin prep Papanicolaou smear with manual screening 20 U/L 15-37 [facility] Thin prep Papanicolaou smear with manual screening 3 5-15 [facility] Whole blood hemoglobin A1c/t otal hemoglobin ratio (mass fraction)Ordered By: Michael Coles on 08-20-2023 HbA1c (Bld) [Mass fraction] 7.0 % 3.8-5.6 [facility] Comment on above: Normal < 5.7 % Predi abetic 5.7 - 6.4 % Diabetic >or= 6.5 % Please note range changes. CNOVon 08-09-2023 CNOV Office Visit (UCWSTR ) JACKIE HARRINGTON ([id number]) 1970 F Date Time Provider Department 08/09/23 8:30 AM MERCEDES REID [facility] During your visit today, we recorded the following information about you: Temperature Pulse Respiration Blood pressure 100.7 degrees 99/minute 18/minute 118/82 Weight 125.6 kg Mercedes Reid APRN.[facility] 08/09/2023 8:35 AM Signed CC: Patient presents [...] Patient agreeable to treatment plan. Mercedes Reid APRN.TABLE SETTER Referring Provider: SELF [[id number]] Allergies As of [...] AND RSV NAAT, ROUTINE [SQCVFLRS] Order #: [id number] FUTURE COVID AND INFLUENZA A/B AND RSV NAAT, ROUTINE [SQCVFLRS] Order #: [id number]. #:[id number] Prescriptions as of 08/09/2023 - Ascorbic Acid [...] ferrous sulfat (more content not included)... Normal [facility] COVID AND INFLUENZA A/B AND RSV NAAT, ROUTINEon 08-09-2023 SARS-CoV-2 (COVID-19) RNA LUMA+probe Ql (Unsp spec) COVID 19 RESULT: Detected The method used is RT-PCR or an equivalent NAAT method. Reference Range (the expected result in uninfected individuals): Not detected INFLUENZA A PCR: Not detected INFLUENZA B PCR: Not detected RSV PCR: Not detected Abnormal [facility] Comment on above: Performed By: #### C VFLRS #### [facility] CLIA [id number] [id number] [address] [place] Laboratory - Hematology and Cell countson 05-27-2023 HbA1c (Bld) [Mass fraction] 7.0 % 4.2-6.3 [facility] Basophil percentageOrdered B y: Michael oCles on 02-18-2023 Chloride [Moles/Vol] 104 mmol/L 98-107 [facility] Glucose [Mass/Vol] 91 mg/dL 74-106 [facility] Potassium [Moles/Vol] 4.2 mmol/L 3.5-5.1 [facility] Sodium [Moles/Vol] 139 mmol/L 136-145 [facility] Laboratory - Chemistry and C hemistry - challengeOrdered By: Michael Coles on 02-18-2023 CO2 [Moles/Vol] 30.0 mmol/L 21.0-32.0 [facility] Urea nitrogen/Creatinine [Mass ratio] 22.9 mg/mg 10- [facility] No Panel InformationOrdered By: Michael Coles on 02-18-2023 Estimated GFR (MDRD) Amer 121 mL/min >60 [facility] Comment on above: GFR Calc Estimated GFR (MDRD) Non-Af Amer 100 mL/min >60 [facility] Comment on above: Non- GFR Calc Serum or plasma calcium tika urement (mass/volume)Ordered By: Michael Coles on 02-18-2023 Calcium [Mass/Vol] 8.7 mg/dL 8.5-10.1 [facility] Serum or plasma creatinine m easurement (mass/volume)Ordered By: Michael Coles on 02-18-2023 Creatinine [Mass/Vol] 0.66 mg/dL 0.55-1.02 [facility] Comment on above: The validity of the calculated GFR & GFRAA in patients over 70 years has not been determined. Clinical correlation is essential. Serum or plasma urea nitroge n measurement (mass/volume)Ordered By: Michael Coles on 02-18-2023 Urea nitrogen [Mass/Vol] 15 mg/dL 02-24 [facility] Thin prep Papanicolaou smear with manual screeningOrdered By: Michael Coles on 02-18-2023 Thin prep Papanicolaou smear with manual screening 5 5-15 [facility] Whole blood hemoglobin A1c/t otal hemoglobin ratio (mass fraction)Ordered By: Michael Coles on 02-18-2023 HbA1c (Bld) [Mass fraction] 6.7 % 3.8-5.6 [facility] Comment on above: Normal < 5.7 % Predi abetic 5.7 - 6.4 % Diabetic >or= 6.5 % Please note range changes. Laboratory - Hematology and Cell countson 11-19-2022 HbA1c (Bld) [Mass fraction] 7.0 % 4.2-6.3 [facility] No Panel InformationOrdered By: Dr. Coles on 08-26-2022 Urine Microalbumin/Creatinine Ratio 7.1 mg/g CRE <30 [facility] Thin prep Papanicolaou smear with manual screeningOrdered By: Dr. Coles on 08-26-2022 Thin prep Papanicolaou smear with manual screening 8.4 mg/L NO RANGE EST. [facility] Urine creatinine measurement (mass/volume)Ordered By: Dr. Coles on 08-26-2022 Creatinine (U) [Mass/Vol] 118.00 mg/dL NO RANGE EST. [facility] Absolute lymphocyte countOrd ered By: Dr. Coles on 08-25-2022 Lymphocytes Auto (Unsp spec) [#/Vol] 1.67 10*3/uL 0.83-4.51 [facility] Basophil percentageOrdered B y: Dr. Coles on 08-25-2022 Basophils/100 WBC (Bld) 0.8 % 0-1 [facility] Bilirubin [Mass/Vol] 0.40 mg/dL 0.20-1.00 [facility] Comment on above: For patients on eltr ombopag therapy, use of Dimension [place] TBIL is not recommended. Chloride [Moles/Vol] 105 mmol/L 98-107 [facility] Cholesterol [Mass/Vol] 153 mg/dL <200 [facility] Comment on above: <200 mg/dL Desirable 200-240 mg/dL Borderline >240 mg/dL High Risk Eosinophils/100 WBC (Bld) 8.5 % 0-5 [facility] Glucose [Mass/Vol] 105 mg/dL 74-106 [facility] Comment on above: Fasting Glucose resu lt from 100 to 125 mg/dL suggests IMPAIRED HOMEOSTASIS per A.D.A. criteria. Neutrophils (Bld) [#/Vol] 3.6 10*3/uL 2.0-7.7 [facility] Neutrophils/100 WBC (Bld) 56.9 % 47-70 [facility] Potassium [Moles/Vol] 4.2 mmol/L 3.5-5.1 [facility] Protein [Mass/Vol] 6.8 g/dL 6.4-8.2 [facility] Sodium [Moles/Vol] 140 mmol/L 136-145 [facility] Triglyceride [Mass/Vol] 107 mg/dL <199 [facility] Comment on above: The drugs N-Acetylcy steine and Metamizole may falsely depress this assay.Serum Triglycerides Reference Interval Normal <150 mg/dL Borderline high 150 - 199 mg/dL High 200 - 499 mg/dL Very High > or = 500 mg/dL WBC (Bld) [#/Vol] 6.4 10*3/uL 4.4-11.0 [facility] Blood erythrocytes count (nu mber/volume)Ordered By: Dr. Coles on 08-25-2022 RBC (Bld) [#/Vol] 4.98 10*6/uL 4.2-5.4 [facility] Blood hemoglobin measurement (mass/volume)Ordered By: Dr. Coles on 08-25-2022 Hemoglobin (Bld) [Mass/Vol] 13.7 g/dL 12.0-15.0 [facility] Blood lymphocytes/100 leukoc ytesOrdered By: Dr. Coles on 08-25-2022 Lymphocytes/100 WBC (Bld) 26.3 % 19-41 [facility] Blood monocytes/100 leukocyt esOrdered By: Dr. Coles on 08-25-2022 Monocytes/100 WBC (Bld) 7.2 % 0-10 [facility] Blood platelet mean volumeOr dered By: Dr. Coles on 08-25-2022 Platelet mean volume (Bld) [Entitic vol] 10.0 fL 6.2-12.0 [facility] Determination of erythrocyte mean corpuscular volume (MCV)Ordered By: Dr. Coles on 08-25-2022 MCV (RBC) [Entitic vol] 86.9 fL 81-99 [facility] Hematocrit Auto (Bld) [Volum e fraction]Ordered By: Dr. Coles on 08-25-2022 Hematocrit (Bld) [Volume fraction] 43.3 % 37-47 [facility] Laboratory - Chemistry and C hemistry - challengeOrdered By: Dr. Coles on 08-25-2022 ALP [Catalytic activity/Vol] 75 U/L 45-117 [facility] ALT [Catalytic activity/Vol] 34 U/L 13-56 [facility] CO2 [Moles/Vol] 28.0 mmol/L 21.0-32.0 [facility] Globulin (S) [Mass/Vol] 3.3 g/dL 2.2-4.2 [facility] Urea nitrogen/Creatinine [Mass ratio] 26.7 mg/mg 10-20 [facility] Laboratory - Hematology and Cell countsOrdered By: Dr. Coles on 08-25-2022 Erythrocyte distribution width (RBC) [Entitic vol] 42.8 fL 35.1-43.9 [facility] Erythrocyte distribution width (RBC) [Ratio] 13.6 % 11.6-14.6 [facility] Immature granulocytes/100 WBC (Bld) 0.300 % 0.0-0.9 [facility] Comment on above: IG% - Immature Granu locytes (promyelocytes, myelocytes and metamyelocytes) > 1% indicates that a LEFT SHIFT is Present. MCH (RBC) [Entitic mass] 27.5 pg 27.0-32.0 [facility] Nucleated RBC/100 WBC (Bld) [Ratio] 0 % 0-5 [facility] MCHC Auto (RBC) [Mass/Vol]Or dered By: Dr. Coles on 08-25-2022 MCHC (RBC) [Mass/Vol] 31.6 g/dL 32-36 [facility] No Panel InformationOrdered By: Dr. Coles on 08-25-2022 Estimated GFR (MDRD) Amer 126 mL/min >60 [facility] Comment on above: GFR Calc Estimated GFR (MDRD) Non-Af Amer 104 mL/min >60 [facility] Comment on above: Non- GFR Calc Thyroid Stimulating Hormone (TSH) 0.59 uIU/mL 0.358-3.74 [facility] Platelets bldOrdered By: Dr. Coles on 08-25-2022 Platelets (Bld) [#/Vol] 302 10*3/uL 150-450 [facility] Serum or plasma albumin tika urement (mass/volume)Ordered By: Dr. Coles on 08-25-2022 Albumin [Mass/Vol] 3.5 g/dL 3.2-5.0 [facility] Serum or plasma albumin/glob ulin mass ratioOrdered By: Dr. Coles on 08-25-2022 Albumin/Globulin [Mass ratio] 1.1 {ratio} 0.9-2.4 [facility] Serum or plasma calcium tika urement (mass/volume)Ordered By: Dr. Coles on 08-25-2022 Calcium [Mass/Vol] 8.7 mg/dL 8.5-10.1 [facility] Serum or plasma cholesterol in HDL measurement (mass/volume)Ordered By: Dr. Coles on 08-25-2022 Cholesterol in HDL [Mass/Vol] 62 mg/dL >40 [facility] Comment on above: The drugs N-Acetylcy steine and Metamizole may falsely depress this assay. Reference Range HDL <40 mg/dL Low HDL Cholesterol HDL >or= 60 mg/dL High HDL Cholesterol Serum or plasma cholesterol in VLDL measurement (mass/volume)Ordered By: Dr. Coles on 08-25-2022 Cholesterol in VLDL [Mass/Vol] 21 mg/dL 5-40 [facility] Serum or plasma creatinine m easurement (mass/volume)Ordered By: Dr. Coles on 08-25-2022 Creatinine [Mass/Vol] 0.64 mg/dL 0.55-1.02 [facility] Comment on above: The validity of the calculated GFR & GFRAA in patients over 70 years has not been determined. Clinical correlation is essential. Serum or plasma low density lipoprotein (LDL) cholesterol measurement (mass/volume)Ordered By: Dr. Coles on 08-25-2022 Cholesterol in LDL [Mass/Vol] 70 mg/dL 0-130 [facility] Serum or plasma urea nitroge n measurement (mass/volume)Ordered By: Dr. Coles on 08-25-2022 Urea nitrogen [Mass/Vol] 17 mg/dL 7-18 [facility] Thin prep Papanicolaou smear with manual screeningOrdered By: Dr. Coles on 08-25-2022 Thin prep Papanicolaou smear with manual screening 15 U/L 15-37 [facility] Thin prep Papanicolaou smear with manual screening 7 5-15 [facility] Laboratory - Hematology and Cell countson 08-22-2022 HbA1c (Bld) [Mass fraction] 6.7 % 4.2-6.3 [facility] Laboratory - Hematology and Cell countson 05-19-2022 HbA1c (Bld) [Mass fraction] 6.3 % 4.2-6.3 [facility] Vital Signs Date Time Vital Sign Value Performing Clinician Facility 05-29-2025 13:03-0400 Body height 170.[address] Michael Coles MD Work Phone: [facility] 05-29-2025 13:03-0400 Body mass index (BMI) [Ratio] 32.5 kg/m2 Dr. Michael Coles MD Work Phone: [facility] 05-29-2025 13:03-0400 Body temperature 97.8 [degF] Dr. Michael Coles MD Work Phone: [facility] 05-29-2025 13:03-0400 Body weight 94.[address] Michael Coles MD Work Phone: [facility] 05-29-2025 13:03-0400 Diastolic blood pressure 80 mm[Hg] Dr. Michael Coles MD Work Phone: [facility] 05-29-2025 13:03-0400 Heart rate 81 /min Dr. Michael Coles MD Work Phone: [facility] 05-29-2025 13:03-0400 Respiratory rate 18 /min Dr. Michael Coles MD Work Phone: [facility] 05-29-2025 13:03-0400 SaO2% (BldA) [Mass fraction] 97 % Dr. Michael Coles MD Work Phone: [facility] 05-29-2025 13:03-0400 Systolic blood pressure 122 mm[Hg] Dr. Michael Coles MD Work Phone: [facility] 05-26-2025 12:48-0400 Diastolic blood pressure 64 mm[Hg] Dr. Michael Coles MD Work Phone: [facility] 05-26-2025 12:48-0400 Systolic blood pressure 119 mm[Hg] Dr. Michael Coles MD Work Phone: [facility] 05-26-2025 11:40-0400 Heart rate 69 /min Dr. Michael Coles MD Work Phone: [facility] 05-26-2025 09:34-0400 Body temperature 98.2 [degF] Dr. Michael Coles MD Work Phone: [facility] 05-26-2025 09:34-0400 Respiratory rate 16 /min Dr. Michael Coles MD Work Phone: [facility] 05-26-2025 09:34-0400 SaO2% (BldA) [Mass fraction] 96 % Dr. Michael Coles MD Work Phone: [facility] 05-25-2025 13:57-0400 Body mass index (BMI) [Ratio] 32.2 kg/m2 Dr. Michael Coles MD Work Phone: [facility] 05-25-2025 13:57-0400 Body weight 93.[address] Michael Coles MD Work Phone: [facility] 03-22-2025 10:06-0400 Body height 170.[address] Michael Coles MD Work Phone: [facility] 03-22-2025 10:06-0400 Body mass index (BMI) [Ratio] 32.5 kg/m2 Dr. Michael Coles MD Work Phone: [facility] 03-22-2025 10:06-0400 Body temperature 98.6 [degF] Dr. Michael Coles MD Work Phone: [facility] 03-22-2025 10:06-0400 Body weight 94.[address] Michael Coles MD Work Phone: [facility] 03-22-2025 10:06-0400 Diastolic blood pressure 70 mm[Hg] Dr. Michael Coles MD Work Phone: [facility] 03-22-2025 10:06-0400 Heart rate 78 /min Dr. Michael Coles MD Work Phone: [facility] 03-22-2025 10:06-0400 Respiratory rate 14 /min Dr. Michael Coles MD Work Phone: [facility] 03-22-2025 10:06-0400 SaO2% (BldA) [Mass fraction] 98 % Dr. Michael Coles MD Work Phone: [facility] 03-22-2025 10:06-0400 Systolic blood pressure 108 mm[Hg] Dr. Michael Coles MD Work Phone: [facility] 12-15-2024 17:58-0400 Body mass index (BMI) [Ratio] 34 kg/m2 Dr. Michael Coles MD Work Phone: [facility] 12-15-2024 17:58-0400 Body temperature 97.4 [degF] Dr. Michael Coles MD Work Phone: [facility] 12-15-2024 17:58-0400 Body weight 98.[address] Michael Coles MD Work Phone: [facility] 12-15-2024 17:58-0400 Diastolic blood pressure 78 mm[Hg] Dr. Michael Coles MD Work Phone: [facility] 12-15-2024 17:58-0400 Heart rate 67 /min Dr. Michael Coles MD Work Phone: [facility] 12-15-2024 17:58-0400 Respiratory rate 16 /min Dr. Michael Coles MD Work Phone: [facility] 12-15-2024 17:58-0400 SaO2% (BldA) [Mass fraction] 99 % Dr. Michael Coles MD Work Phone: [facility] 12-15-2024 17:58-0400 Systolic blood pressure 116 mm[Hg] Dr. Michael Coles MD Work Phone: [facility] 08-26-2023 10:28-0500 Body height 170.[address] Michael Coles Work Phone: [facility] 08-26-2023 10:28-0500 Body mass index (BMI) [Ratio] 43.7 kg/m2 Dr. Michael Coles Work Phone: [facility] 08-26-2023 10:28-0500 Body temperature 96.9 [degF] Dr. Michael Coles Work Phone: [facility] 08-26-2023 10:28-0500 Body weight 126.[address] Michael Coles Work Phone: [facility] 08-26-2023 10:28-0500 Diastolic blood pressure 70 mm[Hg] Dr. Michael Coles Work Phone: [facility] 01-17-2024 10:28-0500 Heart rate 86 /min Dr. Michael Coles Work Phone: [facility] 08-26-2023 10:28-0500 SaO2% (BldA) [Mass fraction] 97 % Dr. Michael Coles Work Phone: [facility] 08-26-2023 10:28-0500 Systolic blood pressure 108 mm[Hg] Dr. Michael Coles Work Phone: [facility] 08-09-2023 08:28-0500 Body temperature 100.71 [degF] Mercedes Reid APRN.TABLE SETTER Work Phone: [facility] 08-09-2023 08:28-0500 Body weight 125.65 kg Mercedes Reid APRN.TABLE SETTER Work Phone: [facility] 08-09-2023 08:28-0500 Diastolic blood pressure 82 mm[Hg] Mercedes Reid APRN.TABLE SETTER Work Phone: [facility] 08-09-2023 08:28-0500 Heart rate 99 /min Mercedes Reid APRN.TABLE SETTER Work Phone: [facility] 08-09-2023 08:28-0500 Respiratory rate 18 /min Mercedes Reid APRN.TABLE SETTER Work Phone: [facility] 08-09-2023 08:28-0500 SaO2% (BldA) [Mass fraction] 97 % Mercedes Reid APRN.TABLE SETTER Work Phone: [facility] 08-09-2023 08:28-0500 Systolic blood pressure 118 mm[Hg] Mercedes Reid APRN.TABLE SETTER Work Phone: [facility] 05-27-2023 08:36-0400 Body height 170.[address] Michael Coles Work Phone: [facility] 05-27-2023 08:36-0400 Body mass index (BMI) [Ratio] 43 kg/m2 Dr. Michael Coles Work Phone: [facility] 05-27-2023 08:36-0400 Body temperature 97.6 [degF] Dr. Michael Coles Work Phone: [facility] 05-27-2023 08:36-0400 Body weight 124.[address] Michael Coles Work Phone: [facility] 05-27-2023 08:36-0400 Diastolic blood pressure 82 mm[Hg] Dr. Michael Coles Work Phone: [facility] 05-27-2023 08:36-0400 Heart rate 78 /min Dr. Michael Coles Work Phone: [facility] 05-27-2023 08:36-0400 Respiratory rate 14 /min Dr. Michael Coles Work Phone: [facility] 05-27-2023 08:36-0400 SaO2% (BldA) [Mass fraction] 98 % Dr. Michael Coles Work Phone: [facility] 05-27-2023 08:36-0400 Systolic blood pressure 120 mm[Hg] Dr. Michael Coles Work Phone: [facility] 03-15-2023 17:12-0400 Respiratory rate 18 /min Dr. Michael Coles Work Phone: [facility] 03-15-2023 16:46-0400 Body height 170.[address] Michael Coles Work Phone: [facility] 03-15-2023 16:46-0400 Body mass index (BMI) [Ratio] 43 kg/m2 Dr. Michael Coles Work Phone: [facility] 03-15-2023 16:46-0400 Body temperature 97.8 [degF] Dr. Michael Coles Work Phone: [facility] 08-06-2023 16:46-0400 Body weight 124.[address] Michael Coles Work Phone: [facility] 03-15-2023 16:46-0400 Diastolic blood pressure 85 mm[Hg] Dr. Michael Coles Work Phone: [facility] 03-15-2023 16:46-0400 Heart rate 77 /min Dr. Michael Coles Work Phone: [facility] 03-15-2023 16:46-0400 SaO2% (BldA) [Mass fraction] 97 % Dr. Michael Coles Work Phone: [facility] 03-15-2023 16:46-0400 Systolic blood pressure 132 mm[Hg] Dr. Michael Coles Work Phone: [facility] 02-23-2023 08:08-0400 Body mass index (BMI) [Ratio] 42.3 kg/m2 Dr. Michael Coles Work Phone: [facility] 02-23-2023 08:08-0400 Body temperature 95.6 [degF] Dr. Michael Coles Work Phone: [facility] 02-23-2023 08:08-0400 Body weight 122.[address] Michael Coles Work Phone: [facility] 02-23-2023 08:08-0400 Diastolic blood pressure 74 mm[Hg] Dr. Michael Coles Work Phone: [facility] 02-23-2023 08:08-0400 Heart rate 99 /min Dr. Michael Coles Work Phone: [facility] 02-23-2023 08:08-0400 Respiratory rate 18 /min Dr. Michael Coles Work Phone: [facility] 02-23-2023 08:08-0400 SaO2% (BldA) [Mass fraction] 98 % Dr. Michael Coles Work Phone: [facility] 02-23-2023 08:08-0400 Systolic blood pressure 96 mm[Hg] Dr. Michael Coles Work Phone: [facility] 11-19-2022 09:19-0400 Body mass index (BMI) [Ratio] 42 kg/m2 Dr. Michael Coles Work Phone: [facility] 11-19-2022 09:19-0400 Body temperature 97.5 [degF] Dr. Michael Coles Work Phone: [facility] 11-19-2022 09:19-0400 Body weight 121.[address] Michael Coles Work Phone: [facility] 11-19-2022 09:19-0400 Diastolic blood pressure 98 mm[Hg] Dr. Michael Coles Work Phone: [facility] 11-19-2022 09:19-0400 Heart rate 85 /min Dr. Michael Coles Work Phone: [facility] 11-19-2022 09:19-0400 Respiratory rate 14 /min Dr. Michael Coles Work Phone: [facility] 11-19-2022 09:19-0400 SaO2% (BldA) [Mass fraction] 98 % Dr. Michael Coles Work Phone: [facility] 11-19-2022 09:19-0400 Systolic blood pressure 104 mm[Hg] Dr. Michael Coles Work Phone: [facility] 11-13-2022 16:53-0400 Body height 170.[address] Michael Coles Work Phone: [facility] 11-13-2022 16:53-0400 Body mass index (BMI) [Ratio] 41.5 kg/m2 Dr. Michael Coles Work Phone: [facility] 11-13-2022 16:53-0400 Body temperature 96.9 [degF] Dr. Michael Coles Work Phone: [facility] 11-13-2022 16:53-0400 Body weight 120.[address] Michael Coles Work Phone: [facility] 11-13-2022 16:53-0400 Diastolic blood pressure 76 mm[Hg] Dr. Michael Coles Work Phone: [facility] 11-13-2022 16:53-0400 Heart rate 95 /min Dr. Michale Coles Work Phone: [facility] 11-13-2022 16:53-0400 Respiratory rate 18 /min Dr. Michael Coles Work Phone: [facility] 11-13-2022 16:53-0400 SaO2% (BldA) [Mass fraction] 99 % Dr. Michael Coles Work Phone: [facility] 11-13-2022 16:53-0400 Systolic blood pressure 105 mm[Hg] Dr. Michael Coles Work Phone: [facility] 10-27-2022 07:37-0400 Body height 170.[address] Michael Coles Work Phone: [facility] 10-27-2022 07:37-0400 Body mass index (BMI) [Ratio] 41.5 kg/m2 Dr. Michael Coles Work Phone: [facility] 10-27-2022 07:37-0400 Body temperature 97.6 [degF] Dr. Michael Coles Work Phone: [facility] 10-27-2022 07:37-0400 Body weight 120.[address] Michael Coles Work Phone: [facility] 10-27-2022 07:37-0400 Diastolic blood pressure 81 mm[Hg] Dr. Michael Coles Work Phone: [facility] 10-27-2022 07:37-0400 Heart rate 78 /min Dr. Michael Coles Work Phone: [facility] 10-27-2022 07:37-0400 Respiratory rate 16 /min Dr. Michael Coles Work Phone: [facility] 10-27-2022 07:37-0400 SaO2% (BldA) [Mass fraction] 98 % Dr. Michael Coles Work Phone: [facility] 10-27-2022 07:37-0400 Systolic blood pressure 107 mm[Hg] Dr. Michael Coles Work Phone: [facility] 10-16-2022 10:33-0500 Body mass index (BMI) [Ratio] 42.1 kg/m2 Dr. Michael Coles Work Phone: [facility] 10-16-2022 10:33-0500 Body weight 122.[address] Michael Coles Work Phone: [facility] 10-16-2022 10:33-0500 Diastolic blood pressure 74 mm[Hg] Dr. Michael Coles Work Phone: [facility] 10-16-2022 10:33-0500 Systolic blood pressure 112 mm[Hg] Dr. Michael Coles Work Phone: [facility] 08-22-2022 10:04-0500 Body height 170.[address] Michael Coles Work Phone: [facility] 08-22-2022 10:04-0500 Body mass index (BMI) [Ratio] 40.1 kg/m2 Dr. Michael Coles Work Phone: [facility] 08-22-2022 10:04-0500 Body temperature 96.9 [degF] Dr. Michael Coles Work Phone: [facility] 08-22-2022 10:04-0500 Body weight 116.[address] Michael Coles Work Phone: [facility] 08-22-2022 10:04-0500 Diastolic blood pressure 74 mm[Hg] Dr. Michael Coles Work Phone: [facility] 08-22-2022 10:04-0500 Heart rate 80 /min Dr. Michael Coles Work Phone: [facility] 08-22-2022 10:04-0500 Respiratory rate 16 /min Dr. Michael Coles Work Phone: [facility] 08-22-2022 10:04-0500 SaO2% (BldA) [Mass fraction] 96 % Dr. Michael Coles Work Phone: [facility] 08-22-2022 10:04-0500 Systolic blood pressure 106 mm[Hg] Dr. Michael Coles Work Phone: [facility] 07-31-2022 07:23-0500 Body temperature 98.4 [degF] Mercedes Reid APRN.TABLE SETTER Work Phone: [facility] 07-31-2022 07:23-0500 Body weight 120.02 kg Mercedes Reid APRN.TABLE SETTER Work Phone: [facility] 07-31-2022 07:23-0500 Diastolic blood pressure 78 mm[Hg] Mercedes Reid APRN.TABLE SETTER Work Phone: [facility] 07-31-2022 07:23-0500 Heart rate 76 /min Mercedes Reid APRN.TABLE SETTER Work Phone: [facility] 07-31-2022 07:23-0500 Respiratory rate 18 /min Mercedes Reid APRN.TABLE SETTER Work Phone: [facility] 07-31-2022 07:23-0500 SaO2% (BldA) [Mass fraction] 97 % Mercedes Reid APRN.TABLE SETTER Work Phone: [facility] 07-31-2022 07:23-0500 Systolic blood pressure 116 mm[Hg] Mercedes Reid APRN.TABLE SETTER Work Phone: [facility] 05-19-2022 10:30-0400 Body mass index (BMI) [Ratio] 41.1 kg/m2 Dr. Michael Coles Work Phone: [facility] 05-19-2022 10:30-0400 Body temperature 97 [degF] Dr. Michael Coles Work Phone: [facility] 05-19-2022 10:30-0400 Body weight 119.[address] Michael Coels Work Phone: [facility] 05-19-2022 10:30-0400 Diastolic blood pressure 80 mm[Hg] Dr. Michael Coles Work Phone: [facility] 05-19-2022 10:30-0400 Heart rate 78 /min Dr. Michael Coles Work Phone: [facility] 05-19-2022 10:30-0400 Respiratory rate 16 /min Dr. Michael Coles Work Phone: [facility] 05-19-2022 10:30-0400 SaO2% (BldA) [Mass fraction] 96 % Dr. Michael Coles Work Phone: [facility] 05-19-2022 10:30-0400 Systolic blood pressure 118 mm[Hg] Dr. Michael Coles Work Phone: [facility] Encounters Encounter Date Encounter Type Care Provider Facility Start: 06-21-2025 End: 06-21-2025 ambulatory Michael Coles Facility:[facility] [place] Start: 06-19-2025 ambulatory Beth Britt NP Facil ity:[facility] Start: 05-29-2025 End: 05-29-2025 Patient encounter procedure Keyona NG -[facility] Work Phone: Start: 05-29-2025 End: 05-29-[address] Michael Coles MD Work Phone: -[facility] Start: 05-26-2025 Non-patient / Non-visit Dr. Jolynn Mota MD -[facility] Work Phone: Start: 05-25-2025 ambulatory [place] Nicole Facility:[facility] Start: 05-25-2025 Non-patient / Non-visit Dr. Jolynn Mota MD -[facility] Work Phone: Start: 05-25-2025 End: 05-26-2025 ambulatory [facility] Facility:[facility] Start: 05-25-2025 End: 05-26-2025 Evaluation and management [...] -Laboratory [facility] Start: 04-24-2025 End: 04-24-2025 ambulatory [facility] Facility:[facility] Start: 03-22-2025 End: 03-22-[address] Michael Coles MD -[facility] Work Phone: Start: 03-22-2025 End: 03-22-[address] Michael Coles MD Work Phone: -[facility] Start: 12-15-2024 End: 12-15-[address] Michael Coles MD -[facility] Work Phone: Start: 12-15-2024 End: 12-15-2024 ambulatory Michael Coels Facility:[facility] [place] Start: 10-19-2024 Encounter for gynecological examination (general) (routine) without abnormal findings Beth Britt MATHEMATICAL ENGINEERING TECHNICIAN [facility] Start: 10-19-2024 End: 10-19-2024 ambulatory Beth Britt MATHEMATICAL ENGINEERING TECHNICIAN Facility:[facility] [place] Start: 08-26-2024 End: 08-26-2024 ambulatory Michael Coles Facility:[facility] [place] Start: 08-23-2024 End: 08-23-2024 ambulatory Alonsochilhowiejunior Coles Facility:[facility] Start: 08-26-2023 End: 08-26-[address] Michael Coles Work Phone: [facility] Work Phone: Start: 08-26-2023 End: 08-26-[address] Michael Coles Work Phone: [facility] Work Phone: Start: 08-20-2023 End: 08-20-[address] Michael Coles Work Phone: [facility] Work Phone: Start: 08-20-2023 End: 08-20-[address] Michael Coles Work Phone: [facility]-Laboratory, [facility] Start: 08-09-2023 End: 08-09-2023 ambulatory MICHAEL COLES Facility:[facility] Start: 08-09-2023 End: 08-09-2023 Patient encounter procedure Mercedes Reid APRN.CNP Work Phone: [facility] Comment on above: URI, acute (Primary Dx) Start: 05-27-2023 End: 05-27-[address] Michael Coles Work Phone: [facility] Work Phone: Start: 05-19-2023 End: 05-19-[address] Michael Coles Work Phone: [facility] Work Phone: Start: 05-19-2023 End: 05-19-[address] Michael Coles Work Phone: [facility]-Outpatient Breast Imaging Work Phone: Start: 03-15-2023 End: 03-15-2023 Emergency department patient visit Dr. Michael Coles Work Phone: [facility]-Emergency Department Work Phone: Start: 02-23-2023 End: 02-23-[address] Michael Coles Work Phone: [facility] Work Phone: Start: 02-18-2023 End: 02-18-[address] Michael Coles Work Phone: [facility] [place] Start: 11-19-2022 End: 11-19-[address] Michael Coles Work Phone: [facility] Work Phone: Start: 11-13-2022 End: 11-13-2022 Emergency department patient visit Dr. Michael Coles Work Phone: [facility]-Emergency Department Start: 10-27-2022 End: 10-27-2022 Emergency department patient visit Dr. Michael Coles Work Phone: [facility]-Emergency Department Start: 10-16-2022 End: 10-16-[address] Michael Coles Work Phone: [facility] Start: 08-26-2022 End: 08-26-[address] Michael Coles Work Phone: [facility] Work Phone: Start: 08-26-2022 End: 08-26-[address] [facility] Start: 08-25-2022 End: 08-25-[address] Michael Coles Work Phone: [facility] Work Phone: Start: 08-25-2022 End: 08-25-[address] [facility] Col[facility] Start: 08-22-2022 End: 08-22-[address] Michael Coles Work Phone: [facility] Start: 07-31-2022 End: 07-31-2022 Patient encounter procedure Mercedes Reid APRN.CNP Work Phone: [facility] Comment on above: Sinus congestion (Pr imary Dx) Start: 05-19-2022 End: 05-19-[address] Michael Coles Work Phone: [facility] Procedures Date Procedure Procedure [...] 05-29-2025 Patient encounter procedure Hospital discharge follow-up -[facility] Work Phone: Start: 05-26-2025 Patient discharge [facility] Start: 05-25-2025 End: 05-25-2025 [facility] Start: 05-25-2025 Care regimes management [facility] Start: 05-25-2025 Notification of physician [facility] Start: 05-25-2025 Following clinical pathway protocol [facility] Start: 05-25-2025 Assessment of risk o f venous thromboembolism [facility] Start: 05-25-2025 Insertion of cathete r into peripheral vein [facility] Start: 05-25-2025 Measuring intake and output [facility] Start: 05-25-2025 Providing care accor ding to standard [facility] Start: 05-25-2025 [facility] Start: 05-25-2025 Admission procedure [facility] Start: 05-25-2025 [facility] Start: 08-09-2023 End: 08-23-2023 COVID & INFLUENZA A/B & RSV NAAT, ROUTINE COVID & INFLUENZA A/B & RSV NAAT, ROUTINE Microbiology Routine URI, acute Expected: 08/09/2023, Expires: 08/23/2023 [facility] Work Phone: Comment on above: Expected: 08/09/2023 , Expires: 08/23/2023 Start: 05-19-2023 Screening mammography SCRN DERRICK M (CAD)W[facility] Start: 04-10-2023 Covid-19 Vaccine ( season) Covid-19 Vaccine () [facility] Start: 08-10-2022 Depression Assessment Depression Ass essment [facility] Start: 08-10-2021 DEPRESSION [facility]ESSMENT [facility] Start: 2019 SHINGRIX VACCINE (1 of 2) SALAZAR GRIX VACCINE (1 of 2) [facility] Start: 2014 COLOGUARD (FIT-DNA) COLOGUARD (FIT-D NA) [facility] Start: 2014 Colonoscopy COLONOSCOPY [facility] Start: 2014 COLORECTAL CANCER SCREENING COLORECTAL CANCER SCREENING [facility] Start: [address] COLONOGRAPHY [facility] Start: 2014 DIABETES SCREEN DIABETES SCREEN [facility] Start: 2014 Diabetes Screening Diabetes Screenin g [facility] Start: 2014 FECAL OCCULT BLOOD FECAL OCCULT BLOO D [facility] Start: 2014 Lipid panel Lipid Screening [facility] Start: 2014 LIPID SCREEN LIPID SCREEN [facility] Start: 2014 Screening for malign ant neoplasm of colon [facility] Start: 2014 SIGMOIDOSCOPY SIGMOIDOSCOPY [facility] Start: 2009 Mammography MAMMOGRAM [facility] Start: 2009 Screening for malign ant neoplasm of breast Mammogram Screening [facility] Start: 1999 HPV TESTING HPV TESTING [facility] Start: 1999 Screening for malign ant neoplasm of cervix HPV Testing [facility] Start: 1990 PAP TESTING PAP TESTING [facility] Start: 1990 Screening for malign ant neoplasm of cervix Pap Testing [facility] Start: 1988 Urine microalbumin profile [facility] Start: 1987 HEPATITIS C SCREENING HEPATITIS C [facility] Start: 1987 Hepatitis C screening Hepatitis C [facility] Start: 1987 HIV SCREENING HIV SCREENING [facility] Start: 1987 HIV screening HIV Screening [facility] Start: 1969 HEPATITIS B (1 of 3 - 3-dose series) HEPATITIS B (1 of 3 - 3-dose series) [facility] Start: 1969 Hepatitis B Vaccine (1 of 3 - 3-dose series) Hepatitis B Vaccine (1 of 3 - 3-dose series) [facility] Basic metabolic 2008 panel with ionized calcium - Serum or Plasma [facility] Hemoglobin A1c/Hemoglobin.total in Blood [facility] Patient Education [facility] Work Phone: Patient referral [facility] Work Phone: Thyroid stimulating hormone measurement [facility] Urine microalbumin/creatinine ratio measurement [facility] Immunizations Immunization Date Immunization Notes Care Provider Fa cility 05-02-2022 influenza, injectabl e, quadrivalent, preservative free Dr. Michael Coles Work Phone: [facility] 05-02-2022 influenza, seasonal, injectable Dr. Michael Coles Work Phone: [facility] 04-25-2022 Covrenny Moderna Bivale nt Booster; Translations: [Covid Moderna Bivalent Booster] Dr. Michael Coles Work Phone: [facility] 11-21-2020 Covid (Moderna) Dr. Deuce Coles Work Phone: [facility] 10-24-2020 Covid (Moderna) Dr. Deuce Coles Work Phone: [facility] Payers Date Payer Category Payer Self-pay [id number] Unknown [id number] 2019 Unknown ROSANA JAUREGUI PPO [id number] 2019-Present [phone] [address] [place] [address] PPO [id number] 2019 Unknown [id number] Unknown [id number] Unknown [id number] Unknown [id number] Unknown [id number] Unknown [id number] Unknown [id number] Unknown [id number] Unknown [id number] Unknown [id number] Unknown [id number] Unknown [id number] Unknown [id number] Unknown [id number] Social History Date Type Detail Facility Start: 07-31-2022 End: 05-25-2025 Tobacco smoking status UTIS Ex-smoker [facility] History of tobacco use Current smoker [facility] Start: 07-31-2022 Tobacco use and exposure Smokeless tobacco non-user [facility] Start: 1970 Sex Assigned At Female C [facility] Start: 08-22-2022 End: 08-26-2023 Tobacco smoking status [facility] Unknown if ever smoked [facility] Start: 2020 End: 08-09-2023 History of Social function [facility] Start: 2020 End: 08-09-2023 Tobacco use panel [facility] National Score (1-10 0), lower number is lower risk Not on file [facility] Start: 07-10-2021 Gender identity Identifies as female gender (finding) [facility] Start: 07-10-2021 Sexual orientation Heterosexual (tiki wilhelm) [facility] Medical Equipment Procedure Code Equipment Code Equipment [...] Assessment Result Facility 05-26-[address] [facility] Work Phone: Mental Status Date Assessment Result Facility 05-26-2025 Cognitive function Voice/Name [facility] Work Phone: Clinical Notes 07-31-2022 to 05-29-2025 Note Date & Type Note Facility 05-29-2025 Progress note [facility] 05-29-2025 Progress note Note Date/Time May 29, 2025 2:43pm [facility] Internal Medicine [address] [place] [address] [place] [address] OFFICE VISIT Date of Service: 05/29/25 MR#: [id number] Acct: [id number] Name: JACKIE HARRINGTON Rep #: [id number] : 1970 Provider: BERENICE Kay Age/Sex: 54/F Location: [facility] [place].[facility] Status: Signed Intake Vital Signs 05/25/25 13:57 [...] 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 history: - 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 Full Medication Reconciliation was completed on 05/29/25 Contact made with Patient Was told to see Cardiology within 1 month; patient has LVMTRC with Cardiology; awaiting call back. Has FU today at [facility]. JACKIE HARRINGTON, is a 54 F who presents to the office today for transitional care management from hospital stay at [facility] for new onset of A-fib. 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 Patient Type Established History Comprehensive Exam Comprehensive Medical Decision Making Moderate Complexity Diagnoses Hospital discharge follow-up Z09 New onset a-fib I48.91 CPT Codes DSCHRG MED/CURRENT MED MERGE - 1111F (1111F) Time Spent (min) 45 Comment 18336 Assessment and Plan Assessment and Plan (1) [...] [facility] Work Phone: 1(586) 638-880510-17-2025 [facility] Medical Records Department [address] [place] [address] Discharge Summary 05/26/25 1352 MR#: [id number] Acct: [id number] Name: JACKIE HARRINGTON Rep #: [id number] : 1970 54 From: Javi Mota MD PCP: Dr. Michael Coles MD Status:DIS TUSHAR Location: [place] [address]1 Providers Date of Admission: 05/25/25 Primary Care [...] to go home today. She has a [id number] of 2 secondary to her type 2 [...] No wheeze, No rale (more content not included)...[facility]10-17-2025 Discharge summary Author Javi Mota [facility] Note Date/Time May 26, 2025 1 1:26am [facility] Medical Records Department [address] [place] [address] Instructions for Home/Discharge Instructions 05/26/25 1057 MR#: [id number] Acct: [id number] Name: JACKIE HARRINGTON DECEMBER Rep #:[id number] : 1970 54 From: Javi samuels MD [...] CC: Dr. Michael Coles MD ~ Signed [facility] Work Phone: [phone] 462-802710-17-2025 Discharge summary [facility] Medical Records Department [address] [place] [address] Instructions for Home/Discharge Instructions 05/26/25 1057 MR#: [id number] Acct: [id number] Name: JACKIE HARRINGTON Rep #:[id number] : 1970 54 From: Javi samuels MD [...] CC: Dr. Michael Coles MD ~ Signed [facility]10-16-2025 History and physical note Author Javi Mota [facility] Note Date/Time May 25, 2025 4 :16pm [facility] System Medical Records Department [address] [place] [address] H&P Exam - Hospitalist 05/25/25 1602 MR#: [id number] Acct: [id number] Name: JACKIE HARRINGTON DECEMBER Rep #:[id number] : 1970 54 From: Javi samuels MD PCP: Dr. Michael Coles MD Status:A DM TUSHAR Location: [address] HPI - General General Date [...] TSH was normal and T4 was elevated. 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 Reading Location: [facility] Assessment & Plan Assessment/Plan (1) New onset a-fib: PLAN: Plan 1. New onset A-fib with RVR/essential HTN/HLD ? She was given some blood pressure medications in the emergency room and her heart rate did decrease below 100 ? Blood pressures are little bit on the soft side that she says she is normally 100/72 ? Based on her [id number] score of 2 will start her on [...] with colleagues Charges/Coding Visit Charges Inpatient E&M: 45451 Init Hosp L3 05/25/25 1616 <Electronically signed by Javi Mota MD> Cosigner Signature (if applicable): CC: Dr. Michael Coles MD; Dr. Javi Mota MD~ Signed [facility] Work Phone: [phone] 329-998210-16-2025 Discharge summary Author Ricci Andrews [facility] Note Date/Time May 25, 2025 3 :23pm [facility] Medical Records Department [address] [place] [address] Emergency Department Summary 05/25/25 MR#: [id number] Acct: [id number] Name: JACKIE HARRINGTON DECEMBER Rep #:[id number] : 1970 54 From: Ricci padron DO PCP: Dr. 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 Sheis still feeling fatigued. Patient's [id number] is a 3. Eliquis ordered. Patient is [...] 71.9 H Lymph % (Auto) 17.4 L Moca % (Auto) 8.9 Eos % (Auto) 1.3 [...] 09:42 IMPRESSION: NO ACUTE FINDINGS. Reading Location: [facility] Chest CTA 05/25/25 10:21 IMPRESSION: NORMAL CHEST CTA. NO EVIDENCE OF ACUTE PULMONARY EMBOLISM. Reading Location: [facility] Discharge Plan Disposition Disposition: Acute Care Hospital [facility] Discharge Date/Time: 05/25/25 13:40 What to do if you have Problems For any increased pain, shortness of breath, bleeding, nausea or vomiting, chestpain, or any unexpected problems, contact your Primary Care Provider. Call [facility] ([phone]) or report to the closest Emergency Room. Call 911 if necessary. 05/25/25 1523 <Electronically signed by Ricci Andrews DO> Cosigner Signature (if applicable): CC: Dr. Michael Coles MD ~ Signed [facility] Work Phone: [phone] 116-402410-16-2025 History and physical note [facility] Medical Records Department [address] [place] [address] H&P Exam - Hospitalist 05/25/25 1602 MR#: [id number] Acct: [id number] Name: JACKIE HARRINGTON DECEMBER Rep #:[id number] : 1970 54 From: Javi samuels MD PCP: Dr. Michael Coles MD Status:A DM TUSHAR Location: [place] [id number] 1 HPI - General General Date of [...] TSH was normal and T4 was elevated. 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 Reading Location: [facility]1 Chest CTA 05/25/25 10:21 IMPRESSION: NORMAL CHEST CTA. NO EVIDENCE OF ACUTE PULMONARY EMBOLISM. Reading Location: [facility] Assessment & Plan Assessment/Plan (1) New onset a-fib: PLAN: Plan 1. New onset A-fib with RVR/essential HTN/HLD ? She was given some blood pressure medications in the emergency room and her heart rate did decrease below 100 ? Blood pressures are little bit on the soft side that she says she is normally 100/72 ? Based on her TBN4AO7-GKYv score of 2 will start her on [...] with colleagues Charges/Coding Visit Charges Inpatient E&M: 55273 Init Hosp L3 05/25/25 1616 Cosigner Signature (if applicable): CC: Dr. Michael Coles MD; Dr. Javi Mota MD~ Signed [facility]10-16-2025 Discharge summary [facility] Medical Records Department [address] [place] [address] Emergency Department Summary 05/25/25 MR#: [id number] Acct: [id number] Name: JACKIE HARRINGTON Rep #:[id number] : 1970 54 From: Ricci padron DO PCP: Dr. 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 Sheis still feeling fatigued. Patient's [id number]-LPEo is a 3. Eliquis ordered. Patient is [...] 71.9 H Lymph % (Auto) 17.4 L Moca % (Auto) 8.9 Eos % (Auto) 1.3 [...] 09:42 IMPRESSION: NO ACUTE FINDINGS. Reading Location: [facility] Chest CTA 05/25/25 10:21 IMPRESSION: NORMAL CHEST CTA. NO EVIDENCE OF ACUTE PULMONARY EMBOLISM. Reading Location: [facility] Discharge Plan Disposition Disposition: Acute Care Hospital [facility] Discharge Date/Time: 05/25/25 13:40 What to do if you have Problems For any increased pain, shortness of breath, bleeding, nausea or vomiting, chestpain, or any unexpected problems, contact your Primary Care Provider. Call [facility] ([phone]) or report tothe closest Emergency Room. Call 911 if necessary. 05/25/25 1523 Cosigner Signature (if applicable): CC: Dr. Michael Coles MD ~ Signed [facility]10-16-2025 Radiology Diagnostic study note [facility] Imaging Services [address] [place] [address] Chest PA and Lateral MR#: [id number] Acct: [id number] Name: JACKIE HARRINGTON MAY Rep #: [id number] : 1970 F 54 From: Jamil Francois MD PCP: Dr. Michael Coles MD Status: R EG ER Study:Chest PA and Lateral Date of Exam: 05/25/25 Exam# [id number] Ordering Dr: Ricci Matos DO PROCEDURE: CHEST [...] Lateral IMPRESSION: NO ACUTE FINDINGS. Reading Location: [facility]--1 CC: Dr. Ricci Andrews DO; Dr. Michael Coles MD ~ Type Inspector: Signed [facility]10-16-2025 Radiology Diagnostic study note [facility] Imaging Services [address] [place] [address] CTA Chest W/WO Contrast MR#: [id number] Acct: [id number] Name: JACKIE HARRINGTON MAY Rep #: [id number] : 1970 F 54 From: Jamil Francois MD PCP: Dr. Michael Coles MD Status: R EG ER Study:CTA Chest W/WO Contrast Date of Exam: 05/25/25 Exam# [id number] Ordering Dr: Ricci Matos DO PROCEDURE: CTA [...] EVIDENCE OF ACUTE PULMONARY EMBOLISM. Reading Location: [place] [address] CC: Dr. Ricci Andrews DO; Dr. Michael Coles MD ~ Type Inspector: Signed [facility]08-13-2025 Evaluation note* Diagnosis Onset Date Resolution Status Admit Date Anxiety and depression chronic [facility] 2024 9:54am Hypertension chronic March 22, 2025 9:54am Hypothyroidism chronic March 9:54am Type 2 diabetes mellitus chronic March 22, 2025 9:54am [facility] Work Phone: 1(190) 524-404508-13-2025 Evaluation note* Diagnosis Onset Date Resolution Status Admit Date Anxiety and depression chronic [facility] 2024 9:54am Hypertension chronic March 22, 2025 9:54am Hypothyroidism chronic March 9:54am Type 2 diabetes mellitus chronic March 22, 2025 9:54am New onset a-fib acute May 102024 12:15pm Hospital discharge follow-up acute May 29, 2025 12:57pm New onset a-fib acute May 112024 12:57pm [facility] Work Phone: [phone]) 232-261805-08-2025 Evaluation note* Diagnosis Onset Date Resolution Status Admit Date Anxiety and depression chronic Ma y 2024 5:49pm Hyperlipemia chronic December 15 5:49pm Hypertension chronic December 15, 5:49pm Hypothyroidism chronic December 15, 025 5:49pm Seasonal allergies chronic December 5:49pm Type 2 diabetes mellitus chronic December 15, 2024 5:49pm [facility] Work Phone: [phone] NoteHNO ID: [id number] Author: Mercedes Reid APRN.TABLE SETTER Service: ? Author Type: Nurse Practitioner Type: [...] Patient agreeable to treatment plan. Mercedes Reid APRN.[facility]12-31-2023 History of Present illness Narrative* Mercedes Reid APRN.[facility] - 08/09/2023 8:34 AM EST CC: Patient [...] Patient agreeable to treatment plan. 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 Call [facility] ([phone]) or report to the closest Emergency Room. Call 911 if necessary. 03/15/231712 <Electronically signed by Alfonso Abraham MD> Cosigner Signature (if applicable): CC: Dr. Michael Coles MD ~ Signed [facility] Work Phone: 1(547) 873-917304-06-[address] Ponce [facility] November 13, 2022 6:08pm Note Date/Time November 13, 2022 6:06 pm [facility] Medical Records Department [address] [place] [address] Emergency Department Summary 11/13/22 MR#: [id number] Acct: [id number] Name: JACKIE HARRINGTON Rep #:[id number] : 1970 52 From: Benjamín Ponce MD [...] gone. She has had no other injuries. 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 Call [facility] ([phone]) or report to the closest Emergency Room. Call 911 if necessary. 11/13/221807 <Electronically signed by Benjamín Ponce MD> Cosigner Signature (if applicable): CC: Dr. Michael Coles MD ~ Signed [facility] Work Phone: [phone]) 329-749903-20-2023 Hospital Discharge instructions Additional Instructions Keep an eye on your blood sugars while taking methylprednisolone. Do not drive while taking muscle relaxers. Follow-up with your primary care provider in the next 3 to 5 days. [facility] Work Phone: [phone] 573-490612-22-2022 History of Present illness Narrative* Mercedes Reid APRN.TABLE SETTER - 07/31/2022 7:21 AM EST CC: Patient [...] Patient agreeable to treatment plan. Mercedes Reid APRN.TABLE SETTER documented in this encounterBet[facility]all[facility] note [facility] Medical Records Department [address] [place] [address] Counseling Note - Pharmacy 05/26/25 1341 MR#: [id number] Acct: [id number] Name: JACKIE HARRINGTON Rep #:[id number] : 1970 54 From: Trini Montaño PCP: Dr. Michael Coles MD Status:D IS TUSHAR Y Location: [place] [address] Pharmacy [facility] Counseling Pharmacy Service has performed discharge medication [...] Signature (if applicable): Date CC: ~ Signed [facility] Author Trini Montaño [facility] Note Date/Time May 26, 2025 1 :41pm [facility] Medical Records Department [address] [facility] [place] [address] Counseling Note - Pharmacy 05/26/25 134 MR#: [id number] Acct: [id number] Name: JACKIE HARRINGTON Rep #:[id number] : 1970 54 From: Trini Montaño PCP: Dr. Michael Coles MD Status:D IS TUSHAR Y [facility] Rec Counseling [...] Signature (if applicable): Date CC: ~ Signed [facility] Work Phone: Discharge summary Author Dr. Leon [facility] October 27, 2022 9:36am Note Date/Time October 27, 2022 8:0 1am [facility] Medical Records Department [address] [place] [address] Emergency Department Summary 10/27/22 MR#: [id number] Acct: [id number] Name: JACKIE HARRINGTON DECEMBER Rep #:[id number] : 1970 52 From: Kan Leon MD PCP: Dr. Michael Coles MD Status:R ER Location: ED HPI History of Present Illness Chief Complaint: Back Narrative Narrative: 52-year-old female past medical history of hypertension, diabetes, IBS, states she had a Rachana-en-Y procedure remotely presents with injury to her [...] she feels tightness inher left low back. 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 Call [facility] ([phone]) or report to the closest Emergency Room. Call 911 if necessary. 10/27/22 0202 <Electronically signed by Kan Leon MD> Cosigner Signature (if applicable): CC: Dr. Michael Coles MD ~ Signed [facility] Work Phone: Discharge summary [facility] Medical Records Department [address] [place] [address] Discharge Summary 05/26/25 1352 MR#: [id number] Acct: [id number] Name: JACKIE HARRINGTON Rep #:[id number] : 1970 54 From: Javi samuels MD PCP: Dr. Michael Coles MD Status:D IS TUSHAR Location: [place] [address]- Providers Date of Admission: 05/25/25 Primary Care [...] to go home today. She has a DVN3IO7-FRUo of 2 secondary to her type 2 [...] % (Auto) 63.1, Lymph % (Auto) 24.4, Moca % (Auto) 8.8, Eos % (Auto) 2.7, [...] Self Care Charges/Coding Visit Charges Inpatient E&M: 88447 Disch Hosp >30min 05/26/25 1358 Cosigner Signature (if applicable): CC: Dr. Michael Coles MD; Dr. Javi Mota MD~ Signed [facility] Author Ricci Corona-Trinh [facility] Note Date/Time May 25, 2025 3 :23pm [facility] Medical Records Department [address] [place] [address] Emergency Department Summary 05/25/25 MR#: [id number] Acct: [id number] Name: JACKIE HARRINGTON Rep #:[id number] : 1970 54 From: Ricci Burnette ggmalick DO PCP: Dr. 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 Sheis still feeling fatigued. Patient's BRI6ER5-GZUi is a 3. Eliquis ordered. Patient is [...] 71.9 H Lymph % (Auto) 17.4 L Moca % (Auto) 8.9 Eos % (Auto) 1.3 [...] 09:42 IMPRESSION: NO ACUTE FINDINGS. Reading Location: [facility] Chest CTA 05/25/25 10:21 IMPRESSION: NORMAL CHEST CTA. NO EVIDENCE OF ACUTE PULMONARY EMBOLISM. Reading Location: [facility] Discharge Plan Disposition Disposition: Acute Care Hospital [facility] Discharge Date/Time: 05/25/25 13:40 What to do if you have Problems For any increased pain, shortness of breath, bleeding, nausea or vomiting, chestpain, or any unexpected problems, contact your Primary Care Provider. Call [facility] ([phone]) or report to the closest Emergency Room. Call 911 if necessary. 05/25/25 1523 <Electronically signed by Ricci Andrews DO> Cosigner Signature (if applicable): CC: Dr. Michael Coles MD ~ Signed [facility] Work Phone: Discharge summary Author Javi Mota [facility] Note Date/Time May 26, 2025 1 1:26am [facility] Medical Records Department [address] [place] [address] Instructions for Home/Discharge Instructions 05/26/25 1057 MR#: [id number] Acct: [id number] Name: JACKIE HARRINGTON Rep #:[id number] : 1970 54 From: Javi samuels MD [...] Attending Provider: Javi Mota Primary Care Provider: Mihcael Coles Instructions Patient Instructions: AFib Dc Discharge [...] CC: Dr. Michael Coles MD ~ Signed [facility] Work Phone: Discharge summary Author Javi Mota [facility] Note Date/Time May 26, 2025 1 :58pm [facility] Medical Records Department [address] [place] [address] Discharge Summary 05/26/25 1352 MR#: [id number] Acct: [id number] Name: JACKIE HARRINGTON Rep #:[id number] : 1970 54 From: Javi samuels MD PCP: Dr. Michael Coles MD Status:D IS TUSHAR Location: [place] [address] Providers Date of Admission: 05/25/25 Primary Care [...] to go home today. She has a [id number]-LFKo of 2 secondary to her type 2 [...] % (Auto) 63.1, Lymph % (Auto) 24.4, Moca % (Auto) 8.8, Eos % (Auto) 2.7, [...] Self Care Charges/Coding Visit Charges Inpatient E&M: 59771 Disch Hosp >30min 05/26/25 1353 <Electronically signed by Javi Mota MD> Cosigner Signature (if applicable): CC: Dr. Michael Coles MD; Dr. Javi Mota MD~ Signed [facility] Work Phone: Evaluation note* Diagnosis Sinus congestion- Primary Other diseases of nasal cavity and sinuses documented [facility] encounter [facility] Diagnosis Onset Date Resolution Status Hypertension chronic Hypothyroidism chronic Macromastia chronic Type 2 diabetes mellitus chr onic Hypertension chronic Hypothyroidism chronic Macromastia chronic Type 2 diabetes mellitus chr [facility] Work Phone: Evaluation note* Diagnosis Onset Date Resolution Status Hypertension chronic Hypothyroidism chronic Macromastia chronic Type 2 diabetes mellitus chr onic Encounter for routine gynecological examination noneactive [facility] Work Phone: Evaluation note* Diagnosis Onset Date Resolution Status Acute back pain acute Hypertension chronic Hypothyroidism chronic Type 2 diabetes mellitus chr onic Hyperlipemia chronic Hypothyroidism chronic Type 2 diabetes mellitus [facility] Work Phone: Evaluation note* Diagnosis Onset Date Resolution Status Hyperlipemia chronic Hypothyroidism chronic Type 2 diabetes mellitus [facility] Work Phone: Evaluation note* Diagnosis URI, acute- Primary Acute upper respiratory infections of unspecified site documented [facility] this encounter [facility]* Diagnosis Onset Date Resolution Status Hypertension chronic Hypothyroidism chronic Type 2 diabetes mellitus [facility] Work Phone: Evaluation note* Diagnosis Onset Date Resolution Status Hypertension chronic Hypothyroidism chronic Type 2 diabetes mellitus chr onic Anxiety and depression chron ic Hypertension chronic Type 2 diabetes mellitus [facility] Work Phone: History and physical note Author Javi Mota [facility] Note Date/Time May 25, 2025 4 :16pm [facility] Medical Records Department [address] [place] [address] H&P Exam - Hospitalist 05/25/25 1602 MR#: [id number] Acct: [id number] Name: JACKIE HARRINGTON DECEMBER Rep #:[id number] : 1970 54 From: Javi samuels MD PCP: Dr. Michael Coles MD Status:A DM TUSHAR Location: [place] [address] HPI - General General Date of Admission: [...] TSH was normal and T4 was elevated. [facility] Medical History (Updated 05/25/25 @ 16:[address] 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 Reading Location: [facility] Chest CTA 05/25/25 10:21 IMPRESSION: NORMAL CHEST CTA. NO EVIDENCE OF ACUTE PULMONARY EMBOLISM. Reading Location: [facility] Assessment & Plan Assessment/Plan (1) New onset a-fib: PLAN: Plan 1. New onset A-fib with RVR/essential HTN/HLD ? She was given some blood pressure medications in the emergency room and her heart rate did decrease below 100 ? Blood pressures are little bit on the soft side that she says she is normally 100/72 ? Based on her LKZ9RD6-QLMf score of 2 will start her on [...] with colleagues Charges/Coding Visit Charges Inpatient E&M: 72128 Init Hosp L3 05/25/25 1616 <Electronically signed by Javi Mota MD> Cosigner Signature (if applicable): CC: Dr. Michael Coles MD; Dr. Javi Mota MD~ Signed [facility] Work Phone: Hospital Discharge instructions Additional Instructions [...] Motrin and Tylenol for pain. 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 Reason for Visit Hypertension Hypothyroidism Macromastia Type 2 diabetes mellitus Encounter for routine gynecological examination Chief Complaint 3 M FU 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 back Reason for Visit Hypertension [...] No March 08, 2020 10:36am Power of Recreational Counselor No March 08 10:36am Advance Directive Response Recorded Date/ Time Living Will No October 27, 2022 8:14am Power of Recreational Counselor No October 27 8:14am Advance Directive Response Recorded Date/ Time Name of Medical Power of Recreational Counselor FRANKLIN TASHJOEYAmanda MELENDEZ November 13, 2022 5:18pm Living Will Yes November 13, 2022 5:18pm Power of Recreational Counselor Yes November 13 5:18pm Advance Directive Response Recorded Date/ Time Living Will No March 15, 2023 5:12pm Power of Recreational Counselor No March 15 5:12pm Advance Directive Response Recorded Date/ Time Living Will No March 15, 2023 4:12pm Power of Recreational Counselor No March 15 4:12pm Advance Directive Response Recorded Date/ Time Do you have a Healthcare Power of Recreational Counselor? Yes May 25, 2025 1:57pm Advance Directive Response Recorded Date/ Time Do you have a Healthcare Power of Recreational Counselor? Yes May 25, 2025 12:57pm Health Concerns [...] or prosecute any alcohol or drug abuse patient.[facility] SystemIn the event this information is protected by the Federal Confidentiality of Alcohol and Drug Abuse Patient Records regulations: The Federal rules restrict any use of the information to criminally investigate or prosecute any alcohol or drug abuse patient.[facility] Reason for Visit (unrecogniz ed section and content) Reason Comments Sinus Problem Sinus, congestion bi lateral ear pressure, BLOOM and face hurts x 1 day Reason Comments Sinus Problem With fever, ear pain , face and eye pain x 1 day Care Teams (unrecognized sec tion and content) Looper Operator Relationship Specialty Start Date End Date Michael Coles MD [address] [place] [address] PCP - General Internal Medicine 07/31/22 Team [...] Provider, Refer ring Provider Active Beth Britt MATHEMATICAL ENGINEERING TECHNICIAN, MATHEMATICAL ENGINEERING TECHNICIAN-C Attending Provider Active Team Status: Inactive Member [...] Coles MD Primary Care Provider Active Dr. Bnejamín Ponce MD Emergency Provider Active Team Status: Inactive Member Role Status Dates Dr. Michael Coles MD Primary Care Provider, Atten ding Provider Active Team Status: Inactive Member Role Status Dates Dr. Michael Coles MD Primary Care Provider Active Dr. Alfonso Abraham MD Emergency Provider Active Team Status: Inactive Member Role Status Dates Dr. Michael Coles MD Primary Care Provider Active Beth Britt MATHEMATICAL ENGINEERING TECHNICIAN, MATHEMATICAL ENGINEERING TECHNICIAN-C Attending Provider, Referring Provider Active Team Status: Inactive Member Role Status Dates Dr. Michael Coles MD Primary Care Provider Active Dr. Alfonso Abraham MD Attending Provider, Emergency Pro vider Active Looper Operator Relationship Specialty [place] [address] [place] [address] PCP - General Internal Medicine 07/31/22 Team [...] Inactive Member Role/Relationship Status Dates Dr. Michael Cloes MD Primary care physician Activ e Start: [...] section and content) DATE CREATED AUTHOR 08/10/2023 [facility] DATE CREATED AUTHOR AUTHOR'S ESTEBAN CARRION 06/22/2025 [facility] FOR RECORDS PERTAINING TO PATIENTS WHO ARE [...] BE BASED ON THE PRIMARY CLINICAL RECORDS. [facility] [employer] [facility]. provides no warranty or guarantee of the accuracy or completeness of information in this document.
== END | disposition home or self-care (01) ==
PROVIDERS: PCP Internal Medicine; Referring Provider Internal Medicine Cardiovascular Disease; Visit Provider Internal Medicine Cardiovascular Disease
DX: R55 Syncope and collapse (principal); I48.0 Paroxysmal atrial fibrillation
CPT/HCPCS: 70450